=== PATIENT | female | born 1955 | race African-American/Black ===

== ENCOUNTER 2018-08-07 | Emergency (ER) | payer SELFPAY ==
--- OUTSIDE RECORDS SUMMARY | 2018-08-07 00:04 | XMS REPORT | Continuity of Care Document ---
:1955 Author Organization Interface Problems Problem Status Onset Classification Date Comments Source Date Reported FULLNESS IN CLAVICULAR Active [place] AREA 780.4 ACUTE 015 FULLNESS IN Active [facility] CLAVICULAR AREA 780.4 015 ACUTE 784.2 - SWELLING IN Active [facility] 015 [place] VERTIGO Active Condition 02/21/2015 Medical 015 Group TOBACCO ABUSE Active Condition 02/21/2015 Medical 015 Group SWELLING, MASS, OR Active Condition 02/21/2015 Medical LUMP IN HEAD AND NECK 015 Group [id number] Active [facility] 014 COPD Active Condition 02/21/2015 Medical 014 Group OBSTRUCTIVE SLEEP Active Condition 02/21/2015 Medical APNEA 014 Group RECTAL BLEEDING Active Condition 02/21/2015 Medical 014 Group SPECIAL SCREENING FOR Active Condition 02/21/2015 Medical MALIGNANT NEOPLASMS 013 Group COLON SLEEP APNEA Active Condition 02/21/2015 Medical 013 Group KNEE PAIN, BILATERAL Active Condition 02/21/2015 Medical 013 Group BACK PAIN, LUMBAR, Active Condition 02/21/2015 Medical CHRONIC 013 Group SHOULDER PAIN, LEFT Active Condition 02/21/2015 Medical 013 Group HIP PAIN, BILATERAL Active Condition 02/21/2015 Medical 013 Group PREDIABETES Active Condition 02/21/2015 Medical 013 Group CHF, MILD Active Condition 02/21/2015 Medical 013 Group HYPERCHOLESTEROLEMIA Active Condition 02/21/2015 Medical Group HYPERTENSION - BENIGN Active Condition 02/21/2015 Medical ESSENTIAL Group HYPOTHYROIDISM Active Condition 02/21/2015 Medical Group FH DIABETES - DM Active Condition 02/21/2015 Medical Group FH HEART DISEASE Active Condition 02/21/2015 Medical Group FH STROKE Active Condition 02/21/2015 Medical Group FH COLON CANCER Active Condition 02/21/2015 Medical Group Medications Medication Details Route Status Patient Ordering Order Source Instructions Provider Date LOSARTAN 1 tablet Active POTASSIUM-HCTZ daily 015 Medical 100-25 MG TABS Group SYMBICORT 2 puffs Active 160-4.5 MCG/ACT twice daily 015 Medical AERO Group BLOOD PRESSURE Use daily to No Longer MONITOR TERRANCE monitor Active 014 Medical Blood Group Pressure FLONASE 50 2 Active MH MCG/ACT SUSP puffs/nostri 013 Medical l daily Group LEVAQUIN 500 MG 1 PO Daily No Longer MH TABS Active 013 Medical Group DIOVAN HCT One po daily No Longer 160-[address] Waldrop Active 013 Medical BRAND Group NECESSARY CARVEDILOL 12.5 One po twice Active MH MG TABS daily 013 Medical Group CARVEDILOL 12.5 One po twice Active MH MG TABS daily 013 Medical Group BLOOD PRESSURE Use as No Longer MONITOR/L CUFF directed Active 013 Medical MISC Group PROVENTIL HFA 2 puffs q4-6 Active MH AERS 120 MCG/ACT hrs prn 013 Medical Group PROAIR HFA 108 2 puffs Active MH (90 BASE) every 4-6 013 Medical MCG/ACT AERS hours as Group needed for cough, wheezing, shortness of breath ASPIRIN 81 MG One po daily Active MH TABS 013 Medical Group SIMVASTATIN 20 One po daily Active MH MG TABS 013 Medical Group LEVOTHYROXINE One po daily Active SODIUM 100 MCG 013 Medical TABS Group AMLODIPINE One po daily Active BESYLATE 5 MG 013 Medical TABS Group SIMVASTATIN 20 One po daily Active MH MG TABS 013 Medical Group AMLODIPINE One po daily Active BESYLATE 5 MG 013 Medical TABS Group AMLODIPINE 1 tablet Active BESYLATE 10 MG daily 013 Medical TABS Group Allergies, Adverse Reactions, Alerts Substance Category Reaction Severity Reaction Status Date Comments Source type Reported DEMEROL Drug DEMEROL allergy 3 Medical Group IVP DYE / Drug IVP DYE / ORAL allergy ORAL 3 Medical Group Immunizations Immunization Date Given Site Status Last Updated Comments Source Results Order Name Results Value Reference Date Interpretation Comments Source Range Chemistry TSH 0.703 uIU/mL 0.360 - 02/21 3.740 /2014 Medical Group Chemistry SODIUM 143 MEQ/L 135 - 145 02/21 mmol/L Medical Group Chemistry POTASSIUM 3.8 MEQ/L 3.5 - 5.1 02/21 mmol/L Medical Group Chemistry CREATININE 0.9 mg/dL 0.5 - 1.4 02/21 Medical Group Chemistry BUN 8 mg/dL 7 - 22 02/21 Medical Group Chemistry BUN/CREAT 9 6 - 25 02/21 Medical Group Chemistry ALBUMIN 3.7 g/dL 3.5 - 5.0 02/21 Medical Group Chemistry CALCIUM 9.4 mg/dL 8.5 - 10.5 02/21 Medical Group Chemistry SGPT (ALT) 21 U/L 0 - 65 02/21 Medical Group Chemistry SGOT (AST) 15 U/L 0 - 37 02/21 Medical Group Chemistry ALK PHOS 72 U/L 39 - 136 02/21 Medical Group Hematology HGB 15.1 g/dL 12.0 - 02/21 16.0 Medical Group Hematology HCT 46.2 % 36.0 - 02/21 48.0 /2014 Medical Group Hematology PLATELETS 152 K/CMM 133 - 450 02/21 /mm3 Medical Group Urinalysis UA COLOR Light Yellow 02/21 Medical Group Urinalysis BACTERIA URN Occasional 02/21 Medical Group Chemistry HGBA1C 6.2 % - 5.6 11/22 Medical Group Chemistry SODIUM 143 MEQ/L 135 - 145 11/22 mmol/L Medical Group Chemistry POTASSIUM 4.2 MEQ/L 3.5 - 5.1 11/22 mmol/L Medical Group Chemistry CREATININE 0.9 mg/dL 0.5 - 1.4 11/22 Medical Group Chemistry BUN 9 mg/dL 7 - 22 11/22 Medical Group Chemistry HGBA1C 6.2 % - 5.6 11/22 Medical Group Chemistry SODIUM 143 MEQ/L 135 - 145 11/22 mmol/L /2014 Medical Group Chemistry POTASSIUM 4.2 MEQ/L 3.5 - 5.1 11/22 mmol/L Medical Group Chemistry CREATININE 0.9 mg/dL 0.5 - 1.4 11/22 Medical Group Chemistry BUN 9 mg/dL 7 - 22 11/22 Medical Group Chemistry BUN/CREAT 10 6 - 25 11/22 Medical Group Chemistry ALBUMIN 3.6 g/dL 3.5 - 5.0 11/22 Medical Group Chemistry CALCIUM 9.3 mg/dL 8.5 - 10.5 11/22 Medical Group Chemistry SGPT (ALT) 16 U/L 0 - 65 11/22 Medical Group Chemistry SGOT (AST) 13 U/L 0 - 37 11/22 Medical Group Chemistry ALK PHOS 66 U/L 39 - 136 11/22 Medical Group Chemistry T4, FREE 0.88 ng/dl 0.76 - 11/22 1.46 /2014 Medical Group Chemistry TSH 2.870 uIU/mL 0.360 - 11/22 3.740 /2014 Medical Group Hematology HGB 15.0 g/dL 12.0 - 11/22 16.0 /2014 Medical Group Hematology HCT 45.5 % 36.0 - 11/22 48.0 /2014 Medical Group Hematology PLATELETS 145 K/CMM 133 - 450 11/22 / Medical Group Chemistry HGBA1C 6.1 % - 5.6 06/22 Medical Group Chemistry CHOLESTEROL 185 mg/dl - 199 06/22 Medical Group Chemistry TRIGLYCERIDE 87 mg/dl - 149 06/22 Medical Group Chemistry HGBA1C 6.1 % - 5.6 06/22 Medical Group Chemistry CHOLESTEROL 185 mg/dl - 199 06/22 Medical Group Chemistry TRIGLYCERIDE 87 mg/dl - 149 06/22 Medical Group Chemistry HDL 65 mg/dl >=61 06/22 Medical Group Chemistry LDL 103 mg/dl - 99 06/22 Medical Group Chemistry HGBA1C 6.1 % - 5.6 06/22 Medical Group Chemistry CHOLESTEROL 185 mg/dl - 199 06/22 Medical Group Chemistry TRIGLYCERIDE 87 mg/dl - 149 06/22 Medical Group Chemistry HDL 65 mg/dl >=61 06/22 Medical Group Chemistry LDL 103 mg/dl - 99 06/22 Medical Group Chemistry SODIUM 139 MEQ/L 135 - 145 06/22 mmol/L Medical Group Chemistry POTASSIUM 4.2 MEQ/L 3.5 - 5.1 06/22 mmol/L Medical Group Chemistry CREATININE 0.8 mg/dL 0.5 - 1.4 06/22 Medical Group Chemistry BUN 15 mg/dL 7 - 22 06/22 Medical Group Chemistry BUN/CREAT 19 6 - 25 06/22 Medical Group Chemistry ALBUMIN 4.0 g/dL 3.5 - 5.0 06/22 Medical Group Chemistry CALCIUM 9.8 mg/dL 8.5 - 10.5 06/22 Medical Group Chemistry SGPT (ALT) 18 U/L 0 - 65 06/22 Medical Group Chemistry SGOT (AST) 13 U/L 0 - 37 06/22 Medical Group Chemistry ALK PHOS 63 U/L 39 - 136 06/22 Medical Group Chemistry TSH 1.900 uIU/mL 0.360 - 06/22 3.740 /2013 Medical Group Hematology HGB 14.6 g/dL 12.0 - 06/22 16. Medical Group Hematology HCT 44.9 % 36.0 - 06/22 48.0 Medical Group Hematology PLATELETS 168 K/CMM 133 - 450 06/22 MH /mm3 Medical Group Hematology HGB 14.4 g/dL 12.0 - 11/01 16. Medical Group Hematology HCT 45.5 % 36.0 - 11/01 48.0 Medical Group Hematology PLATELETS 165 K/CMM 133 - 450 11/01 MH /mm3 Medical Group Chemistry HGBA1C 6.0 % - 5.6 10/12 Medical Group Chemistry CHOLESTEROL 206 mg/dl - 199 10/12 Medical Group Chemistry TRIGLYCERIDE 103 mg/dl - 149 10/12 Medical Group Chemistry HGBA1C 6.0 % - 5.6 10/12 Medical Group Chemistry CHOLESTEROL 206 mg/dl - 199 10/12 Medical Group Chemistry TRIGLYCERIDE 103 mg/dl - 149 10/12 Medical Group Chemistry HDL 54 mg/dl >=61 10/12 Medical Group Chemistry LDL 131 mg/dl - 99 10/12 Medical Group Chemistry HGBA1C 6.0 % - 5.6 10/12 Medical Group Chemistry CHOLESTEROL 206 mg/dl - 199 10/12 Medical Group Chemistry TRIGLYCERIDE 103 mg/dl - 149 10/12 Medical Group Chemistry HDL 54 mg/dl >=61 10/12 Medical Group Chemistry LDL 131 mg/dl - 99 10/12 Medical Group Chemistry SODIUM 143 MEQ/L 135 - 145 10/12 mmol/L Medical Group Chemistry POTASSIUM 4.3 MEQ/L 3.5 - 5.1 10/12 mmol/L Medical Group Chemistry CREATININE 0.7 mg/dL 0.5 - 1.4 10/12 Medical Group Chemistry BUN 10 mg/dL 7 - 10/12 Medical Group Chemistry BUN/CREAT 14 6 - 25 10/12 Medical Group Chemistry ALBUMIN 4.0 g/dL 3.5 - 5.0 10/12 Medical Group Chemistry CALCIUM 10.1 mg/dL 8.5 - 10.5 10/12 Medical Group Chemistry SGPT (ALT) 18 U/L 0 - 65 10/12 Medical Group Chemistry SGOT (AST) 11 U/L 0 - 37 10/12 Medical Group Chemistry ALK PHOS 73 U/L 39 - 136 10/12 Medical Group Hematology HGB 14.8 g/dL 12.0 - 10/12 16.0 Medical Group Hematology HCT 46.0 % 36.0 - 10/12 48.0 Medical Group Hematology PLATELETS 172 K/CMM 133 - 450 10/12 Medical Group Chemistry HGBA1C 6.2 % - 5.6 07/07 Medical Group Chemistry CHOLESTEROL 195 mg/dl - 199 07/07 Medical Group Chemistry TRIGLYCERIDE 108 mg/dl - 149 07/07 Medical Group Chemistry HGBA1C 6.2 % - 5.6 07/07 Medical Group Chemistry CHOLESTEROL 195 mg/dl - 199 07/07 Medical Group Chemistry TRIGLYCERIDE 108 mg/dl - 149 07/07 Medical Group Chemistry HDL 51 mg/dl >=61 07/07 Medical Group Chemistry LDL 122 mg/dl - 99 07/07 Medical Group Chemistry HGBA1C 6.2 % - 5.6 07/07 Medical Group Chemistry CHOLESTEROL 195 mg/dl - 199 07/07 Medical Group Chemistry TRIGLYCERIDE 108 mg/dl - 149 07/07 Medical Group Chemistry HDL 51 mg/dl >=61 07/07 Medical Group Chemistry LDL 122 mg/dl - 99 07/07 Medical Group Chemistry SODIUM 142 MEQ/L 135 - 145 07/07 mmol/L /2012 Medical Group Chemistry POTASSIUM 4.4 MEQ/L 3.5 - 5.1 07/07 mmol/L Medical Group Chemistry CREATININE 0.8 mg/dL 0.5 - 1.4 07/07 Medical Group Chemistry BUN 10 mg/dL 7 - 22 07/07 Medical Group Chemistry BUN/CREAT 12 6 - 25 07/07 Medical Group Chemistry ALBUMIN 3.7 g/dL 3.5 - 5.0 07/07 Medical Group Chemistry CALCIUM 9.7 mg/dL 8.5 - 10.5 07/07 Medical Group Chemistry SGPT (ALT) 14 U/L 0 - 65 07/07 Medical Group Chemistry SGOT (AST) 10 U/L 0 - 37 07/07 Medical Group Chemistry ALK PHOS 75 U/L 39 - 136 07/07 Medical Group Chemistry T4, FREE 1.09 ng/dl 0.76 - 07/07 1.46 /2012 Medical Group Chemistry TSH 1.880 uIU/mL 0.360 - 07/07 3.740 /2012 Medical Group Hematology HGB 15.5 g/dL 12.0 - 07/07 16.0 Medical Group Hematology HCT 46.5 % 36.0 - 07/07 48.0 Medical Group Hematology PLATELETS 166 K/CMM 133 - 450 07/07 / Medical Group Vital Signs Vital Sign Value Date Comments Source Height 64 02/21/2015 Medical Group Weight 278.38 02/21/2015 Medical Group Temperature Oral (F) 95.7 F 02/21/2015 [facility] Heart Rate 85 02/21/2015 [facility] Systolic (mm Hg) 142 02/21/2015 [facility] Diastolic (mm Hg) 85 02/21/2015 Medical Group Height 64 11/22/2014 Medical Group Weight 288 11/22/2014 [facility] Temperature Oral (F) 97.4 F 11/22/2014 [facility] Heart Rate 85 11/22/2014 [facility] Systolic (mm Hg) 129 11/22/2014 [facility] Diastolic (mm Hg) 69 11/22/2014 Medical Group Height 64 06/22/2014 [facility] Weight 281 06/22/2014 [facility] Temperature Oral (F) 96.7 F 06/22/2014 Medical Group Heart Rate 79 06/22/2014 [facility] Systolic (mm Hg) 109 06/22/2014 [facility] Diastolic (mm Hg) 60 06/22/2014 Medical Group Weight 274.0 11/01/2013 [facility] Temperature Oral (F) 98.0 F 11/01/2013 [facility] Systolic (mm Hg) 142 11/01/2013 [facility] Diastolic (mm Hg) 82 11/01/2013 Medical Group Heart Rate 48 11/01/2013 Medical Group Weight 276.0 10/12/2013 Medical Group Temperature Oral (F) 97.4 F 10/12/2013 Medical Group Systolic (mm Hg) 140 10/12/2013 Medical Group Diastolic (mm Hg) 86 10/12/2013 Medical Group Heart Rate 84 10/12/2013 Medical Group Weight 282.0 07/07/2013 Medical Group Temperature Oral (F) 98.4 F 07/07/2013 Medical Group Systolic (mm Hg) 115 07/07/2013 Medical Group Diastolic (mm Hg) 66 07/07/2013 Medical Group Heart Rate 84 07/07/2013 Medical Group Height 64 03/18/2013 Medical Group Weight 289.4 03/18/2013 Medical Group Temperature Oral (F) 97.3 F 03/18/2013 Medical Group Systolic (mm Hg) 110 03/18/2013 Medical Group Diastolic (mm Hg) 59 03/18/2013 Medical Group Heart Rate 93 03/18/2013 Medical Group Encounters Location Location Encounter Encounter Reason Attending ADM DC Status Source Details Type Number For Provider Date Date Visit [facility] Office [id number] [facility] 06[facility]22 [facility] Eugene [facility] Medical Group [facility] Lab Report [id number] Moiz 06/22 06/22 [place] 7000 MD Eugene /2013 Medical Medical [facility] Lab Report [id number] Moiz 06/29 06/29 [place] 6470 MD Eugene /2013 Medical Medical [facility] Office [id number] Moiz 11/22 11/22 [place] Visit 8330 MD Eugene /2014 Medical Medical [facility] Lab Report [id number] Moiz 11/22 11/22 [place] 3280 MD Eugene /2014 Medical Medical [facility] Lab Report [id number] Moiz 02/21 02/21 [place] 8210 MD Eugene /2014 Medical Medical [facility] Office [id number] Moiz 02/21 02/21 [place] Visit 7990 MD Eugene /2014 Medical Medical [facility] Outpatient [id number] CATHY 07/21 [facility] /2014 [place] Outpatient [id number] MOIZ 07/21 [facility] /2014 [place] Outpatient [id number] CATHY 02/21 [facility] /2015 [place] Outpatient [id number] CATHY 03/08 [facility] /2015 [place] Procedures Procedure Code Date Perfomer Comments Source smoking/tobacco 14 02/21/2015 yes Medical cessation, patient Group education and counseling smoking/tobacco 14 11/22/2014 yes Medical cessation, patient Group education and counseling smoking/tobacco 14 06/22/2014 yes Medical cessation, patient Group education and counseling smoking/tobacco 14 11/01/2013 DONE Medical cessation, patient Group education and counseling smoking/tobacco 14 10/12/2013 DONE Medical cessation, patient Group education and counseling smoking/tobacco 14 07/07/2013 yes Medical cessation, patient Group education and counseling smoking/tobacco 14 03/18/2013 DONE Medical cessation, patient Group education and counseling echocardiogram, [id number] 01/14/2013 Complete Medical complete Group
--- OUTSIDE RECORDS SUMMARY | 2018-08-07 00:05 | XMS REPORT | Continuity of Care Document ---
:1955 Author Organization [facility] Care Team Providers Name Role Phone MD Eugene, Verenice Unavailable Unavailable Insurance Providers Payer name Policy type / Policy ID Covered constitution party ID Policy [employer] Coverage type [facility] (MEDIC Encounters Encounter Performer Location Date Lab Report Verenice Knight MD [facility] Jun 22, 2014 Allergies, Adverse Reactions, Alerts Type Substance Reaction Status Drug allergy DEMEROL Mental state Active Drug allergy IVP DYE / ORAL Vomiting, rash Active Problems Problem Effective Dates Problem Status HYPERCHOLESTEROLEMIA Active HYPERTENSION - BENIGN ESSENTIAL Active HYPOTHYROIDISM Active FH DIABETES - DM Active FH HEART DISEASE Active FH STROKE Active FH COLON CANCER Active PREDIABETES March 18, 2013 Active CHF, MILD March 18, 2013 Active SLEEP APNEA Jul 07, 2013 Active KNEE PAIN, BILATERAL Jul 07, 2013 Active BACK PAIN, LUMBAR, CHRONIC Jul 07, 2013 Active SHOULDER PAIN, LEFT Jul 07, 2013 Active HIP PAIN, BILATERAL Jul 07, 2013 Active SPECIAL SCREENING FOR MALIGNANT NEOPLASMS COLON Oct 12, 2013 Active RECTAL BLEEDING Nov 01, 2013 Active COPD (CHRONIC OBSTRUCTIVE PULMONARY DISEASE) Jun 22, 2014 Active OBSTRUCTIVE SLEEP APNEA Jun 22, 2014 Active Procedures Date Description Comments March 18, 2013 smoking status current every day smoker March 18, 2013 smoking/tobacco cessation, patient education DONE and counseling Jul 07, 2013 smoking/tobacco cessation, patient education yes and counseling Oct 12, 2013 smoking/tobacco cessation, patient education DONE and counseling Nov 01, 2013 smoking/tobacco cessation, patient education DONE and counseling Jan 14, 2013 echocardiogram, complete Complete Jun 22, 2014 smoking status Current every day smoker Jun 22, 2014 smoking/tobacco cessation, patient education yes and counseling Medications Medication Instructions Start Date Status ASPIRIN 81 MG TABS One po daily March 18, 2013 Active SIMVASTATIN 20 MG TABS One po daily March 18, 2013 Active PROVENTIL HFA AERS 120 MCG/ACT 2 puffs q4-6 hrs prn Jun 07, 2013 Active BLOOD PRESSURE MONITOR/L CUFF Use as directed Jul 07, 2013 Inactive MISC FLONASE 50 MCG/ACT SUSP 2 puffs/nostril daily Oct 12, 2013 Active LEVAQUIN 500 MG TABS 1 PO Daily Oct 12, 2013 Inactive DIOVAN HCT 160-25 MG TABS One po daily per Dr Benjie CALABRESE Oct 12, 2013 Active NECESSARY CARVEDILOL 12.5 MG TABS One po twice daily Oct 12, 2013 Active LEVOTHYROXINE SODIUM 100 MCG One po daily March 18, 2013 Active TABS AMLODIPINE BESYLATE 5 MG TABS One po daily March 18, 2013 Active BLOOD PRESSURE MONITOR TERRANCE Use daily to monitor Blood Nov 01, 2013 Inactive Pressure Vital Signs Date Description Test Result March 18, 2013 height E&M HEIGHT 64 in March 18, 2013 weight E&M WEIGHT 289.4 lb March 18, 2013 temperature E&M TEMPERATURE 97.3 deg f March 18, 2013 blood pressure, systolic BP SYSTOLIC 110 mm Hg March 18, 2013 blood pressure, diastolic BP DIASTOLIC 59 mm Hg March 18, 2013 pulse rate E&M PULSE RATE 93 /min Jul 07, 2013 weight E&M WEIGHT 282.0 lb Jul 07, 2013 temperature E&M TEMPERATURE 98.4 deg f Jul 07, 2013 blood pressure, systolic BP SYSTOLIC 115 mm Hg Jul 07, 2013 blood pressure, diastolic BP DIASTOLIC 66 mm Hg Jul 07, 2013 pulse rate E&M PULSE RATE 84 /min Oct 12, 2013 weight E&M WEIGHT 276.0 lb Oct 12, 2013 temperature E&M TEMPERATURE 97.4 deg f Oct 12, 2013 blood pressure, systolic BP SYSTOLIC 140 mm Hg Oct 12, 2013 blood pressure, diastolic BP DIASTOLIC 86 mm Hg Oct 12, 2013 pulse rate E&M PULSE RATE 84 /min Nov 01, 2013 weight E&M WEIGHT 274.0 lb Nov 01, 2013 temperature E&M TEMPERATURE 98.0 deg f Nov 01, 2013 blood pressure, systolic BP SYSTOLIC 142 mm Hg Nov 01, 2013 blood pressure, diastolic BP DIASTOLIC 82 mm Hg Nov 01, 2013 pulse rate E&M PULSE RATE 48 /min Jun 22, 2014 height E&M HEIGHT 64 in Jun 22, 2014 weight E&M WEIGHT 281 lb Jun 22, 2014 temperature E&M TEMPERATURE 96.7 deg f Jun 22, 2014 pulse rate E&M PULSE RATE 79 /min Jun 22, 2014 blood pressure, systolic BP SYSTOLIC 109 mm Hg Jun 22, 2014 blood pressure, diastolic BP DIASTOLIC 60 mm Hg Results Date Description Test Name Value Reference Interpretation Status Jul 07, hemoglobin, blood HGB 15.5 g/dL 12.0-16.0 2012Jul 07, hematocrit, blood HCT 46.5 % 36.0-48.0 2012Jul 07, platelet count PLATELETS 166 K/CMM 166-685 2090 /mm3 Oct 12, hemoglobin, blood HGB 14.8 g/dL 12.0-16.0 2012Oct 12, hematocrit, blood HCT 46.0 % 36.0-48.0 2012Oct 12, platelet count PLATELETS 172 K/CMM [phone] /mm3 Nov 01, hemoglobin, blood HGB 14.4 g/dL 12.0-16.0 2013Nov 01, hematocrit, blood HCT 45.5 % 36.0-48.0 2013Nov 01, platelet count PLATELETS 165 K/CMM 153-394 1628 /mm3 Jun 22, hemoglobin, blood HGB 14.6 g/dL 12.0-16.0 2013Jun 22, hematocrit, blood HCT 44.9 % 36.0-48.0 2013Jun 22, platelet count PLATELETS 168 K/CMM [phone] /mm3 Jul 07, hemoglobin A1C, HGBA1C 6.2 % <=5.6 High 2012 blood, as % of total hemoglobin Jul 07, cholesterol, serum CHOLESTEROL 195 mg/dl <=199 2012Jul 07, triglyceride, serum, TRIGLYCERIDE 108 mg/dl <=149 2012 fasting Jul 07, HDL cholesterol, HDL 51 mg/dl >=61 Low 2012Jul 07, LDL cholesterol, LDL 122 mg/dl <=99 High 2012Jul 07, sodium, serum SODIUM 142 MEQ/L [phone] mmol/L Jul 07, potassium, serum POTASSIUM 4.4 MEQ/L 3.5-5.1 2012 mmol/L Jul 07, creatinine, serum CREATININE 0.8 mg/dL 0.5-1.4 2012Jul 07, urea nitrogen, blood BUN 10 mg/dL 7-22 2012Jul 07, urea BUN/CREAT 12 null 6-25 2012 nitrogen/creatinine ratio, serum Jul 07, albumin, serum ALBUMIN 3.7 g/dL 3.5-5.0 2012Jul 07, calcium, serum CALCIUM 9.7 mg/dL 8.5-10.5 2012Jul 07, alanine SGPT (ALT) 14 U/L 0-65 2012 aminotransferase (SGPT), serum Jul 07, aspartate SGOT (AST) 10 U/L 0-37 2012 aminotransferase (SGOT), serum Jul 07, alkaline ALK PHOS 75 U/L 39-136 2012 phosphatase, serum Jul 07, thyroxine, serum, T4, FREE 1.09 0.76-1.46 2012 free ng/dl Jul 07, thyroid stimulating TSH 1.880 0.360-3.740 2012 hormone, serum uIU/mL Oct 12, hemoglobin A1C, HGBA1C 6.0 % <=5.6 High 2012 blood, as % of total hemoglobin Oct 12, cholesterol, serum CHOLESTEROL 206 mg/dl <=199 High 2012Oct 12, triglyceride, serum, TRIGLYCERIDE 103 mg/dl <=149 2012 fasting Oct 12, HDL cholesterol, HDL 54 mg/dl >=61 Low 2012 serum Oct 12, LDL cholesterol, LDL 131 mg/dl <=99 High 2012 serum Oct 12, sodium, serum SODIUM 143 MEQ/L [phone] mmol/L Oct 12, potassium, serum POTASSIUM 4.3 MEQ/L 3.5-5.1 2012 mmol/L Oct 12, creatinine, serum CREATININE 0.7 mg/dL 0.5-1.4 2012Oct 12, urea nitrogen, blood BUN 10 mg/dL 72012Oct 12, urea BUN/CREAT 14 null 6-25 2012 nitrogen/creatinine ratio, serum Oct 12, albumin, serum ALBUMIN 4.0 g/dL 3.5-5.0 2012Oct 12, calcium, serum CALCIUM 10.1 8.5-10.5 2012 mg/dL Oct 12, alanine SGPT (ALT) 18 U/L 0-65 2012 aminotransferase (SGPT), serum Oct 12, aspartate SGOT (AST) 11 U/L 0-37 2012 aminotransferase (SGOT), serum Oct 12, alkaline ALK PHOS 73 U/L 39-136 2012 phosphatase, serum Jun 22, hemoglobin A1C, HGBA1C 6.1 % <=5.6 High 2014 blood, as % of total hemoglobin Jun 22, cholesterol, serum CHOLESTEROL 185 mg/dl <=199 2013Jun 22, triglyceride, serum, TRIGLYCERIDE 87 mg/dl <=149 2013 fasting Jun 22, HDL cholesterol, HDL 65 mg/dl >=61 2013 serum Jun 22, LDL cholesterol, LDL 103 mg/dl <=99 High 2013 serum Jun 22, sodium, serum SODIUM 139 MEQ/L [phone] mmol/L Jun 22, potassium, serum POTASSIUM 4.2 MEQ/L 3.5-5.1 2013 mmol/L Jun 22, creatinine, serum CREATININE 0.8 mg/dL 0.5-1.4 2013Jun 22, urea nitrogen, blood BUN 15 mg/dL 7-22 2013Jun 22, urea BUN/CREAT 19 null 6-25 2013 nitrogen/creatinine ratio, serum Jun 22, albumin, serum ALBUMIN 4.0 g/dL 3.5-5.0 2013Jun 22, calcium, serum CALCIUM 9.8 mg/dL 8.5-10.5 2013Jun 22, alanine SGPT (ALT) 18 U/L 0-65 2013 aminotransferase (SGPT), serum Jun 22, aspartate SGOT (AST) 13 U/L 0-37 2013 aminotransferase (SGOT), serum Jun 22, alkaline ALK PHOS 63 U/L 39-136 2013 phosphatase, serum Jun 22, thyroid stimulating TSH 1.900 0.360-3.740 2013 hormone, serum uIU/mL
--- OUTSIDE RECORDS SUMMARY | 2018-08-07 00:05 | XMS REPORT | Continuity of Care Document ---
:1955 Author Organization [facility] Care Team Providers Name Role Phone MD Eugene, Verenice Unavailable Unavailable Insurance Providers Payer name Policy type / Policy ID Covered democrat ID Policy Landeros Coverage type [facility] STAR PLUS (MEDIC Encounters Encounter Performer Location Date Office Visit Verenice Knight MD [facility] Jun 22, 2014 Allergies, Adverse Reactions, Alerts [...] 2012Jul 07, platelet count PLATELETS 166 K/CMM [phone] /mm3 Oct 12, hemoglobin, blood HGB 14.8 g/dL 12.0-16.0 2012Oct 12, hematocrit, blood HCT 46.0 % 36.0-48.0 2012Oct 12, platelet count PLATELETS 172 K/CMM 067-948 5693 /mm3 Nov 01, hemoglobin, blood HGB 14.4 g/dL 12.0-16.0 2013Nov 01, hematocrit, blood HCT 45.5 % 36.0-48.0 2013Nov 01, platelet count PLATELETS 165 K/CMM 102-739 5980 /mm3 Jun 22, hemoglobin, blood HGB 14.6 g/dL 12.0-16.0 2013Jun 22, hematocrit, blood HCT 44.9 % 36.0-48.0 2013Jun 22, platelet count PLATELETS 168 K/CMM 697-037 4801 /mm3 Jul 07, hemoglobin A1C, HGBA1C 6.2 % <=5.6 High 2012 blood, as % of total hemoglobin Jul 07, cholesterol, serum CHOLESTEROL 195 mg/dl <=199 2012Jul 07, triglyceride, serum, TRIGLYCERIDE 108 mg/dl <=149 2012 fasting Jul 07, HDL cholesterol, HDL 51 mg/dl >=61 Low 2012Jul 07, LDL cholesterol, LDL 122 mg/dl <=99 High 2012Jul 07, sodium, serum SODIUM 142 MEQ/L [phone] mmol/L Jul 07, potassium, serum POTASSIUM 4.4 [...] Oct 12, sodium, serum SODIUM 143 MEQ/L 096-945 5093 mmol/L Oct 12, potassium, serum POTASSIUM 4.3 [...] Jun 22, sodium, serum SODIUM 139 MEQ/L 214-010 9316 mmol/L Jun 22, potassium, serum POTASSIUM 4.2 [...]
--- OUTSIDE RECORDS SUMMARY | 2018-08-07 00:05 | XMS REPORT | Continuity of Care Document ---
:1955 Author Organization [facility] Care Team Providers Name Role Phone MD Eugene, Verenice Unavailable Unavailable Insurance Providers Payer name Policy type / Policy ID Covered green party ID Policy Landeros Coverage type [facility] STAR PLUS (MEDIC Encounters Encounter Performer Location Date Lab Report Verenice Knight MD [facility] [place] Jun 29, 2014 Allergies, Adverse Reactions, Alerts Type Substance [...] Test Result March 18, 2013 height E&M - 8302-2 HEIGHT 64 in March 18, 2013 weight E&M - 3141-9 WEIGHT 289.4 lb March 18, 2013 temperature E&M TEMPERATURE 97.3 deg f March 18, 2013 blood pressure, systolic - 8480-6 BP SYSTOLIC 110 mm Hg March 18, 2013 blood pressure, diastolic - 8462-4 BP DIASTOLIC 59 mm Hg March 18, 2013 pulse rate E&M - 8867-4 PULSE RATE 93 /min Jul 07, 2013 weight E&M - 3141-9 WEIGHT 282.0 lb Jul 07, 2013 temperature E&M TEMPERATURE 98.4 deg f Jul 07, 2013 blood pressure, systolic - 8480-6 BP SYSTOLIC 115 mm Hg Jul 07, 2013 blood pressure, diastolic - 8462-4 BP DIASTOLIC 66 mm Hg Jul 07, 2013 pulse rate E&M - 8867-4 PULSE RATE 84 /min Oct 12, 2013 weight E&M - 3141-9 WEIGHT 276.0 lb Oct 12, 2013 temperature E&M TEMPERATURE 97.4 deg f Oct 12, 2013 blood pressure, systolic - 8480-6 BP SYSTOLIC 140 mm Hg Oct 12, 2013 blood pressure, diastolic - 8462-4 BP DIASTOLIC 86 mm Hg Oct 12, 2013 pulse rate E&M - 8867-4 PULSE RATE 84 /min Nov 01, 2013 weight E&M - 3141-9 WEIGHT 274.0 lb Nov 01, 2013 temperature E&M TEMPERATURE 98.0 deg f Nov 01, 2013 blood pressure, systolic - 8480-6 BP SYSTOLIC 142 mm Hg Nov 01, 2013 blood pressure, diastolic - 8462-4 BP DIASTOLIC 82 mm Hg Nov 01, 2013 pulse rate E&M - 8867-4 PULSE RATE 48 /min Jun 22, 2014 height E&M - 8302-2 HEIGHT 64 in Jun 22, 2014 weight E&M - 3141-9 WEIGHT 281 lb Jun 22, 2014 temperature E&M TEMPERATURE 96.7 deg f Jun 22, 2014 pulse rate E&M - 8867-4 PULSE RATE 79 /min Jun 22, 2014 blood pressure, systolic - 8480-6 BP SYSTOLIC 109 mm Hg Jun 22, 2014 blood pressure, diastolic - 8462-4 BP DIASTOLIC 60 mm Hg Results Date Description Test Name Value Reference Interpretation Status Jul 07, hemoglobin, blood HGB 15.5 g/dL 12.0-16.0 2012Jul 07, hematocrit, blood HCT 46.5 % 36.0-48.0 2012Jul 07, platelet count PLATELETS 166 K/CMM 432-027 1825 /mm3 Oct 12, hemoglobin, blood HGB 14.8 g/dL 12.0-16.0 2012Oct 12, hematocrit, blood HCT 46.0 % 36.0-48.0 2012Oct 12, platelet count PLATELETS 172 K/CMM 966-675 4234 /mm3 Nov 01, hemoglobin, blood HGB 14.4 g/dL 12.0-16.0 2013Nov 01, hematocrit, blood HCT 45.5 % 36.0-48.0 2013Nov 01, platelet count PLATELETS 165 K/CMM 143-115 7013 /mm3 Jun 22, hemoglobin, blood HGB 14.6 g/dL 12.0-16.0 2013Jun 22, hematocrit, blood HCT 44.9 % 36.0-48.0 2013Jun 22, platelet count PLATELETS 168 K/CMM 724-859 0947 /mm3 Jul 07, hemoglobin A1C, HGBA1C 6.2 % <=5.6 High 2012 blood, as % of total hemoglobin Jul 07, cholesterol, serum CHOLESTEROL 195 mg/dl <=199 2012Jul 07, triglyceride, serum, TRIGLYCERIDE 108 mg/dl <=149 2012 fasting Jul 07, HDL cholesterol, HDL 51 mg/dl >=61 Low 2012 serum Jul 07, LDL cholesterol, LDL 122 mg/dl <=99 High 2012 serum Jul 07, sodium, serum SODIUM 142 MEQ/L 620-079 3274 mmol/L Jul 07, potassium, serum POTASSIUM 4.4 [...] Oct 12, sodium, serum SODIUM 143 MEQ/L 246-393 1813 mmol/L Oct 12, potassium, serum POTASSIUM 4.3 MEQ/L 3.5-5.1 2012 mmol/L Oct 12, creatinine, serum CREATININE 0.7 mg/dL 0.5-1.4 2012Oct 12, urea nitrogen, blood BUN 10 mg/dL 05-10Oct 12, urea BUN/CREAT 14 null 6-25 2012 [...] Jun 22, sodium, serum SODIUM 139 MEQ/L 076-785 0567 mmol/L Jun 22, potassium, serum POTASSIUM 4.2 [...] Jun 22, thyroid stimulating TSH 1.900 0.360-3.740 2014 hormone, serum uIU/mL
--- OUTSIDE RECORDS SUMMARY | 2018-08-07 00:05 | XMS REPORT | Continuity of Care Document ---
:1955 Author Organization [facility] Care Team Providers Name Role Phone MD Eugene, Verenice Unavailable Unavailable Insurance Providers Payer name Policy type / Policy ID Covered constitution party ID Policy Landeros Coverage type [facility] C[facility] - STAR PLUS (MEDIC [facility] (MEDIC Encounters Encounter Performer Location Date Office Visit Verenice Knight MD [facility] Nov 22, 2014 Allergies, Adverse Reactions, Alerts Type [...] OBSTRUCTIVE SLEEP APNEA Jun 22, 2014 Active TOBACCO ABUSE Nov 22, 2014 Active SWELLING, MASS, OR LUMP IN HEAD AND NECK Nov 22, 2014 Active Procedures Date Description Comments [...] smoking/tobacco cessation, patient education yes and counseling Nov 22, 2014 smoking status Current every day smoker Nov 22, 2014 smoking/tobacco cessation, patient education yes and counseling Medications Medication Instructions Start Date Status ASPIRIN 81 MG TABS One po daily March 18, 2013 Active SIMVASTATIN 20 MG TABS One po daily March 18, 2013 Active BLOOD PRESSURE MONITOR/L CUFF Use [...] monitor Blood Nov 01, 2013 Inactive Pressure PROAIR HFA 108 (90 BASE) MCG/ACT 2 puffs every 4-6 hours as Jun 07, 2013 Active AERS needed for cough, wheezing, shortness of breath SYMBICORT 160-4.5 MCG/ACT AERO 2 puffs twice daily Nov 22, 2014 Active Vital Signs Date Description Test Result March 18, 2013 height E&M - 8302-2 HEIGHT 64 in March 18, 2013 weight [employer] - 3141-9 WEIGHT 289.4 lb March 18, 2013 temperature E&M TEMPERATURE 97.3 deg f March 18, 2013 blood pressure, systolic - 8480-6 BP SYSTOLIC 110 mm Hg March 18, 2013 blood pressure, diastolic - 8462-4 BP DIASTOLIC 59 mm Hg March 18, 2013 pulse rate E&M - 8867-4 PULSE RATE 93 /min Jul 07, 2013 weight [employer] - 3141-9 WEIGHT 282.0 lb Jul 07, 2013 temperature E&M TEMPERATURE 98.4 deg f Jul 07, 2013 blood pressure, systolic - 8480-6 BP SYSTOLIC 115 mm Hg Jul 07, 2013 blood pressure, diastolic - 8462-4 BP DIASTOLIC 66 mm Hg Jul 07, 2013 pulse rate E&M - 8867-4 PULSE RATE 84 /min Oct 12, 2013 weight [employer] - 3141-9 WEIGHT 276.0 lb Oct 12, [...] - 8462-4 BP DIASTOLIC 60 mm Hg Nov 22, 2014 height E&M - 8302-2 HEIGHT 64 in Nov 22, 2014 weight E&M - 3141-9 WEIGHT 288 lb Nov 22, 2014 temperature E&M TEMPERATURE 97.4 deg f Nov 22, 2014 pulse rate E&M - 8867-4 PULSE RATE 85 /min Nov 22, 2014 blood pressure, systolic - 8480-6 BP SYSTOLIC 129 mm Hg Nov 22, 2014 blood pressure, diastolic - 8462-4 BP DIASTOLIC 69 mm Hg Results Date Description Test Name Value Reference Interpretation Status Jul 07, hemoglobin, blood HGB 15.5 g/dL 12.0-16.0 2012Jul 07, hematocrit, blood HCT 46.5 % 36.0-48.0 2012Jul 07, platelet count PLATELETS 166 K/CMM 862-180 7104 /mm3 Oct 12, hemoglobin, blood HGB 14.8 g/dL 12.0-16.0 2012Oct 12, hematocrit, blood HCT 46.0 % 36.0-48.0 2012Oct 12, platelet count PLATELETS 172 K/CMM 405-571 4534 /mm3 Nov 01, hemoglobin, blood HGB 14.4 g/dL 12.0-16.0 2013Nov 01, hematocrit, blood HCT 45.5 % 36.0-48.0 2013Nov 01, platelet count PLATELETS 165 K/CMM 338-771 6898 /mm3 Jun 22, hemoglobin, blood HGB 14.6 g/dL 12.0-16.0 2013Jun 22, hematocrit, blood HCT 44.9 % 36.0-48.0 2013Jun 22, platelet count PLATELETS 168 K/CMM 131-839 0260 /mm3 Nov 22, hemoglobin, blood HGB 15.0 g/dL 12.0-16.0 2014Nov 22, hematocrit, blood HCT 45.5 % 36.0-48.0 2014Nov 22, platelet count PLATELETS 145 K/CMM 770-996 4864 /mm3 Jul 07, hemoglobin A1C, HGBA1C 6.2 % <=5.6 High 2012 blood, as % of total hemoglobin Jul 07, cholesterol, serum CHOLESTEROL 195 mg/dl <=199 2012Jul 07, triglyceride, serum, TRIGLYCERIDE 108 mg/dl <=149 2012Jul 07, HDL cholesterol, HDL 51 mg/dl >=61 Low 2012Jul 07, LDL cholesterol, LDL 122 mg/dl <=99 High 2012Jul 07, sodium, serum SODIUM 142 MEQ/L 023-168 5720 mmol/L Jul 07, potassium, serum POTASSIUM 4.4 [...] Oct 12, sodium, serum SODIUM 143 MEQ/L 204-543 6325 mmol/L Oct 12, potassium, serum POTASSIUM 4.3 [...] hemoglobin A1C, HGBA1C 6.1 % <=5.6 High 2013 blood, as % of total hemoglobin Jun 22, cholesterol, serum CHOLESTEROL 185 mg/dl <=199 2013Jun 22, triglyceride, serum, TRIGLYCERIDE 87 mg/dl <=149 2013 fasting Jun 22, HDL cholesterol, HDL 65 mg/dl >=61 2013 serum Jun 22, LDL cholesterol, LDL 103 mg/dl <=99 High 2013 serum Jun 22, sodium, serum SODIUM 139 MEQ/L 021-921 0011 mmol/L Jun 22, potassium, serum POTASSIUM 4.2 MEQ/L 3.5-5.1 2013 mmol/L Jun 22, creatinine, serum CREATININE 0.8 mg/dL 0.5-1.4 2013Jun 22, urea nitrogen, blood BUN 15 mg/dL 05-10Jun 22, urea BUN/CREAT 19 null 6-25 2013 [...] TSH 1.900 0.360-3.740 2013 hormone, serum uIU/mL Nov 22, hemoglobin A1C, HGBA1C 6.2 % <=5.6 High 2014 blood, as % of total hemoglobin Nov 22, sodium, serum SODIUM 143 MEQ/L 008-540 2983 mmol/L Nov 22, potassium, serum POTASSIUM 4.2 MEQ/L 3.5-5.1 2014 mmol/L Nov 22, creatinine, serum CREATININE 0.9 mg/dL 0.5-1.4 2014Nov 22, urea nitrogen, blood BUN 9 mg/dL 7-22 2014Nov 22, urea BUN/CREAT 10 null 6-25 2014 nitrogen/creatinine ratio, serum Nov 22, albumin, serum ALBUMIN 3.6 g/dL 3.5-5.0 2014Nov 22, calcium, serum CALCIUM 9.3 mg/dL 8.5-10.5 2014Nov 22, alanine SGPT (ALT) 16 U/L 0-65 2014 aminotransferase (SGPT), serum Nov 22, aspartate SGOT (AST) 13 U/L 0-37 2014 aminotransferase (SGOT), serum Nov 22, alkaline ALK PHOS 66 U/L 39-136 2014 phosphatase, serum Nov 22, thyroxine, serum, T4, FREE 0.88 0.76-1.46 2014 free ng/dl Nov 22, thyroid stimulating TSH 2.870 0.360-3.740 2015 hormone, serum uIU/mL
--- OUTSIDE RECORDS SUMMARY | 2018-08-07 00:06 | XMS REPORT | Continuity of Care Document ---
:1955 Author Organization [facility] Care Team Providers Name Role Phone MD Eugene, Verenice Unavailable Unavailable Insurance Providers Payer name Policy type / Policy ID Covered alliance party ID Policy Landeros Coverage type [facility] CARE - STAR PLUS (MEDIC [facility] (MEDIC Encounters Encounter Performer Location Date Office Visit Verenice Knight MD [facility] February 21, 2015 Allergies, Adverse Reactions, Alerts Type Substance Reaction [...] HEAD AND NECK Nov 22, 2014 Active VERTIGO February 21, 2015 Active Procedures Date Description Comments March 18, [...] smoking/tobacco cessation, patient education yes and counseling February 21, 2015 smoking status Current every day smoker February 21, 2015 smoking/tobacco cessation, patient education yes and counseling [...] 1 PO Daily Oct 12, 2013 Inactive CARVEDILOL 12.5 MG TABS One po twice daily Oct 12, 2013 Active LEVOTHYROXINE SODIUM 100 MCG One po daily March 18, 2013 Active TABS BLOOD PRESSURE MONITOR TERRANCE Use daily to monitor Blood Nov 01, 2013 Inactive Pressure PROAIR HFA 108 (90 BASE) MCG/ACT 2 puffs every 4-6 hours as Jun 07, 2013 Active AERS needed for cough, wheezing, shortness of breath SYMBICORT 160-4.5 MCG/ACT AERO 2 puffs twice daily Nov 22, 2014 Active LOSARTAN POTASSIUM-HCTZ 100-25 1 tablet daily Jan 20, 2015 Active MG TABS DIOVAN HCT 160-25 MG TABS One po daily per Dr Benjie CALABRESE Oct 12, 2013 Inactive NECESSARY AMLODIPINE BESYLATE 10 MG TABS 1 tablet daily March 18, 2013 Active Vital Signs Date Description Test Result [...] RATE 84 /min Nov 01, 2013 weight John&M - 3141-9 WEIGHT 274.0 lb Nov 01, [...] HEIGHT 64 in Jun 22, 2014 weight John&M - 3141-9 WEIGHT 281 lb Jun 22, [...] HEIGHT 64 in Nov 22, 2014 weight John&Aly - 3141-9 WEIGHT 288 lb Nov 22, 2014 temperature E&M TEMPERATURE 97.4 deg f Nov 22, 2014 pulse rate E&M - 8867-4 PULSE RATE 85 /min Nov 22, 2014 blood pressure, systolic - 8480-6 BP SYSTOLIC 129 mm Hg Nov 22, 2014 blood pressure, diastolic - 8462-4 BP DIASTOLIC 69 mm Hg February 21, 2015 height E&M - 8302-2 HEIGHT 64 in February 21, 2015 weight E&M - 3141-9 WEIGHT 278.38 lb February 21, 2015 temperature E&M TEMPERATURE 95.7 deg f February 21, 2015 pulse rate E&M - 8867-4 PULSE RATE 85 /min February 21, 2015 blood pressure, systolic - 8480-6 BP SYSTOLIC 142 mm Hg February 21, 2015 blood pressure, diastolic - 8462-4 BP DIASTOLIC 85 mm Hg Results Date Description Test Name Value Reference Interpretation Status Jul 07, hemoglobin, blood HGB 15.5 g/dL 12.0-16.0 2012Jul 07, hematocrit, blood HCT 46.5 % 36.0-48.0 2012Jul 07, platelet count PLATELETS 166 K/CMM 756-724 3812 /mm3 Oct 12, hemoglobin, blood HGB 14.8 g/dL 12.0-16.0 2012Oct 12, hematocrit, blood HCT 46.0 % 36.0-48.0 2012Oct 12, platelet count PLATELETS 172 K/CMM 381-810 7235 /mm3 Nov 01, hemoglobin, blood HGB 14.4 g/dL 12.0-16.0 2013Nov 01, hematocrit, blood HCT 45.5 % 36.0-48.0 2013Nov 01, platelet count PLATELETS 165 K/CMM 117-828 4832 /mm3 Jun 22, hemoglobin, blood HGB 14.6 g/dL 12.0-16.0 2013Jun 22, hematocrit, blood HCT 44.9 % 36.0-48.0 2013Jun 22, platelet count PLATELETS 168 K/CMM 555-855 8363 /mm3 Nov 22, hemoglobin, blood HGB 15.0 g/dL 12.0-16.0 2014Nov 22, hematocrit, blood HCT 45.5 % 36.0-48.0 2014Nov 22, platelet count PLATELETS 145 K/CMM 708-660 3307 /mm3 February 21, hemoglobin, blood HGB 15.1 g/dL 12.0-16.0 2014February 21, hematocrit, blood HCT 46.2 % 36.0-48.0 2014February 21, platelet count PLATELETS 152 K/CMM 778-000 0594 /mm3 February 21, urine color UA COLOR Light Yellow Yellow 2014February 21, bacteria, urine BACTERIA URN Occasional None Seen 2014 microscopy null Jul 07, hemoglobin A1C, HGBA1C 6.2 % <=5.6 High 2012 blood, as % of total hemoglobin Jul 07, cholesterol, serum CHOLESTEROL 195 mg/dl <=199 2012Jul 07, triglyceride, TRIGLYCERIDE 108 mg/dl <=149 2012 serum, fasting Jul 07, HDL cholesterol, HDL 51 mg/dl >=61 Low 2012 serum Jul 07, LDL cholesterol, LDL 122 mg/dl <=99 High 2012 serum Jul 07, sodium, serum SODIUM 142 MEQ/L [phone] mmol/L Jul 07, potassium, serum POTASSIUM 4.4 MEQ/L 3.5-5.1 2012 mmol/L Jul 07, creatinine, serum CREATININE 0.8 mg/dL 0.5-1.4 2012Jul 07, urea nitrogen, BUN 10 mg/dL 7-2012 blood Sep , urea BUN/CREAT 12 null 6-25 2012 nitrogen/creatinine [...] Jul 07, thyroxine, serum, T4, FREE 1.09 ng/dl 0.76-1.46 2012 free Jul 07, thyroid stimulating TSH 1.880 uIU/mL 0.360-3.740 2012 hormone, serum Oct 12, hemoglobin A1C, HGBA1C 6.0 % <=5.6 High 2012 blood, as % of total hemoglobin Oct 12, cholesterol, serum CHOLESTEROL 206 mg/dl <=199 High 2012Oct 12, triglyceride, TRIGLYCERIDE 103 mg/dl <=149 2012 serum, fasting Oct 12, HDL cholesterol, HDL 54 mg/dl >=61 Low 2012 serum Oct 12, LDL cholesterol, LDL 131 mg/dl <=99 High 2012 serum Oct 12, sodium, serum SODIUM 143 MEQ/L 239-906 7169 mmol/L Oct 12, potassium, serum POTASSIUM 4.3 MEQ/L 3.5-5.1 2012 mmol/L Oct 12, creatinine, serum CREATININE 0.7 mg/dL 0.5-1.4 2012Oct 12, urea nitrogen, BUN 10 mg/dL 05-10 blood Oct 12, urea BUN/CREAT 14 null 6-25 2012 nitrogen/creatinine ratio, serum Oct 12, albumin, serum ALBUMIN 4.0 g/dL 3.5-5.0 2012Oct 12, calcium, serum CALCIUM 10.1 mg/dL 8.5-10.5 2012Oct 12, alanine SGPT (ALT) 18 U/L 0-65 2012 aminotransferase (SGPT), serum Oct 12, aspartate SGOT (AST) 11 U/L 0-37 2012 aminotransferase (SGOT), serum Oct 12, alkaline ALK PHOS 73 U/L 39-136 2012 phosphatase, serum Jun 22, hemoglobin A1C, HGBA1C 6.1 % <=5.6 High 2014 blood, as % of total hemoglobin Jun 22, cholesterol, serum CHOLESTEROL 185 mg/dl <=199 2013Jun 22, triglyceride, TRIGLYCERIDE 87 mg/dl <=149 2014 serum, fasting Jun 22, HDL cholesterol, HDL 65 mg/dl >=61 2013 serum Jun 22, LDL cholesterol, LDL 103 mg/dl <=99 High 2014 serum Jun 22, sodium, serum SODIUM 139 MEQ/L 032-575 0495 mmol/L Jun 22, potassium, serum POTASSIUM 4.2 MEQ/L 3.5-5.1 2013 mmol/L Jun 22, creatinine, serum CREATININE 0.8 mg/dL 0.5-1.4 2013Jun 22, urea nitrogen, BUN 15 mg/dL 7-2013 blood Jun 22, urea BUN/CREAT 19 null 6-25 2013 [...] serum Jun 22, thyroid stimulating TSH 1.900 uIU/mL 0.360-3.740 2014 hormone, serum Nov 22, hemoglobin A1C, HGBA1C 6.2 % <=5.6 High 2015 blood, as % of total hemoglobin Nov 22, sodium, serum SODIUM 143 MEQ/L 425-043 2179 mmol/L Nov 22, potassium, serum POTASSIUM 4.2 MEQ/L 3.5-5.1 2014 mmol/L Nov 22, creatinine, serum CREATININE 0.9 mg/dL 0.5-1.4 2014Nov 22, urea nitrogen, BUN 9 mg/dL 7-22 2014 blood Nov 22, urea BUN/CREAT 10 null 6-25 2014 [...] Nov 22, thyroxine, serum, T4, FREE 0.88 ng/dl 0.76-1.46 2014 free Nov 22, thyroid stimulating TSH 2.870 uIU/mL 0.360-3.740 2014 hormone, serum February 21, thyroid stimulating TSH 0.703 uIU/mL 0.360-3.740 2014 hormone, serum February 21, sodium, serum SODIUM 143 MEQ/L 633-967 9165 mmol/L February 21, potassium, serum POTASSIUM 3.8 MEQ/L 3.5-5.1 2014 mmol/L February 21, creatinine, serum CREATININE 0.9 mg/dL 0.5-1.4 2014February 21, urea nitrogen, BUN 8 mg/dL 7-22 2014 blood February 21, urea BUN/CREAT 9 null 6-25 2014 nitrogen/creatinine ratio, serum February 21, albumin, serum ALBUMIN 3.7 g/dL 3.5-5.0 2014February 21, calcium, serum CALCIUM 9.4 mg/dL 8.5-10.5 2014February 21, alanine SGPT (ALT) 21 U/L 0-65 2014 aminotransferase (SGPT), serum February 21, aspartate SGOT (AST) 15 U/L 0-37 2014 aminotransferase (SGOT), serum February 21, alkaline ALK PHOS 72 U/L 39-136 2014 phosphatase, serum
--- OUTSIDE RECORDS SUMMARY | 2018-08-07 00:06 | XMS REPORT | Continuity of Care Document ---
:1955 Author Organization [facility] Care Team Providers Name Role Phone MD Eugene, Verenice Unavailable Unavailable Insurance Providers Payer name Policy type / Policy ID Covered constitution party ID Policy Landeros Coverage type [facility] [facility] C[facility] - STAR PLUS (MEDIC [facility] (MEDIC Encounters Encounter Performer Location Date Lab Report Verenice Knight MD [facility] Nov 22, 2014 Allergies, Adverse Reactions, Alerts [...] 2012Jul 07, platelet count PLATELETS 166 K/CMM [phone] /mm3 Oct 12, hemoglobin, blood HGB 14.8 g/dL 12.0-16.0 2012Oct 12, hematocrit, blood HCT 46.0 % 36.0-48.0 2012Oct 12, platelet count PLATELETS 172 K/CMM 613-844 8857 /mm3 Nov 01, hemoglobin, blood HGB 14.4 g/dL 12.0-16.0 2013Nov 01, hematocrit, blood HCT 45.5 % 36.0-48.0 2013Nov 01, platelet count PLATELETS 165 K/CMM 847-604 7586 /mm3 Jun 22, hemoglobin, blood HGB 14.6 g/dL 12.0-16.0 2013Jun 22, hematocrit, blood HCT 44.9 % 36.0-48.0 2013Jun 22, platelet count PLATELETS 168 K/CMM 229-610 2979 /mm3 Nov 22, hemoglobin, blood HGB 15.0 g/dL 12.0-16.0 2014Nov 22, hematocrit, blood HCT 45.5 % 36.0-48.0 2014Nov 22, platelet count PLATELETS 145 K/CMM 687-914 1424 /mm3 Jul 07, hemoglobin A1C, HGBA1C 6.2 [...] Jul 07, sodium, serum SODIUM 142 MEQ/L 013-585 6459 mmol/L Jul 07, potassium, serum POTASSIUM 4.4 [...] Oct 12, sodium, serum SODIUM 143 MEQ/L 336-978 7754 mmol/L Oct 12, potassium, serum POTASSIUM 4.3 MEQ/L 3.5-5.1 2012 mmol/L Oct 12, creatinine, serum CREATININE 0.7 mg/dL 0.5-1.4 2012Oct 12, urea nitrogen, blood BUN 10 mg/dL -2012Oct 12, urea BUN/CREAT 14 null 6-25 2012 [...] Jun 22, sodium, serum SODIUM 139 MEQ/L 237-348 2179 mmol/L Jun 22, potassium, serum POTASSIUM 4.2 MEQ/L 3.5-5.1 2013 mmol/L Jun 22, creatinine, serum CREATININE 0.8 mg/dL 0.5-1.4 2013Jun 22, urea nitrogen, blood BUN 15 mg/dL -2013Jun 22, urea BUN/CREAT 19 null 6-25 2013 [...] Nov 22, sodium, serum SODIUM 143 MEQ/L 184-166 4286 mmol/L Nov 22, potassium, serum POTASSIUM 4.2 [...] Nov 22, thyroid stimulating TSH 2.870 0.360-3.740 2014 hormone, serum uIU/mL
--- OUTSIDE RECORDS SUMMARY | 2018-08-07 00:06 | XMS REPORT | Continuity of Care Document ---
:1955 Author Organization [facility] Care Team Providers Name Role Phone MD Eugene, Verenice Unavailable Unavailable Insurance Providers Payer name Policy type / Policy ID Covered constitution party ID Policy Landeros Coverage type AMERIGROUP [facility] - STAR PLUS (MEDIC [facility]MEDIC Encounters Encounter Performer Location Date Lab Report Verenice Knight MD [facility] February 21, 2015 Allergies, Adverse Reactions, Alerts [...] RATE 84 /min Nov 01, 2013 weight John&Aly - 3141-9 WEIGHT 274.0 lb Nov 01, [...] HEIGHT 64 in Jun 22, 2014 weight John&Aly - 3141-9 WEIGHT 281 lb Jun 22, [...] in Nov 22, 2014 weight John&Aly - Pao1-9 WEIGHT 288 lb Nov 22, 2014 temperature [...] HEIGHT 64 in February 21, 2015 weight John&Aly - 3141-9 WEIGHT 278.38 lb February 21, [...] 2012Jul 07, platelet count PLATELETS 166 K/CMM 293-710 1073 /mm3 Oct 12, hemoglobin, blood HGB 14.8 g/dL 12.0-16.0 2012Oct 12, hematocrit, blood HCT 46.0 % 36.0-48.0 2012Oct 12, platelet count PLATELETS 172 K/CMM 729-057 8910 /mm3 Nov 01, hemoglobin, blood HGB 14.4 g/dL 12.0-16.0 2013Nov 01, hematocrit, blood HCT 45.5 % 36.0-48.0 2013Nov 01, platelet count PLATELETS 165 K/CMM 525-287 0480 /mm3 Jun 22, hemoglobin, blood HGB 14.6 g/dL 12.0-16.0 2013Jun 22, hematocrit, blood HCT 44.9 % 36.0-48.0 2013Jun 22, platelet count PLATELETS 168 K/CMM 061-160 5546 /mm3 Nov 22, hemoglobin, blood HGB 15.0 g/dL 12.0-16.0 2014Nov 22, hematocrit, blood HCT 45.5 % 36.0-48.0 2014Nov 22, platelet count PLATELETS 145 K/CMM 152-577 4230 /mm3 February 21, hemoglobin, blood HGB 15.1 g/dL 12.0-16.0 2014February 21, hematocrit, blood HCT 46.2 % 36.0-48.0 2014February 21, platelet count PLATELETS 152 K/CMM 737-117 1761 /mm3 February 21, urine color UA COLOR [...] Jul 07, sodium, serum SODIUM 142 MEQ/L 236-811 9663 mmol/L Jul 07, potassium, serum POTASSIUM 4.4 MEQ/L 3.5-5.1 2012 mmol/L Jul 07, creatinine, serum CREATININE 0.8 mg/dL 0.5-1.4 2012Jul 07, urea nitrogen, BUN 10 mg/dL 7-22 2012 blood Jul 07, urea BUN/CREAT 12 null 6-25 2012 [...] Oct 12, sodium, serum SODIUM 143 MEQ/L 821-787 6707 mmol/L Oct 12, potassium, serum POTASSIUM 4.3 MEQ/L 3.5-5.1 2012 mmol/L Oct 12, creatinine, serum CREATININE 0.7 mg/dL 0.5-1.4 2012Oct 12, urea nitrogen, BUN 10 mg/dL 7-2012 blood Oct 12, urea BUN/CREAT 14 null [...] 2013Jun 22, triglyceride, TRIGLYCERIDE 87 mg/dl <=149 2013 serum, fasting Jun 22, HDL cholesterol, HDL 65 mg/dl >=61 2013 serum Jun 22, LDL cholesterol, LDL 103 mg/dl <=99 High 2014 serum Sep , sodium, serum SODIUM 139 MEQ/L 040-600 7068 mmol/L Jun 22, potassium, serum POTASSIUM 4.2 MEQ/L 3.5-5.1 2013 mmol/L Jun 22, creatinine, serum CREATININE 0.8 mg/dL 0.5-1.4 2013Jun 22, urea nitrogen, BUN 15 mg/dL -2013 blood Jun 22, urea BUN/CREAT 19 null [...] 22, thyroid stimulating TSH 1.900 uIU/mL 0.360-3.740 2013 hormone, serum Nov 22, hemoglobin A1C, HGBA1C 6.2 % <=5.6 High 2015 blood, as % of total hemoglobin Nov 22, sodium, serum SODIUM 143 MEQ/L 997-386 8233 mmol/L Nov 22, potassium, serum POTASSIUM 4.2 MEQ/L 3.5-5.1 2014 mmol/L Nov 22, creatinine, serum CREATININE 0.9 mg/dL 0.5-1.4 2014Nov 22, urea nitrogen, BUN 9 mg/dL -2014 blood Nov 22, urea BUN/CREAT 10 null [...] February 21, sodium, serum SODIUM 143 MEQ/L 747-033 4830 mmol/L February 21, potassium, serum POTASSIUM 3.8 [...]
--- NOTE | 2018-08-07 01:04 | ER ---
Nurse's Notes [facility] Name: Yessica Linder Age: 63 yrs Sex: Female : 1955 Arrival Date: 08/07/2018 Time: 00:01 Bed 19 Private MD: Diagnosis: Sprain of ankle;Contusion of foot Presentation: 08/07 00:20 Presenting complaint: Patient states: tripped on the side walk yesterday with right cc3 foot pain and swelling. Transition of care: patient was not received from another setting of care. Onset of symptoms was August 06, 2018. Risk Assessment: Do you want to hurt yourself or someone else? Patient reports no desire to harm self or others. Initial Sepsis Screen: Does the patient meet any 2 criteria? No. Patient's initial sepsis screen is negative. Does the patient have a suspected source of infection? No. Patient's initial sepsis screen is negative. Care prior to arrival: None. 00:20 Method Of Arrival: Wheelchair cc3 00:20 Acuity: RANDY 3 cc3 Triage Assessment: 00:20 General: Appears in no apparent distress. uncomfortable, Behavior is calm, cooperative, cc3 appropriate for age. Pain: Complains of pain in right foot Pain currently is 10 out of 10 on a pain scale. Quality of pain is described as aching. EENT: No signs and/or symptoms were reported regarding the EENT system. Neuro: Level of Consciousness is awake, alert, obeys commands, Oriented to person, place, time, situation, Appropriate for age. Cardiovascular: Denies chest pain. Respiratory: Airway is patent Respiratory effort is even, unlabored, Respiratory pattern is regular, symmetrical. GI: Abdomen is round obese. : No signs and/or symptoms were reported regarding the genitourinary system. Derm: No signs and/or symptoms reported regarding the dermatologic system. Musculoskeletal: Swelling present in right foot Reports pain in right foot. Historical: - Allergies: 00:20 Iodine; cc3 00:20 Demerol; cc3 - Home Meds: 00:20 levothyroxine oral once daily [Active]; Ecotrin 325 mg Oral TbEC 1 tab once daily cc3 [Active]; amlodipine oral once daily [Active]; carvedilol oral oral 1 tab daily [Active]; losartan oral oral 2 times per day [Active]; Simvastatin Oral once at bedtime [Active]; metformin 500 mg Oral tab 1 tab 2 times per day [Active]; - PMHx: 00:20 Degenerative disc disease; Hypertension; Diabetes - NIDDM; COPD; CHF; hyperthyroidism; cc3 Hyperlipidemia; - PSHx: 00:20 Hernia repair; Hysterectomy; removal of lump in right breast; cc3 - Immunization history:: Adult Immunizations not up to date. - Social history:: Smoking status: Patient uses tobacco products, cigars. - Ebola Screening: : No symptoms or risks identified at this time. Screenin:20 Abuse screen: Denies threats or abuse. Denies injuries from another. Nutritional cc3 screening: No deficits noted. Tuberculosis screening: No symptoms or risk factors identified. Fall Risk Ambulatory Aid- Crutches/Cane/Walker (15 pts). Gait- Weak (10 pts.). Mental Status- Oriented to own ability (0 pts). Assessment: 00:20 General: see triage assessment. cc3 00:43 Reassessment: Patient appears in no apparent distress at this time. Patient and/or cc3 family updated on plan of care and expected duration. Pain level reassessed. Patient is alert, oriented x 3, equal unlabored respirations, skin warm/dry/pink. right foot and ankle xray done as ordered. 01:30 Reassessment: Patient appears in no apparent distress at this time. Patient and/or cc3 family updated on plan of care and expected duration. Pain level reassessed. Patient is alert, oriented x 3, equal unlabored respirations, skin warm/dry/pink. Patient discharged home with prescription given. No IV cannula in situ. Right boot applied as ordered. Patient left ER vitally stable by wheelchair with family. Vital Signs: 00:20 BP 129 / 66; Pulse 88; Resp 20 S; Temp 98.5(O); Pulse Ox 97% on R/A; Weight 137.89 kg; cc3 Height 5 ft. 4 in. (162.56 cm); Pain 1010; 01:15 BP 131 / 67; Pulse 85; Resp 19 S; Pulse Ox 97% on R/A; cc3 00:20 Body Mass Index 52.18 (137.89 kg, 162.56 cm) cc3 ED Course: 00:01 Patient arrived in ED. mr 00:20 Cordel, Becka is Primary Nurse. cc3 00:20 Arm band placed on right wrist. cc3 00:20 Patient has correct armband on for positive identification. Bed in low position. Call cc3 light in reach. Side rails up X 1. Pulse ox on. NIBP on. 00:23 Waylon Mata PA is PHCP. jr8 00:23 Jose Armando Saldivar MD is Attending Physician. jr8 00:30 Triage completed. cc3 00:53 X-ray completed. Portable x-ray completed in exam room. Patient tolerated procedure kw well. 00:54 XRAY Foot RIGHT 3 View In Process Unspecified. EDMS 00:54 XRAY Ankle RIGHT 3 view In Process Unspecified. EDMS 01:02 Elvis Wilkinson MD is Referral Physician. jr8 01:30 No provider procedures requiring assistance completed. Patient did not have IV access cc3 during this emergency room visit. Administered Medications: 01:07 Drug: Towanda (7.5 mg-325 mg) 1 tabs Route: PO; cc3 01:30 Follow up: Response: No adverse reaction; Pain is decreased cc3 Outcome: 01:03 Discharge ordered by . jr8 01:30 Discharged to home via wheelchair, with family. cc3 01:30 Condition: stable 01:30 Discharge instructions given to patient, family, Instructed on discharge instructions, follow up and referral plans. medication usage, Demonstrated understanding of instructions, follow-up care, medications, Prescriptions given X 1. 01:50 Patient left the ED. cc3 Signatures: Dispatcher [employer] [facility] Joanna ReederTeresa Waylon Mata PA PA jr8 Becka Crystal cc3
--- NOTE | 2018-08-07 01:04 | EDPHYS ---
Physician Documentation [facility] Name: Yessica Linder Age: 63 yrs Sex: Female : 1955 Arrival Date: 08/07/2018 Time: 00:01 Bed 19 Private MD: ED Physician Jose Armando Saldivar HPI: 08/07 00:38 This 63 yrs old Black Female presents to ER via Wheelchair with complaints of Foot jr8 Pain, Fall Injury. 00:38 The patient presents with decreased range of motion, pain, tenderness. The complaints jr8 affect the right ankle and dorsum of right foot. Context: The problem was sustained outdoors, resulted from a mis-step, on a curb, the patient is not able to bear weight, the patient is not able to ambulate. Onset: The symptoms/episode began/occurred acutely, today. Modifying factors: The symptoms are alleviated by nothing. the symptoms are aggravated by movement, weight bearing. Associated signs and symptoms: The patient has no apparent associated signs or symptoms. Severity of symptoms: At their worst the symptoms were moderate, in the emergency department the symptoms are unchanged. It is unknown whether or not the patient has had similar symptoms in the past. The patient has not recently seen a physician. Accidental fall off of curb. Landed on right foot and ankle. Pain since incident . Historical: - Allergies: 00:20 Iodine; cc3 00:20 Demerol; cc3 - Home Meds: 00:20 levothyroxine oral once daily [Active]; Ecotrin 325 mg Oral TbEC 1 tab once daily cc3 [Active]; amlodipine oral once daily [Active]; carvedilol oral oral 1 tab daily [Active]; losartan oral oral 2 times per day [Active]; Simvastatin Oral once at bedtime [Active]; metformin 500 mg Oral tab 1 tab 2 times per day [Active]; - PMHx: 00:20 Degenerative disc disease; Hypertension; Diabetes - NIDDM; COPD; CHF; hyperthyroidism; cc3 Hyperlipidemia; - PSHx: 00:20 Hernia repair; Hysterectomy; removal of lump in right breast; cc3 - Immunization history:: Adult Immunizations not up to date. - Social history:: Smoking status: Patient uses tobacco products, cigars. - Ebola Screening: : No symptoms or risks identified at this time. ROS: 00:38 Eyes: Negative for injury, pain, redness, and discharge, ENT: Negative for injury, jr8 pain, and discharge, Neck: Negative for injury, pain, and swelling, Cardiovascular: Negative for chest pain, palpitations, and edema, Respiratory: Negative for shortness of breath, cough, wheezing, and pleuritic chest pain, Abdomen/GI: Negative for abdominal pain, nausea, vomiting, diarrhea, and constipation, Back: Negative for injury and pain, Skin: Negative for injury, rash, and discoloration, Neuro: Negative for headache, weakness, numbness, tingling, and seizure. 00:38 MS/extremity: Positive for decreased range of motion, pain, tenderness, of the dorsum of right foot and right ankle. Exam: 00:38 Head/Face: Normocephalic, atraumatic. Eyes: Pupils equal round and reactive to light, jr8 extra-ocular motions intact. Lids and lashes normal. Conjunctiva and sclera are non-icteric and not injected. Cornea within normal limits. Periorbital areas with no swelling, redness, or edema. ENT: Nares patent. No nasal discharge, no septal abnormalities noted. Tympanic membranes are normal and external auditory canals are clear. Oropharynx with no redness, swelling, or masses, exudates, or evidence of obstruction, uvula midline. Mucous membranes moist. Neck: Trachea midline, no thyromegaly or masses palpated, and no cervical lymphadenopathy. Supple, full range of motion without nuchal rigidity, or vertebral point tenderness. No Meningismus. Chest/axilla: Normal chest wall appearance and motion. Nontender with no deformity. No lesions are appreciated. Cardiovascular: Regular rate and rhythm with a normal S1 and S2. No gallops, murmurs, or rubs. Normal PMI, no JVD. No pulse deficits. Respiratory: Lungs have equal breath sounds bilaterally, clear to auscultation and percussion. No rales, rhonchi or wheezes noted. No increased work of breathing, no retractions or nasal flaring. Abdomen/GI: Soft, non-tender, with normal bowel sounds. No distension or tympany. No guarding or rebound. No evidence of tenderness throughout. Back: No spinal tenderness. No costovertebral tenderness. Full range of motion. Skin: Warm, dry with normal turgor. Normal color with no rashes, no lesions, and no evidence of cellulitis. Neuro: Awake and alert, GCS 15, oriented to person, place, time, and situation. Cranial nerves II-XII grossly intact. Motor strength 5/5 in all extremities. Sensory grossly intact. Cerebellar exam normal. Normal gait. 00:38 Musculoskeletal/extremity: Extremities: noted in the dorsum of right foot and right ankle: pain, tenderness, ROM: intact in all extremities, limited active range of motion, limited passive range of motion, limited active range of motion due to pain, limited passive range of motion due to pain, Circulation is intact in all extremities. Sensation intact. Vital Signs: 00:20 BP 129 / 66; Pulse 88; Resp 20 S; Temp 98.5(O); Pulse Ox 97% on R/A; Weight 137.89 kg; cc3 Height 5 ft. 4 in. (162.56 cm); Pain 10/10; 01:15 BP 131 / 67; Pulse 85; Resp 19 S; Pulse Ox 97% on R/A; cc3 00:20 Body Mass Index 52.18 (137.89 kg, 162.56 cm) cc3 Procedures: 01:01 Splinting: Splint applied to right foot using Ortho 3D boot, applied by nurse. Examined jr8 by me, post splint application: neurovascular intact, 2+ distal pulses palpable, brisk capillary refill noted, Patient tolerated well. MDM: 00:23 Patient medically screened. jr8 01:01 Data reviewed: vital signs, nurses notes, radiologic studies, plain films, and as a jr8 result, I will discharge patient. Data interpreted: Pulse oximetry: on room air is 97 %. Interpretation: normal. Counseling: I had a detailed discussion with the patient and/or guardian regarding: the historical points, exam findings, and any diagnostic results supporting the discharge/admit diagnosis, radiology results, the need for outpatient follow up, a family practitioner, to return to the emergency department if symptoms worsen or persist or if there are any questions or concerns that arise at home. 08/07 00:33 Order name: XRAY Foot RIGHT 3 View jr8 08/07 00:36 Order name: XRAY Ankle RIGHT 3 view jr8 08/07 01:01 Order name: Splint; Complete Time: 01:50 jr8 Administered Medications: 01:07 Drug: Pevely (7.5 mg-325 mg) 1 tabs Route: PO; cc3 01:30 Follow up: Response: No adverse reaction; Pain is decreased cc3 Disposition: 06:08 Co-signature as Attending Physician, Jose Armando Saldivar MD I agree with the assessment and jan plan of care. Disposition: 08/07/18 01:03 Discharged to Home. Impression: Sprain of ankle, Contusion of foot. - Condition is Stable. - Discharge Instructions: Ankle Sprain, Foot Contusion. - Prescriptions for Tylenol- Codeine #3 300-30 mg Oral Tablet - take 2 tablet by ORAL route every 6 hours As needed; 30 tablet. - Medication Reconciliation Form, Thank You Letter, Antibiotic Education, Prescription Opioid Use form. - Follow up: Elvis Wilkinson MD; When: 5 - 6 days; Reason: Recheck today's complaints, Continuance of care, Re-evaluation by your physician. - Problem is new. - Symptoms have improved. Signatures: Dispatcher [employer] [facility] Jose Armando Saldivar MD MD cha Roszak, Josh, PA PA jr8 Becka Crystal cc3 Corrections: (The following items were deleted from the chart) 01:50 01:03 08/07/2018 01:03 Discharged to Home. Impression: Sprain of ankle; Contusion of cc3 foot. Condition is Stable. Forms are Medication Reconciliation Form, Thank You Letter, Antibiotic Education, Prescription Opioid Use. Follow up: Elvis Wilkinson; When: 5 - 6 days; Reason: Recheck today's complaints, Continuance of care, Re-evaluation by your physician. Problem is new. Symptoms have improved. jr8
[2018-08-07] MEDS ORDERED: HYDROCODONE/APAP 7.5/325 MG TAB ONE (01:15)
[2018-08-07 01:59] VITALS: BP 129/66; TEMP 98.5; O2SAT 97
--- NOTE | 2018-08-07 08:18 | RAD REPORT ---
EXAM DESCRIPTION: RAD - Ankle Right 3 View - 08/07/2018 12:54 am CLINICAL HISTORY: Right ankle pain status post fall FINDINGS: No acute fracture or dislocation is seen. Diffuse edema is present within the subcutaneous tissues.
--- NOTE | 2018-08-07 08:22 | RAD REPORT ---
EXAM DESCRIPTION: RAD - Foot Right 3 View - 08/07/2018 12:53 am CLINICAL HISTORY: Right foot pain status post injury FINDINGS: Cortical regularity involves the third and fourth metatarsal necks. This is equivocal for a nondisplaced fractures and should be correlated clinically. Bones are osteoporotic. No dislocation is seen
== END 2018-08-07 01:50 | disposition home or self-care (01) ==
LOC: ER
DX: S93.401A Sprain of unspecified ligament of right ankle, initial encounter (principal); S90.31XA Contusion of right foot, initial encounter; W01.0XXA Fall on same level from slipping, tripping and stumbling without subsequent striking against object, initial encounter; Y93.9 Activity, unspecified; Y92.9 Unspecified place or not applicable; E11.9 Type 2 diabetes mellitus without complications; I10 Essential (primary) hypertension; E03.9 Hypothyroidism, unspecified; E78.5 Hyperlipidemia, unspecified; I50.9 Heart failure, unspecified; Z88.6 Allergy status to analgesic agent; Z91.09 Other allergy status, other than to drugs and biological substances
CPT/HCPCS: 99284

== ENCOUNTER 2018-09-17 19:48 | Emergency (ER) | payer SELFPAY ==
--- OUTSIDE RECORDS SUMMARY | 2018-09-17 19:50 | XMS REPORT | Continuity of Care Document ---
:1955 Author Organization Interface Problems Problem Status Onset Classification Date Comments Source Date Reported FULLNESS IN CLAVICULAR Active [place] AREA 780.4 ACUTE 015 FULLNESS IN Active [facility] CLAVICULAR AREA 780.4 015 ACUTE 784.2 - SWELLING IN Active [facility] 015 [place] VERTIGO Active Condition 02/21/2015 Medical 015 Group TOBACCO ABUSE Active Condition 02/21/2015 Medical 015 Group SWELLING, MASS, [place] Active Condition 02/21/2015 Medical LUMP IN HEAD AND NECK 015 Group [id number] Active [facility] 014 COPD Active Condition 02/21/2015 Medical 014 [...] Type Number For Provider Date Date Visit [facility] Office [id number] Mo[place] 06/22 06/22 [place] Visit 8550 MD Eugene /2013 Medical Medical [facility] Lab Report [id number] Moiz 06/22 06/22 [place] 7000 MD Eugene /2013 Medical Medical [facility] Lab Report [id number] Moiz 06/29 06/29 [place] 6470 MD Eugene /2013 Medical Medical [facility] Office [id number] Moiz 11/22 11/22 [place] Visit 8330 MD Eugene /2014 Medical Medical [facility] Lab Report [id number] Moiz 11/22 11/22 [place] 3280 MD Eugene /2014 Medical Medical [facility] Office [id number] Moiz 02/21 02/21 [place] Visit 7990 MD Eugene /2014 [facility] Lab Report [id number] Moiz 02/21 02/21 [facility] Eugene /2014 Medical Medical [facility] Outpatient [id number] CATHY 07/21 [facility] /2014 [facility] Outpatient [id number] MOIZ 07/[address] [facility] /2014 [facility] Outpatient [id number] CATHY 02/21 [facility] /2015 [facility] Outpatient [id number] CATHY 03/08 [facility] /2015 [place] Procedures Procedure Code Date Perfomer Comments Source [...] cessation, patient Group education and counseling echocardiogram, [address]89 01/14/2013 Complete Medical complete Group
--- OUTSIDE RECORDS SUMMARY | 2018-09-17 19:51 | XMS REPORT | Continuity of Care Document ---
:1955 Author Organization [facility] Care Team Providers Name Role Phone MD Eugene, Verenice Unavailable Unavailable Insurance Providers Payer name Policy type / Policy ID Covered democrat ID Policy Landeros Coverage type AMERIGROUP [facility] - STAR PLUS (MEDIC [facility]MEDIC Encounters Encounter Performer Location Date Office Visit Verenice Knight MD [facility] Nov 22, 2014 Allergies, Adverse Reactions, Alerts [...] HEIGHT 64 in March 18, 2013 weight Freepath - 3141-9 WEIGHT 289.4 lb March 18, 2013 temperature E&M TEMPERATURE 97.3 deg f March 18, 2013 blood pressure, systolic - 8480-6 BP SYSTOLIC 110 mm Hg March 18, 2013 blood pressure, diastolic - 8462-4 BP DIASTOLIC 59 mm Hg March 18, 2013 pulse rate E&M - 8867-4 PULSE RATE 93 /min Jul 07, 2013 weight Freepath - 3141-9 WEIGHT 282.0 lb Jul 07, 2013 temperature E&M TEMPERATURE 98.4 deg f Jul 07, 2013 blood pressure, systolic - 8480-6 BP SYSTOLIC 115 mm Hg Jul 07, 2013 blood pressure, diastolic - 8462-4 BP DIASTOLIC 66 mm Hg Jul 07, 2013 pulse rate E&M - 8867-4 PULSE RATE 84 /min Oct 12, 2013 weight [employer] - 3141-9 WEIGHT 276.0 lb Oct 12, [...] 2012Jul 07, platelet count PLATELETS 166 K/CMM 720-257 6025 /mm3 Oct 12, hemoglobin, blood HGB 14.8 g/dL 12.0-16.0 2012Oct 12, hematocrit, blood HCT 46.0 % 36.0-48.0 2012Oct 12, platelet count PLATELETS 172 K/CMM 313-158 2891 /mm3 Nov 01, hemoglobin, blood HGB 14.4 g/dL 12.0-16.0 2013Nov 01, hematocrit, blood HCT 45.5 % 36.0-48.0 2013Nov 01, platelet count PLATELETS 165 K/CMM 500-029 9606 /mm3 Jun 22, hemoglobin, blood HGB 14.6 g/dL 12.0-16.0 2013Jun 22, hematocrit, blood HCT 44.9 % 36.0-48.0 2013Jun 22, platelet count PLATELETS 168 K/CMM 576-958 2949 /mm3 Nov 22, hemoglobin, blood HGB 15.0 g/dL 12.0-16.0 2014Nov 22, hematocrit, blood HCT 45.5 % 36.0-48.0 2014Nov 22, platelet count PLATELETS 145 K/CMM 624-477 0718 /mm3 Jul 07, hemoglobin A1C, HGBA1C 6.2 % <=5.6 High 2012 blood, as % of total hemoglobin Jul 07, cholesterol, serum CHOLESTEROL 195 mg/dl <=199 2012Jul 07, triglyceride, serum, TRIGLYCERIDE 108 mg/dl <=149 2012Jul 07, HDL cholesterol, HDL 51 mg/dl >=61 Low 2012Jul 07, LDL cholesterol, LDL 122 mg/dl <=99 High 2012Jul 07, sodium, serum SODIUM 142 MEQ/L 763-223 1149 mmol/L Jul 07, potassium, serum POTASSIUM 4.4 [...] Oct 12, sodium, serum SODIUM 143 MEQ/L 797-336 8160 mmol/L Oct 12, potassium, serum POTASSIUM 4.3 [...] Jun 22, sodium, serum SODIUM 139 MEQ/L 459-353 7691 mmol/L Jun 22, potassium, serum POTASSIUM 4.2 [...] Nov 22, sodium, serum SODIUM 143 MEQ/L 878-215 7531 mmol/L Nov 22, potassium, serum POTASSIUM 4.2 [...]
--- OUTSIDE RECORDS SUMMARY | 2018-09-17 19:51 | XMS REPORT | Continuity of Care Document ---
:1955 Author Organization [facility] Care Team Providers Name Role Phone MD Eugene, Verenice Unavailable Unavailable Insurance Providers Payer name Policy type / Policy ID Covered green party ID Policy Landeros Coverage type [facility] STAR PLUS (MEDIC Encounters Encounter Performer Location Date Lab Report Verenice Knight MD [facility] Jun 22, 2014 Allergies, Adverse Reactions, Alerts [...] 2012Jul 07, platelet count PLATELETS 166 K/CMM [phone] /mm3 Oct 12, hemoglobin, blood HGB 14.8 g/dL 12.0-16.0 2012Oct 12, hematocrit, blood HCT 46.0 % 36.0-48.0 2012Oct 12, platelet count PLATELETS 172 K/CMM 643-848 6025 /mm3 Nov 01, hemoglobin, blood HGB 14.4 g/dL 12.0-16.0 2013Nov 01, hematocrit, blood HCT 45.5 % 36.0-48.0 2013Nov 01, platelet count PLATELETS 165 K/CMM 530-694 1989 /mm3 Jun 22, hemoglobin, blood HGB 14.6 g/dL 12.0-16.0 2013Jun 22, hematocrit, blood HCT 44.9 % 36.0-48.0 2013Jun 22, platelet count PLATELETS 168 K/CMM 460-368 8432 /mm3 Jul 07, hemoglobin A1C, HGBA1C 6.2 % <=5.6 High 2012 blood, as % of total hemoglobin Jul 07, cholesterol, serum CHOLESTEROL 195 mg/dl <=199 2012Jul 07, triglyceride, serum, TRIGLYCERIDE 108 mg/dl <=149 2012 fasting Jul 07, HDL cholesterol, HDL 51 mg/dl >=61 Low 2012Jul 07, LDL cholesterol, LDL 122 mg/dl <=99 High 2012Jul 07, sodium, serum SODIUM 142 MEQ/L 391-709 0847 mmol/L Jul 07, potassium, serum POTASSIUM 4.4 [...] Oct 12, sodium, serum SODIUM 143 MEQ/L 413-260 8895 mmol/L Oct 12, potassium, serum POTASSIUM 4.3 [...] Jun 22, sodium, serum SODIUM 139 MEQ/L 347-032 8301 mmol/L Jun 22, potassium, serum POTASSIUM 4.2 [...]
--- OUTSIDE RECORDS SUMMARY | 2018-09-17 19:51 | XMS REPORT | Continuity of Care Document ---
:[address] [facility] Care Team Providers Name Role Phone MD Eugene, Verenice Unavailable Unavailable Insurance Providers Payer name Policy type / Policy ID Covered libertarian ID Policy Landeros Coverage type [facility] (MEDIC Encounters Encounter Performer Location Date Office Visit Verenice Knight MD [facility] Jun 22, 2014 Allergies, Adverse Reactions, Alerts [...] 2012Jul 07, platelet count PLATELETS 166 K/CMM [phone] /mm3 Oct 12, hemoglobin, blood HGB 14.8 g/dL 12.0-16.0 2012Oct 12, hematocrit, blood HCT 46.0 % 36.0-48.0 2012Oct 12, platelet count PLATELETS 172 K/CMM [phone] /mm3 Nov 01, hemoglobin, blood HGB 14.4 g/dL 12.0-16.0 2013Nov 01, hematocrit, blood HCT 45.5 % 36.0-48.0 2013Nov 01, platelet count PLATELETS 165 K/CMM [phone] /mm3 Jun 22, hemoglobin, blood HGB 14.6 g/dL 12.0-16.0 2013Jun 22, hematocrit, blood HCT 44.9 % 36.0-48.0 2013Jun 22, platelet count PLATELETS 168 K/CMM [phone] /mm3 Jul 07, hemoglobin A1C, HGBA1C 6.2 % <=5.6 High 2012 blood, as % of total hemoglobin Jul 07, cholesterol, serum CHOLESTEROL 195 mg/dl <=199 2012Jul 07, triglyceride, serum, TRIGLYCERIDE 108 mg/dl <=149 2012 fasting Jul 07, HDL cholesterol, HDL 51 mg/dl >=61 Low 2012Jul 07, LDL cholesterol, LDL 122 mg/dl <=99 High 2012Jul 07, sodium, serum SODIUM 142 MEQ/L [phone] mmol/L Jul 07, potassium, serum POTASSIUM 4.4 [...] Oct 12, sodium, serum SODIUM 143 MEQ/L [phone] mmol/L Oct 12, potassium, serum POTASSIUM 4.3 [...] Jun 22, sodium, serum SODIUM 139 MEQ/L 265-357 3033 mmol/L Jun 22, potassium, serum POTASSIUM 4.2 [...]
--- OUTSIDE RECORDS SUMMARY | 2018-09-17 19:51 | XMS REPORT | Continuity of Care Document ---
:1955 Author Organization [facility] Care Team Providers Name Role Phone MD Eugene, Verenice Unavailable Unavailable Insurance Providers Payer name Policy type / Policy ID Covered alliance party ID Policy Landeros Coverage type [facility] ST[facility] PL[facility] (MEDIC Encounters Encounter Performer Location Date Lab Report Verenice Knight MD [facility] Jun 29, 2014 Allergies, Adverse Reactions, Alerts [...] 2012Jul 07, platelet count PLATELETS 166 K/CMM [phone] /mm3 Oct 12, hemoglobin, blood HGB 14.8 g/dL 12.0-16.0 2012Oct 12, hematocrit, blood HCT 46.0 % 36.0-48.0 2012Oct 12, platelet count PLATELETS 172 K/CMM [phone] /mm3 Nov 01, hemoglobin, blood HGB 14.4 g/dL 12.0-16.0 2013Nov 01, hematocrit, blood HCT 45.5 % 36.0-48.0 2013Nov 01, platelet count PLATELETS 165 K/CMM [phone] /mm3 Jun 22, hemoglobin, blood HGB 14.6 g/dL 12.0-16.0 2013Jun 22, hematocrit, blood HCT 44.9 % 36.0-48.0 2013Jun 22, platelet count PLATELETS 168 K/CMM 262-794 7782 /mm3 Jul 07, hemoglobin A1C, HGBA1C 6.2 [...] Jul 07, sodium, serum SODIUM 142 MEQ/L [phone] mmol/L Jul 07, potassium, serum POTASSIUM 4.4 [...] Oct 12, sodium, serum SODIUM 143 MEQ/L [phone] mmol/L Oct 12, potassium, serum POTASSIUM 4.3 [...] Jun 22, sodium, serum SODIUM 139 MEQ/L 354-001 3672 mmol/L Jun 22, potassium, serum POTASSIUM 4.2 [...]
--- OUTSIDE RECORDS SUMMARY | 2018-09-17 19:52 | XMS REPORT | Continuity of Care Document ---
:1955 Author Organization [facility] Care Team Providers Name Role Phone MD Eugene, Verenice Unavailable Unavailable Insurance Providers Payer name Policy type / Policy ID Covered green party ID Policy Landeros Coverage type [facility] Encounters Encounter Performer Location Date Lab Report Verenice Knight MD [facility] February 21, 2015 Allergies, Adverse Reactions, Alerts [...] 2012Jul 07, platelet count PLATELETS 166 K/CMM [phone] /mm3 Oct 12, hemoglobin, blood HGB 14.8 g/dL 12.0-16.0 2012Oct 12, hematocrit, blood HCT 46.0 % 36.0-48.0 2012Oct 12, platelet count PLATELETS 172 K/CMM [phone] /mm3 Nov 01, hemoglobin, blood HGB 14.4 g/dL 12.0-16.0 2013Nov 01, hematocrit, blood HCT 45.5 % 36.0-48.0 2013Nov 01, platelet count PLATELETS 165 K/CMM [phone] /mm3 Jun 22, hemoglobin, blood HGB 14.6 g/dL 12.0-16.0 2013Jun 22, hematocrit, blood HCT 44.9 % 36.0-48.0 2013Jun 22, platelet count PLATELETS 168 K/CMM [phone] /mm3 Nov 22, hemoglobin, blood HGB 15.0 g/dL 12.0-16.0 2014Nov 22, hematocrit, blood HCT 45.5 % 36.0-48.0 2014Nov 22, platelet count PLATELETS 145 K/CMM [phone] /mm3 February 21, hemoglobin, blood HGB 15.1 g/dL 12.0-16.0 2014February 21, hematocrit, blood HCT 46.2 % 36.0-48.0 2014February 21, platelet count PLATELETS 152 K/CMM [phone] /mm3 February 21, urine color UA COLOR [...] Jul 07, sodium, serum SODIUM 142 MEQ/L [phone] mmol/L Jul 07, potassium, serum POTASSIUM 4.4 [...] Oct 12, sodium, serum SODIUM 143 MEQ/L 347-023 3735 mmol/L Oct 12, potassium, serum POTASSIUM 4.3 [...] Sep , sodium, serum SODIUM 139 MEQ/L [phone] mmol/L Jun 22, potassium, serum POTASSIUM 4.2 [...] Nov 22, sodium, serum SODIUM 143 MEQ/L 142-912 0638 mmol/L Nov 22, potassium, serum POTASSIUM 4.2 [...] February 21, sodium, serum SODIUM 143 MEQ/L [phone] mmol/L February 21, potassium, serum POTASSIUM 3.8 [...]
--- OUTSIDE RECORDS SUMMARY | 2018-09-17 19:52 | XMS REPORT | Continuity of Care Document ---
:[address] [facility] Care Team Providers Name Role Phone MD Eugene, Verenice Unavailable Unavailable Insurance Providers Payer name Policy type / Policy ID Covered republican ID Policy Landeros Coverage type [facility] - STAR [facility] (MEDIC [facility] [facility] (MEDIC Encounters Encounter Performer Location Date Lab Report Verenice Knight MD [facility] Nov 22, 2014 Allergies, Adverse [...] 2012Jul 07, platelet count PLATELETS 166 K/CMM [phone] /mm3 Oct 12, hemoglobin, blood HGB 14.8 g/dL 12.0-16.0 2012Oct 12, hematocrit, blood HCT 46.0 % 36.0-48.0 2012Oct 12, platelet count PLATELETS 172 K/CMM [phone] /mm3 Nov 01, hemoglobin, blood HGB 14.4 g/dL 12.0-16.0 2013Nov 01, hematocrit, blood HCT 45.5 % 36.0-48.0 2013Nov 01, platelet count PLATELETS 165 K/CMM [phone] /mm3 Jun 22, hemoglobin, blood HGB 14.6 g/dL 12.0-16.0 2013Jun 22, hematocrit, blood HCT 44.9 % 36.0-48.0 2013Jun 22, platelet count PLATELETS 168 K/CMM [phone] /mm3 Nov 22, hemoglobin, blood HGB 15.0 g/dL 12.0-16.0 2014Nov 22, hematocrit, blood HCT 45.5 % 36.0-48.0 2014Nov 22, platelet count PLATELETS 145 K/CMM [phone] /mm3 Jul 07, hemoglobin A1C, HGBA1C 6.2 [...] Jul 07, sodium, serum SODIUM 142 MEQ/L 350-111 8636 mmol/L Jul 07, potassium, serum POTASSIUM 4.4 [...] Oct 12, sodium, serum SODIUM 143 MEQ/L [phone] mmol/L Oct 12, potassium, serum POTASSIUM 4.3 [...] Jun 22, sodium, serum SODIUM 139 MEQ/L 148-450 0159 mmol/L Jun 22, potassium, serum POTASSIUM 4.2 [...] Nov 22, sodium, serum SODIUM 143 MEQ/L 898-204 5654 mmol/L Nov 22, potassium, serum POTASSIUM 4.2 [...]
--- OUTSIDE RECORDS SUMMARY | 2018-09-17 19:52 | XMS REPORT | Continuity of Care Document ---
:1955 Author Organization [facility] Care Team Providers Name Role Phone MD Eugene, Verenice Unavailable Unavailable Insurance Providers Payer name Policy type / Policy ID Covered republican ID Policy Landeros Coverage type [facility] - ST[facility] PL[facility] Encounters Encounter Performer Location Date Office Visit Verenice Knight MD [facility] February 21, 2015 Allergies, Adverse [...] 2012Jul 07, platelet count PLATELETS 166 K/CMM [phone] /mm3 Oct 12, hemoglobin, blood HGB 14.8 g/dL 12.0-16.0 2012Oct 12, hematocrit, blood HCT 46.0 % 36.0-48.0 2012Oct 12, platelet count PLATELETS 172 K/CMM [phone] /mm3 Nov 01, hemoglobin, blood HGB 14.4 g/dL 12.0-16.0 2013Nov 01, hematocrit, blood HCT 45.5 % 36.0-48.0 2013Nov 01, platelet count PLATELETS 165 K/CMM 487-296 9412 /mm3 Jun 22, hemoglobin, blood HGB 14.6 g/dL 12.0-16.0 2013Jun 22, hematocrit, blood HCT 44.9 % 36.0-48.0 2013Jun 22, platelet count PLATELETS 168 K/CMM [phone] /mm3 Nov 22, hemoglobin, blood HGB 15.0 g/dL 12.0-16.0 2014Nov 22, hematocrit, blood HCT 45.5 % 36.0-48.0 2014Nov 22, platelet count PLATELETS 145 K/CMM [phone] /mm3 February 21, hemoglobin, blood HGB 15.1 g/dL 12.0-16.0 2014February 21, hematocrit, blood HCT 46.2 % 36.0-48.0 2014February 21, platelet count PLATELETS 152 K/CMM [phone] /mm3 February 21, urine color UA COLOR [...] Jul 07, sodium, serum SODIUM 142 MEQ/L 157-164 3623 mmol/L Jul 07, potassium, serum POTASSIUM 4.4 [...] Oct 12, sodium, serum SODIUM 143 MEQ/L [phone] mmol/L Oct 12, potassium, serum POTASSIUM 4.3 [...] Jun 22, sodium, serum SODIUM 139 MEQ/L [phone] mmol/L Jun 22, potassium, serum POTASSIUM 4.2 [...] Nov 22, sodium, serum SODIUM 143 MEQ/L [phone] mmol/L Nov 22, potassium, serum POTASSIUM 4.2 [...] February 21, sodium, serum SODIUM 143 MEQ/L [phone] mmol/L February 21, potassium, serum POTASSIUM 3.8 [...]
[2018-09-17 20:33] LABS: Urine Blood TRACE (NEG); Urine Glucose NEGATIVE (NEG); Urine Protein NEGATIVE (NEG)
[2018-09-17 20:53] LABS: Absolute Monocytes 0.7 K/uL (0.1-1.3); Basophils % 1.9 % (0-1.3); Eosinophils % 1.8 % (0-4.4); Hematocrit 46.6 % (36.0-45.0); Lymphocytes % 33.5 % (15.3-44.8); MCH 29.4 pg (27.0-35.0); MCV 87.8 fL (80-100); MPV 10.4 fL (7.6-11.3); Monocytes % 7.9 % (3.3-12.3); RBC Red Blood Cell Count 5.31 M/uL (3.86-4.86)
[2018-09-17 20:59] LABS: Protime INR 1.12
--- NOTE | 2018-09-17 21:02 | RAD REPORT ---
EXAM DESCRIPTION: CT - Head Brain Wo Cont - 09/17/2018 8:46 pm CLINICAL HISTORY: Dizziness COMPARISON: None. TECHNIQUE: Computed axial tomography of the head was obtained. IV contrast was not requested. All CT scans are performed using dose optimization technique as appropriate and may include automated exposure control or mA/KV adjustment according to patient size. FINDINGS: An intracranial bleed is not seen . The ventricles are normal in caliber. No extra-axial fluid collection is noted. Fluid within the sinuses/ mastoids is not seen. IMPRESSION: No acute intracranial abnormality is seen. If patient's symptoms persist MRI of the bra in would be recommended.
--- NOTE | 2018-09-17 21:03 | RAD REPORT ---
EXAM DESCRIPTION: Meagan Single View09/17/2018 8:58 pm CLINICAL HISTORY: Hypertension, shortness of breath COMPARISON: 2013 FINDINGS: The lungs appear clear of acute infiltrate. The heart is mildly enlarged IMPRESSION: No acute abnormalities displayed
[2018-09-17 21:23] LABS: Urine Bacteria <20 /HPF (<20); Urine RBC <5 /HPF (NONE SEEN)
[2018-09-17 21:24] LABS: Urine Culture Reflex Order NOT NEEDED
[2018-09-17 21:25] LABS: ALT/SGPT 16 U/L (12-78); AST/SGOT 11 U/L (15-37); Albumin 3.5 g/dL (3.4-5.0); Alkaline Phosphatase 74 U/L (45-117); BUN Blood Urea Nitrogen 9 mg/dL (7-18); Bicarbonate 27 mmol/L (21-32); Bilirubin Direct < 0.1 mg/dL (0-0.2); Bilirubin Total 0.4 mg/dL (0.2-1.0); Glucose Level 90 mg/dL (74-106); NT PRO-BNP 35 pg/mL (<125); Protein, Total 7.8 g/dL (6.4-8.2); Sodium Level 140 mmol/L (136-145); Troponin (Emerg Dept Use Only) < 0.02 ng/mL (0.0-0.045)
--- NOTE | 2018-09-17 22:05 | ER ---
Nurse's Notes [facility] Name: Yessica Linder Age: 63 yrs Sex: Female : 1955 Arrival Date: 09/17/2018 Time: 19:50 Bed 2 Private MD: Diagnosis: Weakness;Dizziness and giddiness Presentation: 09/17 19:50 Presenting complaint: EMS states: Reports pt has been feeling dizzy for the past two ea days. Today she reports she got home and felt worse tonight. Transition of care: patient was not received from another setting of care. Onset of symptoms was September 17, 2018. Risk Assessment: Do you want to hurt yourself or someone else? Patient reports no desire to harm self or others. Initial Sepsis Screen: Does the patient meet any 2 criteria? No. Patient's initial sepsis screen is negative. Does the patient have a suspected source of infection? No. Patient's initial sepsis screen is negative. Care prior to arrival: None. 19:50 Method Of Arrival: EMS: [facility] ea 19:50 Acuity: RANDY 3 ea Triage Assessment: 19:50 General: Appears in no apparent distress. Behavior is calm, cooperative, appropriate ea for age. Pain: Denies pain. Neuro: Level of Consciousness is awake, alert, obeys commands, Oriented to person, place, time, situation, Reports dizziness, since 2 days ago. Cardiovascular: Patient's skin is warm and dry. Respiratory: Airway is patent Respiratory effort is even, unlabored, Respiratory pattern is regular, symmetrical, Breath sounds are clear bilaterally. GI: Abdomen is non-distended, obese. Derm: Skin is pink, warm \T\ dry. Musculoskeletal: Circulation, motion, and sensation intact. Historical: - Allergies: 19:59 Demerol; ea 19:59 Iodine; ea - Home Meds: 19:59 amlodipine oral once daily [Active]; carvedilol Oral 1 tab daily [Active]; Simvastatin ea Oral once at bedtime [Active]; Ecotrin 325 mg Oral TbEC 1 tab once daily [Active]; levothyroxine oral once daily [Active]; losartan Oral 2 times per day [Active]; metformin 500 mg Oral tab 1 tab 2 times per day [Active]; - PMHx: 19:59 hyperthyroidism; Hypertension; Hyperlipidemia; Diabetes - NIDDM; Degenerative disc ea disease; COPD; CHF; - PSHx: 19:59 Hernia repair; Hysterectomy; removal of lump in right breast; ea - Immunization history:: Adult Immunizations up to date. - Social history:: Smoking status: Patient uses tobacco products. - Ebola Screening: : No symptoms or risks identified at this time. Screenin:31 Abuse screen: Denies threats or abuse. Nutritional screening: No deficits noted. ea Tuberculosis screening: No symptoms or risk factors identified. Fall Risk None identified. Assessment: 22:12 Reassessment: Patient appears in no apparent distress at this time. No changes from ak1 previously documented assessment. Patient is alert, oriented x 3, equal unlabored respirations, skin warm/dry/pink. 22:16 Reassessment: Patient and/or family updated on plan of care and expected duration. Pain ea level reassessed. Patient is alert, oriented x 3, equal unlabored respirations, skin warm/dry/pink. Discharge instruction given to patient, verbalized the understanding of instruciton. Vital Signs: 19:50 BP 112 / 68; Pulse 79; Resp 18; Temp 98.7; Pulse Ox 100% ; Weight 129.27 kg; Pain 0/10; ea 21:14 BP 117 / 80 Supine; Pulse 76; Pulse Ox 95% ; ds4 21:14 BP 138 / 90 Standing; Pulse 88; Pulse Ox 95% ; ds4 21:17 BP 130 / 87 Sitting; Pulse 81; Pulse Ox 95% ; ds4 22:12 BP 100 / 60; Pulse 85; Resp 19; Temp 98.7; Pulse Ox 100% on R/A; ak1 ED Course: 19:50 Patient arrived in ED. ds1 19:50 Liberty Castillo, RN is Primary Nurse. ea 19:50 Arm band placed on right wrist. Patient placed in an exam room, on a stretcher, on ea pulse oximetry. 19:54 Triage completed. ea 20:03 Garrett Rodriguez MD is Attending Physician. gs 20:32 Patient has correct armband on for positive identification. Bed in low position. Call ea light in reach. Side rails up X2. 20:[address] vm2 20:44 CT completed. Patient tolerated procedure well. Patient moved to radiology. vm2 20:47 CT Head Brain wo Cont In Process Unspecified. EDMS 20:51 Inserted saline lock: 20 gauge in right antecubital area, using aseptic technique. ag4 Blood collected. 20:55 XRAY Chest (1 view) In Process Unspecified. EDMS 21:13 EKG done, by ED staff, reviewed by Garrett Rodriguez MD. ag4 22:21 No provider procedures requiring assistance completed. IV discontinued, intact, ak1 bleeding controlled, No redness/swelling at site. Pressure dressing applied. Administered Medications: No medications were administered Outcome: 22:04 Discharge ordered by . 22:21 Discharged to home via wheelchair, with family. ak1 22:21 Condition: good 22:21 Discharge instructions given to patient, family, Instructed on discharge instructions, follow up and referral plans. Demonstrated understanding of instructions, follow-up care. 22:21 Patient left the ED. ak1 Signatures: Dispatcher [employer] EDDE ValleTori navarro ds1 Hugo Figueroa ds4 Carolyn Garcia RN RN ak1 Roseann Wilson2 Liberty Castillo RN RN ea Starr, Gregory, MD MD Jonnathan Harris ag4
--- NOTE | 2018-09-17 22:05 | EDPHYS ---
Physician Documentation [facility] Name: Yessica Linder Age: 63 yrs Sex: Female : 1955 Arrival Date: 09/17/2018 Time: 19:50 Bed 2 Private MD: ED Physician Garrett Rodriguez HPI: 09/17 21:58 This 63 yrs old Black Female presents to ER via EMS with complaints of General Weakness.gs 21:58 The patient presents to the emergency department with weakness of the entire body, gs generalized weakness. Onset: The symptoms/episode began/occurred 1 month(s) ago, and became persistent. Associated signs and symptoms: Pertinent positives: lightheaded tonite. Severity of symptoms: At their worst the symptoms were moderate in the emergency department the symptoms have improved moderately. The patient has experienced similar episodes in the past, multiple times. The patient has not recently seen a physician. Historical: - Allergies: 19:59 Demerol; ea 19:59 Iodine; ea - Home Meds: 19:59 amlodipine oral once daily [Active]; carvedilol Oral 1 tab daily [Active]; Simvastatin ea Oral once at bedtime [Active]; Ecotrin 325 mg Oral TbEC 1 tab once daily [Active]; levothyroxine oral once daily [Active]; losartan Oral 2 times per day [Active]; metformin 500 mg Oral tab 1 tab 2 times per day [Active]; - PMHx: 19:59 hyperthyroidism; Hypertension; Hyperlipidemia; Diabetes - NIDDM; Degenerative disc ea disease; COPD; CHF; - PSHx: 19:59 Hernia repair; Hysterectomy; removal of lump in right breast; ea - Immunization history:: Adult Immunizations up to date. - Social history:: Smoking status: Patient uses tobacco products. - Ebola Screening: : No symptoms or risks identified at this time. ROS: 21:58 All other systems are negative. gs Exam: 21:58 Head/Face: Normocephalic, atraumatic. Eyes: Pupils equal round and reactive to light, gs extra-ocular motions intact. Lids and lashes normal. Conjunctiva and sclera are non-icteric and not injected. Cornea within normal limits. Periorbital areas with no swelling, redness, or edema. ENT: Nares patent. No nasal discharge, no septal abnormalities noted. Tympanic membranes are normal and external auditory canals are clear. Oropharynx with no redness, swelling, or masses, exudates, or evidence of obstruction, uvula midline. Mucous membranes moist. Neck: Trachea midline, no thyromegaly or masses palpated, and no cervical lymphadenopathy. Supple, full range of motion without nuchal rigidity, or vertebral point tenderness. No Meningismus. Chest/axilla: Normal chest wall appearance and motion. Nontender with no deformity. No lesions are appreciated. Cardiovascular: Regular rate and rhythm with a normal S1 and S2. No gallops, murmurs, or rubs. Normal PMI, no JVD. No pulse deficits. Respiratory: Lungs have equal breath sounds bilaterally, clear to auscultation and percussion. No rales, rhonchi or wheezes noted. No increased work of breathing, no retractions or nasal flaring. Abdomen/GI: Soft, non-tender, with normal bowel sounds. No distension or tympany. No guarding or rebound. No evidence of tenderness throughout. Back: No spinal tenderness. No costovertebral tenderness. Full range of motion. Skin: Warm, dry with normal turgor. Normal color with no rashes, no lesions, and no evidence of cellulitis. MS/ Extremity: Pulses equal, no cyanosis. Neurovascular intact. Full, normal range of motion. Neuro: Awake and alert, GCS 15, oriented to person, place, time, and situation. Cranial nerves II-XII grossly intact. Motor strength 5/5 in all extremities. Sensory grossly intact. Cerebellar exam normal. Normal gait. 21:58 Constitutional: The patient appears alert, awake. 21:58 ECG was reviewed by the Attending Physician. Vital Signs: 19:50 BP 112 / 68; Pulse 79; Resp 18; Temp 98.7; Pulse Ox 100% ; Weight 129.27 kg; Pain 0/10; ea 21:14 BP 117 / 80 Supine; Pulse 76; Pulse Ox 95% ; ds4 21:14 BP 138 / 90 Standing; Pulse 88; Pulse Ox 95% ; ds4 21:17 BP 130 / 87 Sitting; Pulse 81; Pulse Ox 95% ; ds4 22:12 BP 100 / 60; Pulse 85; Resp 19; Temp 98.7; Pulse Ox 100% on R/A; ak1 MDM: 20:21 Patient medically screened. 21:58 Data reviewed: vital signs, nurses notes. Counseling: I had a detailed discussion with the patient and/or guardian regarding: the historical points, exam findings, and any diagnostic results supporting the discharge/admit diagnosis, radiology results. Counseling: I had a detailed discussion with the patient and/or guardian regarding: lab results, the need for outpatient follow up. Response to treatment: the patient's symptoms have markedly improved after treatment, and as a result, I will discharge patient. ED course: ddx dehydration, vertigo, cva. 09/17 20:23 Order name: Basic Metabolic Panel; Complete Time: : 09/17 20:23 Order name: CBC with Diff; Complete Time: : 09/17 20:23 Order name: LFT's; Complete Time: 09/17 20:23 Order name: Magnesium; Complete Time: : 09/17 20:23 Order name: NT PRO-BNP; Complete Time: : 09/17 20:23 Order name: PT-INR; Complete Time: 09/17 20:23 Order name: XRAY Chest (1 view); Complete Time: : 09/17 20:23 Order name: Troponin (emerg Dept Use Only); Complete Time: : 09/17 20:23 Order name: EKG; Complete Time: 20:24 09/17 20:23 Order name: Cardiac monitoring; Complete Time: 21: 09/17 20:23 Order name: CT Head Brain wo Cont; Complete Time: : 09/17 20:30 Order name: Urine Microscopic Only; Complete Time: : ds4 09/17 20:30 Order name: Urine Dipstick--Ancillary (enter results); Complete Time: : ds4 09/17 20:23 Order name: EKG - Nurse/Tech; Complete Time: 21: 09/17 20:23 Order name: IV Saline Lock; Complete Time: : 09/17 20:23 Order name: Labs collected and sent; Complete Time: : 09/17 20:23 Order name: O2 Per Protocol; Complete Time: : 09/17 20:23 Order name: O2 Sat Monitoring; Complete Time: : 09/17 20:23 Order name: Orthostatic Blood Pressure; Complete Time: 21:28 gs EC:58 Rate is 70 beats/min. Rhythm is regular. ND interval is normal. QRS interval is normal. gs QT interval is normal. No Q waves. No ST changes noted. Clinical impression: Abnormal EKG without significant change. Interpreted by me. Administered Medications: No medications were administered Disposition: 09/17/18 22:04 Discharged to Home. Impression: Weakness, Dizziness and giddiness. - Condition is Stable. - Discharge Instructions: Dizziness, Weakness, Fatigue. - Medication Reconciliation Form, Thank You Letter, Antibiotic Education, Prescription Opioid Use form. - Follow up: Private Physician; When: 2 - 3 days; Reason: Re-evaluation by your physician. Signatures: Dispatcher [employer] Carolyn Nelson RN RN ak1 Liberty Castillo RN RN Garrett Gonzalez MD MD gs Corrections: (The following items were deleted from the chart) 22:21 22:04 09/17/2018 22:04 Discharged to Home. Impression: Weakness; Dizziness and ak1 giddiness. Condition is Stable. Forms are Medication Reconciliation Form, Thank You Letter, Antibiotic Education, Prescription Opioid Use. Follow up: Private Physician; When: 2 - 3 days; Reason: Re-evaluation by your physician.
[2018-09-17 23:42] VITALS: TEMP 98.7
[2018-09-17 23:47] VITALS: BP 100/60; O2SAT 100
--- NOTE | 2018-09-18 07:18 | EKG ---
Test Date: 2018-09-17 Test Time: 21:10:31 Director Of Rehabilitation: SHAHLA MEASUREMENT RESULTS: Intervals: Rate: 70 NH: 190 QRSD: 86 QT: 402 QTc: 434 [place]: P: 39 NH: 190 QRS: 41 T: 52 INTERPRETIVE STATEMENTS: Sinus rhythm with marked sinus arrhythmia Otherwise normal ECG Compared to ECG 09/14/2014 15:29:11 No significant changes Electronically Signed On 09-18-18 07:18:15 [employer]PA[employer] by Micah Chirinos
== END 2018-09-17 22:21 | disposition home or self-care (01) ==
LOC: ER 19:48
DX: R42 Dizziness and giddiness (principal); I10 Essential (primary) hypertension; E78.5 Hyperlipidemia, unspecified; E11.9 Type 2 diabetes mellitus without complications; J44.9 Chronic obstructive pulmonary disease, unspecified; Z72.0 Tobacco use; Z88.5 Allergy status to narcotic agent; Z91.048 Other nonmedicinal substance allergy status
CPT/HCPCS: 36415; 70450; 71045; 80048; 80076; 81003; 81015; 83735; 83880; 84484; 85025; 85610; 93005; 99284

== ENCOUNTER 2019-08-13 05:29 | Emergency (ER) | payer OTHER ==
[2019-08-13] MEDS ORDERED: NA CHLORIDE 0.9% 500 ML ONE (05:55)
[2019-08-13] MEDS ORDERED: IPRATROPIUM BROM 0.5MG/2.5ML ONE (06:21)
[2019-08-13] MEDS ORDERED: LEVALBUTEROL 1.25 MG/3 ML NEB ONE (06:21)
[2019-08-13 07:06] LABS: Potassium 4.3 mmol/L (3.5-5.1)
[2019-08-13 07:08] LABS: Absolute Lymphocytes (CBC) 1.9 K/uL (0.7-4.9); Basophils % 0.6 % (0-1.3); Lymphocytes % 23.3 % (15.3-44.8); MPV 10.9 fL (7.6-11.3); RBC Red Blood Cell Count 4.96 M/uL (3.86-4.86)
[2019-08-13 07:40] LABS: Urine Bacteria 20-50 /HPF (<20); Urine Culture Reflex Order NOT NEEDED; Urine RBC <5 /HPF (NONE SEEN)
[2019-08-13 07:41] LABS: Urine Trichomonas PRESENT (NONE SEEN)
[2019-08-13] MEDS ORDERED: FUROSEMIDE 20 MG/ 2ML VIAL ONE (08:23)
[2019-08-13] MEDS ORDERED: MECLIZINE HCL 12.5 MG TAB ONE (08:30)
--- NOTE | 2019-08-13 08:34 | RAD REPORT ---
EXAM DESCRIPTION: RAD - Chest Single View - 08/13/2019 7:31 am CLINICAL HISTORY: MALAISE Chest pain. COMPARISON: Chest Single View dated 09/17/2018; CHEST SINGLE VIEW dated 09/14/2014; CHEST SINGLE VIE W dated 03/03/2014; CHEST SINGLE VIEW dated 03/02/2014 FINDINGS: Portable technique limits examination quality. Mild interstitial pulmonary edema. The heart is moderately enlarged in size. No displaced fractures. IMPRESSION: Mild CHF.
[2019-08-13 08:40] LABS: Magnesium 2.2 mg/dL (1.8-2.4); NT PRO-BNP 28 pg/mL (<125); Troponin (Emerg Dept Use Only) < 0.02 ng/mL (0.0-0.045)
[2019-08-13 09:06] LABS: Urine Blood TRACE (NEG); Urine Glucose NEGATIVE (NEG); Urine Protein NEGATIVE (NEG); Urine Specific Gravity 1.025 (1.005-1.030)
--- NOTE | 2019-08-13 09:49 | EDPHYS ---
Physician Documentation [facility] Name: Yessica Linder Age: 64 yrs Sex: Female : 1955 Arrival Date: 08/13/2019 Time: 05:32 Bed 8 Private MD: ED Physician Garrett Rodriguez HPI: 08/13 06:39 This 64 yrs old Black Female presents to ER via EMS with complaints of Dizziness. kb 06:39 The patient presents with lightheadedness. Onset: The symptoms/episode began/occurred kb this morning. Context: occurred at home, occurred while the patient was getting up from bed, just prior to the episode the patient experienced no apparent symptoms. Modifying factors: The symptoms are alleviated by nothing, the symptoms are aggravated by standing up, changing position. Associated signs and symptoms: The patient has no apparent associated signs or symptoms. Severity of symptoms: At their worst the symptoms were moderate in the emergency department the symptoms are unchanged. Patient's baseline: Neuro: alert and fully oriented, Motor: no deficits, Ambulation: walks without assistance, Speech: normal, The patient has a previous history of CVA. The patient has experienced similar episodes in the past, multiple times. The patient has not recently seen a physician. Pt reports she got very lightheaded when she sat up in bed this morning and had to lay back down. Reports she tried 3 times and got lightheaded every time. Called 911 and was able to make it to the living room before they got there. States she had this same feeling when she woke up yesterday morning, but today it was worse. Has had this in the past, it comes and goes. . Historical: - Allergies: 05:37 Demerol; rr5 05:37 Iodine; rr5 - Home Meds: 05:37 carvedilol Oral 1 tab daily [Active]; levothyroxine oral once daily [Active]; losartan rr5 Oral 2 times per day [Active]; metformin 500 mg Oral tab 1 tab 2 times per day [Active]; Simvastatin Oral once at bedtime [Active]; Ecotrin 325 mg Oral TbEC 1 tab once daily [Active]; - PMHx: 05:37 CHF; COPD; Degenerative disc disease; Diabetes - NIDDM; Hyperlipidemia; Hypertension; rr5 hyperthyroidism; - PSHx: 05:37 Hernia repair; Hysterectomy; Knee surgery; right breast cyst removal; rr5 - Immunization history:: Adult Immunizations up to date. - Social history:: Smoking status: Patient uses tobacco products, smokes one-half pack cigarettes per day, Patient/guardian denies using alcohol, street drugs. - Ebola Screening: : Patient negative for fever greater than or equal to 101.5 degrees Fahrenheit, and additional compatible Ebola Virus Disease symptoms. ROS: 06:37 Constitutional: Negative for fever, chills, and weight loss, Neck: Negative for injury, kb pain, and swelling, Cardiovascular: Negative for chest pain, palpitations, and edema, Respiratory: Negative for shortness of breath, cough, wheezing, and pleuritic chest pain, Abdomen/GI: Negative for abdominal pain, nausea, vomiting, diarrhea, and constipation, Back: Negative for injury and pain, : Negative for injury, bleeding, discharge, and swelling, MS/Extremity: Negative for injury and deformity, Skin: Negative for injury, rash, and discoloration. 06:37 Neuro: Positive for "lightheadedness". Exam: 06:38 Constitutional: This is a well developed, well nourished patient who is awake, alert, kb and in no acute distress. Head/Face: Normocephalic, atraumatic. ENT: Nares patent. No nasal discharge, no septal abnormalities noted. Tympanic membranes are normal and external auditory canals are clear. Oropharynx with no redness, swelling, or masses, exudates, or evidence of obstruction, uvula midline. Mucous membranes moist. Neck: Trachea midline, no thyromegaly or masses palpated, and no cervical lymphadenopathy. Supple, full range of motion without nuchal rigidity, or vertebral point tenderness. No Meningismus. Chest/axilla: Normal chest wall appearance and motion. Nontender with no deformity. No lesions are appreciated. Cardiovascular: Regular rate and rhythm with a normal S1 and S2. No gallops, murmurs, or rubs. Normal PMI, no JVD. No pulse deficits. Abdomen/GI: Soft, non-tender, with normal bowel sounds. No distension or tympany. No guarding or rebound. No evidence of tenderness throughout. Back: No spinal tenderness. No costovertebral tenderness. Full range of motion. Skin: Warm, dry with normal turgor. Normal color with no rashes, no lesions, and no evidence of cellulitis. MS/ Extremity: Pulses equal, no cyanosis. Neurovascular intact. Full, normal range of motion. Neuro: Awake and alert, GCS 15, oriented to person, place, time, and situation. Cranial nerves II-XII grossly intact. Motor strength 5/5 in all extremities. Sensory grossly intact. Cerebellar exam normal. Normal gait. 06:38 Respiratory: the patient does not display signs of respiratory distress, Respirations: normal, Breath sounds: wheezing: expiratory that is moderate, is scattered. Vital Signs: 05:37 BP 119 / 77; Pulse 88; Resp 18; Temp 97.8; Pulse Ox 98% ; Weight 139.71 kg; Height 5 rr5 ft. 4 in. (162.56 cm); Pain 0/10; 06:00 BP 120 / 79; Pulse 76; Resp 20; Pulse Ox 99% ; rr5 06:50 BP 127 / 73; Pulse 81; Resp 22; Pulse Ox 100% ; rr5 08:00 BP 110 / 67; Pulse 87; Resp 18 S; Pulse Ox 98% on R/A; Pain 0/10; aa5 09:30 BP 107 / 65; Pulse 85; Resp 18 S; Pulse Ox 97% on R/A; aa5 05:37 Body Mass Index 52.87 (139.71 kg, 162.56 cm) rr5 NIH Stroke Scale Scores: 07:10 NIHSS Score: 0 rr5 Braeden Coma Score: 05:37 Eye Response: spontaneous(4). Verbal Response: oriented(5). Motor Response: obeys rr5 commands(6). Total: 15. MDM: 06:02 Patient medically screened. kb 06:37 Data reviewed: vital signs, nurses notes. Data interpreted: Pulse oximetry: on room air kb is 99 %. Interpretation: normal. 09:45 Counseling: I had a detailed discussion with the patient and/or guardian regarding: the kb historical points, exam findings, and any diagnostic results supporting the discharge/admit diagnosis, lab results, radiology results, the need for outpatient follow up, a family practitioner, to return to the emergency department if symptoms worsen or persist or if there are any questions or concerns that arise at home. ED course: Pt feeling better after meclizine. Educated on diagnostic findings and need for follow up with DR Thomas and cardiology. Agrees with plan of care and verbal understanding received of instructions. . 08/13 05:56 Order name: Urine Dipstick--Ancillary (enter results); Complete Time: 09:07 ar5 08/13 06:21 Order name: Glucose, Ancillary Testing; Complete Time: 06:26 EDMS 08/13 06:51 Order name: Basic Metabolic Panel; Complete Time: 07:10 EDMS 08/13 06:51 Order name: CBC with Automated Diff; Complete Time: 07:10 EDMS 08/13 06:51 Order name: Protime (+INR); Complete Time: 07:16 EDMS 08/13 06:51 Order name: PTT, Activated Partial Thromb; Complete Time: 07:16 EDMS 08/13 06:51 Order name: Urine Microscopic Only; Complete Time: 07:39 EDMS 08/13 06:51 Order name: Urine Culture EDMS 08/13 05:53 Order name: Stroke CXR 1 View; Complete Time: 09:07 gs 08/13 05:53 Order name: EKG; Complete Time: 07:08 gs 08/13 05:53 Order name: Accucheck; Complete Time: 06:24 gs 08/13 05:53 Order name: Cardiac monitoring; Complete Time: 06:24 gs 08/13 06:31 Order name: Ct Stroke Brain Wo Cont EDMS 08/13 07:38 Order name: Magnesium; Complete Time: 09:07 kb 08/13 07:38 Order name: NT PRO-BNP; Complete Time: 09:07 kb 08/13 07:38 Order name: Troponin (emerg Dept Use Only); Complete Time: 09:07 kb 08/13 05:53 Order name: EKG - Nurse/Tech; Complete Time: 06:24 gs 08/13 05:53 Order name: IV Saline Lock; Complete Time: 06:24 gs 08/13 05:53 Order name: Labs collected and sent; Complete Time: 06:24 gs 08/13 05:53 Order name: NPO; Complete Time: 06:24 gs 08/13 05:53 Order name: O2 Per Protocol; Complete Time: 06:24 gs 08/13 05:53 Order name: O2 Sat Monitoring; Complete Time: 06:24 gs 08/13 05:53 Order name: Stroke Swallow Screen; Complete Time: 06:24 gs Administered Medications: 06:10 Drug: NS 0.9% 500 ml Route: IV; Rate: bolus; Site: right antecubital; rr5 07:14 Follow up: Response: No adverse reaction; IV Status: Completed infusion; IV Intake: rr5 500ml 06:55 Drug: Xopenex (3) 1.25 mg Route: Inhalation; rr5 07:10 Follow up: Response: No adverse reaction rr5 06:55 Drug: AtroVENT Aerosol 0.5 mg Route: Inhalation; rr5 07:10 Follow up: Response: No adverse reaction rr5 08:25 Drug: Lasix 20 mg Route: IVP; Site: right antecubital; aa5 08:33 Follow up: Response: No adverse reaction aa5 08:33 Drug: Meclizine 25 mg Route: PO; aa5 10:00 Follow up: Response: No adverse reaction aa5 10:00 Drug: Flagyl 2 grams Route: PO; aa5 10:05 Follow up: Pt vomited once 100cc of coffee, no pill fragments noted, [employer]OR[employer] BETTING MANAGER was notified. aa5 10:16 Drug: Zofran 4 mg Route: PO; aa5 10:16 Follow up: Response: Medication administered at discharge. aa5 Disposition: 08/13/19 09:48 Discharged to Home. Impression: Dizziness and giddiness, Trichomoniasis. - Condition is Stable. - Discharge Instructions: Near-Syncope, [id number]-nl-[id number], Vertigo, Amtd-rf-Dcho, Dizziness, Lwra-rp-Ekhj. - Prescriptions for Meclizine 25 mg Oral Tablet - take 1 tablet by ORAL route every 8 hours As needed; 30 tablet. - Medication Reconciliation Form, Thank You Letter, Antibiotic Education, Prescription Opioid Use form. - Follow up: Emergency Department; When: As needed; Reason: Worsening of condition. Follow up: Private Physician; When: 2 - 3 days; Reason: Recheck today's complaints, Continuance of care, Re-evaluation by your physician. NIH Stroke Scale - NIH Stroke Score Date: 08/13/2019 Time: 07:10 Total Score = 0 1a. Level of Consciousness (LOC) - 0(Alert) 1b. Level of Consciousness (LOC) (Year \\T\\ Age) - 0(Both) 1c. LOC Commands (Open \\T\\ Closes Eyes/Utility Worker [employer] Processing) - 0(Both) 2. Best Gaze (Lateral Gaze Paresis) - 0(Normal) 3. Visual Field Loss - 0(No visual loss) 4. Facial Palsy - 0(Normal) 5a. Left Arm: Motor (10-second hold) - 0(No drift) 5b. Right Arm: Motor (10-second hold) - 0(No drift) 6a. Left Leg: Motor (5-second hold - always test supine) - 0(No drift) 6b. Right Leg: Motor (5-second hold - always test supine) - 0(No drift) 7. Limb Ataxia (finger/nose \\T\\ heel/cobian - test with eyes open) - 0(Absent) 8. Sensory Loss (pinprick arms/legs/face) - 0(Normal) 9. Best Language: Aphasia (description/naming/reading) - 0(No aphasia) 10. Dysarthria (speech clarity - read or repeat words) - 0(Normal) 11. Extinction and Inattention (visual/tactile/auditory/spatial/personal) - 0(No abnormality) Initials: rr5 Signatures: Dispatcher [employer] EDMS Vidhi Hoffman, GRAIN TRIMMER-C GRAIN TRIMMER-Ckb Vivian Smith, RN RN aa5 Garrett Rodriguez MD MD gs Davies, Jonathon, RN RN jd3 Angelito Villanueva, RN RN rr5 Corrections: (The following items were deleted from the chart) 07:09 07:08 URINE DIPSTICK--ANCILLARY+U.LAB.BRZ ordered. EDMS EDMS 07:13 07:08 CT-STROKE BRAIN W/O CONTRAST+CT.RAD.BRZ ordered. EDMS EDMS 08:28 07:08 UA MICROSCOPIC+U.LAB.BRZ ordered. EDMS EDMS 08:30 07:08 Urine Culture+BA.LAB.BRZ ordered. EDMS EDMS 08:30 07:08 BASIC METABOLIC PANEL+C.LAB.BRZ ordered. EDMS EDMS 08:30 07:08 CBC+H.LAB.BRZ ordered. EDMS EDMS 08:30 07:08 PROTIME (+INR)+COAG.LAB.BRZ ordered. EDMS EDMS 08:30 07:08 PTT, ACTIVATED+COAG.LAB.BRZ ordered. EDMS EDMS 10:25 09:48 08/13/2019 09:48 Discharged to Home. Impression: Dizziness and giddiness; aa5 Trichomoniasis. Condition is Stable. Forms are Medication Reconciliation Form, Thank You Letter, Antibiotic Education, Prescription Opioid Use. Follow up: Emergency Department; When: As needed; Reason: Worsening of condition. Follow up: Private Physician; When: 2 - 3 days; Reason: Recheck today's complaints, Continuance of care, Re-evaluation by your physician. kb
--- NOTE | 2019-08-13 09:49 | ER ---
Nurse's Notes [facility] Name: Yessica Linder Age: 64 yrs Sex: Female : 1955 Arrival Date: 08/13/2019 Time: 05:32 Bed 8 Private MD: Diagnosis: Dizziness and giddiness;Trichomoniasis Presentation: 08/13 05:37 Risk Assessment: Do you want to hurt yourself or someone else? Patient reports no jd3 desire to harm self or others. Initial Sepsis Screen: Does the patient meet any 2 criteria? No. Patient's initial sepsis screen is negative. Does the patient have a suspected source of infection? No. Patient's initial sepsis screen is negative. Care prior to arrival: None. 05:37 Presenting complaint: EMS states: patient felt dizzy started last but able to rr5 shake it off. today morning it gets worse. she was diagnose before for vertigo when she was young. 05:37 Transition of care: patient was not received from another setting of care. Note patient rr5 stated as per EMS she experienced this before and was diagnose with stroke. patient verbalized when I closed my eyes i feel like there is flashing lights, she complaints of nausea and vomiting. 05:37 Acuity: RANDY 3 rr5 05:38 Onset of symptoms was August 12, 2019 at 04:00. rr5 05:38 Method Of Arrival: EMS: [facility] jd3 Historical: - Allergies: 05:37 Demerol; rr5 05:37 Iodine; rr5 - Home Meds: 05:37 carvedilol Oral 1 tab daily [Active]; levothyroxine oral once daily [Active]; losartan rr5 Oral 2 times per day [Active]; metformin 500 mg Oral tab 1 tab 2 times per day [Active]; Simvastatin Oral once at bedtime [Active]; Ecotrin 325 mg Oral TbEC 1 tab once daily [Active]; - PMHx: 05:37 CHF; COPD; Degenerative disc disease; Diabetes - NIDDM; Hyperlipidemia; Hypertension; rr5 hyperthyroidism; - PSHx: 05:37 Hernia repair; Hysterectomy; Knee surgery; right breast cyst removal; rr5 - Immunization history:: Adult Immunizations up to date. - Social history:: Smoking status: Patient uses tobacco products, smokes one-half pack cigarettes per day, Patient/guardian denies using alcohol, street drugs. - Ebola Screening: : Patient negative for fever greater than or equal to 101.5 degrees Fahrenheit, and additional compatible Ebola Virus Disease symptoms. Screenin:37 Abuse screen: Denies threats or abuse. Nutritional screening: No deficits noted. jd3 Tuberculosis screening: No symptoms or risk factors identified. Fall Risk Ambulatory Aid- Crutches/Cane/Walker (15 pts). Gait- Weak (10 pts.). Mental Status- Oriented to own ability (0 pts). Total Gee Fall Scale indicates Low Risk Score (25-44 pts). Fall prevention measures have been instituted. Side Rails Up X 2 Placed close to Nursing Station Frequent Obs/Assesments occuring. 06:18 VAN Screening: Arm Drift: Patient shows no arm weakness. Patient is VAN negative. rr5 Patient has been NPO before screening. The patient is alert, able to follow commands. The patient does not exhibit slurred or garbled speech The patient is not exhibiting difficulty speaking. The patient does not exhibit difficulty understanding words. The patient is able to swallow own secretions with no drooling or need for suction. The patient did not tolerate one teaspoon of water. Drooling, immediate coughing, gurgling, or clearing of the throat was noted. Bedside swallow screening discontinued. Patient kept NPO until cleared by Speech Therapy or Physician. patient verbalized I'm having difficulty swallowing. coughing noted when she tried to drink the teaspoon of water. difficulty of swallowing started 9pm last night. The patient failed the bedside swallow screening. The patient will be kept NPO until cleared by Speech Therapy or Physician. Provider notified of bedside swallow screening results: Vidhi KAURP-C. Assessment: 05:35 General: Appears in no apparent distress. uncomfortable, Behavior is calm, cooperative, jd3 appropriate for age. Pain: Denies pain. Neuro: Level of Consciousness is awake, alert, obeys commands, Oriented to person, place, time, situation, School Curriculum Developer are equal bilaterally Speech is normal, Facial symmetry appears normal, Pupils are PERRLA, Intact Reports dizziness, since last night Denies blurred vision numbness headache photophobia diplopia. Cardiovascular: Denies chest pain, Heart tones S1 S2 present Capillary refill < 3 seconds Patient's skin is warm and dry. Respiratory: Airway is patent Respiratory effort is even, unlabored, Respiratory pattern is regular, symmetrical, Denies cough, shortness of breath. GI: Abdomen is round non-distended, Abd is soft and non tender X 4 quads. Reports nausea, Patient currently denies abdominal pain. : No signs and/or symptoms were reported regarding the genitourinary system. EENT: No signs and/or symptoms were reported regarding the EENT system. Derm: Skin is intact, Skin is dry, Skin is normal, Skin temperature is warm. Musculoskeletal: Circulation, motion, and sensation intact. Range of motion: intact in all extremities. 06:50 Reassessment: Patient appears in no apparent distress at this time. Patient is alert, rr5 oriented x 3, equal unlabored respirations, skin warm/dry/pink. came back from CT scan. breathing treatment started. audible wheezing noted. 08:10 General: Appears comfortable, Behavior is calm, cooperative. Pain: Denies pain. Neuro: aa5 Level of Consciousness is awake, alert, obeys commands, Oriented to person, place, time, situation, School Curriculum Developer are equal bilaterally Moves all extremities. Speech is normal, Facial symmetry appears normal, Pupils are PERRLA, Reports dizziness, Pt reports dizziness is worse with movement. Pt states "I also noticed that I had some trouble swallowing the soda last night while I was eating dinner". Cardiovascular: Heart tones S1 S2 present Rhythm is regular. Respiratory: Airway is patent Respiratory effort is even, unlabored, Respiratory pattern is regular, symmetrical, Breath sounds are clear bilaterally. GI: Abdomen is round Bowel sounds present X 4 quads. Abd is soft and non tender X 4 quads. Reports intermittent nausea. : No signs and/or symptoms were reported regarding the genitourinary system. EENT: Reports difficulty swallowing. Derm: Skin is dry, Skin is normal, Skin temperature is warm. Musculoskeletal: Range of motion: intact in all extremities. 08:10 Reassessment: Patient states symptoms have not improved. aa5 08:30 Reassessment: Bedside swallow screen completed, pt tolerated well, result: Pass, CERTIFIED INDUSTRIAL HYGIENIST was aa5 notified. . 08:30 Reassessment: Awaiting complete lab results, pt notified of wait time. . aa5 09:00 Reassessment: Pt assisted to bedside commode . aa5 09:30 Reassessment: Pt sitting up in bed watching TV, cup of coffee given to patient. . aa5 10:00 Neuro: Level of Consciousness is awake, alert, obeys commands, Oriented to person, aa5 place, time, situation. Respiratory: Airway is patent Respiratory effort is even, unlabored, Respiratory pattern is regular, symmetrical. Derm: Skin is dry, Skin is normal, Skin temperature is warm. 10:00 Reassessment: Patient states feeling better. aa5 10:05 Reassessment: Vomiting noted after Flagyl administration, no pill fragments noted in aa5 vomit, CERTIFIED INDUSTRIAL HYGIENIST was notified. Pt sitting up in bed at this time. . Vital Signs: 05:37 BP 119 / 77; Pulse 88; Resp 18; Temp 97.8; Pulse Ox 98% ; Weight 139.71 kg; Height 5 rr5 ft. 4 in. (162.56 cm); Pain 0/10; 06:00 BP 120 / 79; Pulse 76; Resp 20; Pulse Ox 99% ; rr5 06:50 BP 127 / 73; Pulse 81; Resp 22; Pulse Ox 100% ; rr5 08:00 BP 110 / 67; Pulse 87; Resp 18 S; Pulse Ox 98% on R/A; Pain 0/10; aa5 09:30 BP 107 / 65; Pulse 85; Resp 18 S; Pulse Ox 97% on R/A; aa5 05:37 Body Mass Index 52.87 (139.71 kg, 162.56 cm) rr5 [place] Coma Score: 05:37 Eye Response: spontaneous(4). Verbal Response: oriented(5). Motor Response: obeys rr5 commands(6). Total: 15. NIH Stroke Scale Scores: 07:10 NIHSS Score: 0 rr5 ED Course: 05:32 Patient arrived in ED. ds1 05:35 Philipp Avelar, RN is Primary Nurse. jd3 05:37 Patient has correct armband on for positive identification. Bed in low position. Call jd3 light in reach. Side rails up X2. 05:38 Arm band placed on. jd3 05:50 Triage completed. rr5 05:51 Pulse ox on. NIBP on. rr5 06:00 Assisted with bedpan. Repositioned patient. rr5 06:02 [facility] Hoffman [facility]C [facility]. kb 06:02 Garrett Rodriguez MD is Attending Physician. kb 06:10 quality assurance monitor body on. rr5 06:10 Inserted saline lock: 20 gauge in right antecubital area, using aseptic technique. rr5 Blood collected. 06:10 EKG done, by ED staff, reviewed by Vidhi CORDOBA. rr5 06:15 Warm blanket given. Pillow given. rr5 06:55 Initial Neb Treatment Given as ordered Patient was instructed and evaluated on rr5 procedure. 06:57 Ct Stroke Brain Wo Cont In Process Unspecified. EDMS 07:30 Stroke CXR 1 View In Process Unspecified. EDMS 10:02 No provider procedures requiring assistance completed. IV discontinued, intact, aa5 bleeding controlled, No redness/swelling at site. Pressure dressing applied. Administered Medications: 06:10 Drug: NS 0.9% 500 ml Route: IV; Rate: bolus; Site: right antecubital; rr5 07:14 Follow up: Response: No adverse reaction; IV Status: Completed infusion; IV Intake: rr5 500ml 06:55 Drug: Xopenex (3) 1.25 mg Route: Inhalation; rr5 07:10 Follow up: Response: No adverse reaction rr5 06:55 Drug: AtroVENT Aerosol 0.5 mg Route: Inhalation; rr5 07:10 Follow up: Response: No adverse reaction rr5 08:25 Drug: Lasix 20 mg Route: IVP; Site: right antecubital; aa5 08:33 Follow up: Response: No adverse reaction aa5 08:33 Drug: Meclizine 25 mg Route: PO; aa5 10:00 Follow up: Response: No adverse reaction aa5 10:00 Drug: Flagyl 2 grams Route: PO; aa5 10:05 Follow up: Pt vomited once 100cc of coffee, no pill fragments noted, CERTIFIED INDUSTRIAL HYGIENIST was notified. aa5 10:16 Drug: Zofran 4 mg Route: PO; aa5 10:16 Follow up: Response: Medication administered at discharge. aa5 Intake: 07:14 IV: 500ml; Total: 500ml. rr5 Outcome: 09:48 Discharge ordered by . kb 10:18 Discharged to home via wheelchair, with family. aa5 10:18 Condition: improved 10:18 Discharge instructions given to patient, Instructed on discharge instructions, follow up and referral plans. medication usage, Demonstrated understanding of instructions, follow-up care, medications, Prescriptions given X 1. 10:25 Patient left the ED. aa5 NIH Stroke Scale - NIH Stroke Score Date: 08/13/2019 Time: 07:10 Total Score = 0 1a. Level of Consciousness (LOC) - 0(Alert) 1b. Level of Consciousness (LOC) (Year \\T\\ Age) - 0(Both) 1c. LOC Commands (Open \\T\\ Closes Eyes/Care Director Rn) - 0(Both) 2. Best Gaze (Lateral Gaze Paresis) - 0(Normal) 3. Visual Field Loss - 0(No visual loss) 4. Facial Palsy - 0(Normal) 5a. Left Arm: Motor (10-second hold) - 0(No drift) 5b. Right Arm: Motor (10-second hold) - 0(No drift) 6a. Left Leg: Motor (5-second hold - always test supine) - 0(No drift) 6b. Right Leg: Motor (5-second hold - always test supine) - 0(No drift) 7. Limb Ataxia (finger/nose \\T\\ heel/cobian - test with eyes open) - 0(Absent) 8. Sensory Loss (pinprick arms/legs/face) - 0(Normal) 9. Best Language: Aphasia (description/naming/reading) - 0(No aphasia) 10. Dysarthria (speech clarity - read or repeat words) - 0(Normal) 11. Extinction and Inattention (visual/tactile/auditory/spatial/personal) - 0(No abnormality) Initials: rr5 Signatures: Dispatcher [employer] [facility] Vidhi Hoffman, CHURN OPERATOR-C CHURN OPERATOR-CkTori Sow ds1 Vivian Smith RN RN aa5 Philipp Avelar RN RN jd3 Angelito Villanueva RN RN rr5 Corrections: (The following items were deleted from the chart) 07:12 06:18 Patient has been NPO before screening. The patient is alert, able to rr5 follow commands. The patient does not exhibit slurred or garbled speech The patient is not exhibiting difficulty speaking. The patient does not exhibit difficulty understanding words. The patient is able to swallow own secretions with no drooling or need for suction. The patient did not tolerate one teaspoon of water. Drooling, immediate coughing, gurgling, or clearing of the throat was noted. Bedside swallow screening discontinued. Patient kept NPO until cleared by Speech Therapy or Physician. patient verbalized I'm having difficulty swallowing. coughing noted when she tried to drink the teaspoon of water. The patient failed the bedside swallow screening. The patient will be kept NPO until cleared by Speech Therapy or Physician. Provider notified of bedside swallow screening results: Vidhi Dalton CORDOBA rr5 07:12 05:38 Onset of symptoms was August 12, 2019 herberth rr5 07:15 06:50 Reassessment: Patient appears in no apparent distress at this time. rr5 Patient is alert, oriented x 3, equal unlabored respirations, skin warm/dry/pink. came back from CT scan. breathing treatment started. rr5
[2019-08-13] MEDS ORDERED: metroNIDAZOLE 500 MG TABLET ONE (10:01)
[2019-08-13] MEDS ORDERED: ONDANSETRON 4 MG (ODT) TAB ONE (10:12)
[2019-08-13 10:32] VITALS: TEMP 97.8
[2019-08-13 10:35] VITALS: BP 110/67; O2SAT 98
--- NOTE | 2019-08-13 11:59 | EKG ---
Test Date: 2019-08-13 Test Time: 05:58:58 [place]: RR MEASUREMENT RESULTS: Intervals: Rate: 74 HI: 176 QRSD: 84 QT: 406 QTc: 450 [place]: P: HI: 176 QRS: 66 T: 79 INTERPRETIVE STATEMENTS: Sinus rhythm with premature atrial complexes in a pattern of bigeminy Otherwise normal ECG Compared to ECG 09/17/2018 21:10:31 Atrial premature complex(es) now present Sinus arrhythmia no longer present Electronically Signed On 08-13-19 11:58:15 CDT by Archie Brandon
--- NOTE | 2019-08-16 13:15 | RAD REPORT ---
EXAM DESCRIPTION: Ct Stroke Brain Wo Cont ADDENDUM #1 Note: Critical findings given by [facility] associate, Ni to the patient's Dr. Hoffman on 08/13/2019 4:18 PM CDT over the phone. Readback performed. Electronically signed by: Laura Canada MD 08/13/2019 4:19 PM CDT End of Addendum EXAM DESCRIPTION: CT head without contrast. CLINICAL HISTORY: Lightheadedness . COMPARISON: September 17, 2018 TECHNIQUE: Contiguous axial sections are obtained as per protocol. Sagittal and coronal reformations are submitted Automatic exposure control (AEC), mA and/or kV adjustment by patient size, and/or iterative reconstru ctive technique was used, per departmental dose optimization program, during the performance of the C T examination. FINDINGS: Ventricles, sulci and cisterns appear normal. Normal gomez-white matter differentiation i s noted. No evidence of intra or extra-axial hemorrhage, hematoma, mass, mass effect or midline shift is noted. The posterior fossa structures appear normal. The bony calvarium appears intact. The soft tissues of the scalp appear unremarkable. Normal appearance of the orbits are noted. The paranasal sinuses and mastoids appear normal. No interval changes are noted compared to prior study. IMPRESSION: Unremarkable non contrast enhanced CT examination of brain. If clinically ischemic CVA is suspected, MRI brain with diffusion-weighted images should be considere d. Electronically signed by: Laura Canada MD 08/13/2019 7:14 AM CDT Due to temporary technical issues with the PACS/Fluency reporting system, reports are being signed by the in house radiologist as a courtesy to ensure prompt reporting. The interpreting radiologist is f ully responsible for the content of the report.
== END 2019-08-13 10:25 | disposition home or self-care (01) ==
LOC: ER 05:29
DX: A59.9 Trichomoniasis, unspecified (principal); F17.210 Nicotine dependence, cigarettes, uncomplicated; I10 Essential (primary) hypertension; E78.5 Hyperlipidemia, unspecified; E11.9 Type 2 diabetes mellitus without complications; I50.9 Heart failure, unspecified; Z88.5 Allergy status to narcotic agent; Z91.048 Other nonmedicinal substance allergy status
CPT/HCPCS: 96361; 93005; 87088; 85025; 87086; 80048; 36415; 83735; 85610; 82947; 85730; 84484; 83880; 70450; 71045; 96374; 99285; J1940; J7040; 81003; 81015; J8597

== ENCOUNTER 2019-12-14 18:13 | Inpatient (IN) | payer OTHER ==
--- OUTSIDE RECORDS SUMMARY | 2019-12-14 18:15 | XMS REPORT ---
:1955 [facility] Address [address] [place] [address] Dr. Walter [address] [place] [id number] Care Team Providers Name Role Phone Unavailable Unavailable Unavailable Problems This patient has no known problems. Allergies, Adverse Reactions, Alerts This patient has no known allergies or adverse reactions. Medications This patient has no known medications.
[2019-12-14] MEDS ORDERED: ACETAMINOPHEN 500 MG TAB ONE (18:39)
[2019-12-14 19:09] LABS: Absolute Lymphocytes (CBC) 0.4 K/uL (0.7-4.9); Basophils % 0.4 % (0-1.3); Hematocrit 46.3 % (36.0-45.0); Lymphocytes % 4.7 % (15.3-44.8); MPV 10.8 fL (7.6-11.3); RBC Red Blood Cell Count 5.23 M/uL (3.86-4.86)
[2019-12-14 19:11] LABS: Protime INR 1.1
[2019-12-14] MEDS ORDERED: IPRATROPIUM BROM 0.5MG/2.5ML ONE (19:20)
[2019-12-14] MEDS ORDERED: ALBUTEROL 2.5 MG/3 ML NEB SOL ONE (19:21)
--- NOTE | 2019-12-14 19:24 | RAD REPORT ---
EXAM DESCRIPTION: RAD - Chest Single View - 12/14/2019 6:42 pm CLINICAL HISTORY: pain, sob COMPARISON: Chest Single View dated 08/13/2019 TECHNIQUE: AP portable chest image was obtained 12/14/2019 6:42 pm . FINDINGS: Normal lung volumes noted. No focal consolidation. Interstitial and patchy alveolar opacit ies are present. Central vascular engorgement noted. Heart size is upper normal. No measurable pleura l effusion and no pneumothorax. No acute bony abnormality seen. No acute aortic findings suspected. IMPRESSION: Moderate CHF/volume overload pattern without cardiomegaly.
[2019-12-14 19:28] LABS: ALT/SGPT 15 U/L (12-78); AST/SGOT 14 U/L (15-37); Albumin 3.2 g/dL (3.4-5.0); Alkaline Phosphatase 61 U/L (45-117); BUN Blood Urea Nitrogen 9 mg/dL (7-18); Bicarbonate 29 mmol/L (21-32); Bilirubin Direct 0.1 mg/dL (0-0.2); Bilirubin Total 0.6 mg/dL (0.2-1.0); CKMB Creatine Kinase MB < 1.0 ng/mL (0.3-3.6); Creatine Phosphokinase 341 U/L (26-192); Glucose Level 101 mg/dL (74-106); Lipase 45 U/L (73-393); Magnesium 2.1 mg/dL (1.8-2.4); NT PRO-BNP 247 pg/mL (<125); Potassium 3.8 mmol/L (3.5-5.1); Protein, Total 7.9 g/dL (6.4-8.2); Sodium Level 139 mmol/L (136-145); Troponin I < 0.02 ng/mL (0.0-0.045)
[2019-12-14] MEDS ORDERED: FUROSEMIDE 40 MG/4 ML VIAL ONE (21:42)
[2019-12-14] MEDS ORDERED: ACETAMINOPHEN 160 MG/5 ML UCUP ONE (21:42)
[2019-12-14] MEDS ORDERED: ONDANSETRON 4 MG/2 ML VIAL IV PRN (22:06)
[2019-12-14] MEDS ORDERED: POTASSIUM CL SA 10 MEQ TAB PO ONE (23:18)
[2019-12-15 00:05] VITALS: BMI 52.2
[2019-12-15] MEDS: FUROSEMIDE 40 MG/4 ML VIAL IV SCH ×4 (00:16→23:58)
[2019-12-15] MEDS ORDERED: TEMAZEPAM 15 MG CAP PO PRN (02:34)
[2019-12-15] MEDS: LEVOTHYROXINE SOD 0.1 MG TAB PO SCH (05:29)
[2019-12-15] MEDS: ACETAMINOPHEN 500 MG TAB PO PRN ×3 (05:29→23:42)
[2019-12-15 05:57] LABS: Absolute Lymphocytes (CBC) 0.5 K/uL (0.7-4.9); Basophils % 0.5 % (0-1.3); Hematocrit 47.2 % (36.0-45.0); Lymphocytes % 5.3 % (15.3-44.8); MPV 10.8 fL (7.6-11.3); RBC Red Blood Cell Count 5.31 M/uL (3.86-4.86)
[2019-12-15 06:23] LABS: ALT/SGPT 19 U/L (12-78); AST/SGOT 31 U/L (15-37); Albumin 3.4 g/dL (3.4-5.0); Alkaline Phosphatase 59 U/L (45-117); BUN Blood Urea Nitrogen 11 mg/dL (7-18); Bicarbonate 28 mmol/L (21-32); Bilirubin Total 0.5 mg/dL (0.2-1.0); Glucose Level 109 mg/dL (74-106); Magnesium 1.9 mg/dL (1.8-2.4); NT PRO-BNP 247 pg/mL (<125); Phosphorus 3.4 mg/dL (2.5-4.9); Protein, Total 8.3 g/dL (6.4-8.2); Sodium Level 137 mmol/L (136-145); Troponin I < 0.02 ng/mL (0.0-0.045)
[2019-12-15] MEDS ORDERED: PNEUMOCOCCAL VACCINE 0.5 ML IMVAC ONE (08:00)
[2019-12-15] MEDS ORDERED: INFLUENZA VACCINE (for 3y+) 0.5 ML DOSE IMVAC ONE (08:00)
[2019-12-15 08:02] LABS: Blood Morphology Comment NOT SEEN (NOT SEEN); Platelet Estimate ADEQ
--- NOTE | 2019-12-15 08:18 | EKG ---
Test Date: 2019-12-14 Test Time: 19:18:15 Ballet Professor: SWG MEASUREMENT RESULTS: Intervals: Rate: 107 UT: 164 QRSD: 84 QT: 318 QTc: 424 [place]: P: 60 UT: 164 QRS: 44 T: 64 INTERPRETIVE STATEMENTS: Sinus tachycardia Otherwise normal ECG Compared to ECG 08/13/2019 05:58:58 Sinus rhythm no longer present Atrial premature complex(es) no longer present Electronically Signed On 12-15-19 08:17:50 HOISTING ENGINEER by Micah Chirinos
[2019-12-15] MEDS: ENOXAPARIN 40 MG/0.4 ML SQ SCH (08:35)
[2019-12-15] MEDS: POTASSIUM 25 MEQ EFFERV TAB PO SCH ×2 (08:36→20:08)
[2019-12-15] MEDS: ASPIRIN EC 81 MG TAB PO SCH (08:37)
[2019-12-15] MEDS: carvediloL 12.5 MG TAB PO SCH ×2 (08:56→20:08)
[2019-12-15] MEDS ORDERED: VALSARTAN 80 MG TAB PO SCH (09:00)
--- NOTE | 2019-12-15 09:10 | P.HP ---
Certification for Inpatient Patient admitted to: Inpatient With expected LOS: >2 Midnights Patient will require the following post-hospital care: None Practitioner: I am a practitioner with admitting privileges, knowledge of patient current condition, hospital course, and medical plan of care. Services: Services provided to patient in accordance with Admission requirements found in Title 42 Section 412.3 of the Code of Federal Regulations Patient History Date of Service: 12/14/19 Reason for admission: SHORTNESS OF BREATH History of Present Illness: PATIENT IS A 64-YEAR-OLD FEMALE WHO CAME TO THE EMERGENCY ROOM WITH DIFFICULTY BREATHING. PATIENT HAD BEEN FEELING SHORT OF BREATH FOR THE LAST FEW DAYS. SHE CAME INTO THE ER AND WAS FOUND TO HAVE PULMONARY EDEMA. SHE HAS A HISTORY OF CONGESTIVE HEART FAILURE AND IS AWARE THAT SHE DOES DEVELOP PULMONARY ISSUES. SHE IS ON DIURETICS. SHE MAY NEED THESE ADJUSTED. SHE APPEARS TO BE COMPLIANT WITH HER MEDICATION TREATMENT. AT THIS TIME WHO WILL BE ADMITTED TO THE HOSPITAL FOR FURTHER EVALUATION. WE WILL CONTINUE WITH GENTLE DIURESING AND WE WILL GET AN ECHOCARDIOGRAM 1 IS NOT ON THE CHART. CONTINUE WITH MONITORING STRICT INPUT AND OUTPUT ALONG WITH DAILY WEIGHTS. KEEP PATIENT ON TELEMETRY WELL. Allergies codeine [Codeine] Allergy (Verified 12/14/19 23:43) can not remember iodine Allergy (Verified 12/14/19 23:43) Anaphylaxis meperidine HCl [From Demerol] Adverse Reaction (Verified 12/14/19 23:43) hallucinations Home Medications: Amlodipine [Norvasc] 5 mg PO DAILY 12/14/19 Aspirin Enteric Coated [Ecotrin] 325 mg PO DAILY 12/14/19 Carvedilol [Coreg] 25 mg PO BID 12/14/19 Fluticasone [Flonase 50mcg Nasal [place]] 2 sprays NS BID PRN 12/14/19 Levothyroxine [Synthroid] 100 mcg PO DAILY 12/14/19 Losartan Potassium 25 mg PO DAILY 12/14/19 Metformin HCl [Glucophage] 500 mg PO BID 12/14/19 Simvastatin 20 mg PO BEDTIME 12/14/19 - Past Medical/Surgical History Has patient received pneumonia vaccine in the past: No Diabetic: No -: CHF -: Hypothyroidism -: Hypertension -: CVA -: Sleep Apnea -: NIDDM -: Hysterectomy -: Hernia Repair -: Lumpectomy - Family History Father Family History: Reviewed- Non-Contributory - Social History Smoking Status: Light Tobacco smoker (1-9 cigarettes/day) Alcohol use: No CD- Drugs: No Caffeine use: Yes Place of Residence: Home Review of Systems 10-point ROS is otherwise unremarkable Physical Examination - Vital Signs Temperature: 100.6 F Blood Pressure: 99/59 Pulse: 103 Respirations: 16 Pulse Ox (%): 93 - Physical Exam General: Alert, In no apparent distress, Oriented x3 HEENT: Atraumatic, PERRLA, Mucous membr. moist/pink, EOMI, Sclerae nonicteric Neck: Supple, 2+ carotid pulse no bruit, No LAD, Without JVD or thyroid abnormality Respiratory: Diminished, Crackles/rales Cardiovascular: Regular rate/rhythm, Normal S1 S2, No murmurs Gastrointestinal: Normal bowel sounds, Hypoactive, Soft and benign, No ascites, No tenderness, No masses Musculoskeletal: No clubbing, No swelling, No tenderness Integumentary: No rashes Neurological: Normal gait, Normal speech, Normal strength at 5/5 x4 extr, Normal tone, Sensation intact, Cranial nerves 3-12 intact, Normal reflexes 2+, Normal affect Lymphatics: No axilla or inguinal lymphadenopathy - Studies Laboratory Data (last 24 hrs) 12/14/19 18:40: WBC 8.4, Hgb 15.0, Hct 46.3 H, Plt Count 153 12/14/19 18:40: Sodium 139, Potassium 3.8, BUN 9, Creatinine 0.90, Glucose 101, Magnesium 2.1, Total Bilirubin 0.6, AST 14 L, ALT 15, Alkaline Phosphatase 61, Troponin I < 0.02, Lipase 45 L 12/14/19 18:40: PT 12.9 H, INR 1.10, APTT 30.1 Assessment & Plan - Problems (Diagnosis) (1) Pulmonary edema Current Visit: Yes Status: Acute (2) CHF (congestive heart failure) Current Visit: Yes Status: Acute Qualifiers: Heart failure type: diastolic Heart failure chronicity: acute Qualified Code(s): I50.31 - Acute diastolic (congestive) heart failure (3) Fever Current Visit: No Status: Acute (4) Pneumonia Current Visit: No Status: Acute - Plan 1. ECHOCARDIOGRAM 2. MONITOR VOLUME STATUS CLOSELY. CONTINUE WITH ANTIBIOTICS WELL. PATIENT' S MAIN GOAL SHOULD BE WEIGHT LOSS AND EXERCISE. 3. WE WILL START PATIENT ON A BETA NATHEN 4. CARDIOLOGY CONSULTATION 5. AGGRESSIVE DIURESIS 6. STRICT I'S AND O'S 7. REPEAT CXR 8. DAILY WEIGHTS 9. EDUCATION REGARDING DIET AND TREATMENT OF CONGESTIVE HEART FAILURE Discharge Plan: Home Plan to discharge in: Greater than 2 days - Advance Directives Does patient have a Living Will: Yes Does patient have a Durable POA for Healthcare: Yes Critical Care: Yes Time Spent Managing PTS Care (In Minutes): 60
[2019-12-15] MEDS ORDERED: FLUTICASONE 50MCG NASAL SPRAY NAS PRN (11:15)
[2019-12-15] MEDS: TRAMADOL HCL 50 MG TAB PO PRN ×2 (12:17→19:57)
--- NOTE | 2019-12-15 12:26 | P.PN ---
Subjective Date of Service: 12/15/19 Chief Complaint: SHORTNESS OF BREATH Patient reports severe headache. That she has been getting intermittent fever. She also reports some nasal congestion prior to hospitalization. Physical Examination - Vital Signs Temperature: 100.6 F Blood Pressure: 99/59 Pulse: 103 Respirations: 19 Pulse Ox (%): 94 - Physical Exam General: Alert, In no apparent distress, Oriented x3 HEENT: Mucous membr. moist/pink, Sclerae nonicteric Neck: Supple, JVD not distended Respiratory: Normal air movement, Crackles/rales (Mild bibasilar crackles) Cardiovascular: No edema, Normal S1 S2, Other (Tachycardia) Capillary refill: <2 Seconds Gastrointestinal: Normal bowel sounds, Soft and benign, Non-distended, No tenderness Musculoskeletal: No swelling, No erythema Integumentary: No rashes Neurological: Normal speech, Normal strength at 5/5 x4 extr, Cranial nerves 3- 12 intact - Studies Laboratory Data (last 24 hrs) 12/14/19 18:40: WBC 8.4, Hgb 15.0, Hct 46.3 H, Plt Count 153 12/14/19 18:40: Sodium 139, Potassium 3.8, BUN 9, Creatinine 0.90, Glucose 101, Magnesium 2.1, Total Bilirubin 0.6, AST 14 L, ALT 15, Alkaline Phosphatase 61, Troponin I < 0.02, Lipase 45 L 12/14/19 18:40: PT 12.9 H, INR 1.10, APTT 30.1 Assessment And Plan - Current Problems (Diagnosis) (1) Acute CHF Current Visit: Yes Status: Acute (2) Acute bronchiolitis due to other infectious organisms Current Visit: Yes Status: Acute (3) Upper respiratory infection Current Visit: Yes Status: Acute - Plan Continue Lasix, aspirin, Coreg and lipitor. Check TSH, continue Synthroid. Echocardiogram is pending. Influenza screen given upper respiratory symptoms, headache and fever. Pain management as needed.
--- NOTE | 2019-12-15 15:33 | CON ---
Chief Complaint: Coughing. History Of Present Illness: The patient was feeling well until she got in a car that had a lot of ba d odors, was very dirty and rodney. She started coughing, then she could not quit. When she came to the emergency room she was found to have mild pulmonary edema. The patient has chronic congestive he art failure, sees Dr. Dueñas for the past year. She is on good heart failure control. Takes he r medications. She also has underlying diabetes, morbid obesity, hypertension, dyslipidemia, hypothy roidism. Outpatient Medications: Metformin, losartan, fluticasone, simvastatin, carvedilol, amlodipine, levot hyroxine, and aspirin. Past Medical History: She has never had myocardial infarction, stroke, vascular disease. Social History: She smokes cigarettes though she needs to quit. Allergies: SHE IS ALLERGIC TO CODEINE, IODINE AND MEPERIDINE. Physical Examination: General: 5 feet 4, 304 pounds, morbidly obese. Vital Signs: Her blood pressure is 99/59, heart rate 103, temperature 100.6. HEENT: Normal. Lungs: Sparse basilar crackles. Heart: Regular rate and rhythm. No significant murmur, rub, or gallop. Abdomen: Soft. Extremities: Mild edema. Impression: The patient has a mild case of pulmonary edema, now it is already better. She has recei altagracia intravenous Lasix a few doses, has good urine output, but does not seem to have any weights that would really document that. I do not believe the patient could be discharged home. I am not sure of the cause of her elevated temperature and I wonder if she has underlying influenza, perhaps Dr. Siddharth andrew wants to investigate that. Regarding the congestive heart failure, she is on a good medical regim en at home and she could be discharged to outpatient care regarding that whenever Dr. Berry is ready . SH/MODL Voice ID: [id number] Report ID: [id number]
--- NOTE | 2019-12-15 15:43 | ECHO ---
HEIGHT: 5 ft 4 in WEIGHT: 304 lb 0 oz DATE OF STUDY: 12/15/[address]: Talia Cross MD 2-DIMENSIONAL: YES M.MODE: YES DOPPLER: YES COLOR FLOW: YES TDS: PORTABLE: DEFINITY: BUBBLE STUDY: DIAGNOSIS: CONGESTIVE HEART FAILURE CARDIAC HISTORY: CATHERIZATION: NO SURGERY: NO PROSTHETIC VALVE: NO PACEMAKER: NO MEASUREMENTS (cm) DIASTOLIC (NORMALS) SYSTOLIC (NORMALS) IVSd 0.9 (0.6-1.2) LA Diam 2.6 (1.9-4.0) LVEF 70% LVIDd 4.5 (3.5-5.7) LVIDs 2.8 (2.0-3.5) %FS 39% LVPWd 1.2 (0.6-1.2) Ao Diam 2.5 (2.0-3.7) 2 DIMENSIONAL ASSESSMENT: RIGHT ATRIUM: NORMAL LEFT ATRIUM: NORMAL RIGHT VENTRICLE: NORMAL LEFT VENTRICLE: NORMAL TRICUSPID VALVE: NORMAL MITRAL VALVE: NORMAL PULMONIC VALVE: NORMAL AORTIC VALVE: NORMAL PERICARDIAL EFFUSION: NONE AORTIC ROOT: NORMAL LEFT VENTRICULAR WALL MOTION: NORMAL DOPPLER/COLOR FLOW: MILD MITRAL AND TRICUSPID REGURGITATION. NORMAL RIGHT VENTRICULAR SYSTOLIC PRESSURE. COMMENTS: NORMAL 2-DIMENSIONAL ECHOCARDIOGRAM. NORMAL LEFT VENTRICULAR EJECTION FRACTION. MILD MITRAL AND TRICUSPID REGURGITATION. TECHNOLOGIST: SAÚL GOFF
[2019-12-15] MEDS: OSELTAMIVIR 75 MG CAP PO SCH (20:09)
[2019-12-15] MEDS ORDERED: ATORVASTATIN 10 MG TAB PO SCH (21:00)
[2019-12-16] MEDS: TRAMADOL HCL 50 MG TAB PO PRN (01:33)
[2019-12-16] MEDS: LEVOTHYROXINE SOD 0.1 MG TAB PO SCH (05:45)
[2019-12-16 07:13] LABS: Potassium 3.7 mmol/L (3.5-5.1)
[2019-12-16] MEDS: POTASSIUM 25 MEQ EFFERV TAB PO SCH (08:31)
[2019-12-16] MEDS: ENOXAPARIN 40 MG/0.4 ML SQ SCH (08:31)
[2019-12-16] MEDS: carvediloL 12.5 MG TAB PO SCH (08:31)
[2019-12-16] MEDS: FUROSEMIDE 40 MG/4 ML VIAL IV SCH (08:31)
[2019-12-16] MEDS: OSELTAMIVIR 75 MG CAP PO SCH (08:32)
[2019-12-16] MEDS: ASPIRIN EC 81 MG TAB PO SCH (08:32)
[2019-12-16] MEDS ORDERED: LEVOTHYROXINE SOD 0.1 MG TAB PO SCH (09:00)
[2019-12-16] MEDS ORDERED: POTASSIUM CL SA 10 MEQ TAB PO ONE (09:00)
[2019-12-16 10:31] VITALS: O2SAT 96
--- NOTE | 2019-12-16 10:53 | P.DS ---
Admission Date: 12/14/19 Discharge Date: 12/18/19 Disposition: ROUTINE DISCHARGE Discharge Condition: GOOD Reason for Admission: SHORTNESS OF BREATH Brief History of Present Illness: 64-YEAR-OLD FEMALE WHO CAME TO THE EMERGENCY ROOM WITH DIFFICULTY BREATHING. PATIENT HAD BEEN FEELING SHORT OF BREATH FOR THE LAST FEW DAYS. SHE CAME INTO THE ER AND WAS FOUND TO HAVE PULMONARY EDEMA. SHE HAS A HISTORY OF CONGESTIVE HEART FAILURE AND IS AWARE THAT SHE DOES DEVELOP PULMONARY ISSUES. SHE IS ON DIURETICS. SHE MAY NEED THESE ADJUSTED. SHE APPEARS TO BE COMPLIANT WITH HER MEDICATION TREATMENT. AT THIS TIME WHO WILL BE ADMITTED TO THE HOSPITAL FOR FURTHER EVALUATION. WE WILL CONTINUE WITH GENTLE DIURESING AND WE WILL GET AN ECHOCARDIOGRAM 1 IS NOT ON THE CHART. CONTINUE WITH MONITORING STRICT INPUT AND OUTPUT ALONG WITH DAILY WEIGHTS. KEEP PATIENT ON TELEMETRY WELL. Hospital Course: The patient was admitted and was monitored under telemetry. Patient was start on aggressive diuresis. Echocardiogram was done and cardiology was consulted. echo showed EF of 70% with diastolic dysfunction. cardiology recommended conservative management. the patient is being discharged home today in a stable condition with advice to follow up with PCP in 1 week and also with Cardiology in 1-2 weeks Vital Signs/Physical Exam: Temp Pulse Resp BP Pulse Ox 99.2 F 84 20 125/66 96 12/16/19 08:00 12/16/19 08:31 12/16/19 08:00 12/16/19 08:31 12/16/19 08:00 General: Alert, In no apparent distress HEENT: Atraumatic, Normocephalic Neck: Supple Respiratory: Clear to auscultation bilaterally, Normal air movement Cardiovascular: Regular rate/rhythm Capillary refill: <2 Seconds Gastrointestinal: Soft and benign, W/out hepatosplenomegaly Musculoskeletal: No clubbing, No swelling Integumentary: No rashes Neurological: Normal speech, Normal strength at 5/5 x4 extr Lymphatics: No axilla or inguinal lymphadenopathy Laboratory Data at Discharge: WBC 9.1 K/uL (4.3-10.9) 12/15/19 05:21 Hgb 15.4 g/dL (12.0-15.0) H 12/15/19 05:21 Hct 47.2 % (36.0-45.0) H 12/15/19 05:21 Plt Count 130 K/uL (152-406) L 12/15/19 05:21 PT 12.9 SECONDS (9.5-12.5) H 12/14/19 18:40 INR 1.10 12/14/19 18:40 APTT 30.1 SECONDS (24.3-36.9) 12/14/19 18:40 Sodium 138 mmol/L (136-145) 12/16/19 05:42 Potassium 3.7 mmol/L (3.5-5.1) 12/16/19 05:42 BUN 16 mg/dL (7-18) 12/16/19 05:42 Creatinine 1.03 mg/dL (0.55-1.3) 12/16/19 05:42 Glucose 110 mg/dL (74-106) H 12/16/19 05:42 Phosphorus 3.4 mg/dL (2.5-4.9) 12/15/19 05:21 Magnesium 1.9 mg/dL (1.8-2.4) 12/15/19 05:21 Total Bilirubin 0.5 mg/dL (0.2-1.0) 12/15/19 05:21 AST 31 U/L (15-37) 12/15/19 05:21 ALT 19 U/L (12-78) 12/15/19 05:21 Alkaline Phosphatase 59 U/L (45-117) 12/15/19 05:21 Troponin I < 0.02 ng/mL (0.0-0.045) 12/15/19 05:21 Lipase 45 U/L (73-393) L 12/14/19 18:40 Home Medications: Amlodipine [Norvasc*] 5 mg PO DAILY 12/14/19 Aspirin Enteric Coated [Ecotrin*] 325 mg PO DAILY 12/14/19 Carvedilol [Coreg] 25 mg PO BID 12/14/19 Fluticasone [Flonase 50MCG Nasal [place]*] 2 sprays NS BID PRN 12/14/19 Levothyroxine [Synthroid*] 100 mcg PO DAILY 12/14/19 Losartan Potassium 25 mg PO DAILY 12/14/19 Metformin HCl [Glucophage*] 500 mg PO BID 12/14/19 Simvastatin 20 mg PO BEDTIME 12/14/19 Furosemide [Lasix] 20 mg PO BIDL #60 tab 02/27/20 Guaifenesin [Mucinex] 600 mg PO BID #10 tablet.er 12/16/19 Oseltamivir [Tamiflu*] 75 mg PO BID #10 cap 12/16/19 New Medications: Furosemide [Lasix] 20 mg PO BIDL #60 tab Guaifenesin [Mucinex] 600 mg PO BID #10 tablet.er Oseltamivir [Tamiflu*] 75 mg PO BID #10 cap Diet: Low sodium Activity: Ad johnnie Followup: Archie Brandon MD [ACTIVE - CAN ADMIT] - Time spent managing pt's care (in minutes): 32
[2019-12-16 12:30] VITALS: BP 106/60; TEMP 99
--- NOTE | 2019-12-16 13:37 | PN ---
Date of Progress Note: 12/16/2019 Ms. Linder came in with diastolic congestive heart failure, admitted to Dr. Dillon on 12/14/2019. Ech ocardiogram yesterday showed an ejection fraction of 70%. She did not go home yesterday, but she had some mild elevation in her temperature. Today, she denied fever and denied chills. Denied chest pa in or shortness of breath and no rales on physical examination. Telemetry is normal rhythm. No fabio a. She can go home whenever it is okay with Dr. Dillon. We will see her in the office in the near michael. JAYDE/JANET Voice ID: [id number] Report ID: [id number]
== END 2019-12-16 11:50 | disposition home or self-care (01) | DRG 292 ==
LOC: ER 18:13 → ERHOLD 22:41 → 2ND 22:49
PROVIDERS: ADMIT Hospitalist; ATTEND Hospitalist
DX: I11.0 Hypertensive heart disease with heart failure (principal); Z68.42 Body mass index [BMI] 45.0-49.9, adult; I50.33 Acute on chronic diastolic (congestive) heart failure; E03.9 Hypothyroidism, unspecified; Z86.73 Personal history of transient ischemic attack (TIA), and cerebral infarction without residual deficits; E11.9 Type 2 diabetes mellitus without complications; Z87.891 Personal history of nicotine dependence; E66.01 Morbid (severe) obesity due to excess calories; E78.5 Hyperlipidemia, unspecified
CPT/HCPCS: 36415; 71045; 80048; 80053; 80076; 82550; 82553; 82947; 83690; 83735; 83880; 84100; 84484; 85025; 85610; 85730; 87804; 93005; 93306; J1650; J1940

== ENCOUNTER 2019-12-19 19:12 | Emergency (ER) | payer OTHER ==
--- OUTSIDE RECORDS SUMMARY | 2019-12-19 19:15 | XMS REPORT ---
:1955 Author Organization [facility] Address [address] [place] [address] Dr. Walter [address] [place] [id number] Care Team Providers Name Role Phone Unavailable Unavailable Unavailable Problems This patient has no known problems. Allergies, Adverse Reactions, Alerts This patient has no known allergies or adverse reactions. Medications This patient has no known medications.
[2019-12-19] MEDS ORDERED: ONDANSETRON 4 MG/2 ML VIAL ONE (19:50)
[2019-12-19] MEDS ORDERED: MORPHINE 4 MG/ML SYR ONE (19:57)
[2019-12-19 21:08] LABS: ALT/SGPT 24 U/L (12-78); AST/SGOT 30 U/L (15-37); Albumin 3.1 g/dL (3.4-5.0); Alkaline Phosphatase 50 U/L (45-117); BUN Blood Urea Nitrogen 10 mg/dL (7-18); Bicarbonate 32 mmol/L (21-32); Bilirubin Direct < 0.1 mg/dL (0-0.2); Bilirubin Total 0.6 mg/dL (0.2-1.0); Glucose Level 109 mg/dL (74-106); Lipase 70 U/L (73-393); Potassium 4.1 mmol/L (3.5-5.1); Protein, Total 7.8 g/dL (6.4-8.2); Sodium Level 142 mmol/L (136-145)
[2019-12-19 21:33] LABS: Absolute Lymphocytes (CBC) 2.1 K/uL (0.7-4.9); Hematocrit 45.9 % (36.0-45.0); Lymphocytes % 23.5 % (15.3-44.8); MPV 10.7 fL (7.6-11.3); RBC Red Blood Cell Count 5.22 M/uL (3.86-4.86)
--- NOTE | 2019-12-19 23:05 | ER ---
Nurse's Notes [facility] Name: Yessica Linder Age: 64 yrs Sex: Female : 1955 Arrival Date: 12/19/2019 Time: 19:22 Bed 13 Private MD: Diagnosis: Abdominal pain Presentation: 12/18 19:22 Chief complaint: EMS states: she was dc from the hospital last day for flu a]nd mg2 she ws on tamiflu. since yesterday she was having left sided abdominal pain, weakness and nausea. Coronavirus screen: The patient has NOT traveled to [place] in the past 14 days. Proceed with normal triage procedures. The patient has NOT had contact with known and/or suspected case of Coronavirus. Proceed with normal triage procedures. Ebola Screen: No symptoms or risks identified at this time. Initial Sepsis Screen: Does the patient meet any 2 criteria? No. Patient's initial sepsis screen is negative. Does the patient have a suspected source of infection? No. Patient's initial sepsis screen is negative. Risk Assessment: Do you want to hurt yourself or someone else? Patient reports no desire to harm self or others. 19:22 Method Of Arrival: EMS: [facility] mg2 19:22 Acuity: RANDY 3 mg2 20:00 Onset of symptoms was December 18, 2019. mg2 Triage Assessment: 19:30 General: Appears in no apparent distress. comfortable, Behavior is calm, cooperative. mg2 Historical: - Allergies: 19:26 Demerol; mg2 19:26 Iodine; mg2 - Home Meds: 20:00 carvedilol Oral 1 tab daily [Active]; Ecotrin 325 mg Oral TbEC 1 tab once daily mg2 [Active]; levothyroxine oral once daily [Active]; losartan Oral 2 times per day [Active]; metformin 500 mg Oral tab 1 tab 2 times per day [Active]; Simvastatin Oral once at bedtime [Active]; - PMHx: 19:26 CHF; COPD; Degenerative disc disease; Diabetes - NIDDM; Hyperlipidemia; Hypertension; mg2 hyperthyroidism; - PSHx: 19:26 Hysterectomy; mg2 - Immunization history:: Flu vaccine is not up to date. - Social history:: Smoking status: Patient reports the use of cigarette tobacco products. Screenin:03 Abuse screen: Denies threats or abuse. Denies injuries from another. Nutritional mg2 screening: No deficits noted. Tuberculosis screening: No symptoms or risk factors identified. Fall Risk IV access (20 points). Assessment: 19:30 General: Appears in no apparent distress. comfortable, Behavior is calm, cooperative. mg2 Pain: Complains of pain in left lower quadrant and left upper quadrant Pain does not radiate. Pain currently is 8 out of 10 on a pain scale. Quality of pain is described as aching, Pain began gradually, Is intermittent. Neuro: Level of Consciousness is awake, alert, obeys commands, Oriented to person, place, time, situation. Cardiovascular: Capillary refill < 3 seconds Patient's skin is warm and dry. Respiratory: Airway is patent Respiratory effort is even, unlabored, Respiratory pattern is regular, symmetrical. GI: Reports lower abdominal pain, upper abdominal pain, nausea, vomiting. : No signs and/or symptoms were reported regarding the genitourinary system. EENT: No signs and/or symptoms were reported regarding the EENT system. Derm: Skin is intact, is healthy with good turgor, Skin is pink, warm \T\ dry. normal. Musculoskeletal: Circulation, motion, and sensation intact. Capillary refill < 3 seconds. 20:30 Reassessment: Patient appears in no apparent distress at this time. Patient and/or mg2 family updated on plan of care and expected duration. Pain level reassessed. Patient is alert, oriented x 3, equal unlabored respirations, skin warm/dry/pink. 21:30 Reassessment: Patient appears in no apparent distress at this time. Patient and/or mg2 family updated on plan of care and expected duration. Pain level reassessed. Patient is alert, oriented x 3, equal unlabored respirations, skin warm/dry/pink. 22:30 Reassessment: No changes from previously documented assessment. mg2 23:40 Reassessment: Patient states feeling better. Patient states symptoms have improved. mg2 Vital Signs: 19:22 BP 120 / 76; Pulse 87; Resp 18; Temp 98.6; Pulse Ox 99% on R/A; Weight 131.09 kg; mg2 Height 5 ft. 4 in. (162.56 cm); 20:30 BP 110 / 80; Pulse 81; Resp 18; Temp 98; Pulse Ox 100% on R/A; mg2 21:45 BP 111 / 89; Pulse 81; Resp 18; Pulse Ox 98% on R/A; mg2 22:30 BP 108 / 89; Pulse 82; Resp 17; Pulse Ox 100% on R/A; mg2 23:03 BP 108 / 83; Pulse 90; Resp 18; Temp 98; Pulse Ox 98% on R/A; mg2 19:22 Body Mass Index 49.61 (131.09 kg, 162.56 cm) mg2 ED Course: 19:22 Patient arrived in ED. mg2 19:22 Cezar Parks MD is Attending Physician. pkl 19:24 Triage completed. mg2 19:24 Arm band placed on. mg2 19:30 Patient has correct armband on for positive identification. Placed in gown. mg2 19:41 Prasanna Chavira, RN is Primary Nurse. mg2 20:06 No provider procedures requiring assistance completed. Inserted saline lock: 20 gauge mg2 in right antecubital area, using aseptic technique. Blood collected. 20:25 Patient advised she finished the PO contrast. Primary nurse notified. mb4 21:16 Lab(s) recollected, by me, sent to lab. mb4 22:38 Abdomen In Process Unspecified. EDMS 23:40 IV discontinued, intact, bleeding controlled, No redness/swelling at site. Pressure mg2 dressing applied. Administered Medications: 20:05 Drug: morphine 4 mg Route: IVP; Site: right antecubital; mg2 21:00 Follow up: Response: No adverse reaction; Marked relief of symptoms; RASS: Alert and mg2 Calm (0) 20:05 Drug: Zofran (Ondansetron) 4 mg Route: IVP; Site: right antecubital; mg2 21:00 Follow up: Response: No adverse reaction mg2 Outcome: 23:05 Discharge ordered by . pkliss 23:45 Discharged to home via wheelchair. mg2 23:45 Condition: stable 23:45 Discharge instructions given to patient, Instructed on discharge instructions, follow up and referral plans. Demonstrated understanding of instructions, follow-up care. 23:45 Patient left the ED. mg2 Signatures: Dispatcher [employer] EDMS Cezar Parks MD MD pkl Gardose, Michele, RN RN mg2 Erin Lee mb4
--- NOTE | 2019-12-19 23:05 | EDPHYS ---
Physician Documentation [facility] Name: Yessica Linder Age: 64 yrs Sex: Female : 1955 Arrival Date: 12/19/2019 Time: 19:22 Bed 13 Private MD: ED Physician Cezar Parks HPI: 12/18 19:39 This 64 yrs old Black Female presents to ER via EMS with unknown complaint. pkl 19:39 The patient presents with abdominal pain in the left upper quadrant, in the left lower pkl quadrant. Onset: The symptoms/episode began/occurred yesterday. The symptoms do not radiate. Associated signs and symptoms: Pertinent positives: nausea. The patient has been recently been admitted at [facility], was discharged earlier this week, Patient was admitted on 12/14/19 and discharged on 12/16/19 for congestive heart failure. Historical: - Allergies: 19:26 Demerol; mg2 19:26 Iodine; mg2 - Home Meds: 20:00 carvedilol Oral 1 tab daily [Active]; Ecotrin 325 mg Oral TbEC 1 tab once daily mg2 [Active]; levothyroxine oral once daily [Active]; losartan Oral 2 times per day [Active]; metformin 500 mg Oral tab 1 tab 2 times per day [Active]; Simvastatin Oral once at bedtime [Active]; - PMHx: 19:26 CHF; COPD; Degenerative disc disease; Diabetes - NIDDM; Hyperlipidemia; Hypertension; mg2 hyperthyroidism; - PSHx: 19:26 Hysterectomy; mg2 - Immunization history:: Flu vaccine is not up to date. - Social history:: Smoking status: Patient reports the use of cigarette tobacco products. ROS: 19:42 Eyes: Negative for injury, pain, redness, and discharge, ENT: Negative for injury, pkl pain, and discharge, Neck: Negative for injury, pain, and swelling, Cardiovascular: Negative for chest pain, palpitations, and edema, Respiratory: Negative for shortness of breath, cough, wheezing, and pleuritic chest pain. 19:42 Abdomen/GI: Positive for abdominal pain, of the left upper quadrant and left lower quadrant. 19:42 Back: Negative for acute changes. 19:42 : Negative for urinary symptoms. 19:42 MS/extremity: Negative for acute changes. 19:42 Skin: Negative for rash. 19:42 Neuro: Negative for altered mental status. Exam: 19:42 Head/Face: Normocephalic, atraumatic. Eyes: Pupils equal round and reactive to light, pkl extra-ocular motions intact. Lids and lashes normal. Conjunctiva and sclera are non-icteric and not injected. Cornea within normal limits. Periorbital areas with no swelling, redness, or edema. ENT: Nares patent. No nasal discharge, no septal abnormalities noted. Tympanic membranes are normal and external auditory canals are clear. Oropharynx with no redness, swelling, or masses, exudates, or evidence of obstruction, uvula midline. Mucous membranes moist. Neck: Trachea midline, no thyromegaly or masses palpated, and no cervical lymphadenopathy. Supple, full range of motion without nuchal rigidity, or vertebral point tenderness. No Meningismus. Chest/axilla: Normal chest wall appearance and motion. Nontender with no deformity. No lesions are appreciated. Cardiovascular: Regular rate and rhythm with a normal S1 and S2. No gallops, murmurs, or rubs. Normal PMI, no JVD. No pulse deficits. Respiratory: Lungs have equal breath sounds bilaterally, clear to auscultation and percussion. No rales, rhonchi or wheezes noted. No increased work of breathing, no retractions or nasal flaring. 19:42 Abdomen/GI: Bowel sounds: normal, Palpation: soft, mild abdominal tenderness, in the left upper quadrant and left lower quadrant. 19:42 Back: Exam negative for acute changes. 19:42 : Exam negative for acute changes. 19:42 Musculoskeletal/extremity: Exam is negative for acute changes. 19:42 Skin: Exam negative for rash. 19:42 Neuro: Orientation: is normal, Mentation: is normal, Cranial nerves: grossly normal, Motor: is normal. Vital Signs: 19:22 BP 120 / 76; Pulse 87; Resp 18; Temp 98.6; Pulse Ox 99% on R/A; Weight 131.09 kg; mg2 Height 5 ft. 4 in. (162.56 cm); 20:30 BP 110 / 80; Pulse 81; Resp 18; Temp 98; Pulse Ox 100% on R/A; mg2 21:45 BP 111 / 89; Pulse 81; Resp 18; Pulse Ox 98% on R/A; mg2 22:30 BP 108 / 89; Pulse 82; Resp 17; Pulse Ox 100% on R/A; mg2 23:03 BP 108 / 83; Pulse 90; Resp 18; Temp 98; Pulse Ox 98% on R/A; mg2 19:22 Body Mass Index 49.61 (131.09 kg, 162.56 cm) mg2 MDM: 19:22 Patient medically screened. pkl 23:02 Data reviewed: vital signs, nurses notes, lab test result(s), radiologic studies, CT pkl scan. ED course: Discussed lab. and CT Scan results with patient. Patient feeling better. Advised to follow up with her PCP in 1 to 2 days. Patient understood instructions. 12/18 19:38 Order name: Basic Metabolic Panel; Complete Time: 21:44 pkl 12/18 19:38 Order name: CBC with Diff; Complete Time: 21:44 pkl 12/18 19:38 Order name: Creatinine for Radiology; Complete Time: 20:52 pkl 12/18 19:38 Order name: Hepatic Function; Complete Time: 21:44 pkl 12/18 19:38 Order name: Lipase; Complete Time: 21:44 pkl 12/18 19:38 Order name: IV Saline Lock; Complete Time: 20:05 pkl 12/18 19:38 Order name: Labs collected and sent; Complete Time: 20:06 pkl 12/18 20:52 Order name: Abdomen EDMS Administered Medications: 20:05 Drug: morphine 4 mg Route: IVP; Site: right antecubital; mg2 21:00 Follow up: Response: No adverse reaction; Marked relief of symptoms; RASS: Alert and mg2 Calm (0) 20:05 Drug: Zofran (Ondansetron) 4 mg Route: IVP; Site: right antecubital; mg2 21:00 Follow up: Response: No adverse reaction mg2 Disposition: 12/19/19 23:05 Discharged to Home. Impression: Abdominal pain. - Condition is Stable. - Medication Reconciliation Form, Thank You Letter, Antibiotic Education, Prescription Opioid Use form. - Follow up: Private Physician; When: 1 - 2 days; Reason: Re-evaluation by your physician. - Problem is new. - Symptoms have improved. Signatures: Dispatcher [employer] EDMS Cezar Parks MD MD pkl Prasanna Chavira RN RN mg2 Corrections: (The following items were deleted from the chart) 20:52 19:39 Abdomen Pelvis W Con+CT.RAD.BRZ ordered. EDMS EDMS 23:45 23:05 12/19/2019 23:05 Discharged to Home. Impression: Abdominal pain. Condition is mg2 Stable. Forms are Medication Reconciliation Form, Thank You Letter, Antibiotic Education, Prescription Opioid Use. Follow up: Private Physician; When: 1 - 2 days; Reason: Re-evaluation by your physician. Problem is new. Symptoms have improved. pkl
[2019-12-20 00:48] VITALS: BP 108/83; TEMP 98; O2SAT 98
--- NOTE | 2019-12-20 12:15 | RAD REPORT ---
EXAM DESCRIPTION: CT Abdomen and Pelvis Without Intravenous Contrast CLINICAL HISTORY: The patient is 64 years old and is Female; ABD PAIN TECHNIQUE: Axial computed tomography images of the abdomen and pelvis without intravenous contrast. Sagittal and coronal reformatted images were created and reviewed. This CT exam was performed usi ng one or more of the following dose reduction techniques: automated exposure control, adjustment o f the mA and/or kV according to patient size, and/or use of iterative reconstruction technique. COMPARISON: No relevant prior studies available. FINDINGS: LUNG BASES: Unremarkable. No mass. No consolidation. ABDOMEN: LIVER: The liver is mildly fatty. GALLBLADDER AND BILE DUCTS: The gallbladder is distended. PANCREAS: Unremarkable. No ductal dilation. SPLEEN: Unremarkable. ADRENALS: Mild bilateral adrenal gland hyperplasia is present. KIDNEYS AND URETERS: No obstructing stones. No hydronephrosis. No perinephric fluid. STOMACH AND BOWEL: The stomach is distended with oral contrast and food contents. Oral contrast is noted throughout majority of the small bowel which is normal in caliber. A moderate amount of stoo l is present throughout colon. Scattered colonic diverticula are noted within the left colon without surrounding inflammation. PELVIS: APPENDIX: No findings to suggest acute appendicitis. BLADDER: The bladder is well distended. No stones. REPRODUCTIVE: The patient is status post hysterectomy. ABDOMEN and PELVIS: INTRAPERITONEAL SPACE: Unremarkable. No free air. No significant fluid collection. BONES/JOINTS: Minimal degenerative change of the lower lumbar spine is present. SOFT TISSUES: The soft tissues are normal. VASCULATURE: Minimal atherosclerosis of the vasculature is present. The vessels are normal in co urse and caliber. No abdominal aortic aneurysm. LYMPH NODES: Unremarkable. No enlarged lymph nodes. IMPRESSION: No acute findings on this noncontrasted CT of the abdomen and pelvis to explain the preet ent's symptoms. Electronically signed by: Marlena Jackson MD 12/19/2019 10:42 PM [employer] Due to temporary technical issues with the PACS/Fluency reporting system, reports are being signed by the in house radiologist as a courtesy to ensure prompt reporting. The interpreting radiologist is f ully responsible for the content of the report.
== END 2019-12-19 23:45 | disposition home or self-care (01) ==
LOC: ER 19:12
DX: R10.9 Unspecified abdominal pain (principal); E05.90 Thyrotoxicosis, unspecified without thyrotoxic crisis or storm; E11.9 Type 2 diabetes mellitus without complications; I10 Essential (primary) hypertension; E78.5 Hyperlipidemia, unspecified; J44.9 Chronic obstructive pulmonary disease, unspecified; I50.9 Heart failure, unspecified; Z88.6 Allergy status to analgesic agent; Z91.09 Other allergy status, other than to drugs and biological substances
CPT/HCPCS: 85025; 80048; 36415; 80076; 83690; 74176; 96375; 96374; 99284; J2405

== ENCOUNTER 2019-12-24 17:18 | Inpatient (IN) | payer OTHER ==
--- OUTSIDE RECORDS SUMMARY | 2019-12-24 17:21 | XMS REPORT ---
:1955 Author Organization [facility] Address [address] [place] [address] Dr. Walter [address] [place] [address] Care Team Providers Name Role Phone Unavailable Unavailable Unavailable Problems This patient has no known problems. Allergies, Adverse Reactions, Alerts This patient has no known allergies or adverse reactions. Medications This patient has no known medications.
[2019-12-24] MEDS ORDERED: METHYLPREDNISOLONE 125 MG INJ ONE (18:01)
[2019-12-24] MEDS ORDERED: LEVALBUTEROL 1.25 MG/3 ML NEB ONE ×2 (18:01→18:15)
[2019-12-24] MEDS ORDERED: IPRATROPIUM BROM 0.5MG/2.5ML ONE (18:01)
[2019-12-24] MEDS ORDERED: NA CHLORIDE 0.9% 1,000 ML ONE (18:01)
[2019-12-24] MEDS ORDERED: PIPER/TAZO/NS 3.375gm 3.375 GM/100 ML BAG ONE (18:15)
--- NOTE | 2019-12-24 18:26 | RAD REPORT ---
EXAM DESCRIPTION: RAD - Chest Single View - 12/24/2019 6:19 pm CLINICAL HISTORY: COPD;Cough;Dyspnea Chest pain. COMPARISON: Chest Single View dated 12/14/2019; Chest Single View dated 08/13/2019; Chest Single View dated 09/17/2018; CHEST SINGLE VIEW dated 09/14/2014 FINDINGS: Portable technique limits examination quality. Mild interstitial pulmonary edema. The heart is upper limit normal in size with a tortuous thoracic a levy. No displaced fractures. IMPRESSION: Mild interstitial pulmonary edema.
[2019-12-24 18:28] LABS: Protime INR 1.27
[2019-12-24 18:36] LABS: ALT/SGPT 26 U/L (12-78); AST/SGOT 25 U/L (15-37); Albumin 2.8 g/dL (3.4-5.0); Alkaline Phosphatase 54 U/L (45-117); BUN Blood Urea Nitrogen 9 mg/dL (7-18); Bicarbonate 30 mmol/L (21-32); Bilirubin Direct 0.3 mg/dL (0-0.2); Bilirubin Total 0.9 mg/dL (0.2-1.0); Glucose Level 113 mg/dL (74-106); Magnesium 2.1 mg/dL (1.8-2.4); NT PRO-BNP 165 pg/mL (<125); Potassium 3.5 mmol/L (3.5-5.1); Protein, Total 8.1 g/dL (6.4-8.2); Sodium Level 142 mmol/L (136-145); Troponin (Emerg Dept Use Only) < 0.02 ng/mL (0.0-0.045)
[2019-12-24 18:42] LABS: Basophils % 0.8 % (0-1.3); Hematocrit 44.3 % (36.0-45.0); Lymphocytes % 14.3 % (15.3-44.8); MPV 9.5 fL (7.6-11.3); RBC Red Blood Cell Count 5.01 M/uL (3.86-4.86)
--- NOTE | 2019-12-24 18:57 | ER ---
Nurse's Notes [facility] Name: Yessica Linder Age: 64 yrs Sex: Female : 1955 Arrival Date: 12/24/2019 Time: 17:19 Bed 7 Private MD: Diagnosis: Dyspnea;Chronic obstructive pulmonary disease with (acute) exacerbation;Unspecified combined systolic (congestive) and diastolic (congestive) heart failure;Type 2 diabetes mellitus;Obesity, unspecified;Elevated white blood cell count Presentation: 12/23 17:20 Chief complaint: EMS states: pt states she was here last week with fluid on lungs and tw2 tested positive for the flu that she came in with difficulty breathing and states the breathing difficulty has never gotten better, when we arrived she was at 91% RA, does not use oxygen at home, we placed her on non rebreather and she came right up. other vs including glucose were stable. Coronavirus screen: The patient has NOT traveled to a country currently being monitored by the CDC within the last 14 days. Proceed with normal triage procedures. Ebola Screen: Patient denies travel to an Ebola-affected area in the 21 days before illness onset. Initial Sepsis Screen: Does the patient meet any 2 criteria? HR > 90 bpm. Does the patient have a suspected source of infection? No. Patient's initial sepsis screen is negative. 17:20 Method Of Arrival: EMS: [facility] tw2 17:20 Acuity: RANDY 3 tw2 18:18 Risk Assessment: Do you want to hurt yourself or someone else? Patient reports no tw2 desire to harm self or others. 18:19 Onset of symptoms was December 24, 2019. tw2 Triage Assessment: 17:27 General: Appears in no apparent distress. obese, Behavior is calm, cooperative, tw2 appropriate for age. Pain: Denies pain. Respiratory: Reports shortness of breath at rest on exertion cough that is productive, persistent Onset: The symptoms/episode began/occurred "a week ago and i feel like it hasnt gotten any better", the patient has mild shortness of breath. Historical: - Allergies: 17:29 Demerol; tw2 17:29 Iodine; tw2 17:29 Codeine; tw2 - Home Meds: 17:29 Simvastatin Oral once at bedtime [Active]; losartan Oral 2 times per day [Active]; tw2 metformin 500 mg Oral tab 1 tab 2 times per day [Active]; levothyroxine oral once daily [Active]; Ecotrin 325 mg Oral TbEC 1 tab once daily [Active]; carvedilol Oral 1 tab daily [Active]; - PMHx: 17:29 CHF; COPD; Degenerative disc disease; Diabetes - NIDDM; Hyperlipidemia; Hypertension; tw2 hyperthyroidism; - PSHx: 17:29 Hysterectomy; tw2 - Immunization history:: Adult Immunizations. - Social history:: Smoking status: . - Family history:: not pertinent. Screenin:14 Abuse screen: Denies threats or abuse. Nutritional screening: No deficits noted. tw2 Tuberculosis screening: No symptoms or risk factors identified. Fall Risk Secondary diagnosis (15 points) impaired mobility. Assessment: 17:20 General: Appears in no apparent distress. obese, Behavior is calm, cooperative, tw2 appropriate for age. Pain: Denies pain. Neuro: Level of Consciousness is awake, alert, obeys commands, Oriented to person, place, time, situation. Cardiovascular: Heart tones S1 S2 Patient's skin is warm and dry. Rhythm is regular. Respiratory: Reports shortness of breath at rest on exertion cough that is productive, hacking, persistent pain with cough Airway is patent Respiratory effort is even, unlabored, Respiratory pattern is regular, symmetrical, Breath sounds are diminished bilaterally. GI: Abdomen is round non-distended, obese, Bowel sounds present X 4 quads. : No signs and/or symptoms were reported regarding the genitourinary system. EENT: No signs and/or symptoms were reported regarding the EENT system. Reports nasal congestion nasal discharge that is yellow. Derm: No signs and/or symptoms reported regarding the dermatologic system. Musculoskeletal: Circulation, motion, and sensation intact. Range of motion: intact in all extremities. 17:30 Reassessment: pt requests cup to spit in at this time, cup provided. tw2 18:14 Reassessment: Patient appears in no apparent distress at this time. No changes from tw2 previously documented assessment. Patient and/or family updated on plan of care and expected duration. Pain level reassessed. NAD. 19:05 Reassessment: No changes from previously documented assessment. Patient and/or family ll1 updated on plan of care and expected duration. Pain level reassessed. Patient is alert, oriented x 3, equal unlabored respirations, skin warm/dry/pink. Patient states feeling better. 20:05 Reassessment: No changes from previously documented assessment. Patient and/or family ll1 updated on plan of care and expected duration. Pain level reassessed. Patient is alert, oriented x 3, equal unlabored respirations, skin warm/dry/pink. 21:05 Reassessment: No changes from previously documented assessment. Patient and/or family ll1 updated on plan of care and expected duration. Pain level reassessed. Patient is alert, oriented x 3, equal unlabored respirations, skin warm/dry/pink. 22:00 Reassessment: No changes from previously documented assessment. Patient and/or family ll1 updated on plan of care and expected duration. Pain level reassessed. Patient is alert, oriented x 3, equal unlabored respirations, skin warm/dry/pink. Vital Signs: 17:20 BP 121 / 81; Pulse 95; Resp 19; Temp 97.6(TE); Pulse Ox 93% on R/A; Weight 131.09 kg tw2 (R); Height 5 ft. 4 in. (162.56 cm); Pain 5/10; 18:13 BP 130 / 74; Pulse 92; Resp 17; Pulse Ox 99% on Nebulizer Mask; tw2 19:00 BP 124 / 95; Pulse 95; Resp 20; Pulse Ox 98% ; ll1 20:33 BP 100 / 53; Pulse 94; Resp 20; Pulse Ox 98% ; ll1 21:33 BP 117 / 72; Pulse 96; Resp 19; Pulse Ox 96% ; ll1 22:40 BP 114 / 81; Pulse 87; Resp 19; Temp 98; Pulse Ox 95% ; Pain 0/10; ll1 17:20 Body Mass Index 49.61 (131.09 kg, 162.56 cm) tw2 17:20 pt placed on o2 at 2L NC at this time, will continue to monitor tw2 ED Course: 17:19 Patient arrived in ED. iw 17:19 Placed in gown. Bed in low position. Call light in reach. Side rails up X2. Cardiac tw2 monitor on. Pulse ox on. NIBP on. Warm blanket given. 17:21 Senia Mendoza RN is Primary Nurse. tw2 17:22 Jose Armando Saldivar MD is Attending Physician. jan 17:28 Arm band placed on. tw2 17:46 EKG done, by ED staff, reviewed by Jose Armando Saldivar MD. jb1 17:50 First set of blood cultures drawn by me. jb1 18:05 Second set of blood cultures drawn by me. jb1 18:11 Initial lab(s) drawn, by me, sent to lab. Inserted saline lock: 22 gauge in right jb1 antecubital area, using aseptic technique. Blood collected. 18:19 Triage completed. tw2 18:54 Ashish Jules MD is Hospitalizing Provider. [facility] 19:00 Report given to PAULA Goldstein = medications outstanding that were ordered after 1850. tw2 22:22 No provider procedures requiring assistance completed. ll1 22:22 Patient admitted, IV remains in place. ll1 Administered Medications: Discontinued: NS 0.9% 1000 ml IV at 125 ml/hr continuous 18:05 Drug: NS 0.9% 1000 ml Route: IV; Rate: 125 ml/hr; Site: right antecubital; tw2 18:05 Drug: SOLU-Medrol 125 mg Route: IVP; Site: right antecubital; tw2 19:10 Follow up: Response: No adverse reaction tw2 18:07 Drug: Xopenex 2.5 mg Route: Inhalation; tw2 22:26 Follow up: Response: No adverse reaction ll1 18:33 Drug: Xopenex 1.25 mg Route: Inhalation; jl7 22:25 Follow up: Response: No adverse reaction ll1 18:33 Drug: Zosyn 3.375 grams Route: IVPB; Infused Over: 60 mins; Site: right antecubital; jl7 19:58 Follow up: Response: No adverse reaction; IV Status: Completed infusion ll1 18:34 Drug: AtroVENT Aerosol 0.5 mg Route: Inhalation; jl7 22:25 Follow up: Response: No adverse reaction ll1 19:28 Drug: Lovenox 40 mg {Note: left lovehandle.} Route: Sub-Q; Site: left lower abdomen; ll1 20:29 Follow up: Response: No adverse reaction; RASS: Alert and Calm (0) ll1 20:31 Follow up: Response: No adverse reaction; RASS: Alert and Calm (0) 1 19:29 Drug: Decadron - Dexamethasone 10 mg Route: IVP; Site: right antecubital; 1 20:29 Follow up: Response: No adverse reaction; RASS: Alert and Calm (0) 1 19:30 Drug: Lasix 40 mg Route: IVP; Site: right antecubital; 1 20:31 Follow up: Response: No adverse reaction; RASS: Alert and Calm (0) 1 19:54 Drug: NS 0.9% 1000 ml Route: IV; Rate: 75 ml/hr; Site: right antecubital; 1 22:24 Follow up: Response: No adverse reaction; IV Status: Order to discontinue infusion 1 Outcome: 18:56 Decision to Hospitalize by Provider. [facility] 22:20 Admitted to Tele room [id number], with oxygen, Report called to Ezio Medeiros RN on 22:20 Condition: stable 22:46 Patient left the ED. 1 Signatures: Cameron Price jb1 Jose Armando Saldivar MD MD cha Williams, Irene, RN RN iw Senia Mendoza RN RN tw2 Angella Aj RN RN jl7 Lluvia Alatorre RN RN ll1
--- NOTE | 2019-12-24 18:57 | EDPHYS ---
Physician Documentation [facility] Name: Yessica Linder Age: 64 yrs Sex: Female : 1955 Arrival Date: 12/24/2019 Time: 17:19 Bed 7 Private MD: ED Physician Jose Armando Saldivar HPI: 12/23 18:04 This 64 yrs old Black Female presents to ER via EMS with complaints of Shortness Of jan Breath. 18:04 The patient has shortness of breath at rest, with light activity. Onset: The jan symptoms/episode began/occurred 3 day(s) ago. The patient's shortness of breath has no apparent modifying factors. Associated signs and symptoms: Pertinent positives: non-productive cough. Severity of symptoms: At their worst the symptoms were mild moderate in the emergency department the symptoms are unchanged. The patient has not experienced similar symptoms in the past. Historical: - Allergies: 17:29 Demerol; tw2 17:29 Iodine; tw2 17:29 Codeine; tw2 - Home Meds: 17:29 Simvastatin Oral once at bedtime [Active]; losartan Oral 2 times per day [Active]; tw2 metformin 500 mg Oral tab 1 tab 2 times per day [Active]; levothyroxine oral once daily [Active]; Ecotrin 325 mg Oral TbEC 1 tab once daily [Active]; carvedilol Oral 1 tab daily [Active]; - PMHx: 17:29 CHF; COPD; Degenerative disc disease; Diabetes - NIDDM; Hyperlipidemia; Hypertension; tw2 hyperthyroidism; - PSHx: 17:29 Hysterectomy; tw2 - Immunization history:: Adult Immunizations. - Social history:: Smoking status: . - Family history:: not pertinent. ROS: 18:04 Constitutional: Negative for fever, chills, and weight loss, Eyes: Negative for injury, jan pain, redness, and discharge, ENT: Negative for injury, pain, and discharge, Neck: Negative for injury, pain, and swelling, Cardiovascular: Negative for chest pain, palpitations, and edema, Abdomen/GI: Negative for abdominal pain, nausea, vomiting, diarrhea, and constipation, Back: Negative for injury and pain, : Negative for injury, bleeding, discharge, and swelling, MS/Extremity: Negative for injury and deformity, Skin: Negative for injury, rash, and discoloration, Neuro: Negative for headache, weakness, numbness, tingling, and seizure, Psych: Negative for depression, anxiety, suicide ideation, homicidal ideation, and hallucinations, Allergy/Immunology: Negative for hives, rash, and allergies, Endocrine: Negative for neck swelling, polydipsia, polyuria, polyphagia, and marked weight changes, Hematologic/Lymphatic: Negative for swollen nodes, abnormal bleeding, and unusual bruising. 18:04 Respiratory: Positive for cough, shortness of breath, at rest. Exam: 18:04 Constitutional: This is a well developed, well nourished patient who is awake, alert, jan and in no acute distress. Head/Face: Normocephalic, atraumatic. Eyes: Pupils equal round and reactive to light, extra-ocular motions intact. Lids and lashes normal. Conjunctiva and sclera are non-icteric and not injected. Cornea within normal limits. Periorbital areas with no swelling, redness, or edema. ENT: Nares patent. No nasal discharge, no septal abnormalities noted. Tympanic membranes are normal and external auditory canals are clear. Oropharynx with no redness, swelling, or masses, exudates, or evidence of obstruction, uvula midline. Mucous membranes moist. Neck: Trachea midline, no thyromegaly or masses palpated, and no cervical lymphadenopathy. Supple, full range of motion without nuchal rigidity, or vertebral point tenderness. No Meningismus. Chest/axilla: Normal chest wall appearance and motion. Nontender with no deformity. No lesions are appreciated. Cardiovascular: Regular rate and rhythm with a normal S1 and S2. No gallops, murmurs, or rubs. Normal PMI, no JVD. No pulse deficits. Abdomen/GI: Soft, non-tender, with normal bowel sounds. No distension or tympany. No guarding or rebound. No evidence of tenderness throughout. Back: No spinal tenderness. No costovertebral tenderness. Full range of motion. Female : Normal external genitalia. Skin: Warm, dry with normal turgor. Normal color with no rashes, no lesions, and no evidence of cellulitis. MS/ Extremity: Pulses equal, no cyanosis. Neurovascular intact. Full, normal range of motion. Neuro: Awake and alert, GCS 15, oriented to person, place, time, and situation. Cranial nerves II-XII grossly intact. Motor strength 5/5 in all extremities. Sensory grossly intact. Cerebellar exam normal. Normal gait. Psych: Awake, alert, with orientation to person, place and time. Behavior, mood, and affect are within normal limits. 18:06 Musculoskeletal/extremity: DVT Exam: No signs of deep vein thrombosis. no pain, no jan swelling, no tenderness, negative Homans' sign noted on exam, no appreciated bluish discoloration, no erythema, no increased warmth. Vital Signs: 17:20 BP 121 / 81; Pulse 95; Resp 19; Temp 97.6(TE); Pulse Ox 93% on R/A; Weight 131.09 kg tw2 (R); Height 5 ft. 4 in. (162.56 cm); Pain 5/10; 18:13 BP 130 / 74; Pulse 92; Resp 17; Pulse Ox 99% on Nebulizer Mask; tw2 19:00 BP 124 / 95; Pulse 95; Resp 20; Pulse Ox 98% ; ll1 20:33 BP 100 / 53; Pulse 94; Resp 20; Pulse Ox 98% ; ll1 21:33 BP 117 / 72; Pulse 96; Resp 19; Pulse Ox 96% ; ll1 22:40 BP 114 / 81; Pulse 87; Resp 19; Temp 98; Pulse Ox 95% ; Pain 0/10; ll1 17:20 Body Mass Index 49.61 (131.09 kg, 162.56 cm) tw2 17:20 pt placed on o2 at 2L NC at this time, will continue to monitor tw2 MDM: 17:22 Patient medically screened. [place] 18:06 Data reviewed: vital signs, nurses notes, lab test result(s), EKG, radiologic studies, [place] plain films. 12/23 17:48 Order name: Basic Metabolic Panel [place] 12/23 17:48 Order name: CBC with Diff [place] 12/23 17:48 Order name: LFT's [place] 12/23 17:48 Order name: Magnesium [place] 12/23 17:48 Order name: NT PRO-BNP [place] 12/23 17:48 Order name: PT-INR [place] 12/23 17:48 Order name: Troponin (emerg Dept Use Only) [place] 12/23 17:48 Order name: Blood Culture Adult (2) [place] 12/23 17:48 Order name: Lactate [place] 12/23 17:48 Order name: Urine Culture [place] 12/23 18:30 Order name: Protime (+INR); Complete Time: 18:52 EDMS 12/23 18:34 Order name: Lactate; Complete Time: 18:52 EDMS 12/23 18:36 Order name: Basic Metabolic Panel; Complete Time: 18:52 EDMS 12/23 18:36 Order name: Liver (Hepatic) Function; Complete Time: 18:52 EDMS 12/23 17:48 Order name: XRAY Chest (1 view) [place] 12/23 18:30 Order name: RAD; Complete Time: 18:52 EDMS 12/23 18:36 Order name: Troponin (Emerg Dept Use Only); Complete Time: 18:52 EDMS 12/23 18:36 Order name: NT PRO-BNP; Complete Time: 18:52 EDMS 12/23 18:36 Order name: Magnesium; Complete Time: 18:52 EDMS 12/23 18:55 Order name: CBC with Automated Diff; Complete Time: 20:05 EDPR 12/23 20:32 Order name: Urine Dipstick--Ancillary (enter results) [facility] 12/23 20:37 Order name: Urine Dipstick-Ancillary [facility] 12/23 17:48 Order name: EKG; Complete Time: 17:49 [place] 12/23 17:48 Order name: Cardiac monitoring; Complete Time: 17:49 [place] 12/23 17:48 Order name: EKG - Nurse/Tech; Complete Time: 17:49 [place] 12/23 17:48 Order name: IV Saline Lock; Complete Time: 18:07 [place] 12/23 17:48 Order name: Labs collected and sent; Complete Time: 18:07 [place] 12/23 17:48 Order name: O2 Per Protocol; Complete Time: 17:49 [place] 12/23 17:48 Order name: O2 Sat Monitoring; Complete Time: 17:49 [place] 12/23 17:48 Order name: Urine Dipstick-Ancillary (obtain specimen); Complete Time: 20:33 [place] Administered Medications: Discontinued: NS 0.9% 1000 ml IV at 125 ml/hr continuous 18:05 Drug: NS 0.9% 1000 ml Route: IV; Rate: 125 ml/hr; Site: right antecubital; tw2 18:05 Drug: SOLU-Medrol 125 mg Route: IVP; Site: right antecubital; tw2 19:10 Follow up: Response: No adverse reaction tw2 18:07 Drug: Xopenex 2.5 mg Route: Inhalation; tw2 22:26 Follow up: Response: No adverse reaction ll1 18:33 Drug: Xopenex 1.25 mg Route: Inhalation; jl7 22:25 Follow up: Response: No adverse reaction ll1 18:33 Drug: Zosyn 3.375 grams Route: IVPB; Infused Over: 60 mins; Site: right antecubital; jl7 19:58 Follow up: Response: No adverse reaction; IV Status: Completed infusion ll1 18:34 Drug: AtroVENT Aerosol 0.5 mg Route: Inhalation; jl7 22:25 Follow up: Response: No adverse reaction ll1 19:28 Drug: Lovenox 40 mg {Note: left lovehandle.} Route: Sub-Q; Site: left lower abdomen; ll1 20:29 Follow up: Response: No adverse reaction; RASS: Alert and Calm (0) ll1 20:31 Follow up: Response: No adverse reaction; RASS: Alert and Calm (0) ll1 19:29 Drug: Decadron - Dexamethasone 10 mg Route: IVP; Site: right antecubital; ll1 20:29 Follow up: Response: No adverse reaction; RASS: Alert and Calm (0) ll1 19:30 Drug: Lasix 40 mg Route: IVP; Site: right antecubital; ll1 20:31 Follow up: Response: No adverse reaction; RASS: Alert and Calm (0) ll1 19:54 Drug: NS 0.9% 1000 ml Route: IV; Rate: 75 ml/hr; Site: right antecubital; ll1 22:24 Follow up: Response: No adverse reaction; IV Status: Order to discontinue infusion ll1 Disposition: 12/24/19 18:56 Hospitalization ordered by Ashish Jules for Inpatient Admission. Preliminary diagnosis are Dyspnea, Chronic obstructive pulmonary disease with (acute) exacerbation, Unspecified combined systolic (congestive) and diastolic (congestive) heart failure, Type 2 diabetes mellitus, Obesity, unspecified, Elevated white blood cell count. - Bed requested for Telemetry/MedSurg (Inpatient). - Status is Inpatient Admission. ll1 - Condition is Stable. - Problem is new. - Symptoms have improved. Signatures: Dispatcher [employer] Jose Armando Guzman MD MD jan Wu, Shannon, RN RN cg Senia Mendoza RN RN tw2 Angella Aj, RN RN jl7 Lluvia Alatorre RN RN ll1 Corrections: (The following items were deleted from the chart) 20:06 18:56 Hospitalization Ordered by Ashish Jules MD for Inpatient Admission. Preliminary jan diagnosis is Dyspnea; Chronic obstructive pulmonary disease with (acute) exacerbation; Unspecified combined systolic (congestive) and diastolic (congestive) heart failure; Type 2 diabetes mellitus; Obesity, unspecified. Bed requested for Telemetry/MedSurg (Inpatient). Status is Inpatient Admission. Condition is Stable. Problem is new. Symptoms have improved. jan 21:41 20:06 12/24/2019 18:56 Hospitalization Ordered by Ashish Jules MD for Inpatient cg Admission. Preliminary diagnosis is Dyspnea; Chronic obstructive pulmonary disease with (acute) exacerbation; Unspecified combined systolic (congestive) and diastolic (congestive) heart failure; Type 2 diabetes mellitus; Obesity, unspecified; Elevated white blood cell count. Bed requested for Telemetry/MedSurg (Inpatient). Status is Inpatient Admission. Condition is Stable. Problem is new. Symptoms have improved. jan 22:46 21:41 12/24/2019 18:56 Hospitalization Ordered by Ashish Jules MD for Inpatient ll1 Admission. Preliminary diagnosis is Dyspnea; Chronic obstructive pulmonary disease with (acute) exacerbation; Unspecified combined systolic (congestive) and diastolic (congestive) heart failure; Type 2 diabetes mellitus; Obesity, unspecified; Elevated white blood cell count. Bed requested for Telemetry/MedSurg (Inpatient). Status is Inpatient Admission. Condition is Stable. Problem is new. Symptoms have improved. cg
[2019-12-24] MEDS ORDERED: dexAMETHasone 10 MG/ML VIAL ONE (19:20)
[2019-12-24] MEDS ORDERED: FUROSEMIDE 40 MG/4 ML VIAL ONE (19:21)
[2019-12-24] MEDS ORDERED: ENOXAPARIN 40 MG/0.4 ML SQ ONE (19:21)
[2019-12-24 20:36] LABS: Urine Blood NEGATIVE (NEG); Urine Glucose NEGATIVE (NEG); Urine Protein NEGATIVE (NEG)
[2019-12-24] MEDS ORDERED: MORPHINE 2 MG/ML SYR IV PRN (20:48)
[2019-12-24] MEDS ORDERED: ALBUTEROL 2.5 MG/3 ML NEB SOL NEB PRN (20:48)
[2019-12-24] MEDS ORDERED: ACETAMINOPHEN 500 MG TAB PO PRN (20:48)
[2019-12-24] MEDS ORDERED: ONDANSETRON 4 MG/2 ML VIAL IV PRN (20:48)
[2019-12-24] MEDS ORDERED: D50W 25 GM/50 ML SYRINGE/VIAL IV PRN (21:09)
[2019-12-24] MEDS ORDERED: GLUCAGON 1 MG/VIAL IM PRN (21:09)
[2019-12-24] MEDS ORDERED: Oxycodone HCl/Acetaminophen 1 TAB TAB PO PRN (21:09)
[2019-12-24] MEDS: FUROSEMIDE 40 MG/4 ML VIAL IV SCH (21:09)
[2019-12-24] MEDS ORDERED: HYDRALAZINE HCL 20 MG/ML VIAL IV PRN (21:09)
[2019-12-24] MEDS ORDERED: CEFTRIAXONE 1 GM/NS 50 ML 1 GM/50 ML BAG IV SCH (22:00)
[2019-12-24 23:05] VITALS: BMI 50.8
[2019-12-24] MEDS: IPRATROPIUM BROM 0.5MG/2.5ML NEB SCH (23:15)
[2019-12-24] MEDS: ALBUTEROL 2.5 MG/3 ML NEB SOL NEB SCH (23:15)
[2019-12-24] MEDS: METHYLPREDNISOLONE 125 MG INJ IV SCH (23:38)
[2019-12-24] MEDS: GUAIFENESIN 600 MG SA TAB PO SCH (23:39)
[2019-12-24] MEDS: CEFTRIAXONE/SWI 1gm 1 GM/10 ML SYR IV SCH (23:40)
--- NOTE | 2019-12-25 01:54 | HP ---
Date of Admission: 12/24/2019 Presenting Complaint: Worsening shortness of breath. History Of Present Illness: Yessica Linder is a 64-year-old female with past medica l history of hypertension, diabetes mellitus, COPD, chronic smoker, who was recently admitted and dis charged here 1 week ago after presentation for cough and shortness of breath. On presentation, she w as noted to have acute pulmonary edema and treated with diuretics and discharged home on Lasix. She was also noticed to have influenza infection and given Tamiflu. The patient states since discharge h ome, she has been having persistent shortness of breath and cough with whitish sputum and exertional dyspnea. She presented again today because of worsening symptoms. She admits to right lower abdomin al quadrant pain, which is worse when she coughs. She admits to some diarrhea with black tarry stool , but stopped since the last 2 days. She did admit to some nausea, but no vomiting. On arrival in [facility] ED, she was having marked tachypnea on room air, although saturating at 93%. She has been placed on 2 L nasal cannula O2. Her chest x-ray still shows persistent pulmonary edema. Of note, echocardi ogram from 1 week ago shows EF of 70% with diastolic dysfunction. She denies any worsening body swel ling. Past Medical History: Significant for hypertension, hyperlipidemia, diabetes mellitus type 2, diasto lic CHF, recently diagnosed COPD, hypothyroidism, history of sleep apnea. Past Surgical History: Lumpectomy, hysterectomy, hernia repair. Family History: Noncontributory in this elderly female. Social History: Patient is a chronic smoker. She actively smoked, but stopped since the last 1 week since hospitalization, smokes about half a pack per day. She lives alone. She denies any alcohol o r illicit drug use. She was recently started on home care. Review of Systems: All systems reviewed x14 were negative except as mentioned above. Allergies: CODEINE, IODINE, AND MEPERIDINE. Medications: Home medications, see extensive medication list. Recently discharge medications include furosemide 40 mg daily and Mucinex. Continuation of other parvin e medications, which include Norvasc, Coreg, Flonase, losartan, metformin, Zocor, and aspirin. Physical Examination: Current Vitals: Blood pressure of 130/74, pulse of 95, respiratory rate of 27, O2 saturation 97 on 2 L nasal cannula. Temperature afebrile. General: Morbidly obese female, anxious, lying in bed. HEENT: Head is atraumatic, normocephalic. Pupils equal, reactive to light. Neck: No JVD. No carotid bruit. Respiratory: Coarse crepitations at the bases with decreased breath sounds. Also noted expiratory w heezes, more prominent over the right lower lobe. Cardiovascular: S1, S2. Rate and rhythm regular. GI: Obese. Abdomen soft. Bowel sounds positive. Mild tenderness over the right lower quadrant, bu t no rebound. No suprapubic fullness. Extremities: No significant pedal edema. No calf tenderness. Neuro: Patient is alert and oriented. Cranial nerves 2 through 12 grossly intact. Laboratory Data: WBC 14, hemoglobin 14, neutrophils 69%, platelets 282. INR 1.27. Serum bicarb of 30, BUN 9, creatinine 0.9, magnesium 2.1. Sodium 141, proBNP of 165. Urinalysis negative. Diagnostic Studies: Chest x-ray shows mild cardiomegaly, but what appears to be bilateral haziness s uggestive of pulmonary edema. Official reading of mild interstitial pulmonary edema. EKG shows norm al sinus rhythm with no ST-segment changes. Impression: 1.Presumed chronic obstructive pulmonary disease exacerbation. 2.Mild diastolic congestive heart failure exacerbation. 3.Morbid obesity. 4.Right lower abdominal quadrant pain, unclear etiology. 5.Diabetes mellitus. Plan: We will admit patient to inpatient status. We will manage patient for the followin.Acute COPD exacerbation. We will do IV steroid with empirical antibiotics at this time. We will do DuoNeb q.4 hours as tolerated. We will start patient on Mucomyst. Obtain sputum for culture and sensitivity. 2.Presumed diastolic CHF flare. Increase Lasix from 20 b.i.d. to IV 40 b.i.d. for now. ProBNP was not elevated, although chest x-ray suggestive of pulmonary edema. We will monitor closely. 3.Hypertension, controlled. Continue losartan. 4.Diabetes mellitus. Hold metformin given, intermittent diarrhea. We will do insulin sliding scale as tolerated. 5.DVT prophylaxis. We will do subcutaneous Lovenox. Total time spent in review of record, discussion with patient, and evaluation greater than 65 minutes . EO/MODL Voice ID: [id number]
[2019-12-25] MEDS ORDERED: IPRATROPIUM BROM 0.5MG/2.5ML NEB SCH (02:00)
[2019-12-25] MEDS ORDERED: IPRATROPIUM BROM 0.5MG/2.5ML NEB PRN (02:00)
[2019-12-25] MEDS: IPRATROPIUM BROM 0.5MG/2.5ML NEB SCH ×5 (03:50→19:10)
[2019-12-25] MEDS: ALBUTEROL 2.5 MG/3 ML NEB SOL NEB SCH ×5 (03:50→19:10)
[2019-12-25] MEDS: METHYLPREDNISOLONE 125 MG INJ IV SCH ×3 (05:32→18:09)
[2019-12-25 05:57] LABS: Absolute Lymphocytes (CBC) 1.1 K/uL (0.7-4.9); Basophils % 0.2 % (0-1.3); Hematocrit 43.1 % (36.0-45.0); MPV 9.4 fL (7.6-11.3); RBC Red Blood Cell Count 4.92 M/uL (3.86-4.86)
[2019-12-25 06:13] LABS: ALT/SGPT 25 U/L (12-78); AST/SGOT 25 U/L (15-37); Albumin 2.6 g/dL (3.4-5.0); Alkaline Phosphatase 47 U/L (45-117); BUN Blood Urea Nitrogen 11 mg/dL (7-18); Bicarbonate 26 mmol/L (21-32); Bilirubin Total 0.7 mg/dL (0.2-1.0); Glucose Level 165 mg/dL (74-106); Potassium 3.5 mmol/L (3.5-5.1); Protein, Total 7.9 g/dL (6.4-8.2); Sodium Level 140 mmol/L (136-145); Troponin I < 0.02 ng/mL (0.0-0.045)
[2019-12-25] MEDS: INSULIN -REGULAR HUMAN 50 UNIT/0.5 ML ML SQ SCH ×4 (07:30→21:29)
--- NOTE | 2019-12-25 07:38 | EKG ---
Test Date: 2019-12-24 Test Time: 17:31:42 Butadiene Converter Utility Operator: KENNY MEASUREMENT RESULTS: Intervals: Rate: 93 IL: 158 QRSD: 82 QT: 356 QTc: 442 [place]: P: 52 IL: 158 QRS: 44 T: 67 INTERPRETIVE STATEMENTS: Normal sinus rhythm Normal ECG Compared to ECG 12/14/2019 19:18:15 Sinus tachycardia no longer present Electronically Signed On 12-25-19 07:36:47 EXECUTIVE DIRECTOR OF MARKETING by Micah Chirinos
[2019-12-25 08:15] LABS: Blood Morphology Comment NOT SEEN (NOT SEEN); Platelet Estimate ADEQ; Platelets, Giant PRESENT; Urine White Blood Cell Casts OK
[2019-12-25] MEDS: GUAIFENESIN 600 MG SA TAB PO SCH ×2 (08:25→19:05)
[2019-12-25] MEDS: FAMOTIDINE 20 MG TAB PO SCH ×2 (08:26→21:29)
[2019-12-25] MEDS: FUROSEMIDE 40 MG/4 ML VIAL IV SCH ×2 (08:26→17:00)
[2019-12-25] MEDS: NICOTINE 21 MG/PAT TD SCH (08:26)
[2019-12-25] MEDS ORDERED: CEFTRIAXONE 1 GM/NS 50 ML 1 GM/50 ML BAG IV SCH (09:00)
--- NOTE | 2019-12-25 16:27 | PN ---
Date of Progress Note: 12/25/2019 Subjective: Patient seen and examined. Chart reviewed and case discussed with RN. Patient was rece ntly discharged from the hospital on December 16. Patient is still complaining of some shortness o f breath, cough, currently on supplemental oxygen. Code Status: Full. Medications List: Reviewed. Physical Examination: Vital Signs: Temperature 97.1, heart rate 94, blood pressure 119/65, respirations 20, O2 94% on 4 L via nasal cannula. General: Awake, alert, and oriented x3, elderly female, morbidly obese, BMI 50.9, in acute respirato ry distress, ill-appearing. CV: S1, S2. Regular rate and rhythm. Peripheral pulses present. Respiratory: Diminished breath sounds. Diffuse wheezing. Some crackles heard. Gastrointestinal: Abdomen is soft, nontender, nondistended. Positive bowel sounds. Extremities: No clubbing, cyanosis. Patient has peripheral edema, right worse than left. Neurologic: Nonfocal. Cranial nerves 2 through 12 intact grossly. No focal neurological deficits. Speech is normal. Laboratory Data: Sodium 140, potassium 3.5, chloride 107, CO2 of 26, BUN 11, creatinine 0.81, glucos e 165, lactate 1.6, calcium 8.9. Troponin less than 0.02. Procalcitonin less than 0.05. WBC 15.2, H and H are 14 and 43.1, platelets 277, neutrophils 92%. Cultures are pending at this time. Assessment: 64-year-old female with: 1.Acute chronic obstructive pulmonary disease exacerbation. We will continue with IV steroids, empi grecia antibiotics, and DuoNeb q.6 hours p.r.n. Cultures are pending. 2.Diastolic congestive heart failure. Lasix increased to 40 b.i.d. Continue with strict I's and O' s, daily weights, and free fluid restriction. Chest x-ray showing pulmonary edema. 3.Essential hypertension. Continue losartan. 4.Diabetes mellitus type 2, non-insulin requiring. We will continue with sliding scale insulin. Mo nitor blood glucose levels. 5.Right lower abdominal quadrant pain, likely secondary to muscle pain from chronic cough. 6.Deep venous thrombosis prophylaxis with Lovenox. Plan: Likely discharge in the next 24-48 hours depending on clinical response. /JOYCEL Voice ID: [id number] Report ID: [id number]
[2019-12-25] MEDS: ENOXAPARIN 40 MG/0.4 ML SQ SCH (16:56)
[2019-12-25] MEDS ORDERED: INFLUENZA VACCINE (for 3y+) 0.5 ML DOSE IMVAC ONE (19:00)
[2019-12-25] MEDS ORDERED: PNEUMOCOCCAL VACCINE 0.5 ML IMVAC ONE (19:00)
[2019-12-25] MEDS: LOSARTAN POTASSIUM 50 MG TABLET PO SCH (21:27)
[2019-12-25] MEDS: ATORVASTATIN 10 MG TAB PO SCH (21:28)
[2019-12-26] MEDS: CEFTRIAXONE/SWI 1gm 1 GM/10 ML SYR IV SCH ×2 (00:21→05:57)
[2019-12-26] MEDS: METHYLPREDNISOLONE 125 MG INJ IV SCH ×2 (00:21→05:35)
[2019-12-26] MEDS: IPRATROPIUM BROM 0.5MG/2.5ML NEB SCH ×6 (00:25→19:54)
[2019-12-26] MEDS: ALBUTEROL 2.5 MG/3 ML NEB SOL NEB SCH ×6 (00:25→19:54)
[2019-12-26] MEDS: LEVOTHYROXINE SOD 0.1 MG TAB PO SCH (05:35)
[2019-12-26] MEDS: INSULIN -REGULAR HUMAN 50 UNIT/0.5 ML ML SQ SCH ×4 (07:30→21:21)
[2019-12-26] MEDS: NICOTINE 21 MG/PAT TD SCH (09:00)
[2019-12-26] MEDS: AMLODIPINE 5 MG TAB PO SCH (10:03)
[2019-12-26] MEDS: FAMOTIDINE 20 MG TAB PO SCH ×2 (10:04→21:20)
[2019-12-26] MEDS: LOSARTAN POTASSIUM 50 MG TABLET PO SCH ×2 (10:05→21:00)
[2019-12-26] MEDS: FUROSEMIDE 40 MG/4 ML VIAL IV SCH ×2 (10:06→16:46)
[2019-12-26] MEDS: GUAIFENESIN 600 MG SA TAB PO SCH ×2 (10:07→21:20)
[2019-12-26] MEDS: carvediloL 25 MG TAB PO SCH (10:08)
[2019-12-26 11:13] LABS: Absolute Lymphocytes (CBC) 0.8 K/uL (0.7-4.9); Basophils % 0.1 % (0-1.3); Hematocrit 43.8 % (36.0-45.0); Lymphocytes % 3.4 % (15.3-44.8); RBC Red Blood Cell Count 4.99 M/uL (3.86-4.86)
[2019-12-26 11:52] LABS: Blood Morphology Comment NOT SEEN (NOT SEEN); Platelet Estimate ADEQ
--- NOTE | 2019-12-26 15:26 | PN ---
Date of Progress Note: 12/26/2019 Subjective: Patient seen and examined. Chart reviewed and case discussed with RN. Patient still hammer ving shortness of breath. Cough has improved. Patient is not really moving too much out of bed. Medications: List reviewed. Physical Examination: Vital Signs: Temperature 97, heart rate 86, blood pressure 120/71, respirations 19, O2 97% on 3 L vi a nasal cannula. General: Awake, alert, oriented x3. Some mild respiratory distress, ill-appearing female. Elderly, morbidly obese. BMI 51. CV: S1, S2. Regular rate and rhythm. Peripheral pulses present. Respiratory: Diminished breath sounds. Some crackles present. No tachypnea. No use of accessory m uscles. Gastrointestinal: Abdomen is soft, nontender, nondistended. Positive bowel sounds. Extremities: No clubbing, cyanosis. Patient has pedal edema. Neurologic: Nonfocal. Laboratory Data: Magnesium 1.9. Blood glucose level 174. Troponin less than 0.02. Urine culture s howing no growth. Blood cultures, no growth to date. Assessment: 64-year-old female with: 1.Acute chronic obstructive pulmonary disease exacerbation. Continue steroids. Start weaning to or al. Continue empiric antibiotics. Continue DuoNeb. Improving. 2.Acute diastolic congestive heart failure. Continue Lasix. Monitor inputs and outputs, daily weig hts. Strict fluid restriction. Patient was seen by Dr. Chirinos previously. We will recommend outpat ient followup with Cardiology. 3.Essential hypertension. Continue losartan. 4.Hypoxia. We will check room air saturation, likely secondary to congestive heart failure and senior core java developer aniyah obstructive pulmonary disease. Patient may need home O2. 5.Diabetes mellitus type 2, [id number] with hyperglycemia. We will continue sliding scal e insulin and monitor blood glucose levels. 6.Right lower quadrant abdominal pain secondary to chronic cough and muscle pain, resolved. 7.Deep venous thrombosis prophylaxis with Lovenox. Plan: Likely discharge in the next 24 to 48 hours depending on clinical response. May need to be se t up with home O2. SA/MODL Voice ID: [id number] Report ID: [id number]
[2019-12-26] MEDS: ENOXAPARIN 40 MG/0.4 ML SQ SCH (16:46)
[2019-12-26] MEDS: ATORVASTATIN 10 MG TAB PO SCH (21:20)
[2019-12-26] MEDS: predniSONE 20 MG TAB PO SCH (21:20)
[2019-12-27] MEDS: IPRATROPIUM BROM 0.5MG/2.5ML NEB SCH ×5 (00:30→17:06)
[2019-12-27] MEDS: ALBUTEROL 2.5 MG/3 ML NEB SOL NEB SCH ×5 (00:30→17:06)
[2019-12-27 04:34] LABS: Absolute Lymphocytes (CBC) 0.9 K/uL (0.7-4.9); Basophils % 0.3 % (0-1.3); Lymphocytes % 4.8 % (15.3-44.8); MPV 9.8 fL (7.6-11.3)
[2019-12-27 05:02] LABS: ALT/SGPT 38 U/L (12-78); AST/SGOT 27 U/L (15-37); Albumin 2.6 g/dL (3.4-5.0); Alkaline Phosphatase 48 U/L (45-117); BUN Blood Urea Nitrogen 26 mg/dL (7-18); Bicarbonate 30 mmol/L (21-32); Bilirubin Total 0.3 mg/dL (0.2-1.0); Glucose Level 236 mg/dL (74-106); Potassium 3.6 mmol/L (3.5-5.1); Protein, Total 7.5 g/dL (6.4-8.2); Sodium Level 140 mmol/L (136-145); Troponin I < 0.02 ng/mL (0.0-0.045)
[2019-12-27] MEDS: LEVOTHYROXINE SOD 0.1 MG TAB PO SCH (05:56)
[2019-12-27] MEDS: INSULIN -REGULAR HUMAN 50 UNIT/0.5 ML ML SQ SCH ×3 (07:30→16:30)
[2019-12-27] MEDS: NICOTINE 21 MG/PAT TD SCH (09:00)
[2019-12-27] MEDS: carvediloL 25 MG TAB PO SCH (09:24)
[2019-12-27] MEDS: LOSARTAN POTASSIUM 50 MG TABLET PO SCH (09:25)
[2019-12-27] MEDS: predniSONE 20 MG TAB PO SCH (09:25)
[2019-12-27] MEDS: FAMOTIDINE 20 MG TAB PO SCH (09:25)
[2019-12-27] MEDS: GUAIFENESIN 600 MG SA TAB PO SCH (09:25)
[2019-12-27] MEDS: AMLODIPINE 5 MG TAB PO SCH (09:25)
[2019-12-27] MEDS: FUROSEMIDE 40 MG/4 ML VIAL IV SCH ×2 (09:26→17:03)
[2019-12-27 12:22] VITALS: O2SAT 92
[2019-12-27] MEDS: ENOXAPARIN 40 MG/0.4 ML SQ SCH (17:03)
[2019-12-27 17:10] VITALS: BP 123/64
[2019-12-27 18:08] VITALS: TEMP 98.1
[2019-12-27] MEDS ORDERED: carvediloL 25 MG TAB PO SCH (21:00)
--- NOTE | 2019-12-28 05:00 | DS ---
Date of Discharge: 12/27/2019 Consultants: Dr. Estrada with Pulmonology. Admitting Diagnoses: 1.Acute chronic obstructive pulmonary disease exacerbation. 2.Mild diastolic congestive heart failure exacerbation. 3.Morbid obesity. 4.Right lower abdominal quadrant pain. 5.Diabetes mellitus type 2 with hyperglycemia, non-insulin requiring. Discharge Diagnoses: 1.Acute chronic obstructive pulmonary disease exacerbation, improving. 2.Acute diastolic heart failure exacerbation, improved. 3.Essential hypertension, stable. 4.Hypoxia 92% on room air, resolved. 5.Diabetes mellitus type 2, [id number] with hyperglycemia, stable. 6.Right lower quadrant abdominal pain secondary to chronic cough and muscle pain, resolved. Hospital Course: Patient is a 64-year-old female, comes in with past medical history of hypertension , diabetes, COPD, chronic smoker, comes in with recent discharge, coming in with shortness of breath. Patient was found to have pulmonary edema and echocardiogram 1 week ago showed EF of 70% with diast olic dysfunction. Patient states she has been out of her inhalers and she did not ask for any refill s. Has not seen her primary care physician for over a month. Did not call her primary care physicia n for refills. Patient was started on IV steroids, IV diuretics as well as nebulizer treatments. Raphael oneal's condition improved. She was able to be weaned off oxygen. Her white blood cell count trende d down. There was no signs of sepsis. Patient likely has steroid-induced leukocytosis at this time. Her electrolytes were stable. Her cardiac enzymes are negative. Procalcitonin was negative. Lact ate was negative. UA, blood cultures, sputum cultures are all negative as well. Patient is feeling significantly better, able to ambulate without difficulty. Patient was then cleared for discharge. She was seen by Pulmonology, Dr. Estrada. Patient was counseled regarding smoking cessation and she understands that she will need some recovery time from her COPD and CHF exacerbation. She will need to be compliant with a 1500 mL fluid restriction and 2 g sodium restriction on top of her diabetic d iet. Activity: No strenuous activity. Followup: With her primary care physician in 2 to 3 days. Follow up with senior naval parachutist, Dr. Brooklyn pruitt in 2 weeks and follow up with band cutting machine operator, Dr. Brandon in 2 weeks. Return to ER for worsening c ondition. Medications: As per medication reconciliation list. Physical Examination: General: Awake, alert, oriented x3. Elderly female, in no acute distress. CVS: S1, S2. No murmurs. Respiratory: Moving air well bilaterally. Abdomen: Soft, nontender, nondistended. Positive bowel sounds. Extremities: No clubbing, cyanosis. Minimal pedal edema. Neurologic: Nonfocal. Total time spent discharging patient was 45 minutes. Patient will be set up with a home nebulizer thomas atm. /JANET Voice ID: [id number] Report ID: [id number]
[2019-12-28] MEDS ORDERED: LOSARTAN POTASSIUM 50 MG TABLET PO SCH (09:00)
== END 2019-12-27 19:34 | disposition home or self-care (01) | DRG 190 ==
LOC: ER 17:18 → ERHOLD 20:49 → 4TH 22:28
PROVIDERS: ADMIT Internal Medicine; ATTEND Internal Medicine
DX: J44.1 Chronic obstructive pulmonary disease with (acute) exacerbation (principal); I50.33 Acute on chronic diastolic (congestive) heart failure; Z68.43 Body mass index [BMI] 50.0-59.9, adult; I11.0 Hypertensive heart disease with heart failure; R09.02 Hypoxemia; R06.03 Acute respiratory distress; M79.18 Myalgia, other site; E11.65 Type 2 diabetes mellitus with hyperglycemia; E66.9 Obesity, unspecified; E03.9 Hypothyroidism, unspecified; F17.210 Nicotine dependence, cigarettes, uncomplicated
CPT/HCPCS: 36415; 71045; 80048; 80053; 80076; 81003; 82947; 83605; 83735; 83880; 84145; 84484; 85025; 85610; 87040; 87070; 87086; 87088; 87205; 93005; 94640; 96361; 96365; 96372; 96375; 97116; 97161; 97530; 99285; J0696; J1100; J1650; J1940; J2543; J2930; J7030; J7512

== ENCOUNTER 2022-05-12 09:26 | Emergency (ER) | payer OTHER ==
--- OUTSIDE RECORDS SUMMARY | 2022-05-12 09:30 | XMS REPORT | Continuity of Care Document ---
:1955 Author Organization [facility] t Address [address] [place] [address] Care Team Providers Name Role Phone Gosia WARE Primary Care Physician Unavailable Radiology Attending Clinician Unavailable RADIOLOGY Attending Clinician Unavailable Darcy ESTRADA Attending Clinician Unavailable Darcy Estrada Attending Clinician Gosia Baird MD Attending Clinician Benny GARCES Attending Clinician Ghanshyam RD Attending Clinician Raymond OLOSW Attending Clinician 2, Lab Attending Clinician Unavailable Doctor Unassigned, Name Attending Clinician Unavailable Darcy ESTRADA Admitting Clinician Unavailable Payers Payer Name Policy Type Policy Number Effective Date Expiration Date S ource Problems Condition Condition Condition Status Onset Resolution Last Treating Co mments Source Name Details Category Date Date Treatment Clinician Date 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, 1.5, 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 00 Medical Branch Gouty Gouty Disease Active 2019 Univers arthritis arthritis 8-13 ity of of both of both 00:00: [place] feet feet 00 Medical Branch Hypothyroi Hypothyroi Disease Active 2019 U [place] dism, dism, 8-13 ity of unspecifie unspecifie [place] type d type 00 Medical [facility] Degenerati Degenerati Disease Active 2019 U nivers ve disc ve disc 8-13 ity of disease, disease, 00:00: [place] lumbar lumbar 00 Medical Branch Essential Essential Disease Active Uni vers hypertensi hypertensi 8-13 it y of on on 00:00: [place] 00 Medical Branch Need for Need for Disease Active Unive rs pneumococc pneumococc 8 it y of al al 00:00: [place] vaccinatio vaccinatio 00 Me dical n n Branch Congestive Congestive Disease Active U nivers heart heart 813 ity of failure, failure, 00:00: [place] unspecifie unspecifie 00 Me dical d HF d HF Branch chronicity chronicity , , unspecifie unspecifie d heart d heart failure failure type type Chronic Chronic Disease Active Univers obstructiv obstructiv 8 it y of e e 00:00: [place] pulmonary pulmonary 00 Medi tarik disease, disease, Branch unspecifie unspecifie d COPD d COPD type type Sleep Sleep Disease Active Univers apnea, apnea, 8 ity of unspecifie unspecifie 00:[place] d type d type 00 Medical Branch Senile Senile Disease Active Univers osteoporos osteoporos 813 it y of is is 00:00: [place] 00 Medical Branch Hx of Hx of Disease Active Univers colonic colonic 8 ity of polyps polyps 00:00: [place] 00 Medical Branch Chronic Chronic Disease Active Univers neuropathi neuropathi 06-01 it y of c pain c pain 00:00: [place] 00 Medical Branch Medicare Medicare Disease Active Unive rs annual annual 2-22 ity of wellness wellness 00:00: [place] visit, visit, 00 Medical initial initial Branch Arthritis Arthritis Disease Active 2012-10 Uni vers of knee, of knee, 0-23 ity of degenerati degenerati 00:[place] ve ve 00 Medical Branch Allergies, Adverse Reactions, Alerts Allergy Allergy Status Severity Reaction(s) Onset Inactive Treating Comm ents Source Name Type Date Date Clinician Meperidi Propensi Active Nausea 2012-10 Univer s ne Hcl ty to and/or 0-23 ity of adverse Vomiting 00:00: [place] reaction 00 Medical s to Branch drug IODINE DRUG Active High Anaphylaxis 2012-10 Unive rs INGREDI 0-23 ity of 00:00: [place] 00 Medical Branch MEPERIDI DRUG Active N/V 2012-10 Univers NE HCL INGREDI 0-23 ity of 00:00: [place] 00 [facility] Iodine Propensi Active Anaphylaxis 2012-10 IV Uni vers ty to 0-23 Iodine, ity of adverse 00:00: denies [place] reaction 00 reaction Medica l s to to [place] drug topical Iodine Social History Social Habit Start Date Stop Date Quantity Comments Source History of tobacco Cigarette Smoker University of use [facility] Exposure to 2022-02-01 2022-02-11 Not sure [facility] SARS-CoV-2 (event) 00:00:00 14:41:00 [facility] Cigarettes smoked 2019-06-01 2019-06-01 [facility] ity of current (pack per 00:00:00 00:00:00 [facility] ) - Reported [place] Cigarette 2019-06-01 2019-06-01 University of pack-years 00:00:00 00:00:00 [facility] Alcohol intake 2019-06-01 2019-06-01 0 /d [facility] 00:00:00 00:00:00 [facility] Sex [birth year] Universit y of 00:00:00 00:00:00 [facility] Smoking Status Start Date Stop Date Source Current every day smoker 2019-06-01 00:00:[address] [facility] Medications Ordered Filled Start Stop Current Ordering Indication Dosage Frequency Signature Comments Components Source Medication Medication Date Date Medication? Clinician (SIG) Name Name metFORMIN Yes 500mg Take 500 Uni vers 500 mg 8-21 mg by ity of tablet 20:29: mouth [address] [place] [address] ([facility]) Medical [facility] daily with meals. metFORMIN Yes 500mg Take 500 Uni vers 500 mg 8-21 mg by ity of tablet 20:29: mouth [address] [place] [address] ([facility]) Medical times [place] daily with meals. metFORMIN 2018-0 Yes 500mg Take 500 Uni vers 500 mg 8-21 mg by ity of tablet 20:29: mouth [address] [place] [address] ([facility]) Medical times [place] daily with meals. metFORMIN 2018-0 Yes 500mg Take 500 Uni vers 500 mg 8-21 mg by ity of tablet 20:29: mouth 2 [place] [address] ([facility]) Medical times [place] daily with meals. metFORMIN 2018- Yes 500mg Take 500 Uni vers 500 mg 8-21 mg by ity of tablet 20:29: mouth 2 [place] [address] (two) Medical times Branch daily with meals. metFORMIN 2019-0 Yes 500mg Take 500 Uni vers 500 mg 8-21 mg by ity of tablet 20:29: mouth 2 [place] [address] (two) Medical times Branch daily with meals. metFORMIN 2019-0 Yes 500mg Take 500 Uni vers 500 mg 8-21 mg by ity of tablet 20:29: mouth 2 [place] [address] (two) Medical times Branch daily with meals. metFORMIN 2019-0 Yes 500mg Take 500 Uni vers 500 mg 8-21 mg by ity of tablet 20:29: mouth 2 [place] [address] (two) Medical times Branch daily with meals. metFORMIN 2019-0 Yes 500mg Take 500 Uni vers 500 mg 8-21 mg by ity of tablet 15:29: mouth 2 [place] [address] (two) Medical times Branch daily with meals. metFORMIN 2019-0 Yes 500mg Take 500 Uni vers 500 mg 8-21 mg by ity of tablet 15:29: mouth 2 [place] [address] (two) Medical times Branch daily with meals. metFORMIN 2019-0 Yes 500mg Take 500 Uni vers 500 mg 8-21 mg by ity of tablet 15:29: mouth [address] [place] [address] (two) Medical times Branch daily with meals. gabapentin 2019-0 Yes [id number] 100mg Take 1 Univers 100 mg 8-13 capsule by ity of capsule 00:00: mouth [address] [place] [address] (three) Medical times Branch daily. gabapentin 2019-0 Yes [id number] 100mg Take 1 Univers 100 mg 8-13 capsule by ity of capsule 00:00: mouth [address] [place] [address] (three) Medical times Branch daily. gabapentin 2019-0 Yes [id number] 100mg Take 1 Univers 100 mg 8-13 capsule by ity of capsule 00:00: mouth [address] [place] [address] (three) Medical times Branch daily. gabapentin 2019-0 Yes [id number] 100mg Take 1 Univers 100 mg 8-13 capsule by ity of capsule 00:00: mouth [address] [place] [address] (three) Medical times Branch daily. gabapentin 2019-0 Yes [id number] 100mg Take 1 Univers 100 mg 8-13 capsule by ity of capsule 00:00: mouth 3 [place] (three) Medical times Branch daily. gabapentin 2019-0 Yes [id number] 100mg Take 1 Univers 100 mg 8-13 capsule by ity of capsule 00:00: mouth 3 [place] (three) Medical times Branch daily. gabapentin 2019-0 Yes [id number] 100mg Take 1 Univers 100 mg 8-13 capsule by ity of capsule 00:00: mouth (three) Medical times Branch daily. gabapentin 2019-0 Yes [id number] 100mg Take 1 Univers 100 mg 8-13 capsule by ity of capsule 00:00: [place] (three) Medical times Branch daily. gabapentin 2019-0 Yes [id number] 100mg Take 1 Univers 100 mg 8-13 capsule by ity of capsule 00:00: mouth (three) Medical times Branch daily. gabapentin 2019-0 Yes [id number] 100mg Take 1 Univers 100 mg 8-13 capsule by ity of capsule 00:00: mouth (three) Medical times Branch daily. gabapentin 2019-0 Yes [id number] 100mg Take 1 Univers 100 mg 8-13 capsule by ity of capsule 00:00: mouth (three) Medical times Branch daily. gabapentin 2019-0 Yes [id number] 100mg Take 1 Univers 100 mg 8-13 capsule by ity of capsule 00:00: mouth (three) Medical times Branch daily. gabapentin 2019-0 Yes [id number] 100mg Take 1 Univers 100 mg 8-13 capsule by ity of capsule 00:00: mouth (three) Medical times Branch daily. gabapentin 2019-0 Yes [id number] 100mg Take 1 Univers 100 mg 8-13 capsule by ity of capsule 00:00: mouth (three) Medical times Branch daily. gabapentin 2019-0 Yes [id number] 100mg Take 1 Univers 100 mg 8-13 capsule by ity of capsule 00:00: mouth (three) Medical times Branch daily. gabapentin 2019-0 Yes [id number] 100mg Take 1 Univers 100 mg 8-13 capsule by ity of capsule 00:00: mouth (three) Medical times Branch daily. gabapentin 2019-0 Yes [id number] 100mg Take 1 Univers 100 mg 8-13 capsule by ity of capsule 00:00: mouth (three) Medical times Branch daily. gabapentin 2019-0 Yes [id number] 100mg Take 1 Univers 100 mg 8-13 capsule by ity of capsule 00:00: mouth (three) Medical times Branch daily. gabapentin 2019-0 Yes [id number] 100mg Take 1 Univers 100 mg 8-13 capsule by ity of capsule 00:00: mouth 3 [place] 00 (three) Medical times Branch daily. gabapentin 2019-0 Yes [id number] 100mg Take 1 Univers 100 mg 8-13 capsule by ity of capsule 00:00: mouth 3 [place] 00 (three) Medical times Branch daily. metFORMIN 2019-0 Yes 500mg Take 500 Uni vers 500 mg 7-15 mg by ity of tablet 19:42: mouth [address] [place] [address] (two) Medical times Branch daily with meals. metFORMIN 2019-0 Yes 500mg Take 500 Uni vers 500 mg 7-15 mg by ity of tablet 19:42: mouth 2 [place] [address] (two) Medical times Branch daily with meals. metFORMIN 2019-0 Yes 500mg Take 500 Uni vers 500 mg 7-15 mg by ity of tablet 19:42: mouth [address] [place] [address] (two) Medical times Branch daily with meals. metFORMIN 2019-0 Yes 500mg Take 500 Uni vers 500 mg 7-15 mg by ity of tablet 19:42: mouth [address] [place] [address] (two) Medical times Branch daily with meals. metFORMIN 2019-0 Yes 500mg Take 500 Uni vers 500 mg 7-15 mg by ity of tablet 19:42: mouth [address] [place] [address] (two) Medical times Branch daily with meals. metFORMIN 2019-0 Yes 500mg Take 500 Uni vers 500 mg 7-15 mg by ity of tablet 19:42: mouth [address] [place] [address] (two) Medical times Branch daily with meals. metFORMIN 2019-0 Yes 500mg Take 500 Uni vers 500 mg 7-15 mg by ity of tablet 19:42: mouth [address] [place] [address] (two) Medical times Branch daily with meals. metFORMIN 2019-0 Yes 500mg Take 500 Uni vers 500 mg 7-15 mg by ity of tablet 19:42: mouth [address] [place] [address] (two) Medical times Branch daily with meals. metFORMIN 2019-0 Yes 500mg Take 500 Uni vers 500 mg 7-15 mg by ity of tablet 19:42: mouth [address] [place] [address] (two) Medical times Branch daily with meals. metFORMIN 2019-0 Yes 500mg Take 500 Uni vers 500 mg 7-15 mg by ity of tablet 19:42: mouth [address] [place] [address] (two) Medical times Branch daily with meals. levothyroxi 2019-0 Yes [id number] 100ug Take 1 Univers ne 100 mcg 5-14 tablet by ity of tablet 00:00: mouth [place] 00 every Medical morning. Branch levothyroxi 2019-0 Yes [id number] 100ug Take 1 Univers ne 100 mcg 5-14 tablet by ity of tablet 00:00: mouth [place] 00 every Medical morning. Branch levothyroxi 2019-0 Yes [id number] 100ug Take 1 Univers ne 100 mcg 5-14 tablet by ity of tablet 00:00: mouth [place] 00 every Medical morning. Branch levothyroxi 2019-0 Yes [id number] 100ug Take 1 Univers ne 100 mcg 5-14 tablet by ity of tablet 00:00: mouth [place] 00 every Medical morning. Branch levothyroxi 2019-0 Yes [id number] 100ug Take 1 Univers ne 100 mcg 5-14 tablet by ity of tablet 00:00: mouth [place] 00 every Medical morning. Branch levothyroxi 2019-0 Yes [id number] 100ug Take 1 Univers ne 100 mcg 5-14 tablet by ity of tablet 00:00: mouth [place] 00 every Medical morning. Branch levothyroxi 2019-0 Yes [id number] 100ug Take 1 Univers ne 100 mcg 5-14 tablet by ity of tablet 00:00: mouth [place] 00 every Medical morning. Branch levothyroxi 2019-0 Yes [id number] 100ug Take 1 Univers ne 100 mcg 5-14 tablet by ity of tablet 00:00: mouth [place] 00 every Medical morning. Branch levothyroxi 2019-0 Yes [id number] 100ug Take 1 Univers ne 100 mcg 5-14 tablet by ity of tablet 00:00: mouth [place] 00 every Medical morning. Branch levothyroxi 2019-0 Yes [id number] 100ug Take 1 Univers ne 100 mcg 5-14 tablet by ity of tablet 00:00: mouth [place] 00 every Medical morning. Branch levothyroxi 2019-0 Yes [id number] 100ug Take 1 Univers ne 100 mcg 5-14 tablet by ity of tablet 00:00: mouth [place] 00 every Medical morning. Branch levothyroxi 2019-0 Yes [id number] 100ug Take 1 Univers ne 100 mcg 5-14 tablet by ity of tablet 00:00: mouth [place] 00 every Medical morning. Branch levothyroxi 2019-0 Yes [id number] 100ug Take 1 Univers ne 100 mcg 5-14 tablet by ity of tablet 00:00: mouth [place] 00 every Medical morning. Branch levothyroxi 2019-0 Yes [id number] 100ug Take 1 Univers ne 100 mcg 5-14 tablet by ity of tablet 00:00: mouth [place] 00 every Medical morning. [place] levothyroxi 2019-0 Yes [id number] 100ug Take 1 Univers ne 100 mcg 5-14 tablet by ity of tablet 00:00: mouth [place] 00 every Medical morning. [place] levothyroxi 2019-0 Yes [id number] 100ug Take 1 Univers ne 100 mcg 5-14 tablet by ity of tablet 00:00: mouth [place] 00 every Medical morning. [place] levothyroxi 2019-0 Yes [id number] 100ug Take 1 Univers ne 100 mcg 5-14 tablet by ity of tablet 00:00: mouth [place] 00 every Medical morning. [place] levothyroxi 2019-0 Yes [id number] 100ug Take 1 Univers ne 100 mcg 5-14 tablet by ity of tablet 00:00: mouth [place] 00 every Medical morning. [place] levothyroxi 2019-0 Yes [id number] 100ug Take 1 Univers ne 100 mcg 5-14 tablet by ity of tablet 00:00: mouth [place] 00 every Medical morning. [place] levothyroxi 2019-0 Yes [id number] 100ug Take 1 Univers ne 100 mcg 5-14 tablet by ity of tablet 00:00: mouth [place] 00 every Medical morning. [place] levothyroxi 2018-0 Yes [id number] 100ug Take 1 Univers ne 100 mcg 5-14 tablet by ity of tablet 00:00: mouth [place] 00 every Medical morning. [place] aspirin 325 2015-0 Yes 325mg Take 1 Tab Univers mg tablet 2-22 by mouth ity of 00:00: daily. [place] [facility] aspirin 325 2016-0 Yes 325mg Take 1 Tab Univers mg tablet 2-22 by mouth ity of 00:00: daily. [place] [facility] aspirin 325 2016-0 Yes 325mg Take 1 Tab Univers mg tablet 2-22 by mouth ity of 00:00: daily. [place] [facility] aspirin 325 2016-0 Yes 325mg Take 1 Tab Univers mg tablet 2-22 by mouth ity of 00:00: daily. [place] [facility] aspirin 325 2016-0 Yes 325mg Take 1 Tab Univers mg tablet 2-22 by mouth ity of 00:00: daily. [place] [facility] aspirin 325 2016-0 Yes 325mg Take 1 Tab Univers mg tablet 2-22 by mouth ity of 00:00: daily. [place] [facility] aspirin 325 2016-0 Yes 325mg Take 1 Tab Univers mg tablet 2-22 by mouth ity of 00:00: daily. [place] [facility] aspirin 325 2016-0 Yes 325mg Take 1 Tab Univers mg tablet 2-22 by mouth ity of 00:00: daily. [place] [facility] aspirin 325 2016-0 Yes 325mg Take 1 Tab Univers mg tablet 2-22 by mouth ity of 00:00: daily. [place] [facility] aspirin 325 2016-0 Yes 325mg Take 1 Tab Univers mg tablet 2-22 by mouth ity of 00:00: daily. [place] [facility] aspirin 325 2016-0 Yes 325mg Take 1 Tab Univers mg tablet 2-22 by mouth ity of 00:00: daily. [place] [facility] aspirin 325 2016-0 Yes 325mg Take 1 Tab Univers mg tablet 2-22 by mouth ity of 00:00: daily. [place] [facility] aspirin 325 2016-0 Yes 325mg Take 1 Tab Univers mg tablet 2-22 by mouth ity of 00:00: daily. [place] [facility] aspirin 325 2016-0 Yes 325mg Take 1 Tab Univers mg tablet 2-22 by mouth ity of 00:00: daily. [place] [facility] aspirin 325 2015-0 Yes 325mg Take 1 Tab Univers mg tablet 2-22 by mouth ity of 00:00: daily. [place] [facility] aspirin 325 2016-0 Yes 325mg Take 1 Tab Univers mg tablet 2-22 by mouth ity of 00:00: daily. [place] [facility] aspirin 325 2016-0 Yes 325mg Take 1 Tab Univers mg tablet 2-22 by mouth ity of 00:00: daily. [place] [facility] aspirin 325 2016-0 Yes 325mg Take 1 Tab Univers mg tablet 2-22 by mouth ity of 00:00: daily. [place] [facility] aspirin 325 2016-0 Yes 325mg Take 1 Tab Univers mg tablet 2-22 by mouth ity of 00:00: daily. [place] [facility] aspirin 325 2016-0 Yes 325mg Take 1 Tab Univers mg tablet 2-22 by mouth ity of 00:00: daily. [place] [facility] aspirin 325 2016-0 Yes 325mg Take 1 Tab Univers mg tablet 2-22 by mouth ity of 00:00: daily. [address] amLODIPine 2016-0 Yes 5mg Take 5 mg Un [place] (NORVASC) 5 2-10 by mouth ity of mg tablet 00:00: daily. [place] [facility] Branch amLODIPine 2016-0 Yes 5mg Take 5 mg [facility] [place] (NORVASC) 5 2-10 by mouth ity of mg tablet 00:00: daily. [place] [facility] Branch amLODIPine 2016-0 Yes 5mg Take 5 mg [place] (NORVASC) 5 2-10 by mouth ity of mg tablet 00:00: daily. [place] [facility] amLODIPine 2016-0 Yes 5mg Take 5 mg [place] (NORVASC) 5 2-10 by mouth ity of mg tablet 00:00: daily. [place] [facility] Branch amLODIPine 2016-0 Yes 5mg Take 5 mg [place] (NORVASC) 5 2-10 by mouth ity of mg tablet 00:00: daily. [place] [facility] Branch amLODIPine 2016-0 Yes 5mg Take 5 mg [place] (NORVASC) 5 2-10 by mouth ity of mg tablet 00:00: daily. [place] [facility] amLODIPine 2016-0 Yes 5mg Take 5 mg [place] (NORVASC) 5 2-10 by mouth ity of mg tablet 00:00: daily. [place] [facility] amLODIPine 2016-0 Yes 5mg Take 5 mg [place] (NORVASC) 5 2-10 by mouth ity of mg tablet 00:00: daily. [place] [facility] amLODIPine 2016-0 Yes 5mg Take 5 mg [place] (NORVASC) 5 2-10 by mouth ity of mg tablet 00:00: daily. [place] [facility] amLODIPine 2016-0 Yes 5mg Take 5 mg [place] (NORVASC) 5 2-10 by mouth ity of mg tablet 00:00: daily. [place] [facility] Branch amLODIPine 2016-0 Yes 5mg Take 5 mg [place] (NORVASC) 5 2-10 by mouth ity of mg tablet 00:00: daily. [place] [facility] Branch amLODIPine 2016-0 Yes 5mg Take 5 mg [place] (NORVASC) 5 2-10 by mouth ity of mg tablet 00:00: daily. [place] [facility] amLODIPine 2016-0 Yes 5mg Take 5 mg [place] (NORVASC) 5 2-10 by mouth ity of mg tablet 00:00: daily. [place] Medical Branch amLODIPine 2016-0 Yes 5mg Take 5 mg [place] (NORVASC) 5 2-10 by mouth ity of mg tablet 00:00: daily. [place] Medical Branch amLODIPine 2016-0 Yes 5mg Take 5 mg [place] (NORVASC) 5 2-10 by mouth ity of mg tablet 00:00: daily. [place] Medical Branch amLODIPine 2016-0 Yes 5mg Take 5 mg [place] (NORVASC) 5 2-10 by mouth ity of mg tablet 00:00: daily. [place] Medical Branch amLODIPine 2016-0 Yes 5mg Take 5 mg [place] (NORVASC) 5 2-10 by mouth ity of mg tablet 00:00: daily. [place] Medical Branch amLODIPine 2016-0 Yes 5mg Take 5 mg [place] (NORVASC) 5 2-10 by mouth ity of mg tablet 00:00: daily. [place] Medical Branch amLODIPine 2016-0 Yes 5mg Take 5 mg [place] (NORVASC) 5 2-10 by mouth ity of mg tablet 00:00: daily. [place] Medical Branch amLODIPine 2016-0 Yes 5mg Take 5 mg [place] (NORVASC) 5 2-10 by mouth ity of mg tablet 00:00: daily. [place] Medical Branch amLODIPine 2016-0 Yes 5mg Take 5 mg [place] (NORVASC) 5 2-10 by mouth ity of mg tablet 00:00: daily. [place] [facility] losartan-hy 2014- Yes 1{tbl} Take 1 Tab Univers drochloroth 1-08 by mouth ity of iazide 00:00: daily. [place] (HYZAAR) Medical 100-25 mg Branch per tablet losartan-hy 2014- Yes 1{tbl} Take 1 Tab Univers drochloroth 1-08 by mouth ity of iazide 00:00: daily. [place] (HYZAAR) Medical 100-25 mg Branch per tablet losartan-hy 2014- Yes 1{tbl} Take 1 Tab Univers drochloroth 1-08 by mouth ity of iazide 00:00: daily. [place] (HYZAAR) Medical 100-25 mg Branch per tablet losartan-hy 2014-10 Yes 1{tbl} Take 1 Tab Univers drochloroth 1-08 by mouth ity of iazide 00:00: daily. [place] (HYZAAR) 00 Medical 100-25 mg Branch per tablet losartan-hy 2014-10 Yes 1{tbl} Take 1 Tab Univers drochloroth 1-08 by mouth ity of iazide 00:00: daily. [place] (HYZAAR) 00 Medical 100-25 mg Branch per tablet losartan-hy 2014-10 Yes 1{tbl} Take 1 Tab Univers drochloroth 1-08 by mouth ity of iazide 00:00: daily. [place] (HYZAAR) 00 Medical 100-25 mg Branch per tablet losartan-hy 2014-10 Yes 1{tbl} Take 1 Tab Univers drochloroth 1-08 by mouth ity of iazide 00:00: daily. [place] (HYZAAR) 00 Medical 100-25 mg Branch per tablet losartan-hy 2014-10 Yes 1{tbl} Take 1 Tab Univers drochloroth 1-08 by mouth ity of iazide 00:00: daily. [place] (HYZAAR) 00 Medical 100-25 mg Branch per tablet losartan-hy 2014-10 Yes 1{tbl} Take 1 Tab Univers drochloroth 1-08 by mouth ity of iazide 00:00: daily. [place] (HYZAAR) 00 Medical 100-25 mg Branch per tablet losartan-hy 2014-10 Yes 1{tbl} Take 1 Tab Univers drochloroth 1-08 by mouth ity of iazide 00:00: daily. [place] (HYZAAR) 00 Medical 100-25 mg Branch per tablet losartan-hy 2014-10 Yes 1{tbl} Take 1 Tab Univers drochloroth 1-08 by mouth ity of iazide 00:00: daily. [place] (HYZAAR) 00 Medical 100-25 mg Branch per tablet losartan-hy 2014-10 Yes 1{tbl} Take 1 Tab Univers drochloroth 1-08 by mouth ity of iazide 00:00: daily. [place] (HYZAAR) 00 Medical 100-25 mg Branch per tablet losartan-hy 2014-10 Yes 1{tbl} Take 1 Tab Univers drochloroth 1-08 by mouth ity of iazide 00:00: daily. [place] (HYZAAR) 00 Medical 100-25 mg Branch per tablet losartan-hy 2014-10 Yes 1{tbl} Take 1 Tab Univers drochloroth 1-08 by mouth ity of iazide 00:00: daily. [place] (HYZAAR) 00 Medical 100-25 mg Branch per tablet losartan-hy 2014-10 Yes 1{tbl} Take 1 Tab Univers drochloroth 1-08 by mouth ity of iazide 00:00: daily. [place] (HYZAAR) 00 Medical 100-25 mg Branch per tablet losartan-hy 2014-10 Yes 1{tbl} Take 1 Tab Univers drochloroth 1-08 by mouth ity of iazide 00:00: daily. [place] (HYZAAR) 00 Medical 100-25 mg Branch per tablet losartan-hy 2014-10 Yes 1{tbl} Take 1 Tab Univers drochloroth 1-08 by mouth ity of iazide 00:00: daily. [place] (HYZAAR) 00 Medical 100-25 mg Branch per tablet losartan-hy 2014-10 Yes 1{tbl} Take 1 Tab Univers drochloroth 1-08 by mouth ity of iazide 00:00: daily. [place] (HYZAAR) 00 Medical 100-25 mg Branch per tablet losartan-hy 2014-10 Yes 1{tbl} Take 1 Tab Univers drochloroth 1-08 by mouth ity of iazide 00:00: daily. [place] (HYZAAR) 00 Medical 100-25 mg Branch per tablet losartan-hy 2014-10 Yes 1{tbl} Take 1 Tab Univers drochloroth 1-08 by mouth ity of iazide 00:00: daily. [place] (HYZAAR) 00 Medical 100-25 mg Branch per tablet losartan-hy 2014-10 Yes 1{tbl} Take 1 Tab Univers drochloroth 1-08 by mouth ity of iazide 00:00: daily. [place] (HYZAAR) 00 Medical 100-25 mg Branch per tablet carvedilol 2014-10 Yes 25mg Take 25 mg U nivers (COREG) 25 0-29 by mouth 2 ity of mg tablet 00:00: (two) [place] 00 times Medical daily with Branch meals. carvedilol 2014-10 Yes 25mg Take 25 mg U nivers (COREG) 25 0-29 by mouth 2 ity of mg tablet 00:00: (two) [place] 00 times Medical daily with Branch meals. carvedilol 2014-10 Yes 25mg Take 25 mg U nivers (COREG) 25 0-29 by mouth 2 ity of mg tablet 00:00: (two) [place] 00 times Medical daily with Branch meals. carvedilol 2014-10 Yes 25mg Take 25 mg U nivers (COREG) 25 0-29 by mouth 2 ity of mg tablet 00:00: (two) [place] 00 times Medical daily with Branch meals. carvedilol 2014-10 Yes 25mg Take 25 mg U nivers (COREG) 25 0-29 by mouth 2 ity of mg tablet 00:00: (two) [place] 00 times Medical daily with Branch meals. carvedilol 2014-10 Yes 25mg Take 25 mg U nivers (COREG) 25 0-29 by mouth 2 ity of mg tablet 00:00: (two) [place] 00 times Medical daily with Branch meals. carvedilol 2014-10 Yes 25mg Take 25 mg U nivers (COREG) 25 0-29 by mouth 2 ity of mg tablet 00:00: (two) [place] 00 times Medical daily with Branch meals. carvedilol 2014-10 Yes 25mg Take 25 mg U nivers (COREG) 25 0-29 by mouth 2 ity of mg tablet 00:00: (two) [place] 00 times Medical daily with Branch meals. carvedilol 2014-10 Yes 25mg Take 25 mg U nivers (COREG) 25 0-29 by mouth 2 ity of mg tablet 00:00: (two) [place] 00 times Medical daily with Branch meals. carvedilol 2014-10 Yes 25mg Take 25 mg U nivers (COREG) 25 0-29 by mouth 2 ity of mg tablet 00:00: (two) [place] 00 times Medical daily with Branch meals. carvedilol 2014-10 Yes 25mg Take 25 mg U nivers (COREG) 25 0-29 by mouth 2 ity of mg tablet 00:00: (two) [place] 00 times Medical daily with Branch meals. carvedilol 2014-10 Yes 25mg Take 25 mg U nivers (COREG) 25 0-29 by mouth 2 ity of mg tablet 00:00: (two) [place] 00 times Medical daily with Branch meals. carvedilol 2014-10 Yes 25mg Take 25 mg U nivers (COREG) 25 0-29 by mouth 2 ity of mg tablet 00:00: (two) [place] 00 times Medical daily with Branch meals. carvedilol 2014-10 Yes 25mg Take 25 mg U nivers (COREG) 25 0-29 by mouth 2 ity of mg tablet 00:00: (two) [place] 00 times Medical daily with Branch meals. carvedilol 2014-10 Yes 25mg Take 25 mg U nivers (COREG) 25 0-29 by mouth 2 ity of mg tablet 00:00: (two) [place] 00 times Medical daily with Branch meals. carvedilol 2014-10 Yes 25mg Take 25 mg U nivers (COREG) 25 0-29 by mouth 2 ity of mg tablet 00:00: (two) [place] 00 times Medical daily with Branch meals. carvedilol 2014-10 Yes 25mg Take 25 mg U nivers (COREG) 25 0-29 by mouth 2 ity of mg tablet 00:00: (two) [place] 00 times Medical daily with Branch meals. carvedilol 2014-10 Yes 25mg Take 25 mg U nivers (COREG) 25 0-29 by mouth 2 ity of mg tablet 00:00: (two) [place] 00 times Medical daily with Branch meals. carvedilol 2014-10 Yes 25mg Take 25 mg U nivers (COREG) 25 0-29 by mouth 2 ity of mg tablet 00:00: (two) [place] 00 times Medical daily with Branch meals. carvedilol 2014-10 Yes 25mg Take 25 mg U nivers (COREG) 25 0-29 by mouth 2 ity of mg tablet 00:00: (two) [place] 00 times Medical daily with Branch meals. carvedilol 2014-10 Yes 25mg Take 25 mg U nivers (COREG) 25 0-29 by mouth 2 ity of mg tablet 00:00: (two) [place] 00 times Medical daily with Branch meals. simvastatin Yes 20mg Take 20 mg [facility] (ZOCOR) 20 9-25 by mouth ity o f mg tablet 00:00: daily. [address] simvastatin Yes 20mg Take 20 mg Univers (ZOCOR) 20 9-25 by mouth ity o f mg tablet 00:00: daily. [address] simvastatin Yes 20mg Take 20 mg Univers (ZOCOR) 20 9-25 by mouth ity o f mg tablet 00:00: daily. [address] simvastatin Yes 20mg Take 20 mg Univers (ZOCOR) 20 9-25 by mouth ity o f mg tablet 00:00: daily. [address] simvastatin Yes 20mg Take 20 mg Univers (ZOCOR) 20 9-25 by mouth ity o f mg tablet 00:00: daily. [address] simvastatin Yes 20mg Take 20 mg Univers (ZOCOR) 20 9-25 by mouth ity o f mg tablet 00:00: daily. [address] simvastatin Yes 20mg Take 20 mg Univers (ZOCOR) 20 9-25 by mouth ity o f mg tablet 00:00: daily. [address] simvastatin Yes 20mg Take 20 mg Univers (ZOCOR) 20 9-25 by mouth ity o f mg tablet 00:00: daily. [address] simvastatin Yes 20mg Take 20 mg Univers (ZOCOR) 20 9-25 by mouth ity o f mg tablet 00:00: daily. [address] simvastatin Yes 20mg Take 20 mg Univers (ZOCOR) 20 9-25 by mouth ity o f mg tablet 00:00: daily. [address] simvastatin Yes 20mg Take 20 mg Univers (ZOCOR) 20 9-25 by mouth ity o f mg tablet 00:00: daily. [address] simvastatin Yes 20mg Take 20 mg Univers (ZOCOR) 20 9-25 by mouth ity o f mg tablet 00:00: daily. [address] simvastatin Yes 20mg Take 20 mg Univers (ZOCOR) 20 9-25 by mouth ity o f mg tablet 00:00: daily. [address] simvastatin Yes 20mg Take 20 mg Univers (ZOCOR) 20 9-25 by mouth ity o f mg tablet 00:00: daily. [address] simvastatin Yes 20mg Take 20 mg Univers (ZOCOR) 20 9-25 by mouth ity o f mg tablet 00:00: daily. [address] simvastatin Yes 20mg Take 20 mg Univers (ZOCOR) 20 9-25 by mouth ity o f mg tablet 00:00: daily. [address] simvastatin Yes 20mg Take 20 mg Univers (ZOCOR) 20 9-25 by mouth ity o f mg tablet 00:00: daily. [address] simvastatin Yes 20mg Take 20 mg Univers (ZOCOR) 20 9-25 by mouth ity o f mg tablet 00:00: daily. [address] simvastatin Yes 20mg Take 20 mg Univers (ZOCOR) 20 9-25 by mouth ity o f mg tablet 00:00: daily. [address] simvastatin Yes 20mg Take 20 mg Univers (ZOCOR) 20 9-25 by mouth ity o f mg tablet 00:00: daily. [address] simvastatin Yes 20mg Take 20 mg Univers (ZOCOR) 20 9-25 by mouth ity o f mg tablet 00:00: daily. [address] Vital Signs Vital Name Observation Time Observation Value Comments Source Systolic blood 2019-06-01 15:57:00 134 mm[Hg] [facility] sity pressure [facility] Diastolic blood 2019-06-01 15:57:00 83 mm[Hg] [facility] rate 2019-06-01 15:57:00 80 /min [facility] Body temperature 2019-06-01 15:57:00 36.67 Elena [facility] Respiratory rate 2019-06-01 15:57:00 20 /min [facility] Body height 2019-06-01 15:57:00 160 cm [facility] Body weight 2019-06-01 15:57:00 136.941 kg [facility] BMI 2019-06-01 15:57:00 53.48 kg/m2 [facility] Oxygen saturation in 2019-06-01 15:57:00 96 /min [facility] Arterial blood by [facility] Pulse oximetry Branch Body weight 2019-06-09 15:49:00 137.893 kg [facility] BMI 2019-06-09 15:49:00 53.85 kg/m2 [facility] Procedures Procedure Date / Time Performing Clinician Source Performed DEXA AXIAL (HIP AND SPINE) 2022-04-25 15:34:47 Requisition, Zachary gallego [facility] NOTICE OF PRIVACY 2022-02-11 19:40:22 Doctor Unassigned, [facility] PRACTICES [facility] [place] CONSENT/REFUSAL FOR 2022-02-11 19:39:38 Doctor Jovanny [facility] DIAGNOSIS AND TREATMENT [facility] [place] ASSIGNMENT OF BENEFITS 2022-02-11 19:38:00 Doctor Soniassjosh, Christian [facility] MICROALBUMIN URINE 2019-06-01 18:15:00 [employer] [facility] URINALYSIS 2019-06-01 18:15:00 [employer] [facility] THYROID STIMULATING 2019-06-01 18:11:00 [employer] [facility] HORMONE [facility] Branch GLYCOSYLATED HEMOGLOBIN 2019-06-01 18:11:00 [employer] [facility] (A1C) [facility] HCV ANTIBODY 2019-06-01 18:11:00 [employer] [facility] HCV BY PCR 2019-06-01 18:11:00 [employer] [facility] VITAMIN D, 25-OH 2019-06-01 18:11:00 [employer] [facility] PHOSPHORUS 2019-06-01 18:11:00 [employer] [facility] MAGNESIUM 2019-06-01 18:11:00 [employer] [facility] IRON 2019-06-01 18:11:00 [employer] [facility] COMP. METABOLIC PANEL 2019-06-01 18:11:00 [employer] [facility] ([id number]) [facility] LIPID PANEL ([id number])(TOTAL 2019-06-01 18:11:00 [employer] [facility], [facility] TRIGLYCERIDES, HDL) NO SHOW OR MISSED 2019-06-01 15:13:20 Doctor Jovanny [facility] APPOINTMENT POLICY [facility] h ACKNOWLEDGEMENT Encounters Start End Encounter Admission Attending Care Care Encounter Source Date/Time Date/Time Type Type Clinicians Facility Department ID 2022-04-25 2022-04-25 Hospital Radiology [facility] 1.2.840.114 [id number] [facility] 09:20:10 23:59:00 Encounter IKM 350.1.13.10 [facility] 4.2.7.2.686 [facility] [id number] [facility] [address] 2022-04-25 2022-04-25 Outpatient R RADIOLOGY [facility] [id number] Univers 09:19:41 09:19:[address] [facility] 2022-04-25 2022-04-25 [facility] Radiology [facility] 1.2.840.114 [id number] Univers 09:19:41 09:19:41 Encounter [place] 350.1.13.10 ity of [place] 4.2.7.2.686 [facility] [id number] [facility] [address] 2022-04-25 2022-04-25 Outpatient R RADIOLOGY [facility] [id number] 1P-20 Univers 00:00:00 00:00:00 [id number] ity [facility] 2022-02-11 2022-02-11 [facility] [id number] Univers 14:43:25 23:59:00 JOSE DANIEL ity of [facility] 2022-02-11 2022-02-11 [facility] 1.2.840.114 [id number] Univers 14:00:00 23:59:00 Encounter Jose Daniel FIGUEROA 350.1.13.10 ity [facility] 4.2.7.2.686 [facility] [id number] [address] 2022-02-11 2022-02-11 [facility] [id number] 1P-20 Univers 00:00:00 00:00:00 JOSE DANIEL [id number] ity of [facility] 2022-02-04 2022-02-04 [facility] [id number] 1P-20 Univers 00:00:00 00:00:00 JOSE DANIEL [id number] ity of [facility] 2022-02-04 2022-02-04 [facility] [id number] Univers 00:00:00 00:00:00 JOSE DANIEL ity [facility] 2020-02-17 2020-02-17 Bert Witt [facility] 1.2.840.114 [id number] 00:00:00 00:00:00 C Kim 350.1.13.10 [place] 4.2.7.2.686 Professio [id number] [address] 2020-02-17 2020-02-17 Bert Witt [facility] 1.2.840.114 [id number] Univers 00:00:00 00:00:00 Gosia Figueroa 350.1.13.10 i [place] [id number] [address] 2019-06-01 2019-06-19 Office [facility] 1.2.840.114 [id number] [facility] 12:28:21 15:28:55 Visit [employer] 350.1.13.10 i [place] [id number] [address] 2019-06-11 2019-06-11 [facility]phone [facility] 1.2.840.114 [id number] [facility] 00:00:00 00:00:00 [employer] 350.1.13.10 i [place] [id number] [address] 2019-06-01 2019-06-10 Office [facility] 1.2.840.114 [id number] [facility] 10:13:50 09:26:25 Visit [employer] 350.1.13.10 i [place] [id number] [address] 2019-06-09 2019-06-09 Political Director [facility] [id number] Univers 10:09:25 11:54:33 Visit Tiara WHITE 350.1.13.10 [place]y [place] [id number] [facility] AND DANIA [address] [facility] 2019-06-03 2019-06-03 [facility] 1.2.840.114 [id number] Univers 00:00:00 00:00:00 [employer] 350.1.13.10 i [place] [id number] [facility] [address] [facility] 2019-06-02 2019-06-02 Patient Raymond, [facility] 1.2.840.114 [id number] Univers 00:00:00 00:00:00 Outreach [facility] 350.1.13.10 i ty of [place] 4.2.7.2.686 Sid as Professio [id number] [facility] [address] [place] Office [address] 2019-06-01 2019-06-01 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, Adc 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 [facility] 1.2.840.114 [id number] Univers 13:04:59 13:19:59 Visit [employer] 350.1.13.10 [place] [id number] [facility] [address] [facility] 2019-06-01 2019-06-01 Orders Doctor JEY 1.2.840.114 [id number] Univers 00:00:00 00:00:00 Only Unassigned, MONAE 350.1.13.10 ity of [place] [facility] [facility] 4.2.7.2.686 Sid as [id number] [address] Results Test Description Test Time Test Comments Results Result Comments Source VITAMIN D, 25-OH 2019-06-08 14:30:00 Test Item Value Reference Range Interpretation Comme nts VIT D 25OH (test code = 7762910241) 26 ng/mL 25-80 25-Hydroxy D3 (test code = 25.5 ng/mL 8420700890) 25-Hydroxy D2 (test code = <2.5 ng/mL 2899421153) GEORGES (test code = GEORGES) Test developed and characteristics determined by [facility] Laboratory Services. [facility] BY [id number] 11:33:00 Test Item Value Reference Range Interpretation Comments HCV by Real-Time Not Detected Not detected IU/mL PCR (test code = 9018440798) [place]ES (test code = Anderson m2000 RealTime HCV GEORGES) reverse snuff box finisher-polymerase chain reaction(RT-PCR) assay is used. It is FDA approved for the quantitation of HCVin plasma and serum samples for HCV-infected individuals. The FDA approveddynamic range of this test is 12 IU/mL to 100,000,000 IU/mL (1.08-8.00 LogIU/mL). Assay results are reported in IU/mL..Result Interpretation:Not Detected: Target not detected (not the same as negative),<12 IU/mL: Detected (but not quantifiable)12-100,000,00 0 IU/mL,>100,000,000 IU/mL: >upper limit of quantification. [facility]UMIN [id number] 18:21:00 Test Item Value Reference Range Interpretation Comments CREAT U (test code = 81.5 mg/dL 0088704686) MICROALB U (test 13 ug/mL 0-45 code = 33278-8) MICROAL/CR (test See_Comment [Automated message] code = 9318-7) The system wh ich generated this result transmitted ref erence range: 0-3,500 ug/mmol creatinine. The reference range was not used to interpr et this result as normal/abnormal . [facility] [id number] 06:28:00 Test Item Value Reference Range Interpretation Comments HCV Semi-Quantitative (test code = 95819-4) [facility] [id number] 06:28:00 Test Item Value Reference Range Interpretation Comments HCV Semi-Quantitative (test code = 35623-9) [facility] [id number] 06:28:00 Test Item Value Reference Range Interpretation Comments HCV Semi-Quantitative (test code = 34899-3) [facility] HospitalGLYCOSYLATED HEMOGLOBIN (A1C)2019-06-01 23:32:00 Test Item Value Reference Interpretation Comments Range HGB A1C (test code = See_Comment [Autom ated 4548-4) message] The system which generated this result transmitted reference range : 4.0 - 6.0 % NGSP. The reference range was not used to interpret this result as normal/abnormal . GEORGES (test code = %A1C (NGSP) GEORGES) Interpretation (ADA)4.8-5.6? Normal or (Non-Diabetic Range)5.7-6.4? Increased Risk (Pre-Diabetic)>6.5?D iabetes Indicated Lab Interpretation Normal (test code = 15762-8) [facility] Hospital[facility]OS[facility] HEMOGLOBIN (A1C)2019-06-01 23:32:00 Test Item Value Reference Interpretation Comments Range HGB A1C (test code = See_Comment [Autom ated 4548-4) message] The system which generated this result transmitted reference range : 4.0 - 6.0 % NGSP. The reference range was not used to interpret this result as normal/abnormal . GEORGES (test code = %A1C (NGSP) GEORGES) Interpretation (ADA)4.8-5.6? Normal or (Non-Diabetic Range)5.7-6.4? Increased Risk (Pre-Diabetic)>6.5?D iabetes Indicated Lab Interpretation Normal (test code = 72812-5) [facility] Hospital[facility]OS[facility]ATED HEMOGLOBIN (A1C)2019-06-01 23:32:00 Test Item Value Reference Interpretation Comments Range HGB A1C (test code = See_Comment [Autom ated 4548-4) message] The system which generated this result transmitted reference range : 4.0 - 6.0 % NGSP. The reference range was not used to interpret this result as normal/abnormal . GEORGES (test code = %A1C (NGSP) GE[place]GES) Interpretation (ADA)4.8-5.6? Normal or (Non-Diabetic Range)5.7-6.4? Increased Risk (Pre-Diabetic)>6.5?D iabetes Indicated Lab Interpretation Normal (test code = 23648-2) [facility]IS2019-08-13 22:35:00 Test Item Value Reference Range Interpretation Comments APPEARANCE (test code = Clear Clear 8104598847) COLOR (test code = Pale Yellow Yellow A 6379251177) PH (test code = 4.8-8.0 4571263906) SP GRAVITY (test code = 1.003-1.030 6108667496) GLU U QUAL (test code = Negative Negative 5956575287) BLOOD (test code = Trace Negative A 5076388372) KETONES (test code = Negative Negative 3659760159) PROTEIN (test code = Negative Negative 2887-8) UROBILIN (test code = 0.2 mg/dL See_Comment [Auto mated 6669983086) message] The sy stem which generated this result transmitted reference range : 0-1.0 mg/dL. Th e reference range was not used to interpret this result as normal/abnormal . BILIRUBIN (test code = Negative Negative 7980065421) NITRITE (test code = Negative Negative 7920155233) LEUK AGUEDA (test code = Moderate Negative A 8783530519) RBC/HPF (test code = See_Comment [Autom ated 7737524122) message] The sy stem which generated this result transmitted reference range : 0 - 3 HPF. The reference range was not used to interpret this result as normal/abnormal . WBC/HPF (test code = See_Comment H [Autom ated 3969091640) message] The sy stem which generated this result transmitted reference range : 0 - 5 HPF. The reference range was not used to interpret this result as normal/abnormal . BACTERIA (test code = Moderate Negative A 6783257245) AMORPHOUS (test code = 1+ HPF 7987519265) SQ EPITH (test code = HPF 5843937407) Lab Interpretation Abnormal (test code = 70049-2) [facility] HospitalTHYROID STIMULATING [id number] 22:09:00 Test Item Value Reference Range Interpretation Comments TSH (test code = See_Comment [Automated message] 1279043772) The system [employer] generated this result transmitted ref erence range: 0.45 - 4 .70 mIU/L. The refe rence range was not u sed to interpret this result as normal/abnor mal. Lab Interpretation (test Normal code = 37236-5) [facility] HospitalTHYROID STIMULATING [id number] 22:09:00 Test Item Value Reference Range Interpretation Comments TSH (test code = See_Comment [Automated message] 4933608575) The system [employer] generated this result transmitted ref erence range: 0.45 - 4 .70 mIU/L. The refe rence range was not u sed to interpret this result as normal/abnor mal. Lab Interpretation (test Normal code = 16234-2) [facility] Hospital[facility]YROID STIMULATING [id number] 22:09:00 Test Item Value Reference Range Interpretation Comments TSH (test code = See_Comment [Automated message] 4772659013) The system [employer] generated this result transmitted ref erence range: 0.45 - 4 .70 mIU/L. The refe rence range was not u sed to interpret this result as normal/abnor mal. Lab Interpretation (test Normal code = 10753-2) [facility] HospitalCOM. METABOLIC PANEL (56353)2019-06-01 21:40:00 Test Item Value Reference Range Interpretation Comments NA (test code = 143 mmol/L 135-145 3702900286) K (test code = 4.7 mmol/L 3.5-5 3555299372) CL (test code = 106 mmol/L 98-108 5262106763) CO2 TOTAL (test code = 29 mmol/L 23-31 8010337837) AGAP (test code = 2-16 1608871601) BUN (test code = 12 mg/dL 7-23 0341012867) GLUCOSE (test code = 100 mg/dL 70-110 3591938432) CREATININE (test code 0.71 mg/dL 0.5-1.04 = 8741658023) TOTAL BILI (test code 0.6 mg/dL 0.1-1.1 = 8313215980) CALCIUM (test code = 10.1 mg/dL 8.6-10.6 6529783027) T PROTEIN (test code = 7.6 g/dL 6.3-8.2 9628803216) ALBUMIN (test code = 4.3 g/dL 3.5-5 7896663309) ALK PHOS (test code = 71 U/L 34-122 8380131185) ALT(SGPT) (test code = 20 U/L 9-51 5995450559) AST(SGOT) (test code = 18 U/L 13-40 4559076608) eGFR Calculation mL/min/1.73m2 (Non-) (test code = 7824661641) eGFR Calculation mL/min/1.73m2 () (test code = 8328213553) GEORGES (test code = GEORGES) Association of Glomerular Filtration Rate (GFR) and Staging of Kidney Disease*+ ---------+ --------+ +| GFR (mL/min/1.73 m2)?| With Kidney Damage?|?Without Kidney Damage+ -------+ ------+ ---------+|?>90?|?Stage one?|? Normal?+ --------+ -------+ +|?60-89?|?St age two?|? Decreased GFR? + -+ + ---+|?30-59?|?Stage three?|? Stage three? + -+ + ---+|?15-29?|?Stage four? |? Stage four?+ ------+ -----+ --------+|?<15 (or dialysis)?|?Stage five? |? Stage five?+ ------+ -----+ --------+*Each stage assumes the associated GFR level has been in effect for at least three months.?Stages 1 to 5, with or without kidney disease, indicate chronic kidney disease.Notes: Determination of stages one and two (with eGFR >59mL/min/1.73 m2) requires estimation of kidney damage for at least three months as defined by structural or functional abnormalities of the kidney, manifested by either:Pathological abnormalities or Markers of kidney damage (including abnormalities in the composition of the blood or urine or abnormalities in imaging tests). [facility] HospitalPHOSPHORUS2019-08-13 21:40:00 Test Item Value Reference Range Interpretation Comments PHOSPHORUS (test code = 9347751952) 3.7 mg/dL 2.5-5 Lab Interpretation (test code = Normal 09625-6) [facility] HospitalIRON2019-08-13 21:40:00 Test Item Value Reference Range Interpretation Comments IRON (test code = 6960834939) 103 ug/dL 50-160 Lab Interpretation (test code = Normal 60635-3) [facility] HospitalLIPID PANEL (03611)(TOTAL CHOLESTEROL, TRIGLYCERIDES, HDL)2019-06-01 21:40:00 Test Item Value Reference Range Interpretation Comments CHOL (test code = 176 mg/dL 120-200 6495203462) HDL (test code = 53 mg/dL >50 3636136912) HDLC RATIO (test code = See_Comment [Au tomated message] 5986210966) The system [employer] generated this result transmit aleksey reference range : <=4.5. The refe rence range was not u sed to interpret th is result as normal/abnormal . TRIG (test code = 120 mg/dL 30-170 6948898679) LDL CHOL (test code = 99 mg/dL See_Comment [Auto mated message] 76795-1) The system [employer] generated this result transmit aleksey reference range : <=160. The refe rence range was not u sed to interpret th is result as normal/abnormal . VLDL (test code = 24 mg/dL 5-60 8720389533) Lab Interpretation (test Normal code = 17724-6) [facility] HospitalMAGNESIUM2019-08-13 21:40:00 Test Item Value Reference Range Interpretation Comments MAGNESIUM (test code = 3921191912) 1.9 mg/dL 1.7-2.4 Lab Interpretation (test code = Normal 84422-4) [facility] HospitalCOMP. METABOLIC PANEL (01976)2019-06-01 21:40:00 Test Item Value Reference Range Interpretation Comments NA (test code = 143 mmol/L 135-145 7503381420) K (test code = 4.7 mmol/L 3.5-5 1454162675) CL (test code = 106 mmol/L 98-108 5012187673) CO2 TOTAL (test code = 29 mmol/L 23-31 0798699548) AGAP (test code = 2-16 9916901554) BUN (test code = 12 mg/dL 7-23 2602074530) GLUCOSE (test code = 100 mg/dL 70-110 7336886154) CREATININE (test code 0.71 mg/dL 0.5-1.04 = 9959752959) TOTAL BILI (test code 0.6 mg/dL 0.1-1.1 = 3179389614) CALCIUM (test code = 10.1 mg/dL 8.6-10.6 5279297868) T PROTEIN (test code = 7.6 g/dL 6.3-8.2 6913095052) ALBUMIN (test code = 4.3 g/dL 3.5-5 1993376186) ALK PHOS (test code = 71 U/L 34-122 9340881367) ALT(SGPT) (test code = 20 U/L 9-51 9231295904) AST(SGOT) (test code = 18 U/L 13-40 6237484162) eGFR Calculation mL/min/1.73m2 (Non-) (test code = [id number]) eGFR Calculation mL/min/1.73m2 () (test code = 9247773301) GEORGES (test code = GEORGES) Association of Glomerular Filtration Rate (GFR) and Staging of Kidney Disease*+ ---------+ --------+ +| GFR (mL/min/1.73 m2)?| With Kidney Damage??|?Without Kidney Damage+ -------+ ------+ ---------+|?>90?|?Stage one?|? Normal?+ --------+ -------+ +|?60-89?|?St age two?|? Decreased GFR? + -+ + ---+|?30-59?|?Stage three?|? Stage three? + -+ + ---+|?15-29?|?Stage four? |? Stage four?+ ------+ -----+ --------+|?<15 (or dialysis)?|?Stage five? |? Stage five?+ ------+ -----+ --------+*Each stage assumes the associated GFR level has been in effect for at least three months.?Stages 1 to 5, with or without kidney disease, indicate chronic kidney disease.Notes: Determination of stages one and two (with eGFR >59mL/min/1.73 m2) requires estimation of kidney damage for at least three months as defined by structural or functional abnormalities of the kidney, manifested by either:Pathological abnormalities or Markers of kidney damage (including abnormalities in the composition of the blood or urine or abnormalities in imaging tests). [facility]00 Test Item Value Reference Range Interpretation Comments PHOSPHORUS (test code = 6682685898) 3.7 mg/dL 2.5-5 Lab Interpretation (test code = Normal 00538-6) [facility]40:00 Test Item Value Reference Range Interpretation Comments IRON (test code = 7229479813) 103 ug/dL 50-160 Lab Interpretation (test code = Normal 15597-7) [facility] ([id number])(TOTAL CHOLESTEROL, TRIGLYCERIDES, HDL)2019-06-01 21:40:00 Test Item Value Reference Range Interpretation Comments CHOL (test code = 176 mg/dL 120-200 1962436977) HDL (test code = 53 mg/dL >50 4781403683) HDLC RATIO (test code = See_Comment [Au tomated message] 8948661287) The system Vide[employer] generated this result transmit aleksey reference range : <=4.5. The refe rence range was not u sed to interpret th is result as normal/abnormal . TRIG (test code = 120 mg/dL 30-170 5339046982) LDL CHOL (test code = 99 mg/dL See_Comment [Auto mated message] 02700-5) The system [employer] generated this result transmit aleksey reference range : <=160. The refe rence range was not u sed to interpret th is result as normal/abnormal . VLDL (test code = 24 mg/dL 5-60 4712191641) Lab Interpretation (test Normal code = 79291-1) [facility] 21:40:00 Test Item Value Reference Range Interpretation Comments MAGNESIUM (test code = 0665804844) 1.9 mg/dL 1.7-2.4 Lab Interpretation (test code = Normal 66232-8) [facility]OL[facility] ([id number])2019-06-01 21:40:00 Test Item Value Reference Range Interpretation Comments NA (test code = 143 mmol/L 135-145 3909425368) K (test code = 4.7 mmol/L 3.5-5 0648802255) CL (test code = 106 mmol/L 98-108 0029694470) CO2 TOTAL (test code = 29 mmol/L 23-31 7271764204) AGAP (test code = 2-16 9488853990) BUN (test code = 12 mg/dL 7-23 6260466967) GLUCOSE (test code = 100 mg/dL 70-110 7779056288) CREATININE (test code 0.71 mg/dL 0.5-1.04 = 6240152482) TOTAL BILI (test code 0.6 mg/dL 0.1-1.1 = 3346650451) CALCIUM (test code = 10.1 mg/dL 8.6-10.6 1724898396) T PROTEIN (test code = 7.6 g/dL 6.3-8.2 5290469153) ALBUMIN (test code = 4.3 g/dL 3.5-5 1054583018) ALK PHOS (test code = 71 U/L 34-122 7697757332) ALT(SGPT) (test code = 20 U/L 9-51 2601171355) AST(SGOT) (test code = 18 U/L 13-40 7111443290) eGFR Calculation mL/min/1.73m2 (Non-) (test code = 3762162725) eGFR Calculation mL/min/1.73m2 () (test code = 6443792549) GEORGES (test code = GEORGES) Association of Glomerular Filtration Rate (GFR) and Staging of Kidney Disease*+ ---------+ --------+ +| GFR (mL/min/1.73 m2)?| With Kidney Damage??|?Without Kidney Damage+ -------+ ------+ ---------+|?>90?|?Stage one?|? Normal?+ --------+ -------+ +|?60-89?|?St age two?|? Decreased GFR? + -+ + ---+|?30-59?|?Stage three?|? Stage three? + -+ + ---+|?15-29?|?Stage four? |? Stage four?+ ------+ -----+ --------+|?<15 (or dialysis)?|?Stage five? |? Stage five?+ ------+ -----+ --------+*Each stage assumes the associated GFR level has been in effect for at least three months.?Stages 1 to 5, with or without kidney disease, indicate chronic kidney disease.Notes: Determination of stages one and two (with eGFR >59mL/min/1.73 m2) requires estimation of kidney damage for at least three months as defined by structural or functional abnormalities of the kidney, manifested by either:Pathological abnormalities or Markers of kidney damage (including abnormalities in the composition of the blood or urine or abnormalities in imaging tests). [facility] 21:40:00 Test Item Value Reference Range Interpretation Comments PHOSPHORUS (test code = 7357160239) 3.7 mg/dL 2.5-5 Lab Interpretation (test code = Normal 89507-4) [facility] 21:40:00 Test Item Value Reference Range Interpretation Comments IRON (test code = 0897978832) 103 ug/dL 50-160 Lab Interpretation (test code = Normal 73244-5) [facility] ([id number])(TOTAL CHOLESTEROL, TRIGLYCERIDES, HDL)2019-06-01 21:40:00 Test Item Value Reference Range Interpretation Comments CHOL (test code = 176 mg/dL 120-200 1026669991) HDL (test code = 53 mg/dL >50 9761806292) HDLC RATIO (test code = See_Comment [Au tomated message] 8672185759) The system [employer] generated this result transmit aleksey reference range : <=4.5. The refe rence range was not u sed to interpret th is result as normal/abnormal . TRIG (test code = 120 mg/dL 30-170 6821626778) LDL CHOL (test code = 99 mg/dL See_Comment [Auto mated message] 88331-9) The system [employer] generated this result transmit aleksey reference range : <=160. The refe rence range was not u sed to interpret th is result as normal/abnormal . VLDL (test code = 24 mg/dL 5-60 1392117155) Lab Interpretation (test Normal code = 25724-5) [facility] 21:40:00 Test Item Value Reference Range Interpretation Comments MAGNESIUM (test code = 5974929002) 1.9 mg/dL 1.7-2.4 Lab Interpretation (test code = Normal 17267-0) [facility] ([id number])2019-06-01 21:40:00 Test Item Value Reference Range Interpretation Comments NA (test code = 143 mmol/L 135-145 1840960063) K (test code = 4.7 mmol/L 3.5-5 4033006418) CL (test code = 106 mmol/L 98-108 0896002589) CO2 TOTAL (test code = 29 mmol/L 23-31 1184044791) AGAP (test code = 2-16 6477290398) BUN (test code = 12 mg/dL 7-23 8341960188) GLUCOSE (test code = 100 mg/dL 70-110 5055085936) CREATININE (test code 0.71 mg/dL 0.5-1.04 = 1129026091) TOTAL BILI (test code 0.6 mg/dL 0.1-1.1 = 9169485165) CALCIUM (test code = 10.1 mg/dL 8.6-10.6 6620167441) T PROTEIN (test code = 7.6 g/dL 6.3-8.2 2311346196) ALBUMIN (test code = 4.3 g/dL 3.5-5 2556831298) ALK PHOS (test code = 71 U/L 34-122 3912977698) ALT(SGPT) (test code = 20 U/L 9-51 7616149057) AST(SGOT) (test code = 18 U/L 13-40 3359056939) eGFR Calculation mL/min/1.73m2 (Non-) (test code = 9233349323) eGFR Calculation mL/min/1.73m2 () (test code = 1565966247) GEORGES (test code = GEORGES) Association of Glomerular Filtration Rate (GFR) and Staging of Kidney Disease*+ ---------+ --------+ +| GFR (mL/min/1.73 m2)?| With Kidney Damage?|?Without Kidney Damage+ -------+ ------+ ---------+|?>90?|?Stage one?|? Normal?+ --------+ -------+ +|?60-89?|?St age two?|? Decreased GFR? + -+ + ---+|?30-59?|?Stage three?|? Stage three? + -+ + ---+|?15-29?|?Stage four? |? Stage four?+ ------+ -----+ --------+|?<15 (or dialysis)?|?Stage five?? |? Stage five?+ ------+ -----+ --------+*Each stage assumes the associated GFR level has been in effect for at least three months.?Stages 1 to 5, with or without kidney disease, indicate chronic kidney disease.Notes: Determination of stages one and two (with eGFR >59mL/min/1.73 m2) requires estimation of kidney damage for at least three months as defined by structural or functional abnormalities of the kidney, manifested by either:Pathological abnormalities or Markers of kidney damage (including abnormalities in the composition of the blood or urine or abnormalities in imaging tests). [facility] 21:40:00 Test Item Value Reference Range Interpretation Comments PHOSPHORUS (test code = 9240587997) 3.7 mg/dL 2.5-5 Lab Interpretation (test code = Normal 89254-5) [facility] 21:40:00 Test Item Value Reference Range Interpretation Comments IRON (test code = 3770266973) 103 ug/dL 50-160 Lab Interpretation (test code = Normal 33265-5) [facility] ([id number])(TOTAL CHOLESTEROL, TRIGLYCERIDES, HDL)2019-06-01 21:40:00 Test Item Value Reference Range Interpretation Comments CHOL (test code = 176 mg/dL 120-200 0510927897) HDL (test code = 53 mg/dL >50 0586637224) HDLC RATIO (test code = See_Comment [Au tomated message] 8086611101) The system [employer] generated this result transmit aleksey reference range : <=4.5. The refe rence range was not u sed to interpret th is result as normal/abnormal . TRIG (test code = 120 mg/dL 30-170 8857933611) LDL CHOL (test code = 99 mg/dL See_Comment [Auto mated message] 21304-8) The system [employer] generated this result transmit aleksey reference range : <=160. The refe rence range was not u sed to interpret th is result as normal/abnormal . VLDL (test code = 24 mg/dL 5-60 0959067528) Lab Interpretation (test Normal code = 65563-1) [facility] 21:40:00 Test Item Value Reference Range Interpretation Comments MAGNESIUM (test code = 3973389029) 1.9 mg/dL 1.7-2.4 Lab Interpretation (test code = Normal 69147-2) [facility] ([id number])2019-06-01 21:40:00 Test Item Value Reference Range Interpretation Comments NA (test code = 143 mmol/L 135-145 3304660528) K (test code = 4.7 mmol/L 3.5-5 3959910696) CL (test code = 106 mmol/L 98-108 7891777839) CO2 TOTAL (test code = 29 mmol/L 23-31 6626833650) AGAP (test code = 2-16 7761135854) BUN (test code = 12 mg/dL 7-23 4458773750) GLUCOSE (test code = 100 mg/dL 70-110 5020875308) CREATININE (test code 0.71 mg/dL 0.5-1.04 = 3516751268) TOTAL BILI (test code 0.6 mg/dL 0.1-1.1 = 1273810219) CALCIUM (test code = 10.1 mg/dL 8.6-10.6 0469167474) T PROTEIN (test code = 7.6 g/dL 6.3-8.2 4497722801) ALBUMIN (test code = 4.3 g/dL 3.5-5 3618934501) ALK PHOS (test code = 71 U/L 34-122 2497762324) ALT(SGPT) (test code = 20 U/L 9-51 5197887901) AST(SGOT) (test code = 18 U/L 13-40 2593182247) eGFR Calculation mL/min/1.73m2 (Non-) (test code = 3912217220) eGFR Calculation mL/min/1.73m2 () (test code = 6833407145) GEORGES (test code = GEORGES) Association of Glomerular Filtration Rate (GFR) and Staging of Kidney Disease*+ ---------+ --------+ +| GFR (mL/min/1.73 m2)?| With Kidney Damage?|?Without Kidney Damage+ -------+ ------+ ---------+|?>90?|?Stage one?|? Normal?+ --------+ -------+ +|?60-89?|?St age two?|? Decreased GFR? + -+ + ---+|?30-59?|?Stage three?|? Stage three? + -+ + ---+|?15-29?|?Stage four? |? Stage four?+ ------+ -----+ --------+|?<15 (or dialysis)?|?Stage five? |? Stage five?+ ------+ -----+ --------+*Each stage assumes the associated GFR level has been in effect for at least three months.?Stages 1 to 5, with or without kidney disease, indicate chronic kidney disease.Notes: Determination of stages one and two (with eGFR >59mL/min/1.73 m2) requires estimation of kidney damage for at least three months as defined by structural or functional abnormalities of the kidney, manifested by either:Pathological abnormalities or Markers of kidney damage (including abnormalities in the composition of the blood or urine or abnormalities in imaging tests). [facility] 21:40:00 Test Item Value Reference Range Interpretation Comments PHOSPHORUS (test code = 0872212198) 3.7 mg/dL 2.5-5 Lab Interpretation (test code = Normal 49089-9) [facility] 21:40:00 Test Item Value Reference Range Interpretation Comments IRON (test code = 0202423014) 103 ug/dL 50-160 Lab Interpretation (test code = Normal 09983-6) [facility] ([id number])(TOTAL CHOLESTEROL, TRIGLYCERIDES, HDL)2019-06-01 21:40:00 Test Item Value Reference Range Interpretation Comments CHOL (test code = 176 mg/dL 120-200 3933072986) HDL (test code = 53 mg/dL >50 5131757054) HDLC RATIO (test code = See_Comment [Au tomated message] 6487093627) The system [employer] generated this result transmit aleksey reference range : <=4.5. The refe rence range was not u sed to interpret th is result as normal/abnormal . TRIG (test code = 120 mg/dL 30-170 1050518793) LDL CHOL (test code = 99 mg/dL See_Comment [Auto mated message] 28507-7) The system [employer]ide[employer] generated this result transmit aleksey reference range : <=160. The refe rence range was not u sed to interpret th is result as normal/abnormal . VLDL (test code = 24 mg/dL 5-60 3507050352) Lab Interpretation (test Normal code = 37002-8) [facility] 21:40:00 Test Item Value Reference Range Interpretation Comments MAGNESIUM (test code = 4213386481) 1.9 mg/dL 1.7-2.4 Lab Interpretation (test code = Normal 61951-7) [facility]"
[2022-05-12] MEDS ORDERED: ACETAMINOPHEN 500 MG TAB ONE (11:13)
--- NOTE | 2022-05-12 11:13 | RAD REPORT ---
EXAM DESCRIPTION: CT - Head Brain Wo Cont - 05/12/2022 11:01 am CLINICAL HISTORY: Headache, new or worsening COMPARISON: Ct Stroke Brain Wo Cont dated 08/13/2019; Head Brain Wo Cont dated 09/17/2018 TECHNIQUE: All CT scans are performed using dose optimization technique as appropriate and may inclu de automated exposure control or mA/KV adjustment according to patient size. FINDINGS: No intracranial hemorrhage, hydrocephalus or extra-axial fluid collection.No areas of brai n edema or evidence of midline shift. Right maxillary sinus thickening. The calvarium is intact. IMPRESSION: No acute intracranial abnormality.
[2022-05-12] MEDS ORDERED: METOCLOPRAMIDE 10 MG/2mL INJ ONE (11:44)
[2022-05-12] MEDS ORDERED: DIPHENHYDRAMINE 50 MG/ML VIAL ONE (11:44)
[2022-05-12] MEDS ORDERED: dexAMETHasone 10 MG/ML VIAL ONE (11:45)
--- NOTE | 2022-05-12 12:23 | EDPHYS ---
Physician Documentation [facility] Name: Yessica Linder Age: 67 yrs Sex: Female : 1955 Arrival Date: 05/12/2022 Time: 09:27 Bed 19 Private MD: Maxi Abdul ED Physician Becky Ulloa HPI: 05/12 10:20 This 67 yrs old Black Female presents to ER via Ambulatory with complaints of Headache, cp Sinus Pain. 10:20 The patient complains of pain to the forehead. The patient describes the headache as cp aching, constant. 10:20 Onset: The symptoms/episode began/occurred for past few days. Associated signs and cp symptoms: Pertinent positives: nausea, sinus congestion, sinus tenderness, Pertinent negatives: altered mental status, fever, neck stiffness, vomiting, weakness. Severity of symptoms: in the emergency department the pain is unchanged, despite home interventions. Historical: - Allergies: 09:35 Codeine; ap3 09:35 Demerol; ap3 09:35 Iodine; ap3 - PMHx: 09:35 CHF; COPD; Degenerative disc disease; Diabetes - NIDDM; Hyperlipidemia; Hypertension; ap3 hyperthyroidism; - Immunization history:: Client reports receiving the 2nd dose of the Covid vaccine. - Social history:: Smoking status: Patient reports the use of cigarette tobacco products, smokes one-half pack cigarettes per day. ROS: 10:25 Constitutional: Negative for body aches, chills, fever, poor PO intake. cp 10:25 Eyes: Negative for injury, pain, redness, and discharge. cp 10:25 ENT: Positive for sinus congestion, sinus pain, Negative for drainage from ear(s), ear cp pain, sore throat, difficulty swallowing, difficulty handling secretions. 10:25 Neck: Negative for pain with movement, pain at rest, stiffness. 10:25 Cardiovascular: Negative for chest pain, palpitations. 10:25 Respiratory: Negative for cough, shortness of breath, wheezing. 10:25 Abdomen/GI: Positive for nausea, Negative for vomiting, diarrhea, constipation. 10:25 Neuro: Positive for headache, Negative for altered mental status, weakness. 10:25 All other systems are negative. Exam: 10:30 Constitutional: The patient appears in no acute distress, alert, awake, cp non-diaphoretic, non-toxic, well developed, well nourished, obese. 10:30 Head/face: Sinus tenderness, that is marked, is located over the right frontal sinus, cp left frontal sinus and right maxillary sinus. 10:30 Eyes: Periorbital structures: appear normal, Pupils: equal, round, and reactive to light and accomodation, Extraocular movements: intact throughout, Conjunctiva: normal, no exudate, no injection, Sclera: no appreciated abnormality, Lids and lashes: appear normal, bilaterally. 10:30 ENT: External ear(s): are unremarkable, Ear canal(s): are normal, clear, TM's: erythema, that is mild, bilaterally, Nose: is normal, Mouth: Lips: moist, Oral mucosa: pink and intact, moist, Posterior pharynx: Airway: no evidence of obstruction, patent, Tonsils: are normal in appearance, erythema, is not appreciated, exudate, is not appreciated. 10:30 Neck: ROM/movement: is normal, is supple, without pain, no range of motions limitations, no meningismus, Lymph nodes: no appreciated lymphadenopathy. 10:30 Chest/axilla: Inspection: normal. 10:30 Cardiovascular: Rate: normal, Rhythm: regular. 10:30 Respiratory: the patient does not display signs of respiratory distress, Respirations: normal, no use of accessory muscles, no retractions, labored breathing, is not present, Breath sounds: are clear throughout, no decreased breath sounds, no stridor, no wheezing. 10:30 Abdomen/GI: Exam negative for discomfort, distension, guarding, Inspection: abdomen appears normal. 10:30 Neuro: Orientation: to person, place \\T\\ time. Mentation: is normal, Motor: moves all fours, strength is normal, Sensation: is normal, Gait: is steady, at a normal pace, without difficulty. Vital Signs: 09:33 BP 126 / 70; Pulse 99; Resp 17; Temp 98.4; Pulse Ox 96% ; Weight 131.54 kg; Height 5 ap3 ft. 4 in. (162.56 cm); Pain 10/10; 11:53 BP 117 / 66; Pulse 76; Resp 16; Pulse Ox 99% ; bp 12:39 BP 105 / 69; Pulse 89; Resp 16; Pulse Ox 97% ; eh3 09:33 Body Mass Index 49.78 (131.54 kg, 162.56 cm) ap3 MDM: 11:05 Patient medically screened. cp 11:15 Differential diagnosis: migraine, otitis, sinusitis, subarachnoid bleed, subdural cp hematoma, temporal arteritis, tension headache. 12:22 Data reviewed: vital signs, nurses notes, lab test result(s), radiologic studies, CT cp scan. 12:22 Counseling: I had a detailed discussion with the patient and/or guardian regarding: the cp historical points, exam findings, and any diagnostic results supporting the discharge/admit diagnosis, lab results, radiology results, to return to the emergency department if symptoms worsen or persist or if there are any questions or concerns that arise at home. Response to treatment: the patient's symptoms have markedly improved after treatment, and as a result, I will discharge patient. 05/12 10:09 Order name: COVID-19 SARS RT PCR (Document "Date of Onset" if Symptomatic); Complete cp Time: 12:23 05/12 10:09 Order name: Influenza Screen (a \\T\\ B); Complete Time: 11:05 05/12 11:05 Interpretation: Reviewed. 05/12 10:09 Order name: CT Head Brain wo Cont; Complete Time: 11:28 cp 05/12 11:29 Interpretation: Report reviewed. 05/12 11:30 Order name: IV; Complete Time: 11:52 cp Administered Medications: 11:10 Drug: Tylenol 1000 mg Route: PO; bp 11:52 Follow up: Response: No adverse reaction bp 11:45 Drug: Reglan (metoCLOPramide) 10 mg Route: IVP; Site: right antecubital; bp 12:41 Follow up: Response: Pain is decreased eh3 11:45 Drug: Benadryl (diphenhydrAMINE) 12.5 mg Route: IVP; Site: right antecubital; bp 12:41 Follow up: Response: Pain is decreased eh3 11:45 Drug: Dexamethasone 10 mg Route: IVP; Site: right antecubital; bp 12:41 Follow up: Response: Pain is decreased eh3 Disposition Summary: 05/12/22 12:22 Discharge Ordered Location: Home cp Problem: new cp Symptoms: have improved cp Condition: Stable cp Diagnosis - Acute maxillary sinusitis, unspecified cp - Headache cp Followup: cp - With: Private Physician - When: 1 - 2 days - Reason: Recheck today's complaints Discharge Instructions: - Discharge Summary Sheet cp - General Headache Without Cause cp - Sinusitis, Adult cp Forms: - Medication Reconciliation Form cp - Thank You Letter cp - Antibiotic Education cp - Prescription Opioid Use cp Prescriptions: - Flonase Allergy Relief 50 mcg/actuation Nasal spray,suspension - inhale 1 spray by INTRANASAL route once daily; 1 Device; Refills: 0, Product cp Selection Permitted - Augmentin 875-125 mg Oral Tablet - take 1 tablet by ORAL route every 12 hours for 10 days; 20 tablet; Refills: 0, cp Product Selection Permitted - Ibuprofen 800 mg Oral Tablet - take 1 tablet by ORAL route every 8 hours As needed take with food; 30 tablet; cp Refills: 0, Product Selection Permitted Signatures: Dispatcher [employer] EDJose Armando Gomes PA PA cp Peltier, Brian RN RN bp Tyesha Hale RN RN [address]
--- NOTE | 2022-05-12 12:23 | ER ---
Nurse's Notes [facility] Name: Yessica Linder Age: 67 yrs Sex: Female : 1955 Arrival Date: 05/12/2022 Time: 09:27 Bed 19 Private MD: Maxi Abdul Diagnosis: Acute maxillary sinusitis, unspecified;Headache Presentation: 05/12 09:33 Chief complaint: Patient states: she has been having a headache and pain in her facial ap3 sinuses for a few days now. patient states this occurs when she gets a sinus infection. patient denies nvd. Coronavirus screen: Client presents with at least one sign or symptom that may indicate coronavirus-19. Ebola Screen: No symptoms or risks identified at this time. Initial Sepsis Screen: Does the patient meet any 2 criteria? HR > 90 bpm. Does the patient have a suspected source of infection? No. Patient's initial sepsis screen is negative. Risk Assessment: Do you want to hurt yourself or someone else? Patient reports no desire to harm self or others. Onset of symptoms was May 10, 2022. 09:33 Method Of Arrival: Ambulatory ap3 09:33 Acuity: RANDY 4 ap3 Triage Assessment: 09:35 Headache History: The patient has had previous headaches and this one is similar to ap3 previous episodes. General: Appears uncomfortable, Behavior is calm, cooperative. Pain: Complains of pain in face Pain currently is 10 out of 10 on a pain scale. Pain began gradually, 2-3 days ago. Also complains of sinus pressure. Neuro: Level of Consciousness is awake, alert, obeys commands, Oriented to person, place, time, Speech is normal. Cardiovascular: Patient's skin is warm and dry. Respiratory: Airway is patent Respiratory effort is even, unlabored, Respiratory pattern is regular, symmetrical. Historical: - Allergies: 09:35 Codeine; ap3 09:35 Demerol; ap3 09:35 Iodine; ap3 - PMHx: 09:35 CHF; COPD; Degenerative disc disease; Diabetes - NIDDM; Hyperlipidemia; Hypertension; ap3 hyperthyroidism; - Immunization history:: Client reports receiving the 2nd dose of the Covid vaccine. - Social history:: Smoking status: Patient reports the use of cigarette tobacco products, smokes one-half pack cigarettes per day. Screenin:37 Abuse screen: Denies threats or abuse. Nutritional screening: No deficits noted. ap3 Tuberculosis screening: No symptoms or risk factors identified. 09:45 Fall Risk None identified. bp Assessment: 09:45 General: SEE TRIAGE NOTE. bp 11:54 Reassessment: No changes from previously documented assessment. Patient and/or family bp updated on plan of care and expected duration. Pain level reassessed. 12:39 Reassessment: DC HOME AMBULATORY, DX WITH SINUSITIS. eh3 Vital Signs: 09:33 BP 126 / 70; Pulse 99; Resp 17; Temp 98.4; Pulse Ox 96% ; Weight 131.54 kg; Height 5 ap3 ft. 4 in. (162.56 cm); Pain 10/10; 11:53 BP 117 / 66; Pulse 76; Resp 16; Pulse Ox 99% ; bp 12:39 BP 105 / 69; Pulse 89; Resp 16; Pulse Ox 97% ; eh3 09:33 Body Mass Index 49.78 (131.54 kg, 162.56 cm) ap3 ED Course: 09:27 Patient arrived in ED. as 09:27 Maxi Abdul MD is Private Physician. as 09:28 Jose Armando Green PA is PHCP. cp 09:28 Becky Ulloa is Attending Physician. cp 09:35 Triage completed. ap3 09:37 Arm band placed on right wrist. ap3 10:34 Influenza Screen (a \\T\\ B) Sent. mb7 10:34 COVID-19 SARS RT PCR (Document "Date of Onset" if Symptomatic) Sent. mb7 11:03 CT Head Brain wo Cont In Process Unspecified. EDMS 11:07 Maxim Chowdary, RN is Primary Nurse. bp 11:10 Bed in low position. Call light in reach. Side rails up X 1. Door closed. Noise mb7 minimized. Warm blanket given. 11:45 Inserted saline lock: 22 gauge in right antecubital area, using aseptic technique. bp Blood collected. 12:40 No provider procedures requiring assistance completed. IV discontinued, intact, eh3 bleeding controlled, No redness/swelling at site. Pressure dressing applied. Administered Medications: 11:10 Drug: Tylenol 1000 mg Route: PO; bp 11:52 Follow up: Response: No adverse reaction bp 11:45 Drug: Reglan (metoCLOPramide) 10 mg Route: IVP; Site: right antecubital; bp 12:41 Follow up: Response: Pain is decreased eh3 11:45 Drug: Benadryl (diphenhydrAMINE) 12.5 mg Route: IVP; Site: right antecubital; bp 12:41 Follow up: Response: Pain is decreased eh3 11:45 Drug: Dexamethasone 10 mg Route: IVP; Site: right antecubital; bp 12:41 Follow up: Response: Pain is decreased eh3 Medication: 09:45 VIS not applicable for this client. bp Outcome: 12:22 Discharge ordered by MD. cp 12:40 Discharged to home ambulatory, with family. eh3 12:40 Condition: stable 12:40 Discharge instructions given to patient, family, Instructed on discharge instructions, follow up and referral plans. medication usage, Demonstrated understanding of instructions, follow-up care, medications, Prescriptions given X 3. 12:41 Patient left the ED. eh3 Signatures: Dispatcher [employer] EDMS Shanda Cotto Corey, PA PA cp Peltier, Brian, PAULA RN Tyesha Patel RN RN ap3 Joanna Ramirez 7 Evon Espinal 3
[2022-05-12 12:55] VITALS: TEMP 98.4
[2022-05-12 13:12] VITALS: BP 105/69; O2SAT 97
== END 2022-05-12 12:41 | disposition home or self-care (01) ==
LOC: ER 09:26
DX: J01.00 Acute maxillary sinusitis, unspecified (principal); E11.9 Type 2 diabetes mellitus without complications; I10 Essential (primary) hypertension; F17.210 Nicotine dependence, cigarettes, uncomplicated; Z20.822 Contact with and (suspected) exposure to COVID-19; Z88.5 Allergy status to narcotic agent; Z91.048 Other nonmedicinal substance allergy status
CPT/HCPCS: 87804 ×2; 70450; 96375; 96374; 99284; U0003; J2765; J1200; J1100

== ENCOUNTER 2022-12-23 11:26 | Emergency (ER) | payer OTHER ==
--- OUTSIDE RECORDS SUMMARY | 2022-12-23 11:32 | XMS REPORT | Continuity of Care Document ---
:1955 Author Organization [facility] t Address [address] [place] [address] [place] [id number] Care Team Providers Name Role Phone SYBIL WARE Primary Care Physician Unavailable RADIOLOGY Attending Clinician Unavailable Radiology Attending Clinician Unavailable JOSE DANIEL ESTRADA Attending Clinician Unavailable Jose Daniel Estrada Attending Clinician Bert Baird MD Attending Clinician Grupo Zapata MD Attending Clinician Tiara Morrissey RD Attending Clinician Tyesha Andrade LMSW Attending Clinician 2, [facility] Attending Clinician Unavailable Doctor Unassigned, Alex Attending Clinician Unavailable MAN OTERO Admitting Clinician Unavailable JOSE DANIEL ESTRADA Admitting Clinician Unavailable Payers Payer Name Policy Type Policy Number Effective Date Expiration Date Mary brunner [employer] [id number] 2019spring 00:00:00 MEDICAID [facility] [id number] 2019 00:00:00 Problems Condition Condition Condition Status Onset Resolution Last Treating Co mments Source Name Details Category Date Date Treatment Clinician Date 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, 1.5, 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 00 [facility] Gouty Gouty Disease Active 2018- Univers arthritis arthritis 8-13 ity of of both of both 00:00: [place] feet feet 00 Medical Branch Hypothyroi Hypothyroi Disease Active 2019 U nivers dism, dism, 8-13 ity of unspecifie unspecifie [place] type d type 00 Medical [facility] Degenerati Degenerati Disease Active U nivers ve disc ve disc 8-13 ity of disease, disease, 00:00: [place] lumbar lumbar 00 Medical Branch Essential Essential Disease Active Uni vers hypertensi hypertensi 8 it y of on on 00:00: [place] 00 Medical Branch Need for Need for Disease Active Unive rs pneumococc pneumococc 813 it y of al al 00:00: [place] vaccinatio vaccinatio 00 Ma dical n n Branch Congestive Congestive Disease Active U nivers heart heart 8 ity of failure, failure, 00:00: [place] unspecifie unspecifie 00 Me dical d HF d HF Branch chronicity chronicity , , unspecifie unspecifie d heart d heart failure failure type type Chronic Chronic Disease Active Univers obstructiv obstructiv 813 it y of e e 00:00: [place] pulmonary pulmonary 00 Medi tarik disease, disease, Branch unspecifie unspecifie d COPD d COPD type type Sleep Sleep Disease Active Univers apnea, apnea, 8 ity of unspecifie unspecifie [place] type d type 00 Medical Branch Senile Senile Disease Active Univers osteoporos osteoporos 813 it y of is is 00:00: [place] 00 Medical Branch Hx of Hx of Disease Active Univers colonic colonic 8 ity of polyps polyps 00:00: [place] 00 Medical Branch Chronic Chronic Disease Active Univers neuropathi neuropathi 813 it y of c pain c pain 00:00: [place] 00 Medical Branch Need for Need for Disease Active Unive rs pneumococc pneumococc 8 it y of al al 00:00: [place] vaccinatio vaccinatio 00 Me dical n n Branch Medicare Medicare Disease Active Unive rs annual annual 2-22 ity of wellness wellness 00:00: [place] visit, visit, 00 Medical initial initial Branch FULLNESS FULLNESS Diagnosis Active 2015-03-26 Mem[facility] [place] 02-22 15:29:00 l CLAVICULAR CLAVICULAR 00:00: He [facility] AREA 780.4 AREA 780.4 00 ACUTE ACUTE Active 02/22/2015 [facility] 784.2 - 784.2 - Diagnosis Active 2015-05-02 [facility] SWELLING SWELLING 02-21 17:51:00 l IN HEA IN A 00:01: [place] Active 00 02/21/2015 [facility] [id number] Diagnosis Active 2013-102014-10-02 Memoria 1 Active 15:29:00 l 08/17/2014 00:00: Saurabh n 00 [facility] Arthritis Arthritis Disease Active 2012-10 Uni vers [...] ity of 00:00: [place] 00 Medical Branch Iodine Propensi Active Anaphylaxis 2012-10 IV Uni vers ty to 0-23 Iodine, ity of adverse 00:00: denies [place] reaction 00 reaction Medica l s to to Branch drug topical Iodine Social History Social Habit Start Date Stop Date Quantity Comments Source History of tobacco Cigarette Smoker University of use [facility] Alcohol intake 2022-04-30 2022-04-30 0 /d University of 00:00:00 00:00:00 [facility] Exposure to 2022-02-01 2022-02-11 Not sure University of SARS-CoV-2 (event) 00:00:00 14:41:00 [facility] Tobacco use and 2015-12-06 2015-12-06 Smokeless Universit y of exposure 00:00:00 00:00:[address] tobacco non-[address] [facility] Cigarettes smoked 2015-12-06 2015-12-06 Univers ity of current (pack per 00:00:00 00:00:00 [facility] ) - Reported Branch Cigarette 2015-12-06 2015-12-06 University of pack-years 00:00:00 00:00:00 [facility] Sex [birth year] Universit y of 00:00:00 00:00:00 [facility] Smoking Status Start Date Stop Date Source Smokes tobacco daily 2015-12-06 00:00:00 [facility] ity of [facility] Medications Ordered Filled Start Stop Current Ordering Indication Dosage Frequency Signature Comments Components Source Medication Medication Date Date Medication? Clinician (SIG) Name Name metFORMIN 2019-0 Yes 500mg Take 500 Uni vers 500 mg 8-21 mg by ity of tablet 20:29: mouth [address] [place] [address] ([facility]) Medical times Branch daily with meals. metFORMIN 2019-0 Yes 500mg Take 500 Uni vers 500 mg 8-21 mg by ity of tablet 20:29: mouth [address] [place] [address] ([facility]) Medical times Branch daily with meals. metFORMIN 2019-0 Yes 500mg Take 500 Uni vers 500 mg 8-21 mg by ity of tablet 20:29: mouth [address] [place] [address] ([facility]) Medical times Branch daily with meals. metFORMIN 2019-0 Yes 500mg Take 500 Uni vers 500 mg 8-21 mg by ity of tablet 20:29: mouth [address] [place] [address] ([facility]) Medical times Branch daily with meals. metFORMIN 2019-0 Yes 500mg Take 500 Uni vers 500 mg 8-21 mg by ity of tablet 20:29: mouth [address] [place] [address] ([facility]) Medical times Branch daily with meals. metFORMIN 2019-0 Yes 500mg Take 500 Uni vers 500 mg 8-21 mg by ity of tablet 20:29: mouth [address] [place] [address] ([facility]) Medical times Branch daily with meals. metFORMIN 2019-0 Yes 500mg Take 500 Uni vers 500 mg 8-21 mg by ity of tablet 20:29: mouth [address] [place] [address] ([facility]) Medical times Branch daily with meals. metFORMIN 2019-0 Yes 500mg Take 500 Uni vers 500 mg 8-21 mg by ity of tablet 20:29: mouth [address] [place] [address] ([facility]) Medical times Branch daily with meals. metFORMIN 2019-0 Yes 500mg Take 500 Uni vers 500 mg 8-21 mg by ity of tablet 15:29: mouth [address] [place] [address] ([facility]) Medical times Branch daily with meals. metFORMIN 2019-0 Yes 500mg Take 500 Uni vers 500 mg 8-21 mg by ity of tablet 15:29: mouth [address] [place] [address] (two) Medical times Branch daily with meals. metFORMIN 2019-0 Yes 500mg Take 500 Uni vers 500 mg 8-21 mg by ity of tablet 15:29: mouth [address] [place] [address] (two) Medical times Branch daily with meals. metFORMIN 2019-0 Yes 500mg Take 500 Uni vers 500 mg 8-21 mg by ity of tablet 15:29: mouth [address] [place] [address] (two) Medical times Branch daily with meals. gabapentin 2019-0 Yes [id number] 100mg Take 1 Univers 100 mg 8-13 capsule by ity of capsule 00:00: mouth [place] (three) Medical times Branch daily. gabapentin 2019-0 Yes [id number] 100mg Take 1 Univers 100 mg 8-13 capsule by ity of capsule 00:00: mouth [place] (three) Medical times Branch daily. gabapentin 2019-0 Yes [id number] 100mg Take 1 Univers 100 mg 8-13 capsule by ity of capsule 00:00: mouth [place] (three) Medical times Branch daily. gabapentin 2019-0 Yes [id number] 100mg Take 1 Univers 100 mg 8-13 capsule by ity of capsule 00:00: mouth [place] (three) Medical times Branch daily. gabapentin 2019-0 Yes [id number] 100mg Take 1 Univers 100 mg 8-13 capsule by ity of capsule 00:00: mouth [place] (three) Medical times Branch daily. gabapentin 2019-0 Yes [id number] 100mg Take 1 Univers 100 mg 8-13 capsule by ity of capsule 00:00: mouth [place] (three) Medical times Branch daily. gabapentin 2019-0 Yes [id number] 100mg Take 1 Univers 100 mg 8-13 capsule by ity of capsule 00:00: mouth [place] (three) Medical times Branch daily. gabapentin 2019-0 Yes [id number] 100mg Take 1 Univers 100 mg 8-13 capsule by ity of capsule 00:00: mouth [place] (three) Medical times Branch daily. gabapentin 2019-0 Yes [id number] 100mg Take 1 Univers 100 mg 8-13 capsule by ity of capsule 00:00: mouth [place] (three) Medical times Branch daily. gabapentin 2019-0 Yes [id number] 100mg Take 1 Univers 100 mg 8-13 capsule by ity of capsule 00:00: [place] (three) Medical times Branch daily. gabapentin 2019-0 Yes [id number] 100mg Take 1 Univers 100 mg 8-13 capsule by ity of capsule 00:00: [place] (three) Medical times Branch daily. gabapentin 2019-0 Yes [id number] 100mg Take 1 Univers 100 mg 8-13 capsule by ity of capsule 00:00: [place] (three) Medical times Branch daily. gabapentin 2019-0 Yes [id number] 100mg Take 1 Univers 100 mg 8-13 capsule by ity of capsule 00:00: [place] (three) Medical times Branch daily. gabapentin 2019-0 Yes [id number] 100mg Take 1 Univers 100 mg 8-13 capsule by ity of capsule 00:00: [place] (three) Medical times Branch daily. gabapentin 2019-0 Yes [id number] 100mg Take 1 Univers 100 mg 8-13 capsule by ity of capsule 00:00: [place] (three) Medical times Branch daily. gabapentin 2019-0 Yes [id number] 100mg Take 1 Univers 100 mg 8-13 capsule by ity of capsule 00:00: [place] (three) Medical times Branch daily. gabapentin 2019-0 Yes [id number] 100mg Take 1 Univers 100 mg 8-13 capsule by ity of capsule 00:00: [place] (three) Medical times Branch daily. gabapentin 2019-0 Yes [id number] 100mg Take 1 Univers 100 mg 8-13 capsule by ity of capsule 00:00: [place] (three) Medical times Branch daily. gabapentin 2019-0 Yes [id number] 100mg Take 1 Univers 100 mg 8-13 capsule by ity of capsule 00:00: [place] (three) Medical times Branch daily. gabapentin 2019-0 Yes [id number] 100mg Take 1 Univers 100 mg 8-13 capsule by ity of capsule 00:00: [place] (three) Medical times Branch daily. gabapentin 2019-0 Yes [id number] 100mg Take 1 Univers 100 mg 8-13 capsule by ity of capsule 00:00: [place] (three) Medical times Branch daily. metFORMIN 2019-0 Yes 500mg Take 500 Uni vers 500 mg 7-15 mg by ity of tablet 19:42: mouth [address] [place] [address] (two) Medical times Branch daily with meals. metFORMIN 2019-0 Yes 500mg Take 500 Uni vers 500 mg 7-15 mg by ity of tablet 19:42: mouth 2 [place] [address] (two) Medical times Branch daily with meals. metFORMIN 2019-0 Yes 500mg Take 500 Uni vers 500 mg 7-15 mg by ity of tablet 19:42: mouth 2 [place] [address] (two) Medical times Branch daily with meals. metFORMIN 2019-0 Yes 500mg Take 500 Uni vers 500 mg 7-15 mg by ity of tablet 19:42: mouth [address] [place] [address] (two) Medical times Branch daily with meals. metFORMIN 2019-0 Yes 500mg Take 500 Uni vers 500 mg 7-15 mg by ity of tablet 19:42: mouth [address] [place] [address] (two) Medical times Branch daily with meals. metFORMIN 2019-0 Yes 500mg Take 500 Uni vers 500 mg 7-15 mg by ity of tablet 19:42: mouth [address] [place] [address] (two) Medical times Branch daily with meals. metFORMIN 2019-0 Yes 500mg Take 500 Uni vers 500 mg 7-15 mg by ity of tablet 19:42: mouth [address] [place] [address] (two) Medical times Branch daily with meals. metFORMIN 2019-0 Yes 500mg Take 500 Uni vers 500 mg 7-15 mg by ity of tablet 19:42: mouth [address] [place] [address] (two) Medical times Branch daily with meals. metFORMIN 2019-0 Yes 500mg Take 500 Uni vers 500 mg 7-15 mg by ity of tablet 19:42: mouth [address] [place] [address] (two) Medical times Branch daily with meals. metFORMIN 2019-0 Yes 500mg Take 500 Uni vers 500 mg 7-15 mg by ity of tablet 19:42: mouth [address] [place] [address] (two) Medical times Branch daily with meals. levothyroxi 2019-0 Yes [id number] 100ug Take 1 Univers ne 100 mcg 5-14 tablet by ity of tablet 00:00: mouth [place] 00 every Medical morning. Branch levothyroxi 2019-0 Yes [id number] 100ug Take 1 Univers ne 100 mcg 5-14 tablet by ity of tablet 00:00: mouth [place] 00 every Medical morning. Branch levothyroxi 2019-0 Yes [id number] 100ug Take 1 Univers ne 100 mcg 5-14 tablet by ity of tablet 00:00: mouth [place] 00 every Medical morning. Branch levothyroxi 2019-0 Yes [id number] 100ug Take 1 Univers ne 100 mcg 5-14 tablet by ity of tablet 00:00: mouth [place] 00 every Medical morning. Branch levothyroxi 2019-0 Yes [id number] 100ug Take 1 Univers ne 100 mcg 5-14 tablet by ity of tablet 00:00: mouth [place] 00 every Medical morning. Branch levothyroxi 2019-0 Yes [id number] 100ug Take 1 Univers ne 100 mcg 5-14 tablet by ity of tablet 00:00: mouth [place] 00 every Medical morning. Branch levothyroxi 2019-0 Yes [id number] 100ug Take 1 Univers ne 100 mcg 5-14 tablet by ity of tablet 00:00: mouth [place] 00 every Medical morning. Branch levothyroxi 2019-0 Yes [id number] 100ug Take 1 Univers ne 100 mcg 5-14 tablet by ity of tablet 00:00: mouth [place] 00 every Medical morning. Branch levothyroxi 2019-0 Yes [id number] 100ug Take 1 Univers ne 100 mcg 5-14 tablet by ity of tablet 00:00: mouth [place] 00 every Medical morning. Branch levothyroxi 2019-0 Yes [id number] 100ug Take 1 Univers ne 100 mcg 5-14 tablet by ity of tablet 00:00: mouth [place] 00 every Medical morning. Branch levothyroxi 2019-0 Yes [id number] 100ug Take 1 Univers ne 100 mcg 5-14 tablet by ity of tablet 00:00: mouth [place] 00 every Medical morning. Branch levothyroxi 2019-0 Yes [id number] 100ug Take 1 Univers ne 100 mcg 5-14 tablet by ity of tablet 00:00: mouth [place] 00 every Medical morning. Branch levothyroxi 2019-0 Yes [id number] 100ug Take 1 Univers ne 100 mcg 5-14 tablet by ity of tablet 00:00: mouth [place] 00 every Medical morning. Branch levothyroxi 2019-0 Yes [id number] 100ug Take 1 Univers ne 100 mcg 5-14 tablet by ity of tablet 00:00: mouth [place] 00 every Medical morning. Branch levothyroxi 2019-0 Yes [id number] 100ug Take 1 Univers ne 100 mcg 5-14 tablet by ity of tablet 00:00: mouth [place] 00 every Medical morning. Branch levothyroxi 2019-0 Yes [id number] 100ug Take 1 Univers ne 100 mcg 5-14 tablet by ity of tablet 00:00: mouth [place] 00 every Medical morning. Branch levothyroxi 2019-0 Yes [id number] 100ug Take 1 Univers ne 100 mcg 5-14 tablet by ity of tablet 00:00: mouth [place] 00 every Medical morning. Branch levothyroxi 2019-0 Yes [id number] 100ug Take 1 Univers ne 100 mcg 5-14 tablet by ity of tablet 00:00: mouth [place] 00 every Medical morning. Branch levothyroxi 2019-0 Yes [id number] 100ug Take 1 Univers ne 100 mcg 5-14 tablet by ity of tablet 00:00: mouth [place] 00 every Medical morning. Branch levothyroxi 2019-0 Yes [id number] 100ug Take 1 Univers ne 100 mcg 5-14 tablet by ity of tablet 00:00: mouth [place] 00 every Medical morning. Branch levothyroxi 2019-0 Yes [id number] 100ug Take 1 Univers ne 100 mcg 5-14 tablet by ity of tablet 00:00: mouth [place] 00 every Medical morning. Branch levothyroxi 2019-0 Yes [id number] 100ug Take 1 Univers ne 100 mcg 5-14 tablet by ity of tablet 00:00: mouth [place] 00 every Medical morning. [place] aspirin 325 2016-0 Yes 325mg Take 1 Tab Univers mg tablet 2-22 by mouth ity of 00:00: daily. [place] [facility] aspirin 325 2016-0 Yes 325mg Take 1 Tab Univers mg tablet 2-22 by mouth ity of 00:00: daily. [place] [facility] aspirin 325 2016-0 Yes 325mg Take 1 Tab Univers mg tablet 2-22 by mouth ity of 00:00: daily. [place] [facility] aspirin 325 2016-0 Yes 325mg Take 1 Tab Univers mg tablet 2-22 by mouth ity of 00:00: daily. [place] [facility] aspirin 325 2016-0 Yes 325mg Take 1 Tab Univers mg tablet 2-22 by mouth ity of 00:00: daily. [place] [facility] aspirin 325 2016-0 Yes 325mg Take 1 Tab Univers mg tablet 2-22 by mouth ity of 00:00: daily. [place] [facility] aspirin 325 2016-0 Yes 325mg Take 1 Tab Univers mg tablet 2-22 by mouth ity of 00:00: daily. [place] [facility] aspirin 325 2016-0 Yes 325mg Take 1 Tab Univers mg tablet 2-22 by mouth ity of 00:00: daily. [place] [facility] aspirin 325 2016-0 Yes 325mg Take 1 Tab Univers mg tablet 2-22 by mouth ity of 00:00: daily. [place] [facility] aspirin 325 2016-0 Yes 325mg Take 1 Tab Univers mg tablet 2-22 by mouth ity of 00:00: daily. [place] [facility] aspirin 325 2016-0 Yes 325mg Take 1 Tab Univers mg tablet 2-22 by mouth ity of 00:00: daily. [place] [facility] aspirin 325 2016-0 Yes 325mg Take 1 Tab Univers mg tablet 2-22 by mouth ity of 00:00: daily. [place] [facility] aspirin 325 2016-0 Yes 325mg Take 1 Tab Univers mg tablet 2-22 by mouth ity of 00:00: daily. [place] [facility] aspirin 325 2016-0 Yes 325mg Take 1 Tab Univers mg tablet 2-22 by mouth ity of 00:00: daily. [place] [facility] aspirin 325 2016-0 Yes 325mg Take 1 Tab Univers mg tablet 2-22 by mouth ity of 00:00: daily. [place] [facility] aspirin 325 2016-0 Yes 325mg Take 1 Tab Univers mg tablet 2-22 by mouth ity of 00:00: daily. [place] [facility] aspirin 325 2016-0 Yes 325mg Take 1 Tab Univers mg tablet 2-22 by mouth ity of 00:00: daily. [place] [facility] aspirin 325 2016-0 Yes 325mg Take 1 Tab Univers mg tablet 2-22 by mouth ity of 00:00: daily. [place] [facility] aspirin 325 2016-0 Yes 325mg Take 1 Tab Univers mg tablet 2-22 by mouth ity of 00:00: daily. [place] [facility] aspirin 325 2016-0 Yes 325mg Take 1 Tab Univers mg tablet 2-22 by mouth ity of 00:00: daily. [place] [facility] aspirin 325 2016-0 Yes 325mg Take 1 Tab Univers mg tablet 2-22 by mouth ity of 00:00: daily. [place] [facility] aspirin 325 2016-0 Yes 325mg Take 1 Tab Univers mg tablet 2-22 by mouth ity of 00:00: daily. [address] amLODIPine 2015-0 Yes 5mg Take 5 mg Un [place] (NORVASC) 5 2-10 by mouth ity of mg tablet 00:00: daily. [place] [facility] amLODIPine 2016-0 Yes 5mg Take 5 mg [facility] [place] (NORVASC) 5 2-10 by mouth ity of mg tablet 00:00: daily. [place] [facility] amLODIPine 2016-0 Yes 5mg Take 5 mg [facility] [place] (NORVASC) 5 2-10 by mouth ity of mg tablet 00:00: daily. [place] [facility] amLODIPine 2016-0 Yes 5mg Take 5 mg Un [place] (NORVASC) 5 2-10 by mouth ity of mg tablet 00:00: daily. [place] [facility] amLODIPine 2016-0 Yes 5mg Take 5 mg Un [place] (NORVASC) 5 2-10 by mouth ity of mg tablet 00:00: daily. [place] [facility] amLODIPine 2016-0 Yes 5mg Take 5 mg Un [place] (NORVASC) 5 2-10 by mouth ity of mg tablet 00:00: daily. [place] [facility] Branch amLODIPine 2016-0 Yes 5mg Take 5 mg Un [place] (NORVASC) 5 2-10 by mouth ity of mg tablet 00:00: daily. [place] [facility] Branch amLODIPine 2016-0 Yes 5mg Take 5 mg Un [place] (NORVASC) 5 2-10 by mouth ity of mg tablet 00:00: daily. [place] [facility] Branch amLODIPine 2016-0 Yes 5mg Take 5 mg Un [place] (NORVASC) 5 2-10 by mouth ity of mg tablet 00:00: daily. [place] [facility] Branch amLODIPine 2016-0 Yes 5mg Take 5 mg Un [place] (NORVASC) 5 2-10 by mouth ity of mg tablet 00:00: daily. [place] [facility] Branch amLODIPine 2016-0 Yes 5mg Take 5 mg [facility] [place] (NORVASC) 5 2-10 by mouth ity of mg tablet 00:00: daily. [place] Medical [facility] amLODIPine 2016-0 Yes 5mg Take 5 mg [facility] [place] (NORVASC) 5 2-10 by mouth ity of mg tablet 00:00: daily. [place] [facility] Branch amLODIPine 2016-0 Yes 5mg Take 5 mg Un [place] (NORVASC) 5 2-10 by mouth ity of mg tablet 00:00: daily. [place] [facility] Branch amLODIPine 2016-0 Yes 5mg Take 5 mg Un [place] (NORVASC) 5 2-10 by mouth ity of mg tablet 00:00: daily. [place] [facility] amLODIPine 2016-0 Yes 5mg Take 5 mg Un [place] (NORVASC) 5 2-10 by mouth ity of mg tablet 00:00: daily. [place] [facility] amLODIPine 2016-0 Yes 5mg Take 5 mg Un [place] (NORVASC) 5 2-10 by mouth ity of mg tablet 00:00: daily. [place] [facility] amLODIPine 2016-0 Yes 5mg Take 5 mg Un [place] (NORVASC) 5 2-10 by mouth ity of mg tablet 00:00: daily. [place] [facility] amLODIPine 2016-0 Yes 5mg Take 5 mg Un [place] (NORVASC) 5 2-10 by mouth ity of mg tablet 00:00: daily. [place] [facility] amLODIPine 2016-0 Yes 5mg Take 5 mg Un [place] (NORVASC) 5 2-10 by mouth ity of mg tablet 00:00: daily. [place] [facility] amLODIPine 2016-0 Yes 5mg Take 5 mg Un [place] (NORVASC) 5 2-10 by mouth ity of mg tablet 00:00: daily. [place] [facility] amLODIPine 2016-0 Yes 5mg Take 5 mg Un [place] (NORVASC) 5 2-10 by mouth ity of mg tablet 00:00: daily. [place] [facility] amLODIPine 2016-0 Yes 5mg Take 5 mg Un [place] (NORVASC) 5 2-10 by mouth ity of mg tablet 00:00: daily. [address] losartan-hy 2014-10 Yes 1{tbl} Take 1 Tab Univers drochloroth 1-08 by mouth ity of iazide 00:00: daily. [place] (HYZAAR) Medical 100-25 mg Branch per tablet losartan-hy 2014-10 Yes 1{tbl} Take 1 Tab Univers drochloroth 1-08 by mouth ity of iazide 00:00: daily. [place] (HYZAAR) Medical 100-25 mg Branch per tablet losartan-hy 2014-10 Yes 1{tbl} Take 1 Tab Univers drochloroth 1-08 by mouth ity of iazide 00:00: daily. [place] (HYZAAR) Medical 100-25 mg Branch per tablet [...] by mouth ity of iazide 00:00: daily. [place] (HYZAAR) 00 Medical 100-25 mg Branch per tablet losartan-hy 2014-10 Yes 1{tbl} Take 1 Tab Univers drochloroth 1-08 by mouth ity of iazide 00:00: daily. [place] (HYZAAR) 00 Medical 100-25 mg Branch per tablet losartan-hy 2014-10 Yes 1{tbl} Take 1 Tab Univers drochloroth 1-08 by mouth ity of iazide 00:00: daily. [place] (HYZAAR) 00 Medical 100-25 mg Branch per tablet losartan-hy 2014-10 Yes 1{tbl} Take 1 Tab Univers drochloroth 1-08 by mouth ity of iazide 00:00: daily. [place] (HYZAAR) 00 Medical 100-25 mg Branch per tablet losartan-hy 2014-10 Yes 1{tbl} Take 1 Tab Univers drochloroth 1-08 by mouth ity of iazide 00:00: daily. [place] (HYZAAR) 00 Medical 100-25 mg Branch per tablet losartan-hy 2014-10 Yes 1{tbl} Take 1 Tab Univers drochloroth 1-08 by mouth ity of iazide 00:00: daily. [place] (HYZAAR) 00 Medical 100-25 mg Branch per tablet losartan-hy 2014-10 Yes 1{tbl} Take 1 Tab Univers drochloroth 1-08 by mouth ity of iazide 00:00: daily. [place] (HYZAAR) 00 Medical 100-25 mg Branch per tablet losartan-hy 2014-10 Yes 1{tbl} Take 1 Tab Univers drochloroth 1-08 by mouth ity of iazide 00:00: daily. [place] (HYZAAR) 00 Medical 100-25 mg Branch per tablet losartan-hy 2014-10 Yes 1{tbl} Take 1 Tab Univers drochloroth 1-08 by mouth ity of iazide 00:00: daily. [place] (HYZAAR) 00 Medical 100-25 mg Branch per tablet carvedilol 2014-10 Yes 25mg Take 25 mg U nivers (COREG) 25 0-29 by mouth 2 ity of mg tablet 00:00: (two) [place] 00 times Medical daily with Branch meals. carvedilol 2014-10 Yes 25mg Take 25 mg U nivers (COREG) 25 0-29 by mouth 2 ity of mg tablet 00:00: (two) [place] 00 times Medical daily with Branch meals. carvedilol 2014-10 Yes 25mg Take 25 mg U nivers (COREG) 25 0-29 by mouth 2 ity of mg tablet 00:00: (two) [place] 00 times Medical daily with Branch meals. carvedilol 2014-10 Yes 25mg Take 25 mg U nivers (COREG) 25 0-29 by mouth 2 ity of mg tablet 00:00: (two) [place] 00 times Medical daily with Branch meals. carvedilol 2014-10 Yes 25mg Take 25 mg U nivers (COREG) 25 0-29 by mouth 2 ity of mg tablet 00:00: (two) [place] 00 times Medical daily with Branch meals. carvedilol 2014-10 Yes 25mg Take 25 mg U nivers (COREG) 25 0-29 by mouth 2 ity of mg tablet 00:00: (two) [place] 00 times Medical daily with Branch meals. carvedilol 2014-10 Yes 25mg Take 25 mg U nivers (COREG) 25 0-29 by mouth 2 ity of mg tablet 00:00: (two) [place] 00 times Medical daily with Branch meals. carvedilol 2014-10 Yes 25mg Take 25 mg U nivers (COREG) 25 0-29 by mouth 2 ity of mg tablet 00:00: (two) [place] 00 times Medical daily with Branch meals. carvedilol 2014-10 Yes 25mg Take 25 mg U nivers (COREG) 25 0-29 by mouth 2 ity of mg tablet 00:00: (two) [place] 00 times Medical daily with Branch meals. carvedilol 2014-10 Yes 25mg Take 25 mg U nivers (COREG) 25 0-29 by mouth 2 ity of mg tablet 00:00: (two) [place] 00 times Medical daily with Branch meals. carvedilol 2014-10 Yes 25mg Take 25 mg U nivers (COREG) 25 0-29 by mouth 2 ity of mg tablet 00:00: (two) [place] 00 times Medical daily with Branch meals. [...] 2 ity of mg tablet 00:00: (two) [place] 00 times Medical daily with Branch meals. carvedilol 2014-10 Yes 25mg Take 25 mg U nivers (COREG) 25 0-29 by mouth 2 ity of mg tablet 00:00: (two) [place] 00 times Medical daily with Branch meals. carvedilol 2014-10 Yes 25mg Take 25 mg U nivers (COREG) 25 0-29 by mouth 2 ity of mg tablet 00:00: (two) [place] 00 times Medical daily with Branch meals. carvedilol 2014-10 Yes 25mg Take 25 mg U nivers (COREG) 25 0-29 by mouth 2 ity of mg tablet 00:00: (two) [place] 00 times Medical daily with Branch meals. carvedilol 2014-10 Yes 25mg Take 25 mg U nivers (COREG) 25 0-29 by mouth 2 ity of mg tablet 00:00: (two) [place] 00 times Medical daily with Branch meals. [...] ity o f mg tablet 00:00: daily. [address] simvastatin Yes 20mg Take 20 mg Univers (ZOCOR) 20 9-25 by mouth ity o f mg tablet 00:00: daily. [address] simvastatin Yes 20mg Take 20 mg Univers (ZOCOR) 20 9-25 by mouth ity o f mg tablet 00:00: daily. [address] simvastatin Yes 20mg Take 20 mg Univers (ZOCOR) 20 9-25 by mouth ity o f mg tablet 00:00: daily. [address] simvastatin Yes 20mg Take 20 mg Univers (ZOCOR) 20 9-25 by mouth ity o f mg tablet 00:00: daily. [address] simvastatin Yes 20mg Take 20 mg Univers (ZOCOR) 20 9-25 by mouth ity o f mg tablet 00:00: daily. [address] simvastatin Yes 20mg Take 20 mg Univers (ZOCOR) 20 9-25 by mouth ity o f mg tablet 00:00: daily. [address] simvastatin Yes 20mg Take 20 mg Univers (ZOCOR) 20 9-25 by mouth ity o f mg tablet 00:00: daily. [address] simvastatin Yes 20mg Take 20 mg Univers (ZOCOR) 20 9-25 by mouth ity o f mg tablet 00:00: daily. [address] simvastatin Yes 20mg Take 20 mg Univers (ZOCOR) 20 9-25 by mouth ity o f mg tablet 00:00: daily. [address] simvastatin Yes 20mg Take 20 mg Univers (ZOCOR) 20 9-25 by mouth ity o f mg tablet 00:00: daily. [address] simvastatin Yes 20mg Take 20 mg Univers (ZOCOR) 20 9-25 by mouth ity o f mg tablet 00:00: daily. [address] simvastatin Yes 20mg Take 20 mg Univers (ZOCOR) 20 9-25 by mouth ity o f mg tablet 00:00: daily. [address] simvastatin Yes 20mg Take 20 mg Univers (ZOCOR) 20 9-25 by mouth ity o f mg tablet 00:00: daily. [address] simvastatin Yes 20mg Take 20 mg Univers (ZOCOR) 20 9-25 by mouth ity o f mg tablet 00:00: daily. [address] simvastatin Yes 20mg Take 20 mg Univers (ZOCOR) 20 9-25 by mouth ity o f mg tablet 00:00: daily. [address] simvastatin Yes 20mg Take 20 mg Univers (ZOCOR) 20 9-25 by mouth ity o f mg tablet 00:00: daily. [address] simvastatin Yes 20mg Take 20 mg Univers (ZOCOR) 20 9-25 by mouth ity o f mg tablet 00:00: daily. [address] simvastatin Yes 20mg Take 20 mg Univers (ZOCOR) 20 9-25 by mouth ity o f mg tablet 00:00: daily. [address] simvastatin Yes 20mg Take 20 mg Univers (ZOCOR) 20 9-25 by mouth ity o f mg tablet 00:00: daily. [address] simvastatin Yes 20mg Take 20 mg Univers (ZOCOR) 20 9-25 by mouth ity o f mg tablet 00:00: daily. [address] simvastatin Yes 20mg Take 20 mg Univers (ZOCOR) 20 9-25 by mouth ity o f mg tablet 00:00: daily. [address] Vital Signs Vital Name Observation Time Observation Value Comments Source Systolic blood 2019-06-01 15:57:00 134 mm[Hg] Univer sity of pressure [facility] Diastolic blood 2019-06-01 15:57:00 83 mm[Hg] Unive rsity of [facility] Heart rate 2019-06-01 15:57:00 80 /min [facility] Body temperature 2019-06-01 15:57:00 36.67 Elena [facility] [place] Respiratory rate 2019-06-01 15:57:00 20 /min [facility] Body height 2019-06-01 15:57:00 160 cm [facility] Body weight 2019-06-01 15:57:00 136.941 kg [facility] BMI 2019-06-01 15:57:00 53.48 kg/m2 [facility] Oxygen saturation in 2019-06-01 15:57:00 96 /min [facility] Arterial blood by [facility] Pulse oximetry Branch Body weight 2019-06-09 15:49:00 137.893 kg [facility] BMI 2019-06-09 15:49:00 53.85 kg/m2 [facility] Procedures Procedure Date / Time Performing Clinician Source Performed DEXA AXIAL (HIP AND SPINE) 2022-04-25 15:34:47 Requisition, Zachary gallego [facility] NOTICE OF PRIVACY 2022-02-11 19:40:22 Doctor Unassigned, [facility] PRACTICES Alex [facility] CONSENT/REFUSAL FOR 2022-02-11 19:39:38 Doctor Unassigned, [facility] DIAGNOSIS AND TREATMENT Alex [facility] ASSIGNMENT OF BENEFITS 2022-02-11 19:38:00 Doctor Unassigned, [facility] Alex [facility] MICROALBUMIN URINE 2019-06-01 18:15:00 [facility] URINALYSIS 2019-06-01 18:15:00 [employer] [facility] THYROID STIMULATING 2019-06-01 18:11:00 [employer] [facility] HORMONE [facility] GLYCOSYLATED HEMOGLOBIN 2019-06-01 18:11:00 [employer] [facility] (A1C) [facility] HCV ANTIBODY 2019-06-01 18:11:00 [employer] [facility] HCV BY PCR 2019-06-01 18:11:00 [employer] [facility] VITAMIN D, 25-OH 2019-06-01 18:11:00 [employer] [facility] PHOSPHORUS 2019-06-01 18:11:00 [employer] [facility] MAGNESIUM 2019-06-01 18:11:00 [employer] [facility] IRON 2019-06-01 18:11:00 [employer] [facility] COMP. METABOLIC PANEL 2019-06-01 18:11:00 [employer] [facility] ([id number]) Medical Branch LIPID PANEL ([id number])(TOTAL 2019-06-01 18:11:00 [employer] [facility] CHOLESTEROL, Medical Branch TRIGLYCERIDES, HDL) NO SHOW OR MISSED 2019-06-01 15:13:20 Doctor Unassigned, [facility] APPOINTMENT POLICY Alex Medical [facility] h ACKNOWLEDGEMENT Encounters Start End Encounter Admission Attending Care Care Encounter Source Date/Time Date/Time Type Type Clinicians Facility Department ID 2022-09-26 2022-09-26 Outpatient R RADIOLOGY [facility] [id number] Univers 13:00:35 23:59:00 ity of [facility] 2022-09-26 2022-09-26 [facility] Radiology [facility] 1.2.840.114 [id number] Univers 13:00:00 23:59:00 Encounter [place] 350.1.13.10 ity of [place] [id number] [facility] 807 Branch 2022-04-25 2022-04-25 [facility] Radiology [facility] 1.2.840.114 [id number] Univers 09:20:10 23:59:00 Encounter [place] 350.1.13.10 ity of [place] 4[place]2.[place] [id number] [facility] [address] Branch 2022-04-25 2022-04-25 Outpatient R RADIOLOGY [facility] [id number] Univers 09:19:41 09:19:41 ity of [facility] 2022-04-25 2022-04-25 [facility] Radiology [facility] 1.2.840.114 [id number] Univers 09:19:41 09:19:41 Encounter [place] 350.1.13.10 ity of [place] 4.2.7.2.686 [facility] [id number] [facility] [address] 2022-02-11 2022-02-11 [facility] [id number] Univers 14:43:25 23:59:00 JOSE DANIEL ity of [facility] 2022-02-11 2022-02-11 [facility] 1.2.840.114 [id number] Univers 14:00:00 23:59:00 Encounter Jose Daniel Darcy KIM 350.1.13.10 [facility] [place] [id number] [address] 2022-02-04 2022-02-04 Outpatient R TRINY [facility] [id number] [facility] 00:00:00 00:00:00 JOSE DANIEL ity of [facility] 2020-02-17 2020-02-17 Leon Baird Bert [facility] 1.2.840.114 [id number] 00:00:00 00:00:00 C [place] 350.1.13.10 [place] 4.2.7.2.686 Professio [id number] [address] 2020-02-17 2020-02-17 Xinleta Baird Bert [facility] 1.2.840.114 [id number] [facility] 00:00:00 00:00:00 C Kim 350.1.13.10 i ty [place] [id number] [address] 2019-06-01 2019-06-19 Office [facility] 1.2.840.114 [id number] [facility] 12:28:21 15:28:55 Visit [employer] 350.1.13.10 i ty [place] [id number] [address] 2019-06-11 2019-06-11 Telephone [facility] 1.2.840.114 [id number] [facility] 00:00:00 00:00:00 [employer] 350.1.13.10 i ty [place] 4[place] [id number] [address] 2019-06-01 2019-06-10 Office [place] [id number] [facility] 10:13:50 09:26:25 Visit [employer] 350.1.13.10 i ty of [place] 4[place].2.[place] [id number] [facility] [address] [facility] 2019-06-09 2019-06-09 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, [facility] 1.2.311.690 [id number] [facility] 10:09:25 11:54:33 Visit Tiara WHITE 350.1.13.10 ity [place] [id number] [facility] AND NAJERA [address] [facility] 2019-06-03 2019-06-03 [facility] 1.2.840.114 [id number] Univers 00:00:00 00:00:00 [employer] 350.1.13.10 i ty [place] [id number] [facility] 044 [facility] 2019-06-02 2019-06-02 [facility] 1.2.840.114 [id number] Univers 00:00:00 00:00:00 Outreach [facility] 350.1.13.10 i ty of [place] 4.2.7.2.686 Sid as Professio [id number] [facility] [address] 2019-06-01 2019-06-01 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, 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 [facility] 1.2.840.114 [id number] [facility] 13:04:59 13:19:59 Visit [employer] 350.1.13.10 ity of [place] 4[place] [id number] [facility] 353 [facility] 2019-06-01 2019-06-01 Orders Doctor JEY 1.2.840.114 [id number] Univers 00:00:00 00:00:00 Only Unassigned, MONAE 350.1.13.10 ity of Alex [facility] 4.2.7.2.686 Sid as [id number] [facility] 009 Branch 2016-03-08 2016-03-08 Outpatient MHIE MHIE [id number] Memoria 09:00:00 09:00:00 03 liss Joe 2016-02-22 2016-02-22 Outpatient MHIE NOBLE [id number] Memoria 08:00:00 08:00:00 02 liss Joe 2015-07-21 2015-07-21 Outpatient [facility] [id number] Memoria 09:45:00 09:45:00 00 liss Joe 2015-07-21 2015-07-21 Outpatient [facility] [id number] Memoria 08:00:00 08:00:00 01 liss Joe Results Test Description Test Time Test Comments Results Result Comments Source VITAMIN D, 25-OH 2019-06-08 14:30:00 Test Item Value Reference Range Interpretation Comme nts VIT D 25OH (test code = 4428740923) 26 ng/mL 25-80 25-Hydroxy D3 (test code = 25.5 ng/mL 3043312239) 25-Hydroxy D2 (test code = <2.5 ng/mL 1864493633) GEORGES (test code = GEORGES) Test developed and characteristics determined by [facility] Laboratory Services. [facility] BY [id number] 11:33:00 Test Item Value Reference Range Interpretation Comments HCV by Real-Time Not Detected Not detected IU/mL PCR (test code = 7646519144) [place] (test code = [place]000 RealTime HCV GE[place]GES) reverse feather renovator-polymerase chain reaction(RT-PCR) assay is used. It is [...] 0 IU/mL,>100,000,000 IU/mL: >upper limit of quantification. [facility] [id number] 18:21:00 Test Item Value Reference Range Interpretation Comments CREAT U (test code = 81.5 mg/dL 0198150669) MICROALB U (test 13 ug/mL 0-45 code = 46766-9) MICROAL/CR (test See_Comment [Automated message] code = 9318-7) The system [facility] generated this result transmitted ref erence range: 0-3,500 ug/mmol creatinine. The reference range was not used to interpr et this result as normal/abnormal . [facility] [id number] 06:28:00 Test Item Value Reference Range Interpretation Comments HCV Semi-Quantitative (test code = 42951-0) [facility] [id number] 06:28:00 Test Item Value Reference Range Interpretation Comments HCV Semi-Quantitative (test code = 69313-5) [facility] [id number] 06:28:00 Test Item Value Reference Range Interpretation Comments HCV Semi-Quantitative (test code = 74477-8) [facility] HEMOGLOBIN (A1C)2019-06-01 23:32:00 Test Item Value [...] Indicated Lab Interpretation Normal (test code = 45355-0) [facility] (A1C)2019-06-01 23:32:00 Test Item Value [...] Indicated Lab Interpretation Normal (test code = 72112-2) [facility]IN (A1C)2019-06-01 23:32:00 Test Item Value [...] Indicated Lab Interpretation Normal (test code = 36359-8) [facility]2019-[facility]-13 22:35:00 Test Item Value Reference Range Interpretation Comments APPEARANCE (test code = Clear Clear 4655262330) COLOR (test code = Pale Yellow Yellow A 0950108569) PH (test code = 4.8-8.0 0862484005) SP GRAVITY (test code = 1.003-1.030 0751113134) GLU U QUAL (test code = Negative Negative 1153459464) BLOOD (test code = Trace Negative A 1132708354) KETONES (test code = Negative Negative 2143455837) PROTEIN (test code = Negative Negative 2887-8) UROBILIN (test code = 0.2 mg/dL See_Comment [Auto mated 9360799304) message] The sy stem which generated this result transmitted reference range : 0-1.0 mg/dL. Th e reference range was not used to interpret this result as normal/abnormal . BILIRUBIN (test code = Negative Negative 5925477862) NITRITE (test code = Negative Negative 5364760930) LEUK AGUEDA (test code = Moderate Negative A 9179112162) RBC/HPF (test code = See_Comment [Autom ated 6117310910) message] The sy stem which generated this result transmitted reference range : 0 - 3 HPF. The reference range was not used to interpret this result as normal/abnormal . WBC/HPF (test code = See_Comment H [Autom ated 2940110065) message] The sy stem which generated this result transmitted reference range : 0 - 5 HPF. The reference range was not used to interpret this result as normal/abnormal . BACTERIA (test code = Moderate Negative A 4336564720) AMORPHOUS (test code = 1+ HPF 4638799048) SQ EPITH (test code = HPF 7279331568) Lab Interpretation Abnormal (test code = 69863-4) [facility]ATING [id number] 22:09:00 Test Item Value Reference Range Interpretation Comments TSH (test code = See_Comment [Automated message] 3530747717) The system [employer] generated this result transmitted ref erence range: 0.45 - 4 .70 mIU/L. The refe rence range was not u sed to interpret this result as normal/abnor mal. Lab Interpretation (test Normal code = 32279-5) [facility] [id number] 22:09:00 Test Item Value Reference Range Interpretation Comments TSH (test code = See_Comment [Automated message] 3211666242) The system [employer] generated this result transmitted ref erence range: 0.45 - 4 .70 mIU/L. The refe rence range was not u sed to interpret this result as normal/abnor mal. Lab Interpretation (test Normal code = 14141-4) [facility] [id number] 22:09:00 Test Item Value Reference Range Interpretation Comments TSH (test code = See_Comment [Automated message] 0192474512) The system [employer] generated this result transmitted ref erence range: 0.45 - 4 .70 mIU/L. The refe rence range was not u sed to interpret this result as normal/abnor mal. Lab Interpretation (test Normal code = 83095-0) [facility]. METABOLIC PANEL (46918)2019-06-01 21:40:00 Test Item Value Reference Range Interpretation Comments NA (test code = 143 mmol/L 135-145 1608561652) K (test code = 4.7 mmol/L 3.5-5 1747619846) CL (test code = 106 mmol/L 98-108 3506573407) CO2 TOTAL (test code = 29 mmol/L 23-31 1192752698) AGAP (test code = 2-16 7108856391) BUN (test code = 12 mg/dL 7-23 5182894790) GLUCOSE (test code = 100 mg/dL 70-110 9296034422) CREATININE (test code 0.71 mg/dL 0.5-1.04 = 6767951288) TOTAL BILI (test code 0.6 mg/dL 0.1-1.1 = 1023743598) CALCIUM (test code = 10.1 mg/dL 8.6-10.6 5291926432) T PROTEIN (test code = 7.6 g/dL 6.3-8.2 1697106959) ALBUMIN (test code = 4.3 g/dL 3.5-5 3167027400) ALK PHOS (test code = 71 U/L 34-122 3899552784) ALT(SGPT) (test code = 20 U/L 9-51 9768596899) AST(SGOT) (test code = 18 U/L 13-40 6214888544) eGFR Calculation mL/min/1.73m2 (Non-) (test code = 8257836080) eGFR Calculation mL/min/1.73m2 () (test code = 3650079295) GEORGES (test code = GEORGES) Association of [...] or urine or abnormalities in imaging tests). [facility]US2019-08-13 21:40:00 Test Item Value Reference Range Interpretation Comments PHOSPHORUS (test code = 6630903320) 3.7 mg/dL 2.5-5 Lab Interpretation (test code = Normal 01604-7) [facility]2019-08-13 21:40:00 Test Item Value Reference Range Interpretation Comments IRON (test code = 9875330819) 103 ug/dL 50-160 Lab Interpretation (test code = Normal 30333-2) [facility] HospitalLIPID PANEL (36200)(TOTAL CHOLESTEROL, TRIGLYCERIDES, HDL)2019-06-01 21:40:00 Test Item Value Reference Range Interpretation Comments CHOL (test code = 176 mg/dL 120-200 8771339829) HDL (test code = 53 mg/dL >50 9230505996) HDLC RATIO (test code = See_Comment [Au tomated message] 4266196483) The system [employer] generated this result transmit aleksey reference range : <=4.5. The refe rence range was not u sed to interpret th is result as normal/abnormal . TRIG (test code = 120 mg/dL 30-170 4310724934) LDL CHOL (test code = 99 mg/dL See_Comment [Auto mated message] 85324-5) The system [employer] generated this result transmit aleksey reference range : <=160. The refe rence range was not u sed to interpret th is result as normal/abnormal . VLDL (test code = 24 mg/dL 5-60 4572082559) Lab Interpretation (test Normal code = 32434-3) [facility]MAGNESIUM2019-08-13 21:40:00 Test Item Value Reference Range Interpretation Comments MAGNESIUM (test code = 9883109635) 1.9 mg/dL 1.7-2.4 Lab Interpretation (test code = Normal 94528-9) [facility] METABOLIC PANEL (82787)2019-06-01 21:40:00 Test Item Value Reference Range Interpretation Comments NA (test code = 143 mmol/L 135-145 3299644389) K (test code = 4.7 mmol/L 3.5-5 6710104343) CL (test code = 106 mmol/L 98-108 9791563551) CO2 TOTAL (test code = 29 mmol/L 23-31 0596672876) AGAP (test code = 2-16 5415939361) BUN (test code = 12 mg/dL 7-23 5178868214) GLUCOSE (test code = 100 mg/dL 70-110 5118883950) CREATININE (test code 0.71 mg/dL 0.5-1.04 = 4438394689) TOTAL BILI (test code 0.6 mg/dL 0.1-1.1 = 4429806215) CALCIUM (test code = 10.1 mg/dL 8.6-10.6 2140109969) T PROTEIN (test code = 7.6 g/dL 6.3-8.2 0265426170) ALBUMIN (test code = 4.3 g/dL 3.5-5 0197640850) ALK PHOS (test code = 71 U/L 34-122 8272328586) ALT(SGPT) (test code = 20 U/L 9-51 8551656632) AST(SGOT) (test code = 18 U/L 13-40 9789714679) eGFR Calculation mL/min/1.73m2 (Non-) (test code = 4995632366) eGFR Calculation mL/min/1.73m2 () (test code = 8823904033) GE[place]GES (test code = GEORGES) Association of [...] or urine or abnormalities in imaging tests). [facility]2019-08-13 21:40:00 Test Item Value Reference Range Interpretation Comments PHOSPHORUS (test code = 1168277593) 3.7 mg/dL 2.5-5 Lab Interpretation (test code = Normal 87570-6) [facility] 21:40:00 Test Item Value Reference Range Interpretation Comments IRON (test code = 5257548557) 103 ug/dL 50-160 Lab Interpretation (test code = Normal 39188-4) [facility] HospitalLIP[facility] PANEL (86214)(TOTAL CHOLESTEROL, TRIGLYCERIDES, HDL)2019-06-01 21:40:00 Test Item Value Reference Range Interpretation Comments CHOL (test code = 176 mg/dL 120-200 1187608971) HDL (test code = 53 mg/dL >50 6019098886) HDLC RATIO (test code = See_Comment [Au tomated message] 9179973674) The system [employer] generated this result transmit aleksey reference range : <=4.5. The refe rence range was not u sed to interpret th is result as normal/abnormal . TRIG (test code = 120 mg/dL 30-170 6625110354) LDL CHOL (test code = 99 mg/dL See_Comment [Auto mated message] 32700-0) The system [employer] generated this result transmit aleksey reference range : <=160. The refe rence range was not u sed to interpret th is result as normal/abnormal . VLDL (test code = 24 mg/dL 5-60 7996243363) Lab Interpretation (test Normal code = 26019-4) [facility]2019-08-13 21:40:00 Test Item Value Reference Range Interpretation Comments MAGNESIUM (test code = 2600697190) 1.9 mg/dL 1.7-2.4 Lab Interpretation (test code = Normal 96672-8) [facility] METABOLIC PANEL (36609)2019-06-01 21:40:00 Test Item Value Reference Range Interpretation Comments NA (test code = 143 mmol/L 135-145 5351249389) K (test code = 4.7 mmol/L 3.5-5 4110026364) CL (test code = 106 mmol/L 98-108 4913796365) CO2 TOTAL (test code = 29 mmol/L 23-31 7137242147) AGAP (test code = 2-16 6806918640) BUN (test code = 12 mg/dL 7-23 7670582245) GLUCOSE (test code = 100 mg/dL 70-110 2320405937) CREATININE (test code 0.71 mg/dL 0.5-1.04 = 2616911894) TOTAL BILI (test code 0.6 mg/dL 0.1-1.1 = 7652457893) CALCIUM (test code = 10.1 mg/dL 8.6-10.6 3305780733) T PROTEIN (test code = 7.6 g/dL 6.3-8.2 5047675310) ALBUMIN (test code = 4.3 g/dL 3.5-5 8609870718) ALK PHOS (test code = 71 U/L 34-122 5418796013) ALT(SGPT) (test code = 20 U/L 9-51 7472344687) AST(SGOT) (test code = 18 U/L 13-40 7797265931) eGFR Calculation mL/min/1.73m2 (Non-) (test code = 4660544879) eGFR Calculation mL/min/1.73m2 () (test code = 4232445309) GE[place]ES (test code = GEORGES) Association of [...] or urine or abnormalities in imaging tests). [facility]2019-08-13 21:40:00 Test Item Value Reference Range Interpretation Comments PHOSPHORUS (test code = 6687087106) 3.7 mg/dL 2.5-5 Lab Interpretation (test code = Normal 17309-0) [facility] 21:40:00 Test Item Value Reference Range Interpretation Comments IRON (test code = 0218947812) 103 ug/dL 50-160 Lab Interpretation (test code = Normal 54263-4) [facility] HospitalL[facility] PANEL (93804)(TOTAL CHOLESTEROL, TRIGLYCERIDES, HDL)2019-06-01 21:40:00 Test Item Value Reference Range Interpretation Comments CHOL (test code = 176 mg/dL 120-200 1842162217) HDL (test code = 53 mg/dL >50 6383667614) HDLC RATIO (test code = See_Comment [Au tomated message] 3195106767) The system [employer] generated this result transmit aleksey reference range : <=4.5. The refe rence range was not u sed to interpret th is result as normal/abnormal . TRIG (test code = 120 mg/dL 30-170 9421167583) LDL CHOL (test code = 99 mg/dL See_Comment [Auto mated message] 41345-7) The system [employer] generated this result transmit aleksey reference range : <=160. The refe rence range was not u sed to interpret th is result as normal/abnormal . VLDL (test code = 24 mg/dL 5-60 8805404149) Lab Interpretation (test Normal code = 20084-9) [facility] Test Item Value Reference Range Interpretation Comments MAGNESIUM (test code = 8938661740) 1.9 mg/dL 1.7-2.4 Lab Interpretation (test code = Normal 99810-9) [id number][facility]2019-06-01 21:40:00 Test Item Value Reference Range Interpretation Comments NA (test code = 143 mmol/L 135-145 5639384311) K (test code = 4.7 mmol/L 3.5-5 0403469042) CL (test code = 106 mmol/L 98-108 3289457158) CO2 TOTAL (test code = 29 mmol/L 23-31 0686984297) AGAP (test code = 2-16 1336600766) BUN (test code = 12 mg/dL 7-23 6333023179) GLUCOSE (test code = 100 mg/dL 70-110 4209720912) CREATININE (test code 0.71 mg/dL 0.5-1.04 = 7347593166) TOTAL BILI (test code 0.6 mg/dL 0.1-1.1 = 3950199014) CALCIUM (test code = 10.1 mg/dL 8.6-10.6 4272639542) T PROTEIN (test code = 7.6 g/dL 6.3-8.2 8199651817) ALBUMIN (test code = 4.3 g/dL 3.5-5 4924121731) ALK PHOS (test code = 71 U/L 34-122 5220150501) ALT(SGPT) (test code = 20 U/L 9-51 3905165559) AST(SGOT) (test code = 18 U/L 13-40 4586549838) eGFR Calculation mL/min/1.73m2 (Non-) (test code = 7640645582) eGFR Calculation mL/min/1.73m2 () (test code = 8993637283) GEORGES (test code = GEORGES) Association of [...] or urine or abnormalities in imaging tests). [facility]:00 Test Item Value Reference Range Interpretation Comments PHOSPHORUS (test code = 8139779986) 3.7 mg/dL 2.5-5 Lab Interpretation (test code = Normal 49838-5) [facility] Test Item Value Reference Range Interpretation Comments IRON (test code = 4989209356) 103 ug/dL 50-160 Lab Interpretation (test code = Normal 83864-5) [facility] ([id number])(TOTAL CHOLESTEROL, TRIGLYCERIDES, HDL)2019-06-01 21:40:00 Test Item Value Reference Range Interpretation Comments CHOL (test code = 176 mg/dL 120-200 7001293464) HDL (test code = 53 mg/dL >50 7606435203) HDLC RATIO (test code = See_Comment [Au tomated message] 1959022049) The system [employer] generated this result transmit aleksey reference range : <=4.5. The refe rence range was not u sed to interpret th is result as normal/abnormal . TRIG (test code = 120 mg/dL 30-170 9443098524) LDL CHOL (test code = 99 mg/dL See_Comment [Auto mated message] 11006-7) The system [employer] generated this result transmit aleksey reference range : <=160. The refe rence range was not u sed to interpret th is result as normal/abnormal . VLDL (test code = 24 mg/dL 5-60 0814256004) Lab Interpretation (test Normal code = 39786-9) [facility] Test Item Value Reference Range Interpretation Comments MAGNESIUM (test code = 7989422348) 1.9 mg/dL 1.7-2.4 Lab Interpretation (test code = Normal 92072-9) [facility] (74488[facility]2019-06-01 21:40:00 Test Item Value Reference Range Interpretation Comments NA (test code = 143 mmol/L 135-145 2114945303) K (test code = 4.7 mmol/L 3.5-5 2664694254) CL (test code = 106 mmol/L 98-108 0128622869) CO2 TOTAL (test code = 29 mmol/L 23-31 0828007217) AGAP (test code = 2-16 8914730093) BUN (test code = 12 mg/dL 7-23 3665239337) GLUCOSE (test code = 100 mg/dL 70-110 1011199499) CREATININE (test code 0.71 mg/dL 0.5-1.04 = 8080812857) TOTAL BILI (test code 0.6 mg/dL 0.1-1.1 = 8856246530) CALCIUM (test code = 10.1 mg/dL 8.6-10.6 2971920288) T PROTEIN (test code = 7.6 g/dL 6.3-8.2 5483884686) ALBUMIN (test code = 4.3 g/dL 3.5-5 7901417482) ALK PHOS (test code = 71 U/L 34-122 3302954620) ALT(SGPT) (test code = 20 U/L 9-51 0575649407) AST(SGOT) (test code = 18 U/L 13-40 4830856820) eGFR Calculation mL/min/1.73m2 (Non-) (test code = 0961566858) eGFR Calculation mL/min/1.73m2 () (test code = 8324255040) GEORGES (test code = GEORGES) Association of [...] or urine or abnormalities in imaging tests). [facility] 21:40:00 Test Item Value Reference Range Interpretation Comments PHOSPHORUS (test code = 0354341779) 3.7 mg/dL 2.5-5 Lab Interpretation (test code = Normal 49635-8) [facility]00 Test Item Value Reference Range Interpretation Comments IRON (test code = 0892389937) 103 ug/dL 50-160 Lab Interpretation (test code = Normal 23209-7) [facility] (77708)(TOTAL CHOLESTEROL, TRIGLYCERIDES, HDL)2019-06-01 21:40:00 Test Item Value Reference Range Interpretation Comments CHOL (test code = 176 mg/dL 120-200 0352521239) HDL (test code = 53 mg/dL >50 9959190224) HDLC RATIO (test code = See_Comment [Au tomated message] 3306922359) The system [employer] generated this result transmit aleksey reference range : <=4.5. The refe rence range was not u sed to interpret th is result as normal/abnormal . TRIG (test code = 120 mg/dL 30-170 0129555369) LDL CHOL (test code = 99 mg/dL See_Comment [Auto mated message] 94591-8) The system [employer] generated this result transmit aleksey reference range : <=160. The refe rence range was not u sed to interpret th is result as normal/abnormal . VLDL (test code = 24 mg/dL 5-60 3543847780) Lab Interpretation (test Normal code = 95312-0) [facility]:40:00 Test Item Value Reference Range Interpretation Comments MAGNESIUM (test code = 2674603822) 1.9 mg/dL 1.7-2.4 Lab Interpretation (test code = Normal 12459-6) [facility]"
[2022-12-23] MEDS ORDERED: CYCLOBENZAPRINE 10 MG TAB ONE (11:56)
[2022-12-23] MEDS ORDERED: IBUPROFEN 400 MG TAB ONE (11:56)
--- NOTE | 2022-12-23 12:33 | RAD REPORT ---
EXAM DESCRIPTION: RAD - Knee Left 3 View - 12/23/2022 12:20 pm CLINICAL HISTORY: Pain COMPARISON: 06/28/2013 FINDINGS: Three views of the left knee. No fracture, dislocation or periosteal reaction.No joint effusion seen. Moderate to advanced tricompa rtmental osteoarthritic changes, with joint space narrowing notably along the medial weight-bearing c ompartment. No soft tissue abnormality. Clinical concerns for internal derangement or occult bony injury could be further assessed with MR im aging. IMPRESSION: No acute osseous abnormality. Moderate to advanced tricompartmental osteoarthritic marr es as above.
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
[2022-12-23 14:23] VITALS: BP 126/71; TEMP 98; O2SAT 96
== END 2022-12-23 14:09 | disposition home or self-care (01) ==
LOC: ER 11:26
DX: M17.12 Unilateral primary osteoarthritis, left knee (principal); V49.49XA Driver injured in collision with other motor vehicles in traffic accident, initial encounter
CPT/HCPCS: 99283

== ENCOUNTER 2022-12-26 08:56 | Emergency (ER) | payer OTHER ==
--- OUTSIDE RECORDS SUMMARY | 2022-12-26 09:02 | XMS REPORT | Continuity of Care Document ---
:1955 Author Organization [facility] t Address [address] [place] [address] [place] [id number] Care Team Providers Name Role Phone SYBIL WARE Primary Care Physician Unavailable RADIOLOGY Attending Clinician Unavailable Radiology Attending Clinician Unavailable JOSE DANIEL ESTRADA Attending Clinician Unavailable Jose Daniel Estrada Attending Clinician Bert Baird MD Attending Clinician Grupo Zapata MD Attending Clinician Tiara Morrissey RD Attending Clinician Tyesha Andrade LMSW Attending Clinician 2, [facility] Attending Clinician Unavailable Doctor Unassigned, [place] Attending Clinician Unavailable MAN OTERO Admitting Clinician Unavailable JOSE DANIEL ESTRADA Admitting Clinician Unavailable Payers Payer Name Policy Type Policy Number Effective Date Expiration Date [employer] [id number] 2019spring 00:00:00 MEDICAID [facility] [id number] 2019 00:00:00 Problems Condition Condition Condition Status [...] 8 it y of on on 00:00: [place] 00 Medical Branch Need for Need for [...] 813 it y of e e 00:00: [place] pulmonary pulmonary 00 Medi tarik disease, disease, Branch unspecifie unspecifie d COPD d COPD type type Sleep Sleep Disease Active [facility] apnea, apnea, 8 ity of unspecif[place] d type 00 Medical Branch Senile Senile Disease Active Univers osteoporos osteoporos 813 it y of is is 00:00: [place] 00 Medical Branch Hx of Hx of Disease Active Univers colonic colonic 8 ity of polyps polyps 00:00: [place] 00 Medical Branch Chronic Chronic Disease Active Univers neuropathi neuropathi 813 it y of c pain c pain 00:00: [place] 00 Medical Branch Need for Need for Disease Active Unive rs pneumococc pneumococc 8 it y of al al 00:00: [place] vaccinatio vaccinatio 00 Me dical n n Branch Medicare Medicare Disease Active Unive rs annual annual 2-22 ity of wellness wellness 00:00: [place] visit, visit, 00 Medical initial initial Branch FULLNESS FULLNESS Diagnosis Active 2015-03-26 [place] 02-22 15:29:00 l CLAVICULAR CLAVICULAR 00:00: He [facility] AREA 780.4 AREA 780.4 00 ACUTE ACUTE Active 02/22/2015 [facility] 784.2 - 784.2 - Diagnosis Active 2015-05-02 [facility] SWELLING SWELLING 02-21 17:51:00 l IN HEA IN A 00:01: [place] Active 00 02/21/2015 [facility] [id number] Diagnosis Active 2013-102014-10-02 [facility] 1 Active 15:29:00 l 08/17/2014 00:00: Saurabh n 00 [place] Arthritis Arthritis Disease Active 2012-10 Uni vers [...] of tobacco Cigarette Smoker University of use [facility] Alcohol intake 2022-04-30 2022-04-30 0 /d University of 00:00:00 00:00:00 [facility] Exposure to 2022-02-01 2022-02-11 Not sure University of SARS-CoV-2 (event) 00:00:00 14:41:00 [facility] Tobacco use and 2015-12-06 2015-12-06 Smokeless Universit y of exposure 00:00:00 00:00:00 tobacco non-user [facility] Cigarettes smoked 2015-12-06 2015-12-06 Univers ity of current (pack per 00:00:00 00:00:00 [facility] ) - Reported Branch Cigarette 2015-12-06 2015-12-06 University of pack-years 00:00:00 00:00:00 [facility] Sex [birth year] Universit y of 00:00:00 00:00:00 [facility] Smoking Status Start Date Stop Date Source Smokes tobacco daily 2015-12-06 00:00:00 [facility] ity of [facility] Medications Ordered Filled Start Stop Current Ordering Indication Dosage Frequency Signature Comments Components Source Medication Medication Date Date Medication? Clinician (SIG) Name Name metFORMIN 2019-0 Yes 500mg Take 500 Uni vers 500 mg 8-21 mg by ity of tablet 20:29: mouth [address] [place] [address] ([facility]) Medical times Branch daily with meals. metFORMIN 2019-0 Yes 500mg Take 500 Uni vers 500 mg 8-21 mg by ity of tablet 20:29: mouth [address] [place] [address] ([facility]) Medical times Branch daily with meals. metFORMIN 2019-0 Yes 500mg Take 500 Uni vers 500 mg 8-21 mg by ity of tablet 20:29: mouth [address] [place] [address] ([facility]) Medical times Branch daily with meals. metFORMIN 2019-0 Yes 500mg Take 500 Uni vers 500 mg 8-21 mg by ity of tablet 20:29: mouth [address] [place] [address] ([facility]) Medical times Branch daily with meals. metFORMIN 2019-0 Yes 500mg Take 500 Uni vers 500 mg 8-21 mg by ity of tablet 20:29: mouth [address] [place] [address] ([facility]) Medical times Branch daily with meals. metFORMIN 2019-0 Yes 500mg Take 500 Uni vers 500 mg 8-21 mg by ity of tablet 20:29: mouth [address] [place] [address] ([facility]) Medical times Branch daily with meals. metFORMIN 2019-0 Yes 500mg Take 500 Uni vers 500 mg 8-21 mg by ity of tablet 20:29: mouth [address] [place] [address] ([facility]) Medical times Branch daily with meals. metFORMIN 2019-0 Yes 500mg Take 500 Uni vers 500 mg 8-21 mg by ity of tablet 20:29: mouth [address] [place] [address] ([facility]) Medical times Branch daily with meals. metFORMIN 2019-0 Yes 500mg Take 500 Uni vers 500 mg 8-21 mg by ity of tablet 15:29: mouth [address] [place] [address] ([facility]) Medical times Branch daily with meals. metFORMIN 2019-0 Yes 500mg Take 500 Uni vers 500 mg 8-21 mg by ity of tablet 15:29: mouth [address] [place] [address] (two) Medical times Branch daily with meals. metFORMIN 2019-0 Yes 500mg Take 500 Uni vers 500 mg 8-21 mg by ity of tablet 15:29: mouth [address] [place] [address] (two) Medical times Branch daily with meals. metFORMIN 2019-0 Yes 500mg Take 500 Uni vers 500 mg 8-21 mg by ity of tablet 15:29: mouth [address] [place] [address] (two) Medical times Branch daily with meals. gabapentin 2019-0 Yes [id number] 100mg Take 1 Univers 100 mg 8-13 capsule by ity of capsule 00:00: mouth [place] (three) Medical times Branch daily. gabapentin 2019-0 Yes [id number] 100mg Take 1 Univers 100 mg 8-13 capsule by ity of capsule 00:00: mouth [place] (three) Medical times Branch daily. gabapentin 2019-0 Yes [id number] 100mg Take 1 Univers 100 mg 8-13 capsule by ity of capsule 00:00: mouth [place] (three) Medical times Branch daily. gabapentin 2019-0 Yes [id number] 100mg Take 1 Univers 100 mg 8-13 capsule by ity of capsule 00:00: mouth [place] (three) Medical times Branch daily. gabapentin 2019-0 Yes [id number] 100mg Take 1 Univers 100 mg 8-13 capsule by ity of capsule 00:00: mouth [place] (three) Medical times Branch daily. gabapentin 2019-0 Yes [id number] 100mg Take 1 Univers 100 mg 8-13 capsule by ity of capsule 00:00: mouth [place] (three) Medical times Branch daily. gabapentin 2019-0 Yes [id number] 100mg Take 1 Univers 100 mg 8-13 capsule by ity of capsule 00:00: mouth [place] (three) Medical times Branch daily. gabapentin 2019-0 Yes [id number] 100mg Take 1 Univers 100 mg 8-13 capsule by ity of capsule 00:00: mouth [place] (three) Medical times Branch daily. gabapentin 2019-0 Yes [id number] 100mg Take 1 Univers 100 mg 8-13 capsule by ity of capsule 00:00: mouth [place] (three) Medical times Branch daily. gabapentin 2019-0 Yes [id number] 100mg Take 1 Univers 100 mg 8-13 capsule by ity of capsule 00:00: mouth (three) Medical times Branch daily. gabapentin 2019-0 Yes [id number] 100mg Take 1 Univers 100 mg 8-13 capsule by ity of capsule 00:00: mouth (three) Medical times Branch daily. gabapentin 2019-0 Yes [id number] 100mg Take 1 Univers 100 mg 8-13 capsule by ity of capsule 00:00: mouth (three) Medical times Branch daily. gabapentin 2019-0 Yes [id number] 100mg Take 1 Univers 100 mg 8-13 capsule by ity of capsule 00:00: mouth (three) Medical times Branch daily. gabapentin 2019-0 Yes [id number] 100mg Take 1 Univers 100 mg 8-13 capsule by ity of capsule 00:00: mouth (three) Medical times Branch daily. gabapentin 2019-0 Yes [id number] 100mg Take 1 Univers 100 mg 8-13 capsule by ity of capsule 00:00: mouth (three) Medical times Branch daily. gabapentin 2019-0 Yes [id number] 100mg Take 1 Univers 100 mg 8-13 capsule by ity of capsule 00:00: mouth (three) Medical times Branch daily. gabapentin 2019-0 Yes [id number] 100mg Take 1 Univers 100 mg 8-13 capsule by ity of capsule 00:00: mouth (three) Medical times Branch daily. gabapentin 2019-0 Yes [id number] 100mg Take 1 Univers 100 mg 8-13 capsule by ity of capsule 00:00: mouth (three) Medical times Branch daily. gabapentin 2019-0 Yes [id number] 100mg Take 1 Univers 100 mg 8-13 capsule by ity of capsule 00:00: mouth (three) Medical times Branch daily. gabapentin 2019-0 Yes [id number] 100mg Take 1 Univers 100 mg 8-13 capsule by ity of capsule 00:00: mouth (three) Medical times Branch daily. gabapentin 2019-0 Yes [id number] 100mg Take 1 Univers 100 mg 8-13 capsule by ity of capsule 00:00: mouth (three) Medical times Branch daily. metFORMIN 2019-0 Yes 500mg Take 500 Uni vers 500 mg 7-15 mg by ity of tablet 19:42: mouth [address] [place] [address] (two) Medical times Branch daily with meals. metFORMIN 2019-0 Yes 500mg Take 500 Uni vers 500 mg 7-15 mg by ity of tablet 19:42: mouth [address] [place] [address] (two) Medical times Branch daily with meals. metFORMIN 2019-0 Yes 500mg Take 500 Uni vers 500 mg 7-15 mg by ity of tablet 19:42: mouth [address] [place] [address] (two) Medical times Branch daily with meals. metFORMIN 2019-0 Yes 500mg Take 500 Uni vers 500 mg 7-15 mg by ity of tablet 19:42: mouth [address] [place] [address] (two) Medical times Branch daily with meals. metFORMIN 2019-0 Yes 500mg Take 500 Uni vers 500 mg 7-15 mg by ity of tablet 19:42: mouth [address] [place] [address] (two) Medical times Branch daily with meals. metFORMIN 2019-0 Yes 500mg Take 500 Uni vers 500 mg 7-15 mg by ity of tablet 19:42: mouth [address] [place] [address] (two) Medical times Branch daily with meals. metFORMIN 2019-0 Yes 500mg Take 500 Uni vers 500 mg 7-15 mg by ity of tablet 19:42: mouth [address] [place] [address] (two) Medical times Branch daily with meals. metFORMIN 2019-0 Yes 500mg Take 500 Uni vers 500 mg 7-15 mg by ity of tablet 19:42: mouth [address] [place] [address] (two) Medical times Branch daily with meals. metFORMIN 2019-0 Yes 500mg Take 500 Uni vers 500 mg 7-15 mg by ity of tablet 19:42: mouth [address] [place] [address] (two) Medical times Branch daily with meals. metFORMIN 2019-0 Yes 500mg Take 500 Uni vers 500 mg 7-15 mg by ity of tablet 19:42: mouth [address] [place] [address] (two) Medical times Branch daily with meals. levothyroxi 2019-0 Yes [id number] 100ug Take 1 Univers ne 100 mcg 5-14 tablet by ity of tablet 00:00: mouth [place] 00 every Medical morning. Branch levothyroxi 2019-0 Yes [id number] 100ug Take 1 Univers ne 100 mcg 5-14 tablet by ity of tablet 00:00: mouth [place] 00 every Medical morning. Branch levothyroxi 2019-0 Yes [id number] 100ug Take 1 Univers ne 100 mcg 5-14 tablet by ity of tablet 00:00: mouth [place] 00 every Medical morning. Branch levothyroxi 2019-0 Yes [id number] 100ug Take 1 Univers ne 100 mcg 5-14 tablet by ity of tablet 00:00: mouth [place] 00 every Medical morning. Branch levothyroxi 2019-0 Yes [id number] 100ug Take 1 Univers ne 100 mcg 5-14 tablet by ity of tablet 00:00: mouth [place] 00 every Medical morning. Branch levothyroxi 2019-0 Yes [id number] 100ug Take 1 Univers ne 100 mcg 5-14 tablet by ity of tablet 00:00: mouth [place] 00 every Medical morning. Branch levothyroxi 2019-0 Yes [id number] 100ug Take 1 Univers ne 100 mcg 5-14 tablet by ity of tablet 00:00: mouth [place] 00 every Medical morning. Branch levothyroxi 2019-0 Yes [id number] 100ug Take 1 Univers ne 100 mcg 5-14 tablet by ity of tablet 00:00: mouth [place] 00 every Medical morning. Branch levothyroxi 2019-0 Yes [id number] 100ug Take 1 Univers ne 100 mcg 5-14 tablet by ity of tablet 00:00: mouth [place] 00 every Medical morning. Branch levothyroxi 2019-0 Yes [id number] 100ug Take 1 Univers ne 100 mcg 5-14 tablet by ity of tablet 00:00: mouth [place] 00 every Medical morning. Branch levothyroxi 2019-0 Yes [id number] 100ug Take 1 Univers ne 100 mcg 5-14 tablet by ity of tablet 00:00: mouth [place] 00 every Medical morning. Branch levothyroxi 2019-0 Yes [id number] 100ug Take 1 Univers ne 100 mcg 5-14 tablet by ity of tablet 00:00: mouth [place] 00 every Medical morning. Branch levothyroxi 2019-0 Yes [id number] 100ug Take 1 Univers ne 100 mcg 5-14 tablet by ity of tablet 00:00: mouth [place] 00 every Medical morning. Branch levothyroxi 2019-0 Yes [id number] 100ug Take 1 Univers ne 100 mcg 5-14 tablet by ity of tablet 00:00: mouth [place] 00 every Medical morning. Branch levothyroxi 2019-0 Yes [id number] 100ug Take 1 Univers ne 100 mcg 5-14 tablet by ity of tablet 00:00: mouth [place] 00 every Medical morning. Branch levothyroxi 2019-0 Yes [id number] 100ug Take 1 Univers ne 100 mcg 5-14 tablet by ity of tablet 00:00: mouth [place] 00 every Medical morning. Branch levothyroxi 2019-0 Yes [id number] 100ug Take 1 Univers ne 100 mcg 5-14 tablet by ity of tablet 00:00: mouth [place] 00 every Medical morning. Branch levothyroxi 2019-0 Yes [id number] 100ug Take 1 Univers ne 100 mcg 5-14 tablet by ity of tablet 00:00: mouth [place] 00 every Medical morning. Branch levothyroxi 2019-0 Yes [id number] 100ug Take 1 Univers ne 100 mcg 5-14 tablet by ity of tablet 00:00: mouth [place] 00 every Medical morning. Branch levothyroxi 2019-0 Yes [id number] 100ug Take 1 Univers ne 100 mcg 5-14 tablet by ity of tablet 00:00: mouth [place] 00 every Medical morning. Branch levothyroxi 2019-0 Yes [id number] 100ug Take 1 Univers ne 100 mcg 5-14 tablet by ity of tablet 00:00: mouth [place] 00 every Medical morning. Branch levothyroxi 2019-0 Yes [id number] 100ug Take 1 Univers ne 100 mcg 5-14 tablet by ity of tablet 00:00: mouth [place] 00 every Medical morning. [place] aspirin 325 2016-0 Yes 325mg Take 1 Tab Univers mg tablet 2-22 by mouth ity of 00:00: daily. [place] [facility] aspirin 325 2016-0 Yes 325mg Take 1 Tab Univers mg tablet 2-22 by mouth ity of 00:00: daily. [place] [facility] aspirin 325 2016-0 Yes 325mg Take 1 Tab Univers mg tablet 2-22 by mouth ity of 00:00: daily. [place] [facility] aspirin 325 2016-0 Yes 325mg Take 1 Tab Univers mg tablet 2-22 by mouth ity of 00:00: daily. [place] [facility] aspirin 325 2016-0 Yes 325mg Take 1 Tab Univers mg tablet 2-22 by mouth ity of 00:00: daily. [place] [facility] aspirin 325 2016-0 Yes 325mg Take 1 Tab Univers mg tablet 2-22 by mouth ity of 00:00: daily. [place] [facility] aspirin 325 2016-0 Yes 325mg Take 1 Tab Univers mg tablet 2-22 by mouth ity of 00:00: daily. [place] [facility] aspirin 325 2016-0 Yes 325mg Take 1 Tab Univers mg tablet 2-22 by mouth ity of 00:00: daily. [place] [facility] aspirin 325 2016-0 Yes 325mg Take 1 Tab Univers mg tablet 2-22 by mouth ity of 00:00: daily. [place] [facility] aspirin 325 2016-0 Yes 325mg Take 1 Tab Univers mg tablet 2-22 by mouth ity of 00:00: daily. [place] [facility] aspirin 325 2016-0 Yes 325mg Take 1 Tab Univers mg tablet 2-22 by mouth ity of 00:00: daily. [place] [facility] aspirin 325 2016-0 Yes 325mg Take 1 Tab Univers mg tablet 2-22 by mouth ity of 00:00: daily. [place] [facility] aspirin 325 2016-0 Yes 325mg Take 1 Tab Univers mg tablet 2-22 by mouth ity of 00:00: daily. [place] [facility] aspirin 325 2016-0 Yes 325mg Take 1 Tab Univers mg tablet 2-22 by mouth ity of 00:00: daily. [place] [facility] aspirin 325 2016-0 Yes 325mg Take 1 Tab Univers mg tablet 2-22 by mouth ity of 00:00: daily. [place] [facility] aspirin 325 2016-0 Yes 325mg Take 1 Tab Univers mg tablet 2-22 by mouth ity of 00:00: daily. [place] [facility] aspirin 325 2016-0 Yes 325mg Take 1 Tab Univers mg tablet 2-22 by mouth ity of 00:00: daily. [place] [facility] aspirin 325 2016-0 Yes 325mg Take 1 Tab Univers mg tablet 2-22 by mouth ity of 00:00: daily. [place] [facility] aspirin 325 2016-0 Yes 325mg Take 1 Tab Univers mg tablet 2-22 by mouth ity of 00:00: daily. [place] [facility] aspirin 325 2016-0 Yes 325mg Take 1 Tab Univers mg tablet 2-22 by mouth ity of 00:00: daily. [place] [facility] aspirin 325 2016-0 Yes 325mg Take 1 Tab Univers mg tablet 2-22 by mouth ity of 00:00: daily. [place] [facility] aspirin 325 2016-0 Yes 325mg Take 1 Tab Univers mg tablet 2-22 by mouth ity of 00:00: daily. [address] amLODIPine 2015-0 Yes 5mg Take 5 mg Un [place] (NORVASC) 5 2-10 by mouth ity of mg tablet 00:00: daily. [place] [facility] amLODIPine 2016-0 Yes 5mg Take 5 mg Un [place] (NORVASC) 5 2-10 by mouth ity of mg tablet 00:00: daily. [place] [facility] amLODIPine 2016-0 Yes 5mg Take 5 mg Un [place] (NORVASC) 5 2-10 by mouth ity of mg tablet 00:00: daily. [place] [facility] amLODIPine 2016-0 Yes 5mg Take 5 mg Un [place] (NORVASC) 5 2-10 by mouth ity of mg tablet 00:00: daily. [place] [facility] amLODIPine 2016-0 Yes 5mg Take 5 mg Un [place] (NORVASC) 5 2-10 by mouth ity of mg tablet 00:00: daily. [place] [facility] amLODIPine 2016-0 Yes 5mg Take 5 mg Un [place] (NORVASC) 5 2-10 by mouth ity of mg tablet 00:00: daily. [place] [facility] Branch amLODIPine 2016-0 Yes 5mg Take 5 mg Un [place] (NORVASC) 5 2-10 by mouth ity of mg tablet 00:00: daily. [place] [facility] Branch amLODIPine 2016-0 Yes 5mg Take 5 mg Un [place] (NORVASC) 5 2-10 by mouth ity of mg tablet 00:00: daily. [place] [facility] Branch amLODIPine 2016-0 Yes 5mg Take 5 mg Un [place] (NORVASC) 5 2-10 by mouth ity of mg tablet 00:00: daily. [place] [facility] Branch amLODIPine 2016-0 Yes 5mg Take 5 mg Un [place] (NORVASC) 5 2-10 by mouth ity of mg tablet 00:00: daily. [place] [facility] Branch amLODIPine 2016-0 Yes 5mg Take 5 mg Un [place] (NORVASC) 5 2-10 by mouth ity of mg tablet 00:00: daily. [place] [facility] amLODIPine 2016-0 Yes 5mg Take 5 mg Un [place] (NORVASC) 5 2-10 by mouth ity of mg tablet 00:00: daily. [place] [facility] Branch amLODIPine 2016-0 Yes 5mg Take 5 mg Un [place] (NORVASC) 5 2-10 by mouth ity of mg tablet 00:00: daily. [place] [facility] Branch amLODIPine 2016-0 Yes 5mg Take 5 mg Un [place] (NORVASC) 5 2-10 by mouth ity of mg tablet 00:00: daily. [place] [facility] amLODIPine 2016-0 Yes 5mg Take 5 mg Un [place] (NORVASC) 5 2-10 by mouth ity of mg tablet 00:00: daily. [place] [facility] amLODIPine 2016-0 Yes 5mg Take 5 mg Un [place] (NORVASC) 5 2-10 by mouth ity of mg tablet 00:00: daily. [place] [facility] amLODIPine 2016-0 Yes 5mg Take 5 mg Un [place] (NORVASC) 5 2-10 by mouth ity of mg tablet 00:00: daily. [place] [facility] amLODIPine 2016-0 Yes 5mg Take 5 mg Un [place] (NORVASC) 5 2-10 by mouth ity of mg tablet 00:00: daily. [place] [facility] amLODIPine 2016-0 Yes 5mg Take 5 mg Un [place] (NORVASC) 5 2-10 by mouth ity of mg tablet 00:00: daily. [place] [facility] amLODIPine 2016-0 Yes 5mg Take 5 mg Un [place] (NORVASC) 5 2-10 by mouth ity of mg tablet 00:00: daily. [place] [facility] amLODIPine 2016-0 Yes 5mg Take 5 mg Un [place] (NORVASC) 5 2-10 by mouth ity of mg tablet 00:00: daily. [place] [facility] amLODIPine 2016-0 Yes 5mg Take 5 mg Un [place] (NORVASC) 5 2-10 by mouth ity of mg tablet 00:00: daily. [address] losartan-hy 2014-10 Yes 1{tbl} Take 1 Tab Univers drochloroth 1-08 by mouth ity of iazide 00:00: daily. [place] (HYZAAR) Medical 100-25 mg Branch per tablet losartan-hy 2014-10 Yes 1{tbl} Take 1 Tab Univers drochloroth 1-08 by mouth ity of iazide 00:00: daily. [place] (HYZAAR) Medical 100-25 mg Branch per tablet losartan-hy 2014-10 Yes 1{tbl} Take 1 Tab Univers drochloroth 1-08 by mouth ity of iazide 00:00: daily. [place] (HYZAAR) Medical 100-25 mg Branch per tablet [...] by mouth ity of iazide 00:00: daily. [place] (HYZAAR) 00 Medical 100-25 mg Branch per tablet losartan-hy 2014-10 Yes 1{tbl} Take 1 Tab Univers drochloroth 1-08 by mouth ity of iazide 00:00: daily. [place] (HYZAAR) 00 Medical 100-25 mg Branch per tablet losartan-hy 2014-10 Yes 1{tbl} Take 1 Tab Univers drochloroth 1-08 by mouth ity of iazide 00:00: daily. [place] (HYZAAR) 00 Medical 100-25 mg Branch per tablet losartan-hy 2014-10 Yes 1{tbl} Take 1 Tab Univers drochloroth 1-08 by mouth ity of iazide 00:00: daily. [place] (HYZAAR) 00 Medical 100-25 mg Branch per tablet losartan-hy 2014-10 Yes 1{tbl} Take 1 Tab Univers drochloroth 1-08 by mouth ity of iazide 00:00: daily. [place] (HYZAAR) 00 Medical 100-25 mg Branch per tablet losartan-hy 2014-10 Yes 1{tbl} Take 1 Tab Univers drochloroth 1-08 by mouth ity of iazide 00:00: daily. [place] (HYZAAR) 00 Medical 100-25 mg Branch per tablet losartan-hy 2014-10 Yes 1{tbl} Take 1 Tab Univers drochloroth 1-08 by mouth ity of iazide 00:00: daily. [place] (HYZAAR) 00 Medical 100-25 mg Branch per tablet losartan-hy 2014-10 Yes 1{tbl} Take 1 Tab Univers drochloroth 1-08 by mouth ity of iazide 00:00: daily. [place] (HYZAAR) 00 Medical 100-25 mg Branch per tablet losartan-hy 2014-10 Yes 1{tbl} Take 1 Tab Univers drochloroth 1-08 by mouth ity of iazide 00:00: daily. [place] (HYZAAR) 00 Medical 100-25 mg Branch per tablet carvedilol 2014-10 Yes 25mg Take 25 mg U nivers (COREG) 25 0-29 by mouth 2 ity of mg tablet 00:00: (two) [place] 00 times Medical daily with Branch meals. carvedilol 2014-10 Yes 25mg Take 25 mg U nivers (COREG) 25 0-29 by mouth 2 ity of mg tablet 00:00: (two) [place] 00 times Medical daily with Branch meals. carvedilol 2014-10 Yes 25mg Take 25 mg U nivers (COREG) 25 0-29 by mouth 2 ity of mg tablet 00:00: (two) [place] 00 times Medical daily with Branch meals. carvedilol 2014-10 Yes 25mg Take 25 mg U nivers (COREG) 25 0-29 by mouth 2 ity of mg tablet 00:00: (two) [place] 00 times Medical daily with Branch meals. carvedilol 2014-10 Yes 25mg Take 25 mg U nivers (COREG) 25 0-29 by mouth 2 ity of mg tablet 00:00: (two) [place] 00 times Medical daily with Branch meals. carvedilol 2014-10 Yes 25mg Take 25 mg U nivers (COREG) 25 0-29 by mouth 2 ity of mg tablet 00:00: (two) [place] 00 times Medical daily with Branch meals. carvedilol 2014-10 Yes 25mg Take 25 mg U nivers (COREG) 25 0-29 by mouth 2 ity of mg tablet 00:00: (two) [place] 00 times Medical daily with Branch meals. carvedilol 2014-10 Yes 25mg Take 25 mg U nivers (COREG) 25 0-29 by mouth 2 ity of mg tablet 00:00: (two) [place] 00 times Medical daily with Branch meals. carvedilol 2014-10 Yes 25mg Take 25 mg U nivers (COREG) 25 0-29 by mouth 2 ity of mg tablet 00:00: (two) [place] 00 times Medical daily with Branch meals. carvedilol 2014-10 Yes 25mg Take 25 mg U nivers (COREG) 25 0-29 by mouth 2 ity of mg tablet 00:00: (two) [place] 00 times Medical daily with Branch meals. carvedilol 2014-10 Yes 25mg Take 25 mg U nivers (COREG) 25 0-29 by mouth 2 ity of mg tablet 00:00: (two) [place] 00 times Medical daily with Branch meals. [...] 2 ity of mg tablet 00:00: (two) [place] 00 times Medical daily with Branch meals. carvedilol 2014-10 Yes 25mg Take 25 mg U nivers (COREG) 25 0-29 by mouth 2 ity of mg tablet 00:00: (two) [place] 00 times Medical daily with Branch meals. carvedilol 2014-10 Yes 25mg Take 25 mg U nivers (COREG) 25 0-29 by mouth 2 ity of mg tablet 00:00: (two) [place] 00 times Medical daily with Branch meals. carvedilol 2014-10 Yes 25mg Take 25 mg U nivers (COREG) 25 0-29 by mouth 2 ity of mg tablet 00:00: (two) [place] 00 times Medical daily with Branch meals. carvedilol 2014-10 Yes 25mg Take 25 mg U nivers (COREG) 25 0-29 by mouth 2 ity of mg tablet 00:00: (two) [place] 00 times Medical daily with Branch meals. [...] ity o f mg tablet 00:00: daily. [address] simvastatin Yes 20mg Take 20 mg [facility] (ZOCOR) 20 9-25 by mouth ity o f mg tablet 00:00: daily. [address] simvastatin Yes 20mg Take 20 mg [facility] (ZOCOR) 20 9-25 by mouth ity o f mg tablet 00:00: daily. [address] simvastatin Yes 20mg Take 20 mg [facility] (ZOCOR) 20 9-25 by mouth ity o f mg tablet 00:00: daily. [address] simvastatin Yes 20mg Take 20 mg [facility] (ZOCOR) 20 9-25 by mouth ity o f mg tablet 00:00: daily. [address] simvastatin Yes 20mg Take 20 mg [facility] (ZOCOR) 20 9-25 by mouth ity o f mg tablet 00:00: daily. [address] simvastatin Yes 20mg Take 20 mg Univers (ZOCOR) 20 9-25 by mouth ity o f mg tablet 00:00: daily. [address] simvastatin Yes 20mg Take 20 mg [facility] (ZOCOR) 20 9-25 by mouth ity o f mg tablet 00:00: daily. [address] simvastatin Yes 20mg Take 20 mg [facility] (ZOCOR) 20 9-25 by mouth ity o f mg tablet 00:00: daily. [address] simvastatin Yes 20mg Take 20 mg Univers (ZOCOR) 20 9-25 by mouth ity o f mg tablet 00:00: daily. [address] simvastatin Yes 20mg Take 20 mg [facility] (ZOCOR) 20 9-25 by mouth ity o f mg tablet 00:00: daily. [address] simvastatin Yes 20mg Take 20 mg [facility] (ZOCOR) 20 9-25 by mouth ity o f mg tablet 00:00: daily. [address] simvastatin Yes 20mg Take 20 mg [facility] (ZOCOR) 20 9-25 by mouth ity o f mg tablet 00:00: daily. [address] simvastatin Yes 20mg Take 20 mg [facility] (ZOCOR) 20 9-25 by mouth ity o f mg tablet 00:00: daily. [address] simvastatin Yes 20mg Take 20 mg [facility] (ZOCOR) 20 9-25 by mouth ity o f mg tablet 00:00: daily. [address] simvastatin Yes 20mg Take 20 mg [facility] (ZOCOR) 20 9-25 by mouth ity o f mg tablet 00:00: daily. [address] simvastatin Yes 20mg Take 20 mg [facility] (ZOCOR) 20 9-25 by mouth ity o f mg tablet 00:00: daily. [address] simvastatin Yes 20mg Take 20 mg [facility] (ZOCOR) 20 9-25 by mouth ity o f mg tablet 00:00: daily. [address] simvastatin Yes 20mg Take 20 mg [facility] (ZOCOR) 20 9-25 by mouth ity o f mg tablet 00:00: daily. [address] simvastatin Yes 20mg Take 20 mg [facility] (ZOCOR) 20 9-25 by mouth ity o f mg tablet 00:00: daily. [address] simvastatin Yes 20mg Take 20 mg [facility] (ZOCOR) 20 9-25 by mouth ity o f mg tablet 00:00: daily. [address] simvastatin Yes 20mg Take 20 mg [facility] (ZOCOR) 20 9-25 by mouth ity o f mg tablet 00:00: daily. [address] Vital Signs Vital Name Observation Time Observation Value Comments Source Systolic blood 2019-06-01 15:57:00 134 mm[Hg] Univer sity of pressure [facility] Diastolic blood 2019-06-01 15:57:00 83 mm[Hg] Unive rsity of [facility] Heart rate 2019-06-01 15:57:00 80 /min [facility] Body temperature 2019-06-01 15:57:00 36.67 Elena [facility] Respiratory rate 2019-06-01 15:57:00 20 /min [facility] Body height 2019-06-01 15:57:00 160 cm [facility] Body weight 2019-06-01 15:57:00 136.941 kg [facility] BMI 2019-06-01 15:57:00 53.48 kg/m2 [facility] Oxygen saturation in 2019-06-01 15:57:00 96 /min [facility] Arterial blood by [facility] Pulse oximetry Branch Body weight 2019-06-09 15:49:00 137.893 kg [facility] BMI 2019-06-09 15:49:00 53.85 kg/m2 [facility] Procedures Procedure Date / Time Performing Clinician Source Performed DEXA AXIAL (HIP AND SPINE) 2022-04-25 15:34:47 Requisition, Zachary gallego [facility] NOTICE OF PRIVACY 2022-02-11 19:40:22 Doctor Unassigned, [facility] PRACTICES [place] [facility] CONSENT/REFUSAL FOR 2022-02-11 19:39:38 Doctor Unassigned, [facility] DIAGNOSIS AND TREATMENT [place] [facility] ASSIGNMENT OF BENEFITS 2022-02-11 19:38:00 Doctor Unassigned, [facility] [place] [facility] MICROALBUMIN URINE 2019-06-01 18:15:00 [employer] [facility] URINALYSIS 2019-06-01 18:15:00 [employer] [facility] THYROID STIMULATING 2019-06-01 18:11:00 [employer] [facility] HORMONE [facility] GLYCOSYLATED HEMOGLOBIN 2019-06-01 18:11:00 [employer] [facility] (A1C) [facility] HCV ANTIBODY 2019-06-01 18:11:00 [employer] [facility] HCV BY PCR 2019-06-01 18:11:00 [employer] [facility] VITAMIN D, 25-OH 2019-06-01 18:11:00 [employer] [facility] PHOSPHORUS 2019-06-01 18:11:00 [employer] [facility] MAGNESIUM 2019-06-01 18:11:00 [employer] [facility] IRON 2019-06-01 18:11:00 [employer] [facility] COMP. METABOLIC PANEL 2019-06-01 18:11:00 [employer] [facility] ([id number]) Medical Branch LIPID PANEL ([id number])(TOTAL 2019-06-01 18:11:00 [employer] [facility] CHOLESTEROL, Medical Branch TRIGLYCERIDES, HDL) NO SHOW OR MISSED 2019-06-01 15:13:20 Doctor Unassigned, [facility] APPOINTMENT POLICY [place] [facility] h ACKNOWLEDGEMENT Encounters Start End Encounter Admission Attending Care Care Encounter Source Date/Time Date/Time Type Type Clinicians Facility Department ID 2022-09-26 2022-09-26 Outpatient R RADIOLOGY [facility] [id number] Univers 13:00:35 23:59:00 ity of [facility] 2022-09-26 2022-09-26 [facility] Radiology [facility] 1.2.840.114 [id number] Univers 13:00:00 23:59:00 Encounter [place] 350.1.13.10 ity of [place]2.[place] [id number] [facility] [address] 2022-04-25 2022-04-25 [facility] Radiology [facility] 1.2.840.114 [id number] Univers 09:20:10 23:59:00 Encounter [place] 350.1.13.10 ity of [place] 4[place]2.[place] [id number] [facility] [address] 2022-04-25 2022-04-25 Outpatient R RADIOLOGY [facility] [id number] Univers 09:19:41 09:19:41 ity of [facility] 2022-04-25 2022-04-25 [facility] Radiology [facility] 1.2.840.114 [id number] Univers 09:19:41 09:19:41 Encounter [place] 350.1.13.10 ity of [place] 4.2.7.2.686 [facility] [id number] [facility] [address] 2022-02-11 2022-02-11 [facility] [id number] Univers 14:43:25 23:59:00 JOSE DANIEL ity of [facility] 2022-02-11 2022-02-11 [facility] 1.2.840.114 [id number] Univers 14:00:00 23:59:00 Encounter Jose Daniel ALVAREZ 350.1.13.[address] [facility] [place] [id number] [address] 2022-02-04 2022-02-04 Outpatient R TRINY [facility] [id number] Univers 00:00:00 00:00:00 JOSE DANIEL ity of [facility] 2020-02-17 2020-02-17 Bert Witt [facility] 1.2.840.114 [id number] Univers 00:00:00 00:00:00 C [place] 350.1.13.10 i ty [place] [id number] [address] 2020-02-17 2020-02-17 XinBert Stewart [facility] 1.2.840.114 [id number] 00:00:00 00:00:00 C [place] 350.1.13.10 [place] 4.2.7.2.686 Professio [phone] [address] 2019-06-01 2019-06-19 Office [facility] 1.2.840.114 [id number] [facility] 12:28:21 15:28:55 Visit [employer] 350.1.13.10 i ty [place] [id number] [address] 2019-06-11 2019-06-11 Telephone [facility] 1.2.840.114 [id number] [facility] 00:00:00 00:00:00 [employer] 350.1.13.10 i ty [place] [id number] [address] 2019-06-01 2019-06-10 Office [place] [id number] [facility] 10:13:50 09:26:25 Visit [employer] 350.1.13.10 i ty [place] [id number] [facility] [address] [facility] 2019-06-09 2019-06-09 Electronic Development Technician Ghanshyam, [facility] 1.2.048.846 [id number] [facility] 10:09:25 11:54:33 Visit Tiara WHITE 350.1.13.10 [place] [id number] [facility] AND NAJERA [address] [facility] 2019-06-03 2019-06-03 [facility] 1.2.840.114 [id number] Univers 00:00:00 00:00:00 [employer] 350.1.13.10 i ty [place] [id number] [facility] 044 [facility] 2019-06-02 2019-06-02 [facility] 1.2.840.114 [id number] Univers 00:00:00 00:00:00 Outreach [facility] 350.1.13.10 i ty of [place] 4.2.7.2.686 Sid as Professio [id number] [facility] [address] 2019-06-01 2019-06-01 Child Attendant 2, Adc Lab [facility] 1.2.840.114 [id number] [facility] 13:04:59 13:19:59 Visit [employer] 350.1.13.10 ity of [place] [id number] [facility] 353 [facility] 2019-06-01 2019-06-01 Orders Doctor JEY 1.2.840.114 [id number] Univers 00:00:00 00:00:00 Only Unassigned, MONAE 350.1.13.10 ity of [place] [facility] 4.2.7.2.686 Sid as [id number] [facility] [address] 2016-03-08 2016-03-08 Outpatient MHIE MHIE [id number] [facility]oria 09:00:00 09:00:00 03 liss Joe 2016-03-08 2016-03-08 Outpatient MHIE MHIE [id number] [facility] 09:00:00 09:00:00 03 liss Joe 2016-02-22 2016-02-22 Outpatient NOBLE DICKEY [id number] [facility] 08:00:00 08:00:00 02 liss Joe 2016-02-22 2016-02-22 Outpatient NOBLE DICKEY [id number] Memoria 08:00:00 08:00:00 02 liss Joe 2015-07-21 2015-07-21 Outpatient NOBLE DICKEY [id number] [facility]oria 09:45:00 09:45:00 00 liss Joe 2015-07-21 2015-07-21 Outpatient JESUS DICKEY [id number] [facility] 09:45:00 09:45:00 00 liss Joe 2015-07-21 2015-07-21 Outpatient NOBLE DICKEY [id number] Memoria 08:00:00 08:00:00 01 liss Joe 2015-07-21 2015-07-21 Outpatient NOBLE DICKEY [id number] Memoria 08:00:00 08:00:00 liss Joe Results Test Description Test Time Test Comments Results Result Comments Source VITAMIN D, 25-OH 2019-06-08 14:30:00 Test Item Value Reference Range Interpretation Comme nts VIT D 25OH (test code = 5120896739) 26 ng/mL 25-80 25-Hydroxy D3 (test code = 25.5 ng/mL 6319916069) 25-Hydroxy D2 (test code = <2.5 ng/mL 1247282581) GEORGES (test code = GEORGES) Test developed and characteristics determined by [facility] Laboratory Services. [facility] BY [id number] 11:33:00 Test Item Value Reference Range Interpretation Comments HCV by Real-Time Not Detected Not detected IU/mL PCR (test code = 2891665657) GE[place]ES (test code = Anderson m2000 RealTime HCV GEORGES) reverse lean manager-polymerase chain reaction(RT-PCR) assay is used. It is [...] 0 IU/mL,>100,000,000 IU/mL: >upper limit of quantification. [facility]CRO[facility]IN [id number] 18:21:00 Test Item Value Reference Range Interpretation Comments CREAT U (test code = 81.5 mg/dL 6504781743) MICROALB U (test 13 ug/mL 0-45 code = 44499-1) MICROAL/CR (test See_Comment [Automated message] code = 9318-7) The system wh ich generated this result transmitted ref erence range: 0-3,500 ug/mmol creatinine. The reference range was not used to interpr et this result as normal/abnormal . [facility] [id number] 06:28:00 Test Item Value Reference Range Interpretation Comments HCV Semi-Quantitative (test code = 02141-4) [facility] [id number] 06:28:00 Test Item Value Reference Range Interpretation Comments HCV Semi-Quantitative (test code = 32952-6) [facility] [id number] 06:28:00 Test Item Value Reference Range Interpretation Comments HCV Semi-Quantitative (test code = 33631-4) [facility]OGLOBIN (A1C)2019-06-01 23:32:00 Test Item Value Reference [...] Indicated Lab Interpretation Normal (test code = 96594-8) [facility] (A1C)2019-06-01 23:32:00 Test Item Value Reference [...] Indicated Lab Interpretation Normal (test code = 45682-3) [facility] (A1C)2019-06-01 23:32:00 Test Item Value Reference [...] Indicated Lab Interpretation Normal (test code = 20195-6) [facility]2019-[facility]-13 22:35:00 Test Item Value Reference Range Interpretation Comments APPEARANCE (test code = Clear Clear 6369141017) COLOR (test code = Pale Yellow Yellow A 9316607286) PH (test code = 4.8-8.0 5173470172) SP GRAVITY (test code = 1.003-1.030 1844802225) GLU U QUAL (test code = Negative Negative 1844014826) BLOOD (test code = Trace Negative A 3959747640) KETONES (test code = Negative Negative 1740179855) PROTEIN (test code = Negative Negative 2887-8) UROBILIN (test code = 0.2 mg/dL See_Comment [Auto mated 6791822529) message] The sy stem which generated this result transmitted reference range : 0-1.0 mg/dL. Th e reference range was not used to interpret this result as normal/abnormal . BILIRUBIN (test code = Negative Negative 5313432551) NITRITE (test code = Negative Negative 2290810130) LEUK AGUEDA (test code = Moderate Negative A 6076859903) RBC/HPF (test code = See_Comment [Autom ated 4935707327) message] The sy stem which generated this result transmitted reference range : 0 - 3 HPF. The reference range was not used to interpret this result as normal/abnormal . WBC/HPF (test code = See_Comment H [Autom ated 8157812628) message] The sy stem which generated this result transmitted reference range : 0 - 5 HPF. The reference range was not used to interpret this result as normal/abnormal . BACTERIA (test code = Moderate Negative A 9774089802) AMORPHOUS (test code = 1+ HPF 7328789774) SQ EPITH (test code = HPF 2931394325) Lab Interpretation Abnormal (test code = 89612-2) [facility] Center[facility] STIMULATING [id number] 22:09:00 Test Item Value Reference Range Interpretation Comments TSH (test code = See_Comment [Automated message] 3410829349) The system [employer] generated this result transmitted ref erence range: 0.45 - 4 .70 mIU/L. The refe rence range was not u sed to interpret this result as normal/abnor mal. Lab Interpretation (test Normal code = 16801-5) [facility] Center[facility]ATING [id number] 22:09:00 Test Item Value Reference Range Interpretation Comments TSH (test code = See_Comment [Automated message] 6256698129) The system [employer] generated this result transmitted ref erence range: 0.45 - 4 .70 mIU/L. The refe rence range was not u sed to interpret this result as normal/abnor mal. Lab Interpretation (test Normal code = 08310-6) [facility] [id number] 22:09:00 Test Item Value Reference Range Interpretation Comments TSH (test code = See_Comment [Automated message] 0601486951) The system [employer] generated this result transmitted ref erence range: 0.45 - 4 .70 mIU/L. The refe rence range was not u sed to interpret this result as normal/abnor mal. Lab Interpretation (test Normal code = 57183-1) [facility] METABOLIC PANEL (58403)2019-06-01 21:40:00 Test Item Value Reference Range Interpretation Comments NA (test code = 143 mmol/L 135-145 0063692837) K (test code = 4.7 mmol/L 3.5-5 5830333214) CL (test code = 106 mmol/L 98-108 9411692830) CO2 TOTAL (test code = 29 mmol/L 23-31 0617397863) AGAP (test code = 2-16 5376429587) BUN (test code = 12 mg/dL 7-23 5740457553) GLUCOSE (test code = 100 mg/dL 70-110 8924428362) CREATININE (test code 0.71 mg/dL 0.5-1.04 = 7674998471) TOTAL BILI (test code 0.6 mg/dL 0.1-1.1 = 1831829008) CALCIUM (test code = 10.1 mg/dL 8.6-10.6 1828408298) T PROTEIN (test code = 7.6 g/dL 6.3-8.2 8142566886) ALBUMIN (test code = 4.3 g/dL 3.5-5 7099245935) ALK PHOS (test code = 71 U/L 34-122 2425519074) ALT(SGPT) (test code = 20 U/L 9-51 5337946975) AST(SGOT) (test code = 18 U/L 13-40 1110413617) eGFR Calculation mL/min/1.73m2 (Non-) (test code = 0156227457) eGFR Calculation mL/min/1.73m2 () (test code = 1512514009) GEORGES (test code = GEORGES) Association of [...] or urine or abnormalities in imaging tests). [facility]2019-08-13 21:40:00 Test Item Value Reference Range Interpretation Comments PHOSPHORUS (test code = 8095447794) 3.7 mg/dL 2.5-5 Lab Interpretation (test code = Normal 97170-4) [facility] Center[facility]2019-08-13 21:40:00 Test Item Value Reference Range Interpretation Comments IRON (test code = 7113149854) 103 ug/dL 50-160 Lab Interpretation (test code = Normal 89180-3) [facility] CenterLIPID PANEL (86814)(TOTAL CHOLESTEROL, TRIGLYCERIDES, HDL)2019-06-01 21:40:00 Test Item Value Reference Range Interpretation Comments CHOL (test code = 176 mg/dL 120-200 9940467876) HDL (test code = 53 mg/dL >50 4425902469) HDLC RATIO (test code = See_Comment [Au tomated message] 0350590636) The system [employer] generated this result transmit aleksey reference range : <=4.5. The refe rence range was not u sed to interpret th is result as normal/abnormal . TRIG (test code = 120 mg/dL 30-170 8585663274) LDL CHOL (test code = 99 mg/dL See_Comment [Auto mated message] 76270-3) The system [employer] generated this result transmit aleksey reference range : <=160. The refe rence range was not u sed to interpret th is result as normal/abnormal . VLDL (test code = 24 mg/dL 5-60 1314627251) Lab Interpretation (test Normal code = 83607-0) [facility] CenterMAGN[facility]UM2019-08-13 21:40:00 Test Item Value Reference Range Interpretation Comments MAGNESIUM (test code = 1014951216) 1.9 mg/dL 1.7-2.4 Lab Interpretation (test code = Normal 53466-0) [facility] CenterCOMP. METABOLIC PANEL (68311)2019-06-01 21:40:00 Test Item Value Reference Range Interpretation Comments NA (test code = 143 mmol/L 135-145 9509681616) K (test code = 4.7 mmol/L 3.5-5 1826657096) CL (test code = 106 mmol/L 98-108 9612405791) CO2 TOTAL (test code = 29 mmol/L 23-31 1504250314) AGAP (test code = 2-16 9035451126) BUN (test code = 12 mg/dL 7-23 4820258506) GLUCOSE (test code = 100 mg/dL 70-110 2253339819) CREATININE (test code 0.71 mg/dL 0.5-1.04 = 6933579223) TOTAL BILI (test code 0.6 mg/dL 0.1-1.1 = 5349149890) CALCIUM (test code = 10.1 mg/dL 8.6-10.6 4837054023) T PROTEIN (test code = 7.6 g/dL 6.3-8.2 6113232686) ALBUMIN (test code = 4.3 g/dL 3.5-5 4898196390) ALK PHOS (test code = 71 U/L 34-122 8181316779) ALT(SGPT) (test code = 20 U/L 9-51 2425122557) AST(SGOT) (test code = 18 U/L 13-40 5828597792) eGFR Calculation mL/min/1.73m2 (Non-) (test code = 5926229418) eGFR Calculation mL/min/1.73m2 () (test code = 7341637731) GEORGES (test code = GEORGES) Association of [...] or urine or abnormalities in imaging tests). [facility]2019-08-13 21:40:00 Test Item Value Reference Range Interpretation Comments PHOSPHORUS (test code = 6547573423) 3.7 mg/dL 2.5-5 Lab Interpretation (test code = Normal 50303-6) [facility] 21:40:00 Test Item Value Reference Range Interpretation Comments IRON (test code = 5831749864) 103 ug/dL 50-160 Lab Interpretation (test code = Normal 87818-3) [facility] CenterLIP[facility] PANEL (04207)(TOTAL CHOLESTEROL, TRIGLYCERIDES, HDL)2019-06-01 21:40:00 Test Item Value Reference Range Interpretation Comments CHOL (test code = 176 mg/dL 120-200 0773630628) HDL (test code = 53 mg/dL >50 5060645759) HDLC RATIO (test code = See_Comment [Au tomated message] 3172762531) The system [employer] generated this result transmit aleksey reference range : <=4.5. The refe rence range was not u sed to interpret th is result as normal/abnormal . TRIG (test code = 120 mg/dL 30-170 5778299343) LDL CHOL (test code = 99 mg/dL See_Comment [Auto mated message] 86427-7) The system [employer] generated this result transmit aleksey reference range : <=160. The refe rence range was not u sed to interpret th is result as normal/abnormal . VLDL (test code = 24 mg/dL 5-60 3718578339) Lab Interpretation (test Normal code = 36308-8) [facility]2019-08-13 21:40:00 Test Item Value Reference Range Interpretation Comments MAGNESIUM (test code = 8635253963) 1.9 mg/dL 1.7-2.4 Lab Interpretation (test code = Normal 85458-5) [facility] Center[facility] METABOLIC PANEL (98583)2019-06-01 21:40:00 Test Item Value Reference Range Interpretation Comments NA (test code = 143 mmol/L 135-145 0673226735) K (test code = 4.7 mmol/L 3.5-5 9775729881) CL (test code = 106 mmol/L 98-108 0952453022) CO2 TOTAL (test code = 29 mmol/L 23-31 5802514512) AGAP (test code = 2-16 4935098586) BUN (test code = 12 mg/dL 7-23 8798547020) GLUCOSE (test code = 100 mg/dL 70-110 8744786206) CREATININE (test code 0.71 mg/dL 0.5-1.04 = 6541080675) TOTAL BILI (test code 0.6 mg/dL 0.1-1.1 = 5680429436) CALCIUM (test code = 10.1 mg/dL 8.6-10.6 9027824940) T PROTEIN (test code = 7.6 g/dL 6.3-8.2 8105590374) ALBUMIN (test code = 4.3 g/dL 3.5-5 5876459361) ALK PHOS (test code = 71 U/L 34-122 3325434801) ALT(SGPT) (test code = 20 U/L 9-51 2181486772) AST(SGOT) (test code = 18 U/L 13-40 3140713234) eGFR Calculation mL/min/1.73m2 (Non-) (test code = 3690246104) eGFR Calculation mL/min/1.73m2 () (test code = 2384011640) GEORGES (test code = GEORGES) Association of [...] or urine or abnormalities in imaging tests). [facility]2019-08-13 21:40:00 Test Item Value Reference Range Interpretation Comments PHOSPHORUS (test code = 0053323309) 3.7 mg/dL 2.5-5 Lab Interpretation (test code = Normal 87777-5) [facility]-08-[facility] 21:40:00 Test Item Value Reference Range Interpretation Comments IRON (test code = 3324834895) 103 ug/dL 50-160 Lab Interpretation (test code = Normal 85240-6) [facility] CenterLIP[facility] PANEL (37262)(TOTAL CHOLESTEROL, TRIGLYCERIDES, HDL)2019-06-01 21:40:00 Test Item Value Reference Range Interpretation Comments CHOL (test code = 176 mg/dL 120-200 2583292626) HDL (test code = 53 mg/dL >50 2346679103) HDLC RATIO (test code = See_Comment [Au tomated message] 3835622370) The system [employer] generated this result transmit aleksey reference range : <=4.5. The refe rence range was not u sed to interpret th is result as normal/abnormal . TRIG (test code = 120 mg/dL 30-170 0975405198) LDL CHOL (test code = 99 mg/dL See_Comment [Auto mated message] 00024-9) The system [employer] generated this result transmit aleksey reference range : <=160. The refe rence range was not u sed to interpret th is result as normal/abnormal . VLDL (test code = 24 mg/dL 5-60 0489258911) Lab Interpretation (test Normal code = 54243-7) [facility]2019-08-13 21:40:00 Test Item Value Reference Range Interpretation Comments MAGNESIUM (test code = 6937355692) 1.9 mg/dL 1.7-2.4 Lab Interpretation (test code = Normal 50308-7) [facility]. METABOLIC PANEL (67820)2019-06-01 21:40:00 Test Item Value Reference Range Interpretation Comments NA (test code = 143 mmol/L 135-145 2840302805) K (test code = 4.7 mmol/L 3.5-5 9774798291) CL (test code = 106 mmol/L 98-108 6069805733) CO2 TOTAL (test code = 29 mmol/L 23-31 4246831197) AGAP (test code = 2-16 0957697268) BUN (test code = 12 mg/dL 7-23 5994540236) GLUCOSE (test code = 100 mg/dL 70-110 6849935127) CREATININE (test code 0.71 mg/dL 0.5-1.04 = 8385195249) TOTAL BILI (test code 0.6 mg/dL 0.1-1.1 = 5681691587) CALCIUM (test code = 10.1 mg/dL 8.6-10.6 [id number]) T PROTEIN (test code = 7.6 g/dL 6.3-8.2 9978156958) ALBUMIN (test code = 4.3 g/dL 3.5-5 9466012543) ALK PHOS (test code = 71 U/L 34-122 3878298656) ALT(SGPT) (test code = 20 U/L 9-51 2147914025) AST(SGOT) (test code = 18 U/L 13-40 4540407951) eGFR Calculation mL/min/1.73m2 (Non-) (test code = 3423477522) eGFR Calculation mL/min/1.73m2 () (test code = 6450694287) GEORGES (test code = GEORGES) Association of [...] or urine or abnormalities in imaging tests). [facility] Test Item Value Reference Range Interpretation Comments PHOSPHORUS (test code = 4490831473) 3.7 mg/dL 2.5-5 Lab Interpretation (test code = Normal 76773-8) [facility]00 Test Item Value Reference Range Interpretation Comments IRON (test code = 0232057914) 103 ug/dL 50-160 Lab Interpretation (test code = Normal 93339-5) [facility] ([id number])(TOTAL CHOLESTEROL, TRIGLYCERIDES, HDL)2019-06-01 21:40:00 Test Item Value Reference Range Interpretation Comments CHOL (test code = 176 mg/dL 120-200 3534973356) HDL (test code = 53 mg/dL >50 8221697734) HDLC RATIO (test code = See_Comment [Au tomated message] 1821653423) The system Forseva generated this result transmit aleksey reference range : <=4.5. The refe rence range was not u sed to interpret th is result as normal/abnormal . TRIG (test code = 120 mg/dL 30-170 3153664538) LDL CHOL (test code = 99 mg/dL See_Comment [Auto mated message] 38063-8) The system Forse[employer] generated this result transmit aleksey reference range : <=160. The refe rence range was not u sed to interpret th is result as normal/abnormal . VLDL (test code = 24 mg/dL 5-60 0029998596) Lab Interpretation (test Normal code = 53300-3) [facility] 21:40:00 Test Item Value Reference Range Interpretation Comments MAGNESIUM (test code = 4501925471) 1.9 mg/dL 1.7-2.4 Lab Interpretation (test code = Normal 80694-5) [facility] ([id number])2019-06-01 21:40:00 Test Item Value Reference Range Interpretation Comments NA (test code = 143 mmol/L 135-145 3367965869) K (test code = 4.7 mmol/L 3.5-5 9905617879) CL (test code = 106 mmol/L 98-108 1805322646) CO2 TOTAL (test code = 29 mmol/L 23-31 8940479907) AGAP (test code = 2-16 7486753494) BUN (test code = 12 mg/dL 7-23 0673892696) GLUCOSE (test code = 100 mg/dL 70-110 4057046349) CREATININE (test code 0.71 mg/dL 0.5-1.04 = 4758414529) TOTAL BILI (test code 0.6 mg/dL 0.1-1.1 = 7523157799) CALCIUM (test code = 10.1 mg/dL 8.6-10.6 9278565085) T PROTEIN (test code = 7.6 g/dL 6.3-8.2 1278322417) ALBUMIN (test code = 4.3 g/dL 3.5-5 6446724740) ALK PHOS (test code = 71 U/L 34-122 9590483309) ALT(SGPT) (test code = 20 U/L 9-51 9961209925) AST(SGOT) (test code = 18 U/L 13-40 7034243221) eGFR Calculation mL/min/1.73m2 (Non-) (test code = 0605799638) eGFR Calculation mL/min/1.73m2 () (test code = 2355101599) GE[place]ES (test code = GEORGES) Association of [...] or urine or abnormalities in imaging tests). [facility]:40:00 Test Item Value Reference Range Interpretation Comments PHOSPHORUS (test code = 3109790830) 3.7 mg/dL 2.5-5 Lab Interpretation (test code = Normal 76131-4) [facility]:40:00 Test Item Value Reference Range Interpretation Comments IRON (test code = 2130430873) 103 ug/dL 50-160 Lab Interpretation (test code = Normal 34009-6) [facility] (77086)(TOTAL CHOLESTEROL, TRIGLYCERIDES, HDL)2019-06-01 21:40:00 Test Item Value Reference Range Interpretation Comments CHOL (test code = 176 mg/dL 120-200 3962434403) HDL (test code = 53 mg/dL >50 8645097095) HDLC RATIO (test code = See_Comment [Au tomated message] 9007087870) The system Forseva generated this result transmit aleksey reference range : <=4.5. The refe rence range was not u sed to interpret th is result as normal/abnormal . TRIG (test code = 120 mg/dL 30-170 1283699973) LDL CHOL (test code = 99 mg/dL See_Comment [Auto mated message] 28515-6) The system Forseva generated this result transmit aleskey reference range : <=160. The refe rence range was not u sed to interpret th is result as normal/abnormal . VLDL (test code = 24 mg/dL 5-60 5818587670) Lab Interpretation (test Normal code = 94231-6) [facility] 21:40:00 Test Item Value Reference Range Interpretation Comments MAGNESIUM (test code = 2960535789) 1.9 mg/dL 1.7-2.4 Lab Interpretation (test code = Normal 16887-3) [facility]"
[2022-12-26] MEDS ORDERED: CYCLOBENZAPRINE 10 MG TAB ONE (09:17)
[2022-12-26] MEDS ORDERED: KETOROLAC 30 MG/ML INJ ONE (09:17)
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
[2022-12-26] MEDS ORDERED: HYDROCODONE/APAP 5/325 MG TAB ONE (10:27)
[2022-12-26 10:38] VITALS: BP 127/73; TEMP 98.2; O2SAT 100
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
== END 2022-12-26 10:31 | disposition home or self-care (01) ==
LOC: ER 08:56
DX: M54.32 Sciatica, left side (principal)
CPT/HCPCS: 96372; 99283

== ENCOUNTER 2024-06-05 14:32 | Emergency (ER) | payer OTHER ==
[2024-06-05] MEDS ORDERED: KETOROLAC 30 MG/ML INJ ONE (16:06)
[2024-06-05] MEDS ORDERED: HYDROCODONE/APAP 10/325 TAB ONE (16:06)
--- NOTE | 2024-06-05 16:12 | ER ---
Nurse's Notes [facility] Name: Yessica Linder Age: 69 yrs Sex: Female : 1955 Arrival Date: 06/05/2024 Time: 14:32 Bed 17 [facility] MD: Diagnosis: Low back pain Presentation: 06/05 14:42 Chief complaint: EMS states: Called to patients home due to patient having mid back cm10 pain X5 days. Pt has a history of chronic back pain. Coronavirus screen: Client denies travel out of the [place] in the last 14 days. At this time, the client does not indicate any symptoms associated with coronavirus-19. Ebola Screen: Patient denies travel to an Ebola-affected area in the 21 days before illness onset. No symptoms or risks identified at this time. Initial Sepsis Screen: Does the patient meet any 2 criteria? No. Patient's initial sepsis screen is negative. Does the patient have a suspected source of infection? No. Patient's initial sepsis screen is negative. Risk Assessment: Do you want to hurt yourself or someone else? Patient reports no desire to harm self or others. Onset of symptoms was June 05, 2024. 14:42 Method Of Arrival: EMS: [facility] cm10 14:42 Acuity: RANDY 3 cm10 14:45 Care prior to arrival: Glucose check: 72. cm10 Triage Assessment: 14:43 General: Appears in no apparent distress. comfortable, Behavior is calm, cooperative. cm10 Pain: Complains of pain in back Pain currently is 10 out of 10 on a pain scale. Quality of pain is described as aching. Neuro: No deficits noted. Level of Consciousness is awake, alert, obeys commands, Oriented to person, place, time, situation, Appropriate for age. Respiratory: No deficits noted. Airway is patent Respiratory effort is even, unlabored, Respiratory pattern is regular, symmetrical. Musculoskeletal: Range of motion: intact in all extremities, Reports pain in back. Historical: - Allergies: 14:43 Codeine; cm10 14:43 Demerol; cm10 14:43 Iodine; cm10 - PMHx: 14:43 CHF; COPD; Degenerative disc disease; Diabetes - NIDDM; Hyperlipidemia; Hypertension; cm10 14:45 Hypothyroidism; cm10 - Immunization history:: Adult Immunizations up to date. - Infectious Disease History:: Denies. - Social history:: Smoking status: Patient reports the use of cigarette tobacco products, smokes one-half pack cigarettes per day. Screenin:15 [facility] ED Fall Risk Assessment (Adult) History of falling in the last 3 months, cm10 including since admission No falls in past 3 months (0 pts) Confusion or Disorientation No (0 pts) Intoxicated or Sedated No (0 pts) Impaired Gait No (0 pts) Mobility Assist Device Used No (0 pt) Altered Elimination No (0 pt) Score/Fall Risk Level 0 - 2 = Low Risk Oriented to surroundings, Maintained a safe environment, Hourly rounding (assess needs \T\ fall precautionary measures) done. Abuse screen: Denies threats or abuse. Denies injuries from another. Nutritional screening: No deficits noted. Tuberculosis screening: No symptoms or risk factors identified. Assessment: 15:32 Reassessment: ASSISTED PT TO RESTROOM VIA WHEELCHAIR. db Vital Signs: 14:42 BP 118 / 67; Pulse 84; Resp 16; Temp 98.3; Pulse Ox 92% on R/A; Weight 132.45 kg; cm10 Height 5 ft. 4 in. ; Pain 10/10; 16:56 BP 125 / 71; Pulse 90; Resp 16; Pulse Ox 96% ; Pain 6/10; cm10 14:42 Body Mass Index 50.12 (132.45 kg, 162.56 cm) cm10 14:42 Pain Scale: Adult cm10 16:56 Pain Scale: Adult cm10 ED Course: 14:34 Patient arrived in ED. cm10 14:39 Cailin Cotto RN is Primary Nurse. cm10 14:39 Waylon Mata PA is PHCP. jr8 14:39 Jose Armando Saldivar MD is Attending Physician. jr8 14:43 Triage completed. cm10 14:44 Arm band placed on Patient placed in an exam room, on a stretcher. cm10 16:15 Patient has correct armband on for positive identification. Bed in low position. Call cm10 light in reach. Side rails up X2. Provided Education on: ER PROCESS AND PROCEDURES.. Cardiac monitoring not applicable on this patient. 16:15 No provider procedures requiring assistance completed. Patient did not have IV access cm10 during this emergency room visit. Administered Medications: 16:13 Drug: Ketorolac IM 15 mg IM once Route: IM; Site: left gluteus; cm10 16:56 Follow up: Response: No adverse reaction; Marked relief of symptoms cm10 16:13 Drug: [place] PO 10 mg-325 mg 1 tabs PO once Route: PO; cm10 16:56 Follow up: Response: No adverse reaction; Marked relief of symptoms cm10 Medication: 16:58 VIS not applicable for this client. cm10 Outcome: 16:11 Discharge ordered by . anabel 16:57 Discharged to home via wheelchair, with family, cm10 16:57 Condition: good 16:57 Discharge instructions given to patient, Instructed on discharge instructions, follow up and referral plans. medication usage, Demonstrated understanding of instructions, follow-up care, medications, Prescriptions given X 2, 16:58 Patient left the ED. cm10 Signatures: Waylon Mata PA PA jrBrianna Moser RN RN Cailin Salazar RN RN cm10 Corrections: (The following items were deleted from the chart) 14:45 14:43 PMHx: hyperthyroidism; cm10 cm10
--- NOTE | 2024-06-05 16:12 | EDPHYS ---
Physician Documentation [facility] Name: Yessica Linder Age: 69 yrs Sex: Female : 1955 Arrival Date: 06/05/2024 Time: 14:32 Bed 17 Private MD: ED Physician Jose Armando Saldivar HPI: 06/05 16:08 This 69 yrs old Black Female presents to ER via EMS with complaints of Back Pain. jr8 16:08 The symptoms are located in the low back. Onset: The symptoms/episode began/occurred jr8 gradually, 2 day(s) ago. The pain does not radiate. Associated signs and symptoms: The patient has no apparent associated signs or symptoms. The problem was sustained without known cause. Severity of symptoms: At their worst the symptoms were moderate, in the emergency department the symptoms are unchanged. The patient has experienced similar episodes in the past, several times. The patient has not recently seen a physician. 69-year-old female presented emergency room with complaints of low back pain. History of chronic low back pain but had been doing well for some time. Started to have a flareup 2 days ago and despite [id number] medication continues to have pain. Denies abdominal pain or urinary symptoms. No fever or other symptoms at this time.. Historical: - Allergies: 14:43 Codeine; cm10 14:43 Demerol; cm10 14:43 Iodine; cm10 - PMHx: 14:43 CHF; COPD; Degenerative disc disease; Diabetes - NIDDM; Hyperlipidemia; Hypertension; cm10 14:45 Hypothyroidism; cm10 - Immunization history:: Adult Immunizations up to date. - Infectious Disease History:: Denies. - Social history:: Smoking status: Patient reports the use of cigarette tobacco products, smokes one-half pack cigarettes per day. ROS: 16:08 Eyes: Negative for injury, pain, redness, and discharge, ENT: Negative for injury, jr8 pain, and discharge, Neck: Negative for injury, pain, and swelling, Cardiovascular: Negative for chest pain, palpitations, and edema, Respiratory: Negative for shortness of breath, cough, wheezing, and pleuritic chest pain, Abdomen/GI: Negative for abdominal pain, nausea, vomiting, diarrhea, and constipation, MS/Extremity: Negative for injury and deformity, Skin: Negative for injury, rash, and discoloration, Neuro: Negative for headache, weakness, numbness, tingling, and seizure, 16:08 Back: Positive for decreased range of motion, pain at rest, pain with movement, of the low back area, Exam: 16:08 Constitutional: This is a well developed, well nourished patient who is awake, alert, jr8 and in no acute distress. Eyes: Pupils equal round and reactive to light, extra-ocular motions intact. Lids and lashes normal. Conjunctiva and sclera are non-icteric and not injected. Cornea within normal limits. Periorbital areas with no swelling, redness, or edema. Cardiovascular: Regular rate and rhythm with a normal S1 and S2. No gallops, murmurs, or rubs. Normal PMI, no JVD. No pulse deficits. Respiratory: Lungs have equal breath sounds bilaterally, clear to auscultation and percussion. No rales, rhonchi or wheezes noted. No increased work of breathing, no retractions or nasal flaring. Abdomen/GI: Soft, non-tender, with normal bowel sounds. No distension or tympany. No guarding or rebound. No evidence of tenderness throughout. Skin: Warm, dry with normal turgor. Normal color with no rashes, no lesions, and no evidence of cellulitis. MS/ Extremity: Pulses equal, no cyanosis. Neurovascular intact. Full, normal range of motion. Neuro: Awake and alert, GCS 15, oriented to person, place, time, and situation. Cranial nerves II-XII grossly intact. Motor strength 5/5 in all extremities. Sensory grossly intact. 16:08 Back: pain, that is moderate, of the left low back and right low back, ROM is normal, normal spinal alignment noted, vertebral tenderness, is not appreciated, Vital Signs: 14:42 BP 118 / 67; Pulse 84; Resp 16; Temp 98.3; Pulse Ox 92% on R/A; Weight 132.45 kg; cm10 Height 5 ft. 4 in. ; Pain 10/10; 16:56 BP 125 / 71; Pulse 90; Resp 16; Pulse Ox 96% ; Pain 6/10; cm10 14:42 Body Mass Index 50.12 (132.45 kg, 162.56 cm) cm10 14:42 Pain Scale: Adult cm10 16:56 Pain Scale: Adult cm10 MDM: 14:39 Patient medically screened. jr8 16:08 Differential diagnosis: Abdominal Aortic Aneurysm Obesity ruptured disc, vertebral jr8 fracture, myofascial strain. Data reviewed: vital signs, nurses notes, and as a result, I will discharge patient. Counseling: I had a detailed discussion with the patient and/or guardian regarding the historical points, exam findings, and any diagnostic results supporting the discharge/admit diagnosis, the need for outpatient follow up, a family practitioner, a painter helper, to return to the emergency department if symptoms worsen or persist or if there are any questions or concerns that arise at home. Response to treatment: the patient's symptoms have markedly improved after treatment, and as a result, I will discharge patient. Administered Medications: 16:13 Drug: Ketorolac IM 15 mg IM once Route: IM; Site: left gluteus; cm10 16:56 Follow up: Response: No adverse reaction; Marked relief of symptoms cm10 16:13 Drug: Loda PO 10 mg-325 mg 1 tabs PO once Route: PO; cm10 16:56 Follow up: Response: No adverse reaction; Marked relief of symptoms cm10 Disposition Summary: 06/05/24 16:11 Discharge Ordered Notes: Location: Home jr8 Problem: new jr8 Symptoms: have improved jr8 Condition: Stable jr8 Diagnosis - Low back pain jr8 Followup: jr8 - With: Private Physician - When: 2 - 3 days - Reason: Recheck today's complaints, Continuance of care, Re-evaluation by your physician Discharge Instructions: - Discharge Summary Sheet jr8 - Musculoskeletal Pain jr8 - Heat Therapy jr8 Forms: - Medication Reconciliation Form jr8 - Antibiotic Education jr8 - Prescription Opioid Use jr8 - Patient Portal Instructions jr8 - Leadership Thank You Letter jr8 Prescriptions: - meloxicam 7.5 mg Oral tablet - take 1 tablet ORAL route daily for 7 days; 7 tablet; Refills: 0, Product jr8 Selection Permitted - methocarbamol 500 mg Oral tablet - take 2 tablets ORAL route 4 times per day; 56 tablet; Refills: 0, Product jr8 Selection Permitted Signatures: Waylon Mata PA PA jr8 Cailin Cotot RN RN cm10 Corrections: (The following items were deleted from the chart) 14:45 14:43 PMHx: hyperthyroidism; cm10 cm10
[2024-06-05 17:03] VITALS: BP 125/71; TEMP 98.3; O2SAT 96
== END 2024-06-05 16:58 | disposition home or self-care (01) ==
LOC: ER 14:32
DX: M54.50 Low back pain, unspecified (principal); F17.210 Nicotine dependence, cigarettes, uncomplicated
CPT/HCPCS: 96372; 99284

== ENCOUNTER 2024-06-15 07:33 | Day surgery (SDC) | payer OTHER ==
[2024-06-09 09:28] LABS: Absolute Eosinophils 0.2 K/uL (0-0.5); Absolute Lymphocytes (CBC) 2.2 K/uL (0.7-4.9); Absolute Monocytes 0.7 K/uL (0.1-1.3); Absolute Neutrophil 3.9 K/uL (1.8-8.0); Basophils % 0.7 % (0-1.3); Eosinophils % 2.9 % (0-4.4); Hematocrit 46.5 % (36.0-45.0); Hemoglobin 15.1 g/dL (12.0-15.0); Lymphocytes % 31.4 % (15.3-44.8); MCH 29.5 pg (27.0-35.0); MCHC 32.4 g/dL (32.0-36.0); MCV 91.2 fL (80-100); MPV 9.7 fL (7.6-11.3); Monocytes % 9.4 % (3.3-12.3); Neutrophils % 55.6 % (41.7-73.7); Nucleated Red Blood Cells % 0.1 % (0-0); Platelets 209 thou/uL (152-406); Red Cell Distribution Width 14.9 % (12.1-15.2)
[2024-06-09 09:38] LABS: Anion Gap 7.2 mEq/L (5.0-15.0); Potassium 4.2 mEq/L (3.5-5.1)
[2024-06-09 09:51] LABS: Blood Morphology Comment NOT SEEN (NOT SEEN); Platelet Estimate ADEQ; White Blood Cell Scan OK (OK)
[2024-06-15] MEDS ORDERED: NA CHLORIDE 0.9% 1,000 ML ONE (07:59)
[2024-06-15] MEDS ORDERED: propofoL 200 MG/20 ML VIAL IV ONE (08:02)
[2024-06-15] MEDS ORDERED: LIDOCAINE 1% MPF 5 ML VIAL ONE (08:02)
[2024-06-15 10:18] VITALS: BP 128/81; TEMP 98.6; O2SAT 97
== END 2024-06-15 09:59 | disposition home or self-care (01) ==
LOC: OR 07:33
PROVIDERS: ATTEND Internal Medicine Gastroenterology
PROC: 0DBL8ZX Excision of Transverse Colon, Via Natural or Artificial Opening Endoscopic, Diagnostic (ICD-10-PCS; 2024-06-15)
PROC: 0DBH8ZX Excision of Cecum, Via Natural or Artificial Opening Endoscopic, Diagnostic (ICD-10-PCS; principal; 2024-06-15 08:30)
DX: Z12.11 Encounter for screening for malignant neoplasm of colon (principal); Z86.010 Personal history of colon polyps; K57.30 Diverticulosis of large intestine without perforation or abscess without bleeding; D17.5 Benign lipomatous neoplasm of intra-abdominal organs; K64.8 Other hemorrhoids; D12.3 Benign neoplasm of transverse colon
CPT/HCPCS: 85025; 80048; 36415; 82947; 88305; 45384; J2704; J2001; J7030

== ENCOUNTER 2024-07-07 14:12 | Emergency (ER) | payer OTHER ==
[2024-07-07] MEDS ORDERED: MECLIZINE HCL 12.5 MG TAB ONE (14:40)
[2024-07-07 15:05] LABS: Absolute Basophils 0.1 K/uL (0-0.5); Absolute Eosinophils 0.2 K/uL (0-0.5); Absolute Lymphocytes (CBC) 2.2 K/uL (0.7-4.9); Absolute Monocytes 0.9 K/uL (0.1-1.3); Absolute Neutrophil 4.7 K/uL (1.8-8.0); Basophils % 1.2 % (0-1.3); Eosinophils % 2.5 % (0-4.4); Hematocrit 43.8 % (36.0-45.0); Hemoglobin 14.4 g/dL (12.0-15.0); Lymphocytes % 27.2 % (15.3-44.8); MCH 29.7 pg (27.0-35.0); MCHC 32.8 g/dL (32.0-36.0); MCV 90.7 fL (80-100); MPV 9.7 fL (7.6-11.3); Monocytes % 11.7 % (3.3-12.3); Neutrophils % 57.4 % (41.7-73.7); Nucleated Red Blood Cells % 0.1 % (0-0); Platelets 148 thou/uL (152-406); RBC Red Blood Cell Count 4.83 M/uL (3.86-4.86); Red Cell Distribution Width 14.8 % (12.1-15.2)
[2024-07-07 15:08] LABS: PT Prothrombin Time 12.2 SECONDS (9.4-12.5); PTT, Activated Partial Thromb 30.7 SECONDS (24.3-36.9); Protime INR 1.09
[2024-07-07 15:22] LABS: ALT/SGPT 15 U/L (13-56); Albumin 2.9 g/dL (3.4-5.0); Albumin/Globulin Ratio 0.7 (1.1-1.8); Alkaline Phosphatase 59 U/L (45-117); Anion Gap 8.1 mEq/L (5.0-15.0); BUN Blood Urea Nitrogen 12 mg/dL (7-18); Bicarbonate 29 mEq/L (21-32); Bilirubin Total 0.4 mg/dL (0.2-1.0); Globulin 4.4 g/dL (2.3-3.5); Glomerular Filtration Rate 77 ml/min (=/>90); Glucose Level 93 mg/dL (74-106); Potassium 4.1 mEq/L (3.5-5.1); Protein, Total 7.3 g/dL (6.4-8.2); Sodium Level 140 mEq/L (136-145); Troponin High Sensitivity 3.9 pg/mL (<58.9)
--- NOTE | 2024-07-07 15:24 | RAD REPORT ---
EXAM: CT brain without contrast HISTORY: Dizziness COMPARISON: April 2024 TECHNIQUE: Multiple contiguous axial images were obtained and a CT of the brain without contrast. Sagittal and coronal reformats were performed. Automated exposure control, adjustment of the mA and/or kV according to patient size, and/or itera tive reconstruction. Unless otherwise specified, incidental findings do not require dedicated imaging follow-u FINDINGS: An intracranial bleed is not seen Ventricles are normal caliber No extra-axial fluid collection noted No significant hypodensity within the brain No fluid within the visualized sinuses or mastoids noted. IMPRESSION: No acute intracranial abnormality noted. If the patient's symptoms persist MRI of the brain would be recommended.
[2024-07-07 15:28] LABS: AST/SGOT < 10 U/L (15-37)
[2024-07-07 15:44] LABS: Specific Gravity 1.019 (1.005-1.030); Sqamous Epithelial None Seen /HPF (None Seen); Urine Bacteria None Seen /HPF (<20); Urine Bilirubin NEGATIVE (Negative); Urine Blood Negative (Negative); Urine Clarity Clear (Clear); Urine Color Light-Yellow (Yellow); Urine Culture Reflex Order NOT NEEDED; Urine Glucose NEGATIVE (Negative); Urine Ketones NEGATIVE (Negative); Urine Microscopic Reflex YN ORDER UMIC; Urine Mucus Slight /HPF (None Seen); Urine Nitrite NEGATIVE (Negative); Urine Protein NEGATIVE (Negative); Urine RBC <5 /HPF (None Seen); Urine Urobilinogen Normal (Normal); Urine WBC None Seen /HPF (<5); Urine pH 5.5 (5.0-7.0)
--- NOTE | 2024-07-07 16:08 | RAD REPORT ---
Procedure: Chest Single View History: Dizziness Comparison: April 2004 The lungs appear clear of acute infiltrate. No significant pleural effusion noted. The heart is borderline enlarged IMPRESSION: No acute abnormality is displayed.
--- NOTE | 2024-07-07 17:18 | ER ---
Nurse's Notes [facility] Name: Yessica Linder Age: 69 yrs Sex: Female : 1955 Arrival Date: 07/07/2024 Time: 14:12 Bed 4 Private MD: Diagnosis: Dizziness and giddiness;Other peripheral vertigo Presentation: 07/07 14:27 Chief complaint: EMS states: dizziness off and on since Friday. Coronavirus screen: At iw this time, the client does not indicate any symptoms associated with coronavirus-19. Ebola Screen: No symptoms or risks identified at this time. Initial Sepsis Screen: Does the patient meet any 2 criteria? No. Patient's initial sepsis screen is negative. Does the patient have a suspected source of infection? No. Patient's initial sepsis screen is negative. Risk Assessment: Do you want to hurt yourself or someone else? Patient reports no desire to harm self or others. 14:27 Method Of Arrival: EMS: [facility] iw 14:27 Acuity: RANDY 3 iw Historical: - Allergies: 14:27 Codeine; iw 14:27 Demerol; iw 14:27 Iodine; iw - PMHx: 14:27 COPD; Degenerative disc disease; CHF; Diabetes - NIDDM; Hyperlipidemia; Hypertension; iw Hypothyroidism; - Immunization history:: Adult Immunizations up to date. - Infectious Disease History:: Denies. - Social history:: Smoking status: Patient reports the use of cigarette tobacco products, smokes one-half pack cigarettes per day. Screenin:56 [facility] ED Fall Risk Assessment (Adult) History of falling in the last 3 months, kc6 including since admission No falls in past 3 months (0 pts) Confusion or Disorientation No (0 pts) Intoxicated or Sedated No (0 pts) Impaired Gait Yes (1 pt) Mobility Assist Device Used Yes (1 pt) Altered Elimination No (0 pt) Score/Fall Risk Level 0 - 2 = Low Risk Oriented to surroundings. Abuse screen: Denies threats or abuse. Denies injuries from another. Nutritional screening: No deficits noted. Tuberculosis screening: No symptoms or risk factors identified. Damaris Swallow Protocol Brief Cognitive Screen What is your name? Normal, Where are you right now? Normal, What year is it? Normal. Oral Mechanism Examination Facial Symmetry: Normal, Motion: Normal, Lip Closure: Normal, Oral Mechanism Result: Normal. 3 oz Water Swallow Challenge: Pt able to drink all water without stopping, coughing, choking or throat clearing: Yes Result: PASS Notified: Becky Ulloa MD. Assessment: 14:57 General: Appears in no apparent distress. comfortable, obese, well groomed, well kc6 developed, Behavior is calm, cooperative, appropriate for age. Pain: Denies pain. Neuro: Level of Consciousness is awake, alert, obeys commands, Oriented to person, place, time, situation, Appropriate for age Reports dizziness. Cardiovascular: Capillary refill < 3 seconds. Respiratory: Airway is patent Trachea midline Respiratory effort is even, unlabored, Respiratory pattern is regular, symmetrical. GI: No signs and/or symptoms were reported involving the gastrointestinal system. : No signs and/or symptoms were reported regarding the genitourinary system. EENT: No signs and/or symptoms were reported regarding the EENT system. Derm: No signs and/or symptoms reported regarding the dermatologic system. Skin is intact, is healthy with good turgor, Skin is pink, warm \T\ dry. Musculoskeletal: No signs and/or symptoms reported regarding the musculoskeletal system. Circulation, motion, and sensation intact. Capillary refill < 3 seconds, Range of motion: intact in all extremities. 15:57 Reassessment: Patient appears in no apparent distress at this time. No changes from kc6 previously documented assessment. Patient and/or family updated on plan of care and expected duration. Pain level reassessed. Patient is alert, oriented x 3, equal unlabored respirations, skin warm/dry/pink. 16:57 Reassessment: Patient appears in no apparent distress at this time. No changes from kc6 previously documented assessment. Patient and/or family updated on plan of care and expected duration. Pain level reassessed. Patient is alert, oriented x 3, equal unlabored respirations, skin warm/dry/pink. 17:34 Reassessment: Patient appears in no apparent distress at this time. No changes from kc6 previously documented assessment. Patient and/or family updated on plan of care and expected duration. Pain level reassessed. Patient is alert, oriented x 3, equal unlabored respirations, skin warm/dry/pink. Patient states feeling better. Patient states symptoms have improved. Vital Signs: 14:33 BP 127 / 71; Pulse 89; Resp 18; Temp 97.5; Pulse Ox 100% on R/A; Weight 131.54 kg; iw Height 5 ft. 4 in. ; Pain 0/10; 15:58 BP 114 / 75; Pulse 94; Resp 15; Pulse Ox 100% ; ko1 17:34 BP 96 / 70; Pulse 90; Resp 15 S; Pulse Ox 99% on R/A; kc6 14:33 Body Mass Index 49.78 (131.54 kg, 162.56 cm) iw 14:33 Pain Scale: Adult iw ED Course: 14:15 Patient arrived in ED. iw 14:16 Becky Ulloa MD is Attending Physician. sd2 14:22 Michela Wiley, PAULA is Primary Nurse. kc6 14:27 Triage completed. iw 14:34 Arm band placed on. iw 14:57 Patient has correct armband on for positive identification. Placed in gown. Bed in low kc6 position. Call light in reach. Side rails up X2. land acquisition specialist on. Pulse ox on. NIBP on. Door closed. Noise minimized. Lights dimmed. Warm blanket given. Pillow given. 14:57 Inserted saline lock: 20 gauge in right antecubital area, using aseptic technique. kc6 Blood collected. Flushed with 10 mL NS. Patient maintains SpO2 saturation greater than 95% on room air. 15:01 CT Head Brain wo Cont In Process Unspecified. EDMS 15:11 XRAY Chest (1 view) In Process Unspecified. EDMS 15:33 Straight cath inserted, using sterile technique, 16 Fr. Specimen obtained. Returned kc6 clear yellow urine. Patient tolerated well. 15:34 Urinalysis w/ reflexes Sent. kc6 17:35 No provider procedures requiring assistance completed. IV discontinued, intact, kc6 bleeding controlled, No redness/swelling at site. Pressure dressing applied. Administered Medications: 14:57 Drug: Meclizine PO 25 mg PO once Route: PO; kc6 17:35 Follow up: Response: No adverse reaction kc6 Medication: 17:35 VIS not applicable for this client. kc6 Outcome: 17:17 Discharge ordered by . sd2 17:35 Discharged to home via wheelchair, with family, kc6 17:35 Condition: improved 17:35 Discharge instructions given to patient, Instructed on discharge instructions, follow up and referral plans. Demonstrated understanding of instructions, follow-up care, 17:35 Patient left the ED. kc6 Signatures: Dispatcher [employer] Ting Hernandez RN RN Becky Arreola MD MD sd2 Michela Wiley RN RN kc6 Ольга Salazar RN RN ko1
--- NOTE | 2024-07-07 17:18 | EDPHYS ---
Physician Documentation [facility] Name: Yessica Linder Age: 69 yrs Sex: Female : 1955 Arrival Date: 07/07/2024 Time: 14:12 Bed 4 Private MD: ED Physician Becky Ulloa HPI: 07/07 14:54 This 69 yrs old Black Female presents to ER via EMS with complaints of Dizziness. sd2 14:54 69 yo F presents via EMS with CC of dizziness. Reports started Friday night with a sd2 feeling as if "a force pushed her back" while she was in the restroom followed by feeling like the room was spinning. Reports symptoms improved yesterday but recurred again earlier today prior to arrival and that she has been feeling generally weak since Friday. Reports this happened the 2 other times she had a stroke as well. She states she has been taken off her ASA and any blood thinners previously and last stroke was 4-5 years ago. Denies CP, SOB or other symptoms at this time.. Historical: - Allergies: 14:27 Codeine; iw 14:27 Demerol; iw 14:27 Iodine; iw - PMHx: 14:27 COPD; Degenerative disc disease; CHF; Diabetes - NIDDM; Hyperlipidemia; Hypertension; iw Hypothyroidism; - Immunization history:: Adult Immunizations up to date. - Infectious Disease History:: Denies. - Social history:: Smoking status: Patient reports the use of cigarette tobacco products, smokes one-half pack cigarettes per day. ROS: 14:54 Constitutional: Negative for fever, chills, and weight loss, Eyes: Negative for injury, sd2 pain, redness, and discharge, Cardiovascular: Negative for chest pain, palpitations, and edema, Respiratory: Negative for shortness of breath, cough, wheezing. Abdomen/GI: Negative for abdominal pain, nausea, vomiting, diarrhea. MS/Extremity: Negative for injury and deformity, Skin: Negative for injury, rash, and discoloration, Neuro: Negative for headache, numbness and tingling. Positive for dizziness. Exam: 14:54 Constitutional: This is a well developed, well nourished patient who is awake, alert, sd2 and in no acute distress. Head/Face: Normocephalic, atraumatic. Eyes: EOMI, normal conjunctiva bilaterally Chest/axilla: Normal chest wall appearance and motion. Nontender with no deformity. Cardiovascular: Regular rate and rhythm with a normal S1 and S2. No gallops, murmurs, or rubs. 2+ distal pulses. Respiratory: Lungs have equal breath sounds bilaterally, clear to auscultation and percussion. No rales, rhonchi or wheezes noted. No increased work of breathing, no retractions or nasal flaring. Abdomen/GI: Soft, non-tender, with normal bowel sounds. No guarding or rebound. No evidence of tenderness throughout. Skin: Warm, dry with normal turgor. Normal color with no rashes, no lesions, and no evidence of cellulitis. MS/ Extremity: Pulses equal, no cyanosis. Neurovascular intact. Full, normal range of motion. Neuro: Awake and alert, GCS 15, oriented to person, place, time, and situation. Cranial nerves II-XII grossly intact. Motor strength 5/5 in all extremities. Sensory grossly intact. Cerebellar exam normal. Psych: Awake, alert, with orientation to person, place and time. Behavior, mood, and affect are within normal limits. 14:54 ECG was reviewed by the Attending Physician. Sinus rhythm, rate 87, no STEMI criteria Vital Signs: 14:33 BP 127 / 71; Pulse 89; Resp 18; Temp 97.5; Pulse Ox 100% on R/A; Weight 131.54 kg; iw Height 5 ft. 4 in. ; Pain 0/10; 15:58 BP 114 / 75; Pulse 94; Resp 15; Pulse Ox 100% ; ko1 17:34 BP 96 / 70; Pulse 90; Resp 15 S; Pulse Ox 99% on R/A; kc6 14:33 Body Mass Index 49.78 (131.54 kg, 162.56 cm) iw 14:33 Pain Scale: Adult iw MDM: 14:16 Patient medically screened. sd2 14:54 Differential diagnosis: CVA, vertigo, ACS, dehydration, electrolyte abnormality among sd2 others. Data reviewed: vital signs, nurses notes, EMS record, lab test result(s), EKG, radiologic studies. I considered the following discharge prescriptions or medication management in the emergency department Medications were administered in the Emergency Department. See MAR. Historians other than the Patient: EMS: provides initial report. Care significantly affected by the following chronic conditions: Diabetes, Hypertension, Congestive Heart Failure, Chronic Obstructive Pulmonary Disease, Obesity. 17:15 Counseling: I had a detailed discussion with the patient and/or guardian regarding the sd2 historical points, exam findings, and any diagnostic results supporting the discharge/admit diagnosis, lab results, radiology results, the need for outpatient follow up, to return to the emergency department if symptoms worsen or persist or if there are any questions or concerns that arise at home. Refusal of service: The patient/guardian displays adequate decision making capability and despite a detailed discussion of alternatives, benefits, risks, and consequences refuses: Admission to the hospital for further work-up and treatment, CT Scan. ED course: Labs and imaging reviewed and reassuring. pt feeling improved after meclizine and is ambulatory without difficulty. NO focal neuro deficits. She now reports she has a history of vertigo and this feels more similar to her vertigo than her prior strokes. I discussed with her the risk of CVA and need for CTA as well as MRI to rule this out. pt declines further imaging and admission to the hospital at this time after full discussion. She would like to be discharged home and follow up outpatient. Reports she has meclizine at home. . 07/07 14:32 Order name: CBC with Diff; Complete Time: 15:42 sd2 07/07 14:32 Order name: CMP; Complete Time: 15:42 sd2 07/07 14:32 Order name: Magnesium; Complete Time: 15:42 sd2 07/07 14:32 Order name: Troponin High Sensitivity; Complete Time: 15:42 sd2 07/07 14:32 Order name: Protime (+inr); Complete Time: 15:42 sd2 07/07 14:32 Order name: Ptt, Activated; Complete Time: 15:42 sd2 07/07 14:32 Order name: Urinalysis w/ reflexes; Complete Time: 15:51 sd2 07/07 14:38 Order name: Glucose, Ancillary Testing; Complete Time: 15:42 EDMS 07/07 14:32 Order name: CT Head Brain wo Cont; Complete Time: 15:42 sd2 07/07 14:32 Order name: XRAY Chest (1 view); Complete Time: 16:12 sd2 07/07 14:32 Order name: EKG - Nurse/Tech; Complete Time: 14:59 sd2 07/07 14:32 Order name: Accucheck; Complete Time: 14:56 07/07 14:32 Order name: Cardiac monitoring; Complete Time: 14:56 07/07 14:32 Order name: EKG - Nurse/Tech; Complete Time: 14:56 07/07 14:32 Order name: IV Saline Lock; Complete Time: 14:56 07/07 14:32 Order name: Labs collected and sent; Complete Time: 14:56 07/07 14:32 Order name: NPO; Complete Time: 14:38 07/07 14:32 Order name: O2 Per Protocol; Complete Time: 14:38 07/07 14:32 Order name: O2 Sat Monitoring; Complete Time: 14:38 07/07 14:32 Order name: Stroke Swallow Screen; Complete Time: 14:56 sd2 Administered Medications: 14:57 Drug: Meclizine PO 25 mg PO once Route: PO; kc6 17:35 Follow up: Response: No adverse reaction kc6 Disposition Summary: 07/07/24 17:17 Discharge Ordered Problem: new sd2 Symptoms: have improved sd2 Condition: Stable sd2 Diagnosis - Dizziness and giddiness sd2 - Other peripheral vertigo sd2 Followup: sd2 - With: Private Physician - When: 2 - 3 days - Reason: Recheck today's complaints, Continuance of care, Re-evaluation by your physician Discharge Instructions: - Discharge Summary Sheet sd2 - Dizziness sd2 - Vertigo sd2 Forms: - Medication Reconciliation Form sd2 - Antibiotic Education sd2 - Prescription Opioid Use sd2 - Patient Portal Instructions sd2 - Leadership Thank You Letter sd2 Signatures: Dispatcher [employer] Ting Hernandez RN PAULA iw Becky Ulloa MD MD sd2 Michela Wiley RN RN kc6 Corrections: (The following items were deleted from the chart) 14:32 14:32 CBC+H.LAB.BRZ ordered. EDMS EDMS 14:32 14:32 COMPREHENSIVE METABOLIC PANEL+C.LAB.BRZ ordered. EDMS EDMS 14:32 14:32 MAGNESIUM+C.LAB.BRZ ordered. EDMS EDMS 14:32 14:32 Troponin High Sensitivity+C.LAB.BRZ ordered. EDMS EDMS 14:32 14:32 PROTIME (+INR)+COAG.LAB.BRZ ordered. EDMS EDMS 14: 14:32 PTT, ACTIVATED+COAG.LAB.BRZ ordered. EDMS EDMS 14: 14:32 Urinalysis+U.LAB.BRZ ordered. EDMS EDMS 14: 14:33 Head Brain Wo Cont+CT.RAD.BRZ ordered. EDMS EDMS 14: 14:33 Chest Single View+RAD.RAD.BRZ ordered. EDMS EDMS
[2024-07-07 17:52] VITALS: TEMP 97.5
[2024-07-07 18:04] VITALS: BP 96/70; O2SAT 99
--- NOTE | 2024-07-08 12:18 | EKG ---
Test Date: 2024-07-07 Test Time: 14:45:31 Dishing Machine Operator: ROBERTO CARLOS MEASUREMENT RESULTS: Intervals: Rate: 87 GA: 220 QRSD: 84 QT: 378 QTc: 454 [place]: P: 82 GA: 220 QRS: 70 T: 66 INTERPRETIVE STATEMENTS: Sinus rhythm with 1st degree AV block Otherwise normal ECG Compared to ECG 05/02/2024 20:12:58 First degree AV block now present Myocardial infarct finding no longer present Electronically Signed On 07-08-24 12:16:34 CDT by Eduar Angulo
== END 2024-07-07 17:35 | disposition home or self-care (01) ==
LOC: ER 14:12
DX: H81.399 Other peripheral vertigo, unspecified ear (principal); I10 Essential (primary) hypertension; E11.9 Type 2 diabetes mellitus without complications; J44.9 Chronic obstructive pulmonary disease, unspecified; E78.5 Hyperlipidemia, unspecified; E03.9 Hypothyroidism, unspecified; F17.210 Nicotine dependence, cigarettes, uncomplicated; Z88.5 Allergy status to narcotic agent; Z88.8 Allergy status to other drugs, medicaments and biological substances
CPT/HCPCS: 93005; 85025; 81001; 36415; 83735; 85610; 82947; 85730; 84484; 80053; 70450; 71045; 51702; 99285; J8597